=== PATIENT | male | born 1960 | race African-American/Black ===

== ENCOUNTER 2022-01-01 14:27 | Outpatient (REF) | payer OTHER, SELFPAY ==
[2022-01-01 14:54] LABS: MANUAL DIFF FLAG NO
[2022-01-01 15:04] LABS: Basophils Percent Auto 1.3 % (0-2); Eosinophils Absolute Auto 0.1 X10*3/uL (0.0-0.4); Hematocrit 42.2 % (42.0-52.0); Hemoglobin 14.1 g/dl (14.0-18.0); Imm Gran Abs Auto 0.01 X10*3/uL (0.00-0.03); Imm Gran Pct Auto 0.3 % (0.0-0.4); Lymphocytes Absolute Auto 1.2 X10*3/uL (1.2-4.9); Lymphocytes Percent Auto 40.3 % (20-40); Mean Corpuscular HGB Conc 33.4 g/dl (31.0-36.0); Mean Corpuscular Hemoglobin 27.6 pg (27.0-33.0); Mean Corpuscular Volume 82.7 fL (80.0-98.0); Mean Platelet Volume 10.5 fL (9.4-12.4); Monocytes Absolute Auto 0.4 X10*3/uL (0.1-1.2); Monocytes Percent Auto 13.4 % (2-11); Neutrophils Absolute Auto 1.2 x10*3/uL (2.0-8.3); Neutrophils Percent Auto 41.7 % (45-73); Platelet Count 267 X10*3/uL (160-400); Red Cell Distribution Width 14.1 % (11.0-16.0)
[2022-01-01 15:44] LABS: Erythrocyte Sedimentation Rate 11 MM/HR (0-15)
[2022-01-03 14:47] LABS: IgA 198 mg/dL (70-320); IgG 1310 mg/dL (600-1540); IgM 25 mg/dL (50-300)
[2022-01-06 12:35] LABS: Rast Allergen SEE COMMENTS
== END 2022-01-01 14:28 | disposition home or self-care (01) ==
LOC: HO.LAB 14:27
PROVIDERS: PCP Internal Medicine; Visit Provider Hospitalist
DX: J45.909 Unspecified asthma, uncomplicated (principal); Z91.09 Other allergy status, other than to drugs and biological substances
CPT/HCPCS: 36415; 82784; 82785; 85025; 85652; 86003

== ENCOUNTER 2022-01-23 10:05 | Outpatient (REF) | payer OTHER, SELFPAY ==
--- NOTE | 2022-01-23 11:15 | PFT_ITS ---
INDICATION: Dyspnea. SPIROMETRY: FEV1 to FVC of 90% with an FEV1 of 3.13 L, which is 115% predicted and an FVC of 3.49 L, which is 99% predicted. No significant response to bronchodilators noted. Maximum voluntary ventilation 88% predicted. LUNG VOLUMES: Total lung capacity 82% predicted with a residual volume 81% predicted. The expiratory reserve volume 47% predicted. DIFFUSION CAPACITY: DLCO 97% predicted. The flow volume loop appears to be completely normal consistent with normal lung mechanics. COMPARISONS: None. INTERPRETATION: No obstructive or restrictive ventilatory defects identified. No significant response to bronchodilators noted. Normal maximum voluntary ventilation. Lung volumes are low normal and a decrease in the expiratory reserve volume secondary to an elevated BMI. Diffusion capacity is within normal limits. If asthma is in the differential, methacholine challenge may be helpful in assessing for hyper-reactive airways. Otherwise clinical correlation warranted. Eleazar Real MD MR/MODL / [id number]
== END 2022-01-23 10:06 | disposition home or self-care (01) ==
LOC: HO.RESP 10:05
PROVIDERS: PCP Internal Medicine; Visit Provider Hospitalist
DX: J45.909 Unspecified asthma, uncomplicated (principal); G47.33 Obstructive sleep apnea (adult) (pediatric)
CPT/HCPCS: 94060; 94727; 94729

== ENCOUNTER → 2022-03-13 09:57 | Outpatient (BNVA) | payer OTHER, SELFPAY | PROVIDERS: PCP Internal Medicine; Visit Provider Hospitalist | DX: J45.909 Unspecified asthma, uncomplicated (principal); R60.0 Localized edema ==

== ENCOUNTER → 2022-07-04 10:33 | Outpatient (BNVA) | payer OTHER, SELFPAY | PROVIDERS: PCP Internal Medicine; Visit Provider Hospitalist ==

== ENCOUNTER 2022-10-24 13:24 | Outpatient (AMB) | payer OTHER, SELFPAY ==
--- NOTE | 2022-10-24 13:46 | AM.OFFWIN_ITS ---
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 Patient Tobacco Use Status: Never used Tobacco Allergies Penicillins Adverse Reaction (Severe, Verified 10/24/22 14:08) Anxiety pineapple Adverse Reaction (Severe, Verified 10/24/22 14:08) swellling Medication List - Last Reconciled 10/24/22 by Jose Almaraz MD albuterol sulfate 90 mcg/actuation (ProAir HFA) 2 puffs inhalation Q4-6H PRN alprazolam (Xanax) 0.5 mg PO DAILY amlodipine 10 mg PO DAILY budesonide-formoterol 80-4.5 mcg/actuation (Symbicort) 2 puffs inhalation BID PRN mohamud.stocking,knee,reg,xlrg 15-20 cm meloxicam 15 mg PO DAILY omeprazole 20 mg PO DAILY sildenafil 50 mg PO DAILY PRN Do you need a note to return to daycare/school/sports/work: No 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 Patient is reporting headaches on the right side of the face. He had symptoms for the past week. Went into the emergency room at [facility] and had a CT scan in blood work done. All tests were unremarkable. Blood pressure medications he takes and his blood pressure has been fluctuating. No blurred vision, nausea or vomiting. [facility] Medical History (Updated 10/24/22 @ 14:09 by Jose Almaraz MD) Atelectasis GERD (gastroesophageal reflux disease) ZOE (obstructive sleep apnea) Extremity edema Asthma Social History (Updated 01/01/22 @ 13:46 by OLIVER Barrett) Patient Tobacco Use Status: Never used Tobacco Physical Exam Vital Signs: Last Vital Signs Pulse 71 10/24/22 13:49 BP 140/90 H 10/24/22 13:49 Pulse Ox 98 10/24/22 13:49 Oxygen Delivery Method Room Air 10/24/22 13:49 Const General: cooperative and healthy appearing Nutritional Appearance: well nourished Orientation/consciousness: patient oriented x3 Limitations: no limitations HEENT Head: Yes normal to inspection Eyes General: appearance normal, both eyes and all related structures Neck Neck: Yes normal visual inspection Chest Chest palpation & inspection: normal palpation of entire chest wall Resp Effort & Inspection: normal respiratory effort Neuro General: patient oriented x3 Assessment & Plan Assessment & Plan (1) Headache: Code(s): R51.9 - Headache, unspecified Qualifiers: Headache type: tension-type Headache chronicity pattern: episodic headache Intractability: not intractable Qualified Code(s): G44.219 - Episodic tension-type headache, not intractable Plan: Meloxicam added to the regimen. Continue blood pressure medications at the same dosage. Medications: New meloxicam 15 mg PO DAILY 14 tabs 0RF Coding Level of Care Code New Pt Level 3 (11638) Diagnoses Episodic tension-type headache, not intractable G44.219 Headache type: tension-type Headache chronicity pattern: episodic headache Intractability: not intractable
[2022-10-24 13:49] VITALS: BP 140/90; PULSE 71; O2SAT 98
== END 2022-10-24 14:43 | disposition home or self-care (01) ==
PROVIDERS: PCP Internal Medicine; Visit Provider Internal Medicine
DX: G44.219 Episodic tension-type headache, not intractable (principal)
CPT/HCPCS: 99203

== ENCOUNTER 2023-02-27 09:19 | Outpatient (AMB) | payer OTHER, SELFPAY ==
[2023-02-27 09:30] VITALS: BP 142/70; PULSE 71; O2SAT 99; BMI 34.7
--- NOTE | 2023-02-27 09:30 | A.OFFVIS_ITS ---
Intake Vital Signs 02/27/23 09:30 Height 5 ft 11 in Weight 249 lb BMI 34.7 BP 142/70 H Blood Pressure Location Rt brachial Position Sitting Pulse 71 Pulse Source Pulse Oximeter Pulse Oximetry (%) 99 Oxygen Delivery Method Room Air Intake Visit Reasons: Obstructive sleep apnea Allergies Penicillins Adverse Reaction (Severe, Verified 02/27/23 09:33) Anxiety pineapple Adverse Reaction (Severe, Verified 02/27/23 09:33) swellling HPI HPI Comments History of Present Illness Details The patient is a 62-year-old gentleman who was in his usual state health until back early 2019 when he developed severe COVID. He was hospit alized and nearly intubated for his respiratory failure. The patient subsequently discharged. He did not require oxygen. Although he started noticing some increasing shortness of breath and chest tightness. He continues to have an ongoing intermittent cough and usually congestion at nighttime. He does have rhonchi at nighttime. He has undergone imaging studies including a chest x-ray in June 2021 at [facility] [place] demonstrating bibasilar atelectasis. The patient was given inhaler, Symbicort. He does not use it regularly. He has not seen any significant improvement either. He is also being evaluated for his underlying cardiovascular risk factors. He was found to have elevated cholesterols and also found to be pre diabetic. He is currently working on his diet and also on his exercise to improve his health. In the meantime the patient does have underlying daytime drowsiness. He has an elevated [place] score of 10/24. The patient does have episodes of apnea that have been documented in waking up short of breath. The patient also has significant snoring. In addition to that he does have underlying reflux disease. She does take a PPI and he has been educated today about the reflux diet. Otherwise the patient is doing well he is trying to improve his overall health status. 03/13/2022 the patient is here for a pulm onary follow-up visit. The patient overall is doing well. He is trying to exercise more any healthy. He is very motivated at this time. He has already lost a good amount of weight. The patient did undergo the blood work again demonstrating some degree of leukopenia. Mainly neutropenia. Apparently he has had blood work in the past demonstrating the similar findings. He is scheduled to see a irrigation equipment mechanic on her in addition to that the blood work demonstrated low IgM level. Explained to him that this can result in further immunodeficiencies went finding off a new infection. However, this is only a mild decrease. The patient also underwent pulmonary function studies which were reassuring although a low normal total lung capacity. The patient continues to have daytime drowsiness [place] score still elevated 11/04. He did undergo home sleep study which I personally reviewed with him. He has an AHI of 10. He also has significant tachycardia and significant hypoxia demonstrating some cardiovascular stress during his sleep. Patient needs to start CPAP therapy. He already has cardiovascular risk factors. Once he situated on CPAP will consider doing an overnight oximetry to make sure that he is doing better. 07/04/2022 the patient is here for a pulm onary follow-up visit. The patient overall is doing a lot better. He continues to exercise regularly and he has lost about 40 lb. He is very motivated. There was a little scared about tuberculosis with a positive PPD but then his QuantiFERON test came back negative for tuberculosis. He also had a chest x-ray which I personally reviewe d with him demonstrating no acute disease. The patient is doing well with CPAP. The CPAP therapy continues to be affecting beneficial. He does have a nasal mask that sometimes leaks around the mask difficult to get a good seal. I did have a P 10 large mask that he did put on and he liked. Therefore he took at home. I will request that mask from his [employer] company at this time. Overall the patient is doing well from a respiratory status. He knows to uses singular seasonally. The Symbicort he has not been using regularly but he can use it as needed. The patient will follow-up in a year's time. 02/27/2023 the patient is here for a pulm onary follow-up visit. The patient is doing very well. He has been using the CPAP every night CPAP therapy continues to be affecting beneficial. His AHI is down to 0.3 as we download the data. He does use it for more than 4 hours a night. Still is is hard for him to tolerate the therapy every night. Sometimes is wondering if he is going to need to uses therapy for ever. We did talk about alternative therapies. We also looked at his sleep study and he does well with positional therapy. If he is also decide to do positional therapy will do an overnight oximetry to make sure that his oxygen and heart rate continued to be stable. He is also lost 40 lb in +and therefore this also help him decrease his degree of apneic episodes. Still th ough he understands that the CPAP therapy is the goal standard he does very well with the therapy. Therefore, continue the CPAP therapy will be the best option. As far as dyspnea he is exercising regularly. We did do a brief walking oximetry up the stairs in his heart rate became elevated up to 130. Once the heart rate increased to about 125 he did became dyspneic. Therefore, when he exercises will try to continue the heart rate in the exercise to maintain a pulse ox just below the threshold. [facility] Medical History (Updated 02/27/23 @ 22:28 by Eleazar Real MD) Atelectasis GERD (gastroesophageal reflux disease) ZOE (obstructive sleep apnea) Extremity edema Asthma Social History (Updated 01/01/22 @ 13:46 by Hannah Garcia [facility]) Patient Tobacco Use Status: Never used Tobacco Review of Systems Const Denies daytime sleepiness, Denies difficulty sleeping and Reports weight loss Eyes Denies change in vision ENT Denies change in voice, Reports nasal congestion and Reports nasal discharge Card Denies chest pain and Denies dyspnea on exertion Resp Denies chest congestion, Reports cough, Denies dyspnea on exertion and Denies wheezing GI Denies abdominal pain Musc Reports no additional complaints Skin/Breast Denies rash Neuro Reports no additional complaints Rivera/Lymph Denies easy bleeding and Denies easy bruising Aller/Immun Denies wheezing Physical Exam Vital Signs: Last Vital Signs Pulse 71 02/27/23 09:30 BP 142/70 H 02/27/23 09:30 Pulse Ox 99 02/27/23 09:30 Oxygen Delivery Method Room Air 02/27/23 09:30 BMI result Body Mass Index 34.7 Const General: comfortable HEENT Head: Yes atraumatic Eyes General: appearance normal, both eyes and all related structures Neck Neck: Yes trachea midline and Yes supple Chest Chest palpation & inspection: normal inspection of the chest Resp Effort & Inspection: normal respiratory effort Auscultation: clear to auscultation bilaterally Cardio Rate: regular rate Rhythm: regular rhythm Heart sounds: S1 normal heart sound present and S2 normal heart sound present GI Auscultation: normal bowel sounds Skin Rashes: no rashes Extrem General: No clubbing, No cyanosis and Yes edema Assessment & Plan Assessment & Plan (1) ZOE (obstructive sleep apnea): Code(s): G47.33 - Obstructive sleep apnea (adult) (pediatric) (2) Asthma: Code(s): J45.909 - Unspecified asthma, uncomplicated Qualifiers: Asthma severity: mild Asthma persistence: intermittent Asthma complication type: uncomplicated Qualified Code(s): J45.20 - Mild intermittent asthma, uncomplicated (3) GERD (gastroesophageal reflux disease): Code(s): K21.9 - Gastro-esophageal reflux disease without esophagitis Qualifiers: Esophagitis presence: without esophagitis Qualified Code(s): K21.9 - Gastro-esophageal reflux disease without esophagitis (4) Atelectasis: Code(s): J98.11 - Atelectasis Plan continue symbicort as needed continue Singulair reflux diet continue APAP, will request p10 large nasal pillows. AHI is 0.3. Should continue to use the CPAP. otherwise he can consider positional therapy consider overnight oximetry if decides to do positional therapy F/U 12 months Coding Level of Care Code Est Pt Level 4 (44964) Diagnoses ZOE (obstructive sleep apnea) G47.33 Mild intermittent asthma without complication J45.20 Asthma severity: mild Asthma persistence: intermittent Asthma complication type: uncomplicated Gastroesophageal reflux disease without esophagitis K21.9 Esophagitis presence: without esophagitis Atelectasis J98.11 Time Spent (min) 17
== END 2023-02-27 09:55 | disposition home or self-care (01) ==
PROVIDERS: PCP Internal Medicine; Visit Provider Hospitalist
DX: G47.33 Obstructive sleep apnea (adult) (pediatric) (principal); J45.20 Mild intermittent asthma, uncomplicated; K21.9 Gastro-esophageal reflux disease without esophagitis; J98.11 Atelectasis
CPT/HCPCS: 99214

== ENCOUNTER → 2023-02-27 09:19 | Outpatient (BNVA) | payer OTHER, SELFPAY | PROVIDERS: PCP Internal Medicine; Visit Provider Hospitalist ==

== ENCOUNTER 2023-05-13 13:36 | Outpatient (AMB) | payer OTHER, SELFPAY ==
[2023-05-13 14:07] VITALS: BP 132/78; PULSE 72; O2SAT 98; BMI 33.8
--- NOTE | 2023-05-13 14:07 | A.OFFPC_ITS ---
Vital Signs 05/13/23 14:07 Height 5 ft 11 in Weight 242 lb 0.4 oz BMI 33.8 BP 132/78 Blood Pressure Location Rt brachial Position Sitting Pulse 72 Pulse Source Pulse Oximeter Pulse Oximetry (%) 98 Oxygen Delivery Method Room Air Intake Visit Reasons: New patient-High BP, Asthma Optometry Doctor Required: No Allergies Penicillins Adverse Reaction (Severe, Verified 05/13/23 14:08) Anxiety pineapple Adverse Reaction (Severe, Verified 05/13/23 14:08) swellling Medication List - Last Reconciled 05/13/23 by José Miguel Espinoza MD albuterol sulfate 90 mcg/actuation (ProAir HFA) 2 puffs inhalation Q4-6H PRN alprazolam (Xanax) 0.5 mg PO DAILY amlodipine 10 mg PO DAILY budesonide-formoterol 80-4.5 mcg/actuation (Symbicort) 2 puffs inhalation BID PRN mohamud.stocking,knee,reg,xlrg 15-20 cm olmesartan 20 mg PO DAILY omeprazole 20 mg PO DAILY sildenafil 50 mg PO DAILY PRN Tobacco use date assessed: 05/13/23 Dental Screening Dental Screen Date: 05/13/23 Did you have a dental visit in the last 12 months?: Yes Did you have a dental problem in the last 6 months where you did not have access to dental care?: No Was dental information given to patient?: Patient has dentist HPI New patient-High BP, Asthma HPI Details 62-year-old obese male with a history of asthma sleep apnea GERD 1st time being seen. Review of the notes follows up with Pulmonary had an overnight oximetry has hypoxemic events and needs further sleep testing. From pulmonary notes 2020 had severe COVID. Patient was placed on Symbicort but has not used it found to be hypercholesterolemia and prediabetic. Has sleep apnea and on CPAP [facility] Medical History (Updated 05/13/23 @ 14:57 by José Miguel Espinoza MD) Atelectasis GERD (gastroesophageal reflux disease) ZOE (obstructive sleep apnea) Extremity edema Asthma Surgical History (Updated 05/13/23 @ 14:43 by José Miguel Espinoza MD) History of knee replacement procedure of left knee Social History (Updated 05/13/23 @ 14:45 by José Miguel Espinoza MD) Alcohol intake: never Patient Tobacco Use Status: Former Tobacco user Years Smoked: 12 year old not a year service: Yes ([employer] [id number] ) Current occupational status: retired Cognitive needs: No Hearing needs: No Vision needs: No Questionnaire PHQ-9 Over the last 2 weeks, how often have you been bothered by any of the following problems? 1. Little interest or pleasure in doing things: not at all 2. Feeling down, depressed, or hopeless: not at all 3. Trouble falling or staying asleep, or sleeping too much: not at all 4. Feeling tired or having little energy: not at all 5. Poor appetite or overeating: not at all 6. Feeling bad about yourself - or that you are a failure or have let yourself or your family down: not at all 7. Trouble concentrating on things, such as reading the newspaper or watching television: not at all 8. Moving or speaking so slowly that other people could have noticed. Or the opposite - being so fidgety or restless that you have been moving around a lot more than usual: not at all 9. Thoughts that you would be better off or of hurting yourself in some way: not at all Total score: 0 Depression Screening Interpretation: Negative Depression Screening Done: Yes 34651 - PHQ-9 Billing: Yes Source: Developed by Drs. David Jeong, Jo Whitney, Cristofer Meyer and colleagues, with an educational esther from [employer]. Thrive Questionnaire Date Thrive assessed: 05/13/23 I am a: Patient What is your living situation today?: I have a steady place to live Within the past 12 months, did the food you bought not last and you didn't have the money to get more?: Never true Within the past 12 months, did you worry whether your food would run out before you got money to buy more?: Never true Do you have trouble paying for medicines?: No Do you have trouble getting transportation to medical appointments?: No Do you have trouble paying your heating and electricity bill?: No Do you have trouble taking care of your child, family member or friend?: No Do you have trouble with day-to-day activities such as bathing, preparing meals, shopping, managing finances, etc.?: No Are you currently unemployed and looking for a job?: No Are you interested in more education?: No Please select the resources that you would like help with: None Currently or been in a relationship where the following occur: no concerns reported THRIVE Score: 0 AUDIT C Alcohol Use Questionnaire (AUDIT-C) 1. How often do you have a drink containing alcohol?: Never 2. How many drinks containing alcohol do you have on a typical day when you are drinking?: 1 or 2 (0) 3. How often do you have six or more drinks on one occasion?: Never Total Score: 0 ALISON-7 AMB Questionnaire ALISON-7 Date ALISON - 7 assessed: 05/13/23 Feeling nervous, anxious, or on edge: 0 = Not at all Not being able to stop or control worryin = Not at all Worrying too much about different things: 0 = Not at all Trouble relaxin = Not at all Being so restless that it is hard to sit still: 0 = Not at all Becoming easily annoyed or irritable: 0 = Not at all Feeling afraid as if something awful might happen: 0 = Not at all Total ALISON-7 score (0-4 normal; 5-9 mild; 10-14 moderate; 15-21 severe): 0 Source: Developed by Drs. David Jeong, Jo Whitney, Cristofer Meyer and colleagues, with an educational esther from [employer]. ALISON-7 Assessment Billing ALISON-7 Assessment Tool: ALISON-7 Assessment 53596 Physical exam (Primary Care) Vital Signs: Last Vital Signs Pulse 72 05/13/23 14:07 BP 132/78 05/13/23 14:07 Pulse Ox 98 05/13/23 14:07 Oxygen Delivery Method Room Air 05/13/23 14:07 BMI result Body Mass Index 33.8 Tobacco/Smoking Status: Tobacco use Status Tobacco use date assessed 05/13/23 05/13/23 14:15 Patient Tobacco Use Status Former Tobacco user 05/13/23 14:45 PHQ-9: PHQ-9 Score PHQ-9: Total score 0 05/13/23 14:35 Depression Screening Interpretation: Negative Thrive Assessment: Date of Thrive Assessment Date Thrive assessed 05/13/23 05/13/23 14:15 Currently or been in a relationship where the following occur: no concerns reported Const General: alert; No acute distress Eyes Conjunctivae: conjunctivae normal Resp Auscultation: clear to auscultation bilaterally Cardio Rate: regular rate Rhythm: regular rhythm GI Inspection: Yes normal to inspection Extrem General: Yes normal to inspection and No edema Assessment and Plan Assessment & Plan (1) Asthma: Code(s): J45.909 - Unspecified asthma, uncomplicated Qualifiers: Asthma complication type: uncomplicated Asthma persistence: intermittent Asthma severity: mild Qualified Code(s): J45.20 - Mild intermittent asthma, uncomplicated Plan: Continue with Symbicort and ProAir and follows up with Pulmonary (2) ZOE (obstructive sleep apnea): Comment: CPAP Code(s): G47.33 - Obstructive sleep apnea (adult) (pediatric) Plan: Continue to use the CPAP more than 4 hours a night and benefits from this. Patient does follow-up with Pulmonary (3) GERD (gastroesophageal reflux disease): Code(s): K21.9 - Gastro-esophageal reflux disease without esophagitis Qualifiers: Esophagitis presence: without esophagitis Qualified Code(s): K21.9 - Gastro-esophageal reflux disease without esophagitis Plan: Avoid the foods that causes that usually spicy foods, tomato products, juices, coffee, soda and foods that your sensitive to. After eating do not lie down, allow 3-4 hours before in lie down. And keep the head of bed above 30 degrees to avoid the acid from going up. (4) Impaired glucose tolerance: Code(s): R73.02 - Impaired glucose tolerance (oral) Plan: Decrease the amount of carbohydrate intake, pasta, bread, rice and potatoes are all sugar and that is aside from all the sweet stuff, remember that fruits are good but they are Sweet also. (5) Hypercholesterolemia: Code(s): E78.00 - Pure hypercholesterolemia, unspecified Plan: Avoid fried foods, chicken skin, eggs, butter margarine, pastries and meat. Be it pork or beef they have a lot of cholesterol LDL goal of less than 130 triglyceride of less than 150 (6) Obesity (BMI 30-39.9): Code(s): E66.9 - Obesity, unspecified Plan: Diet and exercise (7) Hypertension: Code(s): I10 - Essential (primary) hypertension Plan: Continue with blood pressure medication. Decrease salt intake and exercise presently on amlodipine 10 mg once a day olmesartan 20 mg once a day (8) Generalized anxiety disorder: Code(s): F41.1 - Generalized anxiety disorder (9) Frequency of micturition: Code(s): R35.0 - Frequency of micturition (10) Erectile dysfunction: Code(s): N52.9 - Male erectile dysfunction, unspecified Orders: Orders Hemoglobin A1c Today R73.02 - Impaired glucose tolerance (oral) Comprehensive Met. Panel Today R73.02 - Impaired glucose tolerance (oral) Free T4 (Free Thyroxine) Today R73.02 - Impaired glucose tolerance (oral) Complete Blood Count Auto Diff Today R73.02 - Impaired glucose tolerance (oral) Lipid Panel Today E78.00 - Pure hypercholesterolemia, unspecified, R73.02 - Impaired glucose tolerance (oral) Thyroid Stimulating Hormone Today R73.02 - Impaired glucose tolerance (oral) Vitamin B12 and Folate Today R73.02 - Impaired glucose tolerance (oral) Prostate Specific Antigen Scr Today R73.02 - Impaired glucose tolerance (oral) US bladder Today R35.0 - Frequency of micturition Medications: New psyllium husk mix into at least 8 oz of water or juice before administering 1 tbsp PO BID 480 grams 0RF R35.0 - Frequency of micturition Coding Level of Care Code New Pt Level 4 (74363) Diagnoses Mild intermittent asthma without complication J45.20 Asthma complication type: uncomplicated Asthma persistence: intermittent Asthma severity: mild ZOE (obstructive sleep apnea) G47.33 Gastroesophageal reflux disease without esophagitis K21.9 Esophagitis presence: without esophagitis Impaired glucose tolerance R73.02 Hypercholesterolemia E78.00 Obesity (BMI 30-39.9) E66.9 Hypertension I10 Generalized anxiety disorder F41.1 Frequency of micturition R35.0 Erectile dysfunction N52.9 Additional Codes ALISON-7 Assessment Billing - ALISON-7 Assessment Tool: ALISON-7 Assessment [id number] ([id number])
== END 2023-05-13 15:33 | disposition home or self-care (01) ==
PROVIDERS: PCP Internal Medicine; Visit Provider Internal Medicine
DX: I10 Essential (primary) hypertension (principal); J45.20 Mild intermittent asthma, uncomplicated; G47.33 Obstructive sleep apnea (adult) (pediatric); K21.9 Gastro-esophageal reflux disease without esophagitis; R73.02 Impaired glucose tolerance (oral); E78.00 Pure hypercholesterolemia, unspecified; F41.1 Generalized anxiety disorder; R35.0 Frequency of micturition; N52.9 Male erectile dysfunction, unspecified
CPT/HCPCS: 99204

== ENCOUNTER 2023-05-22 09:32 | Outpatient (REF) | payer OTHER, SELFPAY ==
--- NOTE | ~2023-05-22 | US_ITS ---
EXAMINATION: US PELVIS LIMITED (BLADDER) CLINICAL INFORMATION: Frequency of micturition. COMPARISON: None available. TECHNIQUE: Real-time imaging of the bladder. FINDINGS: BLADDER: Distended urinary bladder with prevoid volume 411 mL and postvoid volume 112 mL. ADDITIONAL FINDINGS: Enlarged prostate measuring 280 mL. US/US bladder IMPRESSION: Enlarged prostate. Distended urinary bladder with post void residual of 112 mL.
[2023-05-22 10:37] LABS: MANUAL DIFF FLAG NO
[2023-05-22 10:46] LABS: Basophils Absolute Auto 0.1 X10*3/uL (0.0-0.2); Basophils Percent Auto 1.8 % (0-2); Eosinophils Absolute Auto 0.2 X10*3/uL (0.0-0.4); Eosinophils Percent Auto 5.4 % (0-4); Hematocrit 41.8 % (42.0-52.0); Hemoglobin 13.8 g/dl (14.0-18.0); Imm Gran Abs Auto 0.01 X10*3/uL (0.00-0.03); Imm Gran Pct Auto 0.4 % (0.0-0.4); Lymphocytes Absolute Auto 1.1 X10*3/uL (1.2-4.9); Lymphocytes Percent Auto 40.6 % (20-40); Mean Corpuscular Hemoglobin 28.3 pg (27.0-33.0); Mean Corpuscular Volume 85.7 fL (80.0-98.0); Mean Platelet Volume 10.7 fL (9.4-12.4); Monocytes Absolute Auto 0.4 X10*3/uL (0.1-1.2); Monocytes Percent Auto 15.6 % (2-11); Neutrophils Percent Auto 36.2 % (45-73); Platelet Count 232 X10*3/uL (160-400); Red Blood Count 4.88 X10*6/uL (4.60-5.80); Red Cell Distribution Width 13.3 % (11.0-16.0); White Blood Count 2.8 X10*3/uL (4.8-10.8)
[2023-05-22 11:38] LABS: Estimated Average Glucose 100 mg/dL; Hemoglobin A1c % 5.1 % (<6.0)
[2023-05-22 11:51] LABS: Alanine Aminotransferase 22 U/L (0-40); Alkaline Phosphatase 95 U/L (39-117); Anion Gap 12 (12-20); Aspartate Amino Transferase 34 U/L (5-37); Bilirubin Total 0.5 mg/dL (0.0-1.0); Blood Urea Nitrogen 13 mg/dL (9-16); Calcium 8.6 mg/dL (8.4-10.2); Carbon Dioxide 28 mmol/L (22-29); Chloride 103 mmol/L (96-108); Cholesterol 188 mg/dL (<200); Estimated Glomerular Filt Rate > 60; Glucose Random 87 mg/dL (60-115); HDL Cholesterol 47 mg/dL (>40); LDL Cholesterol Calculated 128 mg/dL (<100); Potassium 3.9 mmol/L (3.3-5.1); Sodium 139 mmol/L (135-145); Triglycerides 68 mg/dL (<150)
[2023-05-22 13:56] LABS: Folate 6.8 ng/mL (> or = 4.0); Prostate Specific Antigen Scr 0.81 ng/mL (<0.05-4.0)
[2023-05-22 19:54] LABS: Vitamin B12 270 pg/mL (200-900)
== END 2023-05-22 09:33 | disposition home or self-care (01) ==
LOC: HO.HMGCX 09:32
PROVIDERS: PCP Internal Medicine; Visit Provider Internal Medicine
DX: Z12.5 Encounter for screening for malignant neoplasm of prostate (principal); R35.0 Frequency of micturition; R73.02 Impaired glucose tolerance (oral); E78.00 Pure hypercholesterolemia, unspecified
CPT/HCPCS: 36415; 76857; 80053; 80061; 82607; 82746; 83036; 84153; 84439; 84443; 85025

== ENCOUNTER 2023-06-10 15:24 | Outpatient (AMB) | payer OTHER, SELFPAY ==
[2023-06-10 16:12] VITALS: BP 140/84; PULSE 74; TEMP 36.6; O2SAT 98; BMI 34.0
--- NOTE | 2023-06-10 16:12 | AM.OFFWIN_ITS ---
Intake Vital Signs 06/10/23 16:12 Height 5 ft 11 in Weight 244 lb BMI 34.0 BP 140/84 H Blood Pressure Location Lt brachial Position Sitting Pulse 74 Pulse Source Pulse Oximeter Temp 97.9 F Temp Source Temporal Artery Scan Pulse Oximetry (%) 98 Oxygen Delivery Method Room Air Intake Visit Reasons: EP Runny nose, itchy skin, Sore throat Intake Note: Pt presents to the office today for c/o runny nose,itchy skin, and a sore throat that has been going on for about a week. Patient Tobacco Use Status: Former Tobacco user Allergies Penicillins Adverse Reaction (Severe, Verified 06/10/23 16:41) Anxiety pineapple Adverse Reaction (Severe, Verified 06/10/23 16:41) swellling Medication List - Last Reconciled 06/10/23 by Jose Almaraz MD albuterol sulfate 90 mcg/actuation (Proventil HFA) 2 puffs inhalation Q4-6H PRN alprazolam (Xanax) 0.5 mg PO DAILY amlodipine 10 mg PO DAILY budesonide-formoterol 80-4.5 mcg/actuation (Symbicort) 2 puffs inhalation BID PRN mohamud.stocking,knee,reg,xlrg 15-20 cm olmesartan 20 mg PO DAILY omeprazole 20 mg PO DAILY psyllium husk 1 tbsp PO BID sildenafil 50 mg PO DAILY PRN tamsulosin 0.4 mg PO BEDTIME HPI EP Runny nose, itchy skin, Sore throat HPI Details 62 yr old male presents to the office fo r a sick visit. Itchy skin and scratching all over the body. Running nose and burning sensation in the eyes and throat. No shortness of breath. No fevers or chills. [facility] Medical History Atelectasis GERD (gastroesophageal reflux disease) ZOE (obstructive sleep apnea) Extremity edema Asthma Surgical History History of knee replacement procedure of left knee Social History Alcohol intake: never Patient Tobacco Use Status: Former Tobacco user Years Smoked: 12 year old not a year service: Yes ([employer] [id number] ) Current occupational status: retired Cognitive needs: No Hearing needs: No Vision needs: No Physical Exam Vital Signs: Last Vital Signs Temp 97.9 F 06/10/23 16:12 Pulse 74 06/10/23 16:12 BP 140/84 H 06/10/23 16:12 Pulse Ox 98 06/10/23 16:12 Oxygen Delivery Method Room Air 06/10/23 16:12 BMI result Body Mass Index 34.0 Const General: cooperative and healthy appearing Nutritional Appearance: well nourished Orientation/consciousness: patient oriented x3 Limitations: no limitations HEENT Head: Yes normal to inspection Eyes General: appearance normal, both eyes and all related structures Neck Neck: Yes normal visual inspection Chest Chest palpation & inspection: normal palpation of entire chest wall Resp Effort & Inspection: normal respiratory effort Skin Other: Faint scratch garcia on the skin. Neuro General: patient oriented x3 Assessment & Plan Assessment & Plan (1) Allergies: Code(s): T78.40XA - Allergy, unspecified, initial encounter Plan: Benadryl and claritin suggested. If sx do not improve to follow up here Coding Level of Care Code Est Pt Level 3 (76989) Diagnoses Allergies T78.40XA
== END 2023-06-10 16:45 | disposition home or self-care (01) ==
PROVIDERS: PCP Internal Medicine; Visit Provider Internal Medicine
DX: T78.40XA Allergy, unspecified, initial encounter (principal)
CPT/HCPCS: 99213

== ENCOUNTER 2023-06-17 10:44 | Outpatient (AMB) | payer OTHER, SELFPAY ==
[2023-06-17 10:52] VITALS: PULSE 82; O2SAT 97; BMI 34.3
--- NOTE | 2023-06-17 10:52 | MHC.OFFVIS ---
Vital Signs 06/17/23 10:52 Height 5 ft 11 in Weight 245 lb 13.047 oz BMI 34.3 Pulse 82 Pulse Source Pulse Oximeter Pulse Oximetry (%) 97 Oxygen Delivery Method Room Air Intake Visit Reasons: ZOE Benefits Consulting Analyst Required: No Allergies Penicillins Adverse Reaction (Severe, Verified 06/17/23 10:53) Anxiety pineapple Adverse Reaction (Severe, Verified 06/17/23 10:53) swellling HPI Comments Details: The patient is a 62-year-old gentleman who was in his usual state health until back early 2019 when he developed severe COVID. He was hospitalized and nearly intubated for his respiratory failure. The patient subsequently discharged. He did not require oxygen. Although he started noticing some increasing shortness of breath and chest tightness. He continues to have an ongoing intermittent cough and usually congestion at nighttime. He does have rhonchi at nighttime. He has undergone imaging studies including a chest x-ray in June 2021 at [facility] demonstrating bibasilar atelectasis. The patient was given inhaler, Symbicort. He does not use it regularly. He has not seen any significant improvement either. He is also being evaluated for his underlying cardiovascular risk factors. He was found to have elevated cholesterols and also found to be pre diabetic. He is currently working on his diet and also on his exercise to improve his health. In the meantime the patient does have underlying daytime drowsiness. He has an elevated Bear score of 10/24. The patient does have episodes of apnea that have been documented in waking up short of breath. The patient also has significant snoring. In addition to that he does have underlying reflux disease. She does take a PPI and he has been educated today about the reflux diet. Otherwise the patient is doing well he is trying to improve his overall health status. 03/13/2022 the patient is here for a pulmonary follow-up visit. The patient overall is doing well. He is trying to exercise more any healthy. He is very motivated at this time. He has already lost a good amount of weight. The patient did undergo the blood work again demonstrating some degree of leukopenia. Mainly neutropenia. Apparently he has had blood work in the past demonstrating the similar findings. He is scheduled to see a exhaust emissions automotive technician on her in addition to that the blood work demonstrated low IgM level. Explained to him that this can result in further immunodeficiencies went finding off a new infection. However, this is only a mild decrease. The patient also underwent pulmonary function studies which were reassuring although a low normal total lung capacity. The patient continues to have daytime drowsiness Bear score still elevated 11/04. He did undergo home sleep study which I personally reviewed with him. He has an AHI of 10. He also has significant tachycardia and significant hypoxia demonstrating some cardiovascular stress during his sleep. Patient needs to start CPAP therapy. He already has cardiovascular risk factors. Once he situated on CPAP will consider doing an overnight oximetry to make sure that he is doing better. 07/04/2022 the patient is here for a pulmonary follow-up visit. The patient overall is doing a lot better. He continues to exercise regularly and he has lost about 40 lb. He is very motivated. There was a little scared about tuberculosis with a positive PPD but then his QuantiFERON test came back negative for tuberculosis. He also had a chest x-ray which I personally reviewed with him demonstrating no acute disease. The patient is doing well with CPAP. The CPAP therapy continues to be affecting beneficial. He does have a nasal mask that sometimes leaks around the mask difficult to get a good seal. I did have a P 10 large mask that he did put on and he liked. Therefore he took at home. I will request that mask from his [employer] company at this time. Overall the patient is doing well from a respiratory status. He knows to uses singular seasonally. The Symbicort he has not been using regularly but he can use it as needed. The patient will follow-up in a year's time. 02/27/2023 the patient is here for a pulmonary follow-up visit. The patient is doing very well. He has been using the CPAP every night CPAP therapy continues to be affecting beneficial. His AHI is down to 0.3 as we download the data. He does use it for more than 4 hours a night. Still is is hard for him to tolerate the therapy every night. Sometimes is wondering if he is going to need to uses therapy for ever. We did talk about alternative therapies. We also looked at his sleep study and he does well with positional therapy. If he is also decide to do positional therapy will do an overnight oximetry to make sure that his oxygen and heart rate continued to be stable. He is also lost 40 lb in +and therefore this also help him decrease his degree of apneic episodes. Still though he understands that the CPAP therapy is the goal standard he does very well with the therapy. Therefore, continue the CPAP therapy will be the best option. As far as dyspnea he is exercising regularly. We did do a brief walking oximetry up the stairs in his heart rate became elevated up to 130. Once the heart rate increased to about 125 he did became dyspneic. Therefore, when he exercises will try to continue the heart rate in the exercise to maintain a pulse ox just below the threshold. 06/17/2023 the patient is here for a pulmonary follow-up visit. The patient has been doing very well. His breathing is a lot better he continues exercise regularly. He does have a Symbicort inhaler that he uses as needed. The patient has been also using the CPAP for about 70 time. The therapy has been affecting beneficial. His AHI is well below 1 with does uses CPAP. The patient is without any complaints he is continued to do well continues to stay active exercising regularly. If the patient has any difficulties would call for an earlier assessment otherwise will follow-up in a year's time. [facility] Medical History Atelectasis GERD (gastroesophageal reflux disease) ZOE (obstructive sleep apnea) Extremity edema Asthma Surgical History History of knee replacement procedure of left knee Social History (Updated 06/17/23 @ 10:57 by Eleazar Real MD) Alcohol intake: never Patient Tobacco Use Status: Never used Tobacco e-Cigarette/Vaping Use: Never Used service: Yes ([employer] [id number] ) Current occupational status: retired Cognitive needs: No Hearing needs: No Vision needs: No Review of Systems Const Denies daytime sleepiness, Denies difficulty sleeping and Reports weight loss Eyes Denies change in vision ENT Denies change in voice, Reports nasal congestion and Reports nasal discharge Card Denies chest pain and Denies dyspnea on exertion Resp Denies chest congestion, Reports cough, Denies dyspnea on exertion and Denies wheezing GI Denies abdominal pain Musc Reports no additional complaints Skin/Breast Denies rash Neuro Reports no additional complaints Rivera/Lymph Denies easy bleeding and Denies easy bruising Aller/Immun Denies wheezing Physical Exam Vital Signs: Last Vital Signs Pulse 82 06/17/23 10:52 Pulse Ox 97 06/17/23 10:52 Oxygen Delivery Method Room Air 06/17/23 10:52 BMI result Body Mass Index 34.3 Const General: comfortable HEENT Head: Yes atraumatic Eyes General: appearance normal, both eyes and all related structures Neck Neck: Yes trachea midline and Yes supple Chest Chest palpation & inspection: normal inspection of the chest Resp Effort & Inspection: normal respiratory effort Auscultation: clear to auscultation bilaterally Cardio Rate: regular rate Rhythm: regular rhythm Heart sounds: S1 normal heart sound present and S2 normal heart sound present GI Auscultation: normal bowel sounds Skin Rashes: no rashes Extrem General: No clubbing, No cyanosis and Yes edema Assessment & Plan Assessment & Plan (1) ZOE (obstructive sleep apnea): Comment: CPAP Code(s): G47.33 - Obstructive sleep apnea (adult) (pediatric) Category: Medical (2) Asthma: Code(s): J45.909 - Unspecified asthma, uncomplicated Category: Medical Qualifiers: Asthma complication type: uncomplicated Asthma persistence: intermittent Asthma severity: mild Qualified Code(s): J45.20 - Mild intermittent asthma, uncomplicated (3) GERD (gastroesophageal reflux disease): Code(s): K21.9 - Gastro-esophageal reflux disease without esophagitis Category: Medical Qualifiers: Esophagitis presence: without esophagitis Qualified Code(s): K21.9 - Gastro-esophageal reflux disease without esophagitis (4) Atelectasis: Code(s): J98.11 - Atelectasis Category: Medical Plan continue symbicort as needed continue Singulair reflux diet continue APAP, will request p10 large nasal pillows. AHI is 0.3. Should continue to use the CPAP. F/U 12 months Coding Level of Care Code Est Pt Level 4 (87952) Diagnoses ZOE (obstructive sleep apnea) G47.33 Mild intermittent asthma without complication J45.20 Asthma complication type: uncomplicated Asthma persistence: intermittent Asthma severity: mild Gastroesophageal reflux disease without esophagitis K21.9 Esophagitis presence: without esophagitis Atelectasis J98.11 Time Spent (min) 16
== END 2023-06-17 11:12 | disposition home or self-care (01) ==
PROVIDERS: PCP Internal Medicine; Visit Provider Hospitalist
DX: G47.33 Obstructive sleep apnea (adult) (pediatric) (principal); J45.20 Mild intermittent asthma, uncomplicated; K21.9 Gastro-esophageal reflux disease without esophagitis; J98.11 Atelectasis
CPT/HCPCS: 99214

== ENCOUNTER → 2023-06-17 10:44 | Outpatient (BNVA) | payer OTHER, SELFPAY | PROVIDERS: PCP Internal Medicine; Visit Provider Hospitalist ==

== ENCOUNTER 2023-07-23 10:59 | Outpatient (AMB) | payer OTHER, SELFPAY ==
--- NOTE | 2023-07-23 11:03 | A.OFFVIS_ITS ---
Intake Visit Reasons: BPH Intake Note: New Patient presents today for initial visit to establish treatment for : BPH Urology Medications: Tamsulosin, Sildenafil Allergies to Antibiotic: PCN Blood Thinner: none PVR: 55ml's Metals Sales Representative Required: No Accompanied by: Self / Same As Patient Allergies Penicillins Adverse Reaction (Severe, Verified 07/23/23 21:54) Anxiety pineapple Adverse Reaction (Severe, Verified 07/23/23 21:54) swellling Medication List - Last Reconciled 07/23/23 by LUIS Gaffney-GONZALEZ albuterol sulfate 90 mcg/actuation (Proventil HFA) 2 puffs inhalation Q4-6H PRN alprazolam (Xanax) 0.5 mg PO DAILY amlodipine 10 mg PO DAILY budesonide-formoterol 80-4.5 mcg/actuation (Symbicort) 2 puffs inhalation BID PRN mohamud.stocking,knee,reg,xlrg 15-20 cm olmesartan 20 mg PO DAILY omeprazole 20 mg PO DAILY psyllium husk 1 tbsp PO BID sildenafil 100 mg PO DIRECTED tamsulosin 0.4 mg PO BEDTIME HPI Comments Details: Norbert is a very pleasant 62-year-old male patient of Dr. Espinoza. He has a past medical history of GERD, obstructive sleep apnea compliant with CPAP, and asthma. He presents to the office today as a new patient for enlarged prostate. In discussion with the patient today he reports previously following up with [facility] at which time recommendations were made for tamsulosin given patient's lower urinary tract symptoms. However, patient discusses having followed up with PCP at which time a bladder ultrasound was ordered and performed. These results were reviewed with the patient today. Distended urinary bladder with pre void volume of a proximally 410 mL. Postvoid bladder volume is approximately 115 mL. Enlarged prostate measuring 280 mL. In review of patient's chart it appears PSA 06/04 0.8. He reports feeling Flomax has been helpful in his lower urinary tract symptoms he had been experiencing however had stopped taking the medication as he typically does not like taking medications unless necessary. He currently denies any bothersome urinary issues or concerns. He discusses at length losing over 45 lb over the last few months to a year intentionally. He discusses going to the gym daily. In office urinalysis results reviewed with the patient today. PVR 55 mL. He discusses taking p.r.n. Viagra 50 mg and feels this is helpful with maintaining his erections. Discussed at length enlarged prostate as well as incomplete bladder emptying. Discussed potential causes and affects of these urological issues. All questions were answered. He otherwise offers no other issues or concerns at this time. [facility] Medical History Atelectasis GERD (gastroesophageal reflux disease) ZOE (obstructive sleep apnea) Extremity edema Asthma Surgical History History of knee replacement procedure of left knee Social History Alcohol intake: never Patient Tobacco Use Status: Never used Tobacco e-Cigarette/Vaping Use: Never Used service: Yes ([employer] [id number] ) Current occupational status: retired Cognitive needs: No Hearing needs: No Vision needs: No Review of Systems Const All systems reviewed & are unremarkable except as noted in HPI and below Physical Exam Const General: cooperative, healthy appearing, comfortable, no acute distress, well developed, alert and awake Nutritional Appearance: overweight Orientation/consciousness: patient oriented x3 Limitations: no limitations HEENT Head: Yes normal to inspection, Yes normocephalic and Yes atraumatic Ears: hearing grossly normal bilaterally Eyes General: appearance normal, both eyes and all related structures Neck Neck: Yes normal visual inspection and Yes trachea midline Chest Chest palpation & inspection: normal inspection of the chest Resp Effort & Inspection: normal respiratory effort and able to speak in complete sentences Cardio Rate: regular rate GI Inspection: Yes normal to inspection General: Yes no CVA tenderness Back/Spine/Pelvis Back: no CVA tenderness Skin General skin exam: no rashes or lesions noted Neuro General: patient oriented x3 Extrem General: Yes normal to inspection Psych Appearance: grossly normal and well kempt Mental Status: mental status grossly normal Speech and movement: Normal speech and movement present and Clear speech present Affect: normal affect Attitude: cooperative Thought process: Normal thought process present Thought content: Normal thought content present Insight: Fair insight present (Psych) Judgement: Fair judgement present (Psych) Office Procedures Post Void Residual Post Residual Void Post Void Residual (PVR): 55 16184-[id number] Void Residual by ultrasound Results AMB Urinalysis, Automated UA Leukoctes 0 Lela/uL Last Edit by Mauricio Bishop on 07/23/23 11:30 UA Nitrite Negative Last Edit by Mauricio Bishop on 07/23/23 11:30 UA Urobilinogen 0.2 mg/dL Last Edit by Mauricio Bishop on 07/23/23 11:30 UA Protein 15 mg/dL Last Edit by Mauricio Bishop on 07/23/23 11:30 UA pH 6.5 Last Edit by Mauricio Bishop on 07/23/23 11:30 UA Blood 0 Edwin/uL Last Edit by Mauricio Bishop on 07/23/23 11:30 UA Specific Valier 1.010 Last Edit by Mauricio Bishop on 07/23/23 11:30 UA Ketone Negative Last Edit by Mauricio Bishop on 07/23/23 11:30 UA Bilirubin 0 mg/dL Last Edit by Mauricio Bishop on 07/23/23 11:30 UA Glucose 0 mg/dL Last Edit by Mauricio Bishop on 07/23/23 11:30 Results Reviewed Results Reviewed: Laboratory Last Values Urine pH (Auto) 6.5 07/23/23 11:10 Specific Valier (Auto) 1.010 07/23/23 11:10 Urine Protein (Auto) 15 mg/dL 07/23/23 11:10 Glucose (UA)(Auto) 0 mg/dL 07/23/23 11:10 Urine Ketones (Auto) Negative 07/23/23 11:10 Urine Blood (Auto) 0 Edwin/uL 07/23/23 11:10 Urine Nitrite (Auto) Negative 07/23/23 11:10 Urine Bilirubin (Auto) 0 mg/dL 07/23/23 11:10 Urine Urobilinogen (Auto) 0.2 mg/dL 07/23/23 11:10 Leukocyte Esterase (Auto) 0 Lela/uL 07/23/23 11:10 Date of Service: 05/22/23 EXAMINATION: US PELVIS LIMITED (BLADDER) FINDINGS: BLADDER: Distended urinary bladder with prevoid volume 411 mL and postvoid volume 112 mL. ADDITIONAL FINDINGS: Enlarged prostate measuring 280 mL. IMPRESSION: Enlarged prostate. Distended urinary bladder with post void residual of 112 mL. Assessment & Plan Assessment & Plan (1) BPH (benign prostatic hyperplasia): Code(s): N40.0 - Benign prostatic hyperplasia without lower urinary tract symptoms Category: Medical (2) Erectile dysfunction: Code(s): N52.9 - Male erectile dysfunction, unspecified Category: Medical (3) Enlarged prostate: Code(s): N40.0 - Benign prostatic hyperplasia without lower urinary tract symptoms Category: Medical Plan In office urinalysis results reviewed with the patient today; as noted above. PVR 55 mL. Recent bladder ultrasound results reviewed with the patient today; as noted above. Discussed further treatment options for enlarged prostate; this was discussed at length Continue as needed Viagra for sexual activity Start Flomax as discussed and prescribed. Discussed at length potential causes and affects of incomplete bladder emptying. Discussed in office cystoscopy for further assessment evaluation given enlarged prostate verses trial of finasteride; risks and benefits of these interventions were discussed. Discussed importance of continuing to be compliant with CPAP machine for improve ment in lower urinary tract symptoms as well as overall health and well-being. Patient currently denies any bothersome urinary issues or concerns He reports be happy with current voiding parameters. Patient would like time to think about information provided at today's office visit therefore will follow-up in 3 months Will follow-up in 3 months with PVR; or sooner with any issues, concerns, and or questions. Orders: Orders AMB Post Void Residual by ultrasound Today N40.0 - Benign prostatic hyperplasia without lower urinary tract symptoms AMB Urinalysis Automated Today Z13.9 - Encounter for screening, unspecified Patient Instructions: The patient had an opportunity to ask questions regarding the treatment plan. All questions were answered. Physical exam, labs, and imaging were discussed and reviewed in detail. As well as risks, benefits, and discussion of treatment choices. No major barriers to understanding were identified. The patient expressed understanding and agreement with the above treatment plan. The patient was made aware they should contact our office by phone for worsening of their current condition, the appearance of new symptoms, or with any questions or concerns. Compliance is encouraged with any medications and follow up testing that is ordered. It is a privilege to be allowed the opportunity to participate in? your urological care.? Again, if you have any questions or concerns If you have any questions or concerns please do not hesitate to contact me. The office is [phone]. This note is constructed using voice recognition software. While every effort has been made to ensure accuracy superintendent communications errors may have been included. Yours sincerely, LUIS Gaffney-BC Coding Level of Care Code New Pt Level 4 (86245) Diagnoses BPH (benign prostatic hyperplasia) N40.0 Erectile dysfunction N52.9 Enlarged prostate N40.0 CPT Codes Post Residual Void - PVR CPT Code: 55268-Qtll Void Residual by ultrasound ([id number]) Time Spent (min) 35
== END 2023-07-23 12:51 | disposition home or self-care (01) ==
PROVIDERS: PCP Internal Medicine; Visit Provider Nurse Practitioner Family
DX: N40.0 Benign prostatic hyperplasia without lower urinary tract symptoms (principal); N52.9 Male erectile dysfunction, unspecified; Z13.9 Encounter for screening, unspecified
CPT/HCPCS: 99204

== ENCOUNTER → 2023-07-23 10:59 | Outpatient (BNVA) | payer OTHER, SELFPAY | PROVIDERS: PCP Internal Medicine; Visit Provider Nurse Practitioner Family | DX: N40.0 Benign prostatic hyperplasia without lower urinary tract symptoms (principal); N52.9 Male erectile dysfunction, unspecified; Z79.899 Other long term (current) drug therapy | CPT/HCPCS: 51798; 81003 ==

== ENCOUNTER 2023-09-04 10:00 | Outpatient (REF) | payer OTHER, SELFPAY ==
--- NOTE | ~2023-09-04 | FL_ITS ---
EXAMINATION: XR FLUOROSCOPY UPPER GI WITH AIR CLINICAL INFORMATION: Reflux, epigastric discomfort. COMPARISON: None TECHNIQUE: Fluoroscopic air contrast upper GI examination was performed utilizing standard techniques with thin and thick barium and effervescent granules. Numerous spot images were obtained. FINDINGS: Dual and single contrast images of the esophagus demonstrate normal caliber, contour, and mucosal pattern. No evidence of stricture, mass, or ulcerations identified. Esophageal peristalsis is mildly disorganized A very small type I hiatal hernia is present. No significant gastroesophageal reflux was seen during the course of the examination and on reflux views. Dual contrast and single contrast images of the stomach demonstrated a normal contour. The gastric rugal folds have a mildly thickened appearance. No mass, ulceration, or other abnormality is seen. Contrast freely passed into the gastric antrum and duodenal bulb without delay. Single and air-contrast images of the duodenal bulb demonstrate no abnormality. The duodenal sweep has a normal appearance, course, and mucosal fold appearance. The imaged proximal jejunum has a normal fold pattern and caliber. FLUOROSCOPY TIME: 4 minutes 9 seconds Number of Spot Images: 8 Number of Cine: 14 DOSE AREA PRODUCT: 3550 uGy-m2 (microgray-meter squared) FL/FL upper GI w air IMPRESSION: 1. Mildly disorganized esophageal peristalsis. 2. Very small type I hiatal hernia. 3. Mildly thickened appearance of the gastric rugal folds which suggests gastritis. This procedure was performed by Humphrey Clayton PA-C, and supervised by Dr. Wilson
== END 2023-09-04 10:01 | disposition home or self-care (01) ==
LOC: HO.XRAY 10:00
PROVIDERS: PCP Internal Medicine; Visit Provider Internal Medicine
DX: R13.10 Dysphagia, unspecified (principal); K21.9 Gastro-esophageal reflux disease without esophagitis
CPT/HCPCS: 74246

== ENCOUNTER → 2023-09-04 10:01 | Outpatient (BNV) | payer OTHER, SELFPAY | PROVIDERS: PCP Internal Medicine; Visit Provider Physician Assistant Surgical | DX: R13.10 Dysphagia, unspecified (principal) | CPT/HCPCS: 74246 ==

== ENCOUNTER 2023-10-24 08:24 | Outpatient (AMB) | payer OTHER, SELFPAY ==
--- NOTE | 2023-10-24 08:28 | A.OFFPC_ITS ---
Vital Signs 10/24/23 08:29 Height 5 ft 11 in Weight 241 lb BMI 33.6 BP 128/76 Blood Pressure Location Lt brachial Position Sitting Pulse 74 Pulse Source Pulse Oximeter Pulse Oximetry (%) 98 Oxygen Delivery Method Room Air Intake Visit Reasons: patient follow up Allergies Penicillins Adverse Reaction (Severe, Verified 10/24/23 08:29) Anxiety pineapple Adverse Reaction (Severe, Verified 10/24/23 08:29) swellling Tobacco use date assessed: 05/13/23 Fall risk assessment: No Falls in past year Last assessed Fall Risk: 10/24/23 Dental Screening Dental Screen Date: 05/13/23 HPI HPI Comments History of Present Illness Details 63-year-old obese male with asthma, obst ructive sleep apnea GERD impaired glucose tolerance hypercholesterolemia hypertension generalized anxiety disorder last seen in May 2023. Patient had colonoscopy in 01/30/2021. Patient had dysphagia and reflux and had the upper GI series done results showi ng disorganized esophageal peristalsis, very small hiatal hernia thickened gastric folds suggesting gastritis. Patient has also followed up with Dermatology guttate hypomelanosis and dermatosis papulosis so. Patient has also seen urology for BPH patient had some urinary retention due to enlarged prostate on Flomax and Viagra patient also follows up with Pulmonary june 2023 for the asthma and sleep apnea. Singulair, reflux diet and continuing with CPAP. Patient was also in the Urgent Center in May 2023 for allergy symptoms. 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 singulair is discontinued. not helping. has been taking xanax and wants to decrease PFSH Medical History (Updated 10/24/23 @ 19:07 by José Miguel Espinoza MD) Enlarged prostate Atelectasis GERD (gastroesophageal reflux disease) ZOE (obstructive sleep apnea) Extremity edema Asthma Surgical History History of knee replacement procedure of left knee Social History Alcohol intake: never Patient Tobacco Use Status: Never used Tobacco Tobacco use type: Cigarette e-Cigarette/Vaping Use: Never Used Second Hand Smoke Exposure: No service: Yes ([employer] [id number] ) Current occupational status: retired Cognitive needs: No Hearing needs: No Vision needs: Yes Questionnaire PHQ-9 Over the last 2 weeks, how often have you been bothered by any of the following problems? 1. Little interest or pleasure in doing things: not at all 2. Feeling down, depressed, or hopeless: not at all 3. Trouble falling or staying asleep, or sleeping too much: not at all 4. Feeling tired or having little energy: not at all 5. Poor appetite or overeating: not at all 6. Feeling bad about yourself - or that you are a failure or have let yourself or your family down: not at all 7. Trouble concentrating on things, such as reading the newspaper or watching television: not at all 8. Moving or speaking so slowly that other people could have noticed. Or the opposite - being so fidgety or restless that you have been moving around a lot more than usual: not at all 9. Thoughts that you would be better off or of hurting yourself in some way: not at all Total score: 0 Depression Screening Interpretation: Negative Depression Screening Done: Yes 70765 - PHQ-9 Billing: Yes Source: Developed by Drs. David Jeong, Cristofer Azevedo and colleagues, with an educational esther from [employer]. Thrive Questionnaire Date Thrive assessed: 05/13/23 AUDIT C Alcohol Use Questionnaire (AUDIT-C) 1. How often do you have a drink containing alcohol?: Never 2. How many drinks containing alcohol do you have on a typical day when you are drinking?: 1 or 2 (0) 3. How often do you have six or more drinks on one occasion?: Never Total Score: 0 ALISON-7 AMB Questionnaire ALISON-7 Date ALISON - 7 assessed: 05/13/23 Source: Developed by Drs. David Jeong, Cristofer Azevedo and colleagues, with an educational esther from [employer]. Physical exam (Primary Care) Vital Signs: Last Vital Signs Pulse 74 10/24/23 08:29 BP 128/76 10/24/23 08:29 Pulse Ox 98 10/24/23 08:29 Oxygen Delivery Method Room Air 10/24/23 08:29 BMI result Body Mass Index 33.6 Tobacco/Smoking Status: Tobacco use Status Tobacco use date assessed 05/13/23 10/24/23 08:32 Patient Tobacco Use Status Never used Tobacco 10/24/23 08:32 Tobacco use type Cigarette 10/24/23 08:32 e-Cigarette/Vaping Use Never Used 10/24/23 08:32 PHQ-9: PHQ-9 Score PHQ-9: Total score 0 10/24/23 19:07 Depression Screening Interpretation: Negative Thrive Assessment: Date of Thrive Assessment Date Thrive assessed 05/13/23 10/24/23 08:32 Const General: alert; No acute distress Eyes Conjunctivae: conjunctivae normal Resp Auscultation: clear to auscultation bilaterally Cardio Rate: regular rate Rhythm: regular rhythm GI Inspection: Yes normal to inspection Extrem General: Yes normal to inspection and No edema Immunizations tetanus-diphtheria toxoids-Td 2 Lf unit-2 Lf unit/0.5 mL IM suspension Performing Provider: José Miguel Espinoza MD [facility] Administered by: Usha Loza CMA on 10/24/23 09:07 Dose Route Admin Location Dispensed Lot Number Expiration Date NDC Asphalt Tamper 0.5 mL IM Left Deltoid 0.5 mL [id number] 03/23/24 [address]-7 [employer] VIS Given Date VIS Provided VIS Publication Date 10/24/23 Single Vaccine 20 Eligibility Eligibility Date Funding Source Not [facility] Eligible 10/24/23 State funds Assessment and Plan Assessment & Plan (1) Asthma: Code(s): J45.909 - Unspecified asthma, uncomplicated Qualifiers: Asthma complication type: uncomplicated Asthma persistence: intermittent Asthma severity: mild Qualified Code(s): J45.20 - Mild intermittent asthma, uncomplicated Plan: Patient is presently on albuterol and Symbicort and Pulmonary has ask for Singulair. (2) ZOE (obstructive sleep apnea): Comment: CPAP Code(s): G47.33 - Obstructive sleep apnea (adult) (pediatric) Plan: Continue to use the CPAP more than 4 hours a night and benefits from this. (3) GERD (gastroesophageal reflux disease): Code(s): K21.9 - Gastro-esophageal reflux disease without esophagitis Qualifiers: Esophagitis presence: without esophagitis Qualified Code(s): K21.9 - Gastro-esophageal reflux disease without esophagitis Plan: Avoid the foods that causes that usually spicy foods, tomato products, juices, coffee, soda and foods that your sensitive to. After eating do not lie down, allow 3-4 hours before in lie down. And keep the head of bed above 30 degrees to avoid the acid from going up. On omeprazole (4) Obesity (BMI 30-39.9): Code(s): E66.9 - Obesity, unspecified Plan: Diet and exercise (5) Hypertension: Code(s): I10 - Essential (primary) hypertension Qualifiers: Hypertension type: primary hypertension Qualified Code(s): I10 - Essential (primary) hypertension Plan: Continue with blood pressure medication. Decrease salt intake and exercise on olmesartan 20 mg once a day amlodipine 10 mg once a day (6) BPH (benign prostatic hyperplasia): Code(s): N40.0 - Benign prostatic hyperplasia without lower urinary tract symptoms Qualifiers: Lower urinary tract symptom detail: urinary frequency Lower urinary tract symptom presence: symptoms present Qualified Code(s): N40.1 - Benign prostatic hyperplasia with lower urinary tract symptoms; R35.0 - Frequency of micturition Plan: Patient has seen Urology and has placed on tamsulosin. (7) Erectile dysfunction: Code(s): N52.9 - Male erectile dysfunction, unspecified Qualifiers: Erectile dysfunction type: unspecified Qualified Code(s): N52.9 - Male erectile dysfunction, unspecified Plan: Continue with as needed sildenafil. Orders: Orders Comprehensive Met. Panel Today E78.00 - Pure hypercholesterolemia, unspecified Thyroid Stimulating Hormone Today E78.00 - Pure hypercholesterolemia, unspecified Lipid Panel Today E78.00 - Pure hypercholesterolemia, unspecified Ferritin Today E78.00 - Pure hypercholesterolemia, unspecified Reticulocyte Count Today E78.00 - Pure hypercholesterolemia, unspecified Complete Blood Count Auto Diff Today E78.00 - Pure hypercholesterolemia, unspecified Free T4 (Free Thyroxine) Today E78.00 - Pure hypercholesterolemia, unspecified Vitamin B12 and Folate Today E78.00 - Pure hypercholesterolemia, unspecified Prostate Specific Antigen Scr Today E78.00 - Pure hypercholesterolemia, unspecified Hemoglobin A1c Today E78.00 - Pure hypercholesterolemia, unspecified IRON PROFILE Today E78.00 - Pure hypercholesterolemia, unspecified UA w Microscopic Today E78.00 - Pure hypercholesterolemia, unspecified Td State Immunization Today Z23 - Encounter for immunization Coding Level of Care Code Est Pt Level 4 (42801) Complex EM visit Add On G2211 Diagnoses Mild intermittent asthma without complication J45.20 Asthma complication type: uncomplicated Asthma persistence: intermittent Asthma severity: mild ZOE (obstructive sleep apnea) G47.33 Gastroesophageal reflux disease without esophagitis K21.9 Esophagitis presence: without esophagitis Obesity (BMI 30-39.9) E66.9 Primary hypertension I10 Hypertension type: primary hypertension Benign prostatic hyperplasia with urinary frequency N40.1; R35.0 Lower urinary tract symptom detail: urinary frequency Lower urinary tract symptom presence: symptoms present Erectile dysfunction, unspecified erectile dysfunction type N52.9 Erectile dysfunction type: unspecified
[2023-10-24 08:29] VITALS: BP 128/76; PULSE 74; O2SAT 98; BMI 33.6
== END 2023-10-24 12:43 | disposition home or self-care (01) ==
PROVIDERS: PCP Internal Medicine; Visit Provider Internal Medicine
DX: Z23 Encounter for immunization (principal); J45.20 Mild intermittent asthma, uncomplicated; G47.33 Obstructive sleep apnea (adult) (pediatric); K21.9 Gastro-esophageal reflux disease without esophagitis; I10 Essential (primary) hypertension; N40.1 Benign prostatic hyperplasia with lower urinary tract symptoms; R35.0 Frequency of micturition; N52.9 Male erectile dysfunction, unspecified
CPT/HCPCS: 90471; 90714; 99214

== ENCOUNTER 2023-10-24 09:21 | Outpatient (REF) | payer OTHER, SELFPAY ==
[2023-10-24 09:54] LABS: MANUAL DIFF FLAG NO
[2023-10-24 11:02] LABS: Basophils Percent Auto 1.2 % (0-2); Eosinophils Absolute Auto 0.2 X10*3/uL (0.0-0.4); Eosinophils Percent Auto 5.9 % (0-4); Hematocrit 41.8 % (42.0-52.0); Hemoglobin 13.6 g/dl (14.0-18.0); Imm Gran Abs Auto 0.02 X10*3/uL (0.00-0.03); Imm Gran Pct Auto 0.6 % (0.0-0.4); Immature Retic Fraction 17.3 % (2.3-13.4); Lymphocytes Percent Auto 31.5 % (20-40); Mean Corpuscular HGB Conc 32.5 g/dl (31.0-36.0); Mean Corpuscular Hemoglobin 28.5 pg (27.0-33.0); Mean Corpuscular Volume 87.6 fL (80.0-98.0); Mean Platelet Volume 11.1 fL (9.4-12.4); Monocytes Absolute Auto 0.5 X10*3/uL (0.1-1.2); Neutrophils Absolute Auto 1.5 x10*3/uL (2.0-8.3); Neutrophils Percent Auto 46.8 % (45-73); Platelet Count 224 X10*3/uL (160-400); Red Blood Count 4.77 X10*6/uL (4.60-5.80); Red Cell Distribution Width 13.4 % (11.0-16.0); Retic HGB Equivalent 31.5 pg (30.0-35.0); Reticulocyte Percent 1.6 % (0.5-1.8); Reticulocytes Absolute 0.078 X10*6/uL (0.026-0.095); White Blood Count 3.2 X10*3/uL (4.8-10.8)
[2023-10-24 11:05] LABS: Appearance Urine Clear; Color Urine Yellow; Glucose Urine UA Negative (Negative); Leukocyte Esterase Urine Negative (Negative); Nitrite Urine Negative (Negative); PH 6.5 (5.0-9.0); Specific Gravity - Urine 1.025 (1.005-1.025); Urine Blood Negative (Negative); Urine Ketones Trace mg/dL (Negative); Urine Protein Trace mg/dL (Neg-Trace)
[2023-10-24 11:07] LABS: Estimated Average Glucose 103 mg/dL; Hemoglobin A1c % 5.2 % (<6.0)
[2023-10-24 11:11] LABS: Bacteria Urine None Seen (None Seen); Hyaline Casts Urine 0-2 /LPF (0-2); RBC Urine 0-2 /HPF (0-2); Squamous Epithelial Cell Urine 0-2 /HPF (0-2); WBC Urine 0-5 /HPF (0-5)
[2023-10-24 11:41] LABS: Alanine Aminotransferase 20 U/L (0-40); Albumin Level 4.1 g/dL (3.5-5.0); Alkaline Phosphatase 81 U/L (39-117); Anion Gap 12 (12-20); Aspartate Amino Transferase 31 U/L (5-37); Bilirubin Total 0.4 mg/dL (0.0-1.0); Blood Urea Nitrogen 14 mg/dL (9-16); Calcium 8.9 mg/dL (8.4-10.2); Carbon Dioxide 27 mmol/L (22-29); Chloride 106 mmol/L (96-108); Cholesterol 182 mg/dL (<200); Estimated Glomerular Filt Rate > 60; Ferritin 182 ng/mL (20-250); Free T4 (Free Thyroxine) 0.79 ng/dL (0.71-1.85); Glucose Random 92 mg/dL (60-115); HDL Cholesterol 50 mg/dL (>40); Iron 55 mcg/dL (45-160); LDL Cholesterol Calculated 120 mg/dL (<100); Percent Iron Saturation 27 % (15-50); Potassium 4.2 mmol/L (3.3-5.1); Sodium 141 mmol/L (135-145); Thyroid Stimulating Hormone 2.51 uIU/mL (0.32-4.0); Total Iron Binding Capacity 205 mcg/dL (228-428); Total Protein 7.4 g/dL (6.5-8.0); Triglycerides 61 mg/dL (<150); Unsaturated Iron Binding 150 ug/dL
[2023-10-24 11:50] LABS: Folate 5.3 ng/mL (> or = 4.0); Prostate Specific Antigen Scr 0.72 ng/mL (<0.05-4.0); Vitamin B12 519 pg/mL (200-900)
== END 2023-10-24 09:22 | disposition home or self-care (01) ==
LOC: HO.LAB 09:21
PROVIDERS: PCP Internal Medicine; Visit Provider Internal Medicine
DX: E78.00 Pure hypercholesterolemia, unspecified (principal); Z12.5 Encounter for screening for malignant neoplasm of prostate; Z13.1 Encounter for screening for diabetes mellitus
CPT/HCPCS: 36415; 80053; 80061; 81001; 82607; 82728; 82746; 83036; 83540; 84153; 84439; 84443; 85025; 85045

== ENCOUNTER 2023-10-25 15:08 | Outpatient (AMB) | payer OTHER, SELFPAY ==
--- NOTE | 2023-10-25 15:09 | AM.OFFWIN_ITS ---
Intake Vital Signs 10/25/23 15:12 Height 5 ft 11 in Weight 242 lb BMI 33.7 BP 122/78 Blood Pressure Location Rt brachial Position Sitting Pulse 87 Pulse Source Pulse Oximeter Temp 98.4 F Temp Source Oral Pulse Oximetry (%) 98 Oxygen Delivery Method Room Air Intake Visit Reasons: EP congestion Intake Note: Patient here for chest congestion that has been present for about 1 week Patient Tobacco Use Status: Never used Tobacco Allergies Penicillins Adverse Reaction (Severe, Verified 10/25/23 15:14) Anxiety pineapple Adverse Reaction (Severe, Verified 10/25/23 15:14) swellling Do you need a note to return to daycare/school/sports/work: No HPI HPI Comments History of Present Illness Details Patient is a 63-year-old male complaining of nasal dripping, headaches and a productive cough with light yellow mucus. He states that 6 days ago one of his friends who he had been around tested positive for COVID. So he was asymptomatic but has tested himself multiple times including today for COVID and has been negative on each test. He has had on and off symptoms of his nose running, headaches, feeling tired and congested and a cough with with yellow mucus. He also has reflux and has been taking his reflux medication in case his cough was due to that. He denies any fevers, shortness of breath, sinus pain, ear pain. 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 Real, so he does have an inhaler which she has not needed to use more than his baseline usage. He has been eating and drinking his normal amount. 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 occupational status: retired Cognitive needs: No Hearing needs: No Vision needs: Yes Review of Systems Const All systems reviewed & are unremarkable except as noted in HPI and below Physical Exam Vital Signs: Last Vital Signs Temp 98.4 F 10/25/23 15:12 Pulse 87 10/25/23 15:12 BP 122/78 10/25/23 15:12 Pulse Ox 98 10/25/23 15:12 Oxygen Delivery Method Room Air 10/25/23 15:12 BMI result Body Mass Index 33.7 Const General: cooperative, healthy appearing, comfortable and no acute distress Orientation/consciousness: patient oriented x3 Limitations: no limitations HEENT Head: Yes normal to inspection Ears: hearing grossly normal bilaterally, external ears normal and TM's normal bilaterally General nose exam: Normal external nose present, Normal nares present and No nasal discharge present Face and sinus: Yes normal facial exam and Yes sinuses nontender Mouth: Normal oral and palatal mucosa present and moist mucous membranes Throat: Yes tonsils normal, Yes uvula midline and Yes posterior oropharynx abnormal (Erythema) Eyes General: appearance normal, both eyes and all related structures Neck Neck: Yes normal visual inspection Resp Effort & Inspection: normal respiratory effort, able to speak in complete sentences, Actively coughing, no respiratory distress, not tachypneic, no tripod positioning and no use of accessory muscles Auscultation: clear to auscultation bilaterally Cardio Rate: regular rate Rhythm: regular rhythm Heart sounds: normal S1 and S2 Skin General skin exam: no rashes or lesions noted Neuro General: patient oriented x3 Extrem General: Yes normal to inspection and Yes no clubbing, cyanosis or edema Assessment & Plan Assessment & Plan (1) URI (upper respiratory infection): Code(s): J06.9 - Acute upper respiratory infection, unspecified Qualifiers: URI type: unspecified URI Qualified Code(s): J06.9 - Acute upper respiratory infection, unspecified Plan: Likely a viral upper respiratory infection, probably not COVID because he is tested so many times and it has been negative but we did test him again today. Recommended he treat himself with over the counter medications for his symptoms. Plan see above Orders: Orders SARS-CoV2/FLU/RSV Today J06.9 - Acute upper respiratory infection, unspecified Coding Level of Care Code Est Pt Level 3 (66369) Diagnoses Upper respiratory tract infection, unspecified type J06.9 URI type: unspecified URI
[2023-10-25 15:12] VITALS: BP 122/78; PULSE 87; TEMP 36.9; O2SAT 98; BMI 33.7
== END 2023-10-25 15:48 | disposition home or self-care (01) ==
PROVIDERS: PCP Internal Medicine; Visit Provider Physician Assistant
DX: J06.9 Acute upper respiratory infection, unspecified (principal)
CPT/HCPCS: 99213

== ENCOUNTER 2023-10-25 15:20 | Outpatient (REF) | payer OTHER, SELFPAY ==
[2023-10-25 16:46] LABS: Influenza A PCR NEGATIVE (Negative); Influenza B PCR NEGATIVE (Negative); Resp Syncy Virus RNA Qual PCR NEGATIVE (Negative); SARS COV2 PCR INHOUSE NEGATIVE (Negative)
== END 2023-10-25 15:21 | disposition home or self-care (01) ==
LOC: HO.LAB 15:20
PROVIDERS: Visit Provider Physician Assistant
DX: J06.9 Acute upper respiratory infection, unspecified (principal)
CPT/HCPCS: 0241U

== ENCOUNTER 2023-10-31 08:44 | Outpatient (AMB) | payer OTHER, SELFPAY ==
--- NOTE | 2023-10-31 08:49 | A.OFFVIS_ITS ---
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 Accompanied by: Self / Same As Patient Allergies Penicillins Adverse Reaction (Severe, Verified 10/31/23 10:48) Anxiety pineapple Adverse Reaction (Severe, Verified 10/31/23 10:48) swellling Medication List - Last Reconciled 10/31/23 by LUIS Gaffney-GONZALEZ albuterol sulfate 90 mcg/actuation (Proventil HFA) 2 puffs inhalation Q4-6H PRN alprazolam (Xanax) 0.5 mg PO DAILY amlodipine 10 mg PO DAILY budesonide-formoterol 80-4.5 mcg/actuation (Symbicort) 2 puffs inhalation BID PRN mohamud.stocking,knee,reg,xlrg 15-20 cm olmesartan 20 mg PO DAILY omeprazole 20 mg PO DAILY psyllium husk 1 tbsp PO BID sildenafil 100 mg PO DIRECTED tamsulosin 0.4 mg PO BEDTIME HPI Comments Details: Norbert is a very pleasant 63-year-old male patient of Dr. Espinoza. He has a past medical history of GERD, obstructive sleep apnea compliant with CPAP, and asthma. He presents to the office today for follow-up. Of note, patient was seen approximately 3 months ago as a new patient for enlarged prostate at which time he was started on Flomax due to lower urinary tract symptoms he had been experiencing. In discussion with the patient today he reports feeling feeling significant improvement in nocturia he had been exp eriencing. He also reports noting his blood pressure has been doing much better as well. Previous workup has included a bladder ultrasound that noted 4/24 distended urinary bladder with pre void volume of a proximally 410 mL. Postvoid bladder volume is approximately 115 mL. Enlarged prostate measuring 280 mL. PSAs are as follows: 06/04 0.8, 11/04 0.7 He currently denies any bothersome urinary issues or concerns. He discusses at length his intentional weight loss journey over the last year. He reports going to the gym a proximally 5 times per week. In office urinalysis results reviewed with the patient today. PVR 51 mL. He discusses taking p.r.n. Viagra 50 mg and feels this is helpful with maintaining his erections. Discussed at length enlarged prostate as well as incomplete bladder emptying. Discussed potential causes and affects of these urological issues. All questions were answered. He otherwise offers no other issues or concerns at this time. [facility] Medical History Enlarged prostate Atelectasis GERD (gastroesophageal reflux disease) ZOE (obstructive sleep apnea) Extremity edema Asthma Surgical History History of knee replacement procedure of left knee Social History Alcohol intake: never Patient Tobacco Use Status: Never used Tobacco Tobacco use type: Cigarette e-Cigarette/Vaping Use: Never Used Second Hand Smoke Exposure: No service: Yes ([employer] [id number] ) Current occupational status: retired Cognitive needs: No Hearing needs: No Vision needs: Yes Review of Systems Const All systems reviewed & are unremarkable except as noted in HPI and below Physical Exam Const General: cooperative, healthy appearing, comfortable, no acute distress, well developed, alert and awake Nutritional Appearance: overweight Orientation/consciousness: patient oriented x3 Limitations: no limitations HEENT Head: Yes normal to inspection, Yes normocephalic and Yes atraumatic Ears: hearing grossly normal bilaterally Eyes General: appearance normal, both eyes and all related structures Neck Neck: Yes normal visual inspection and Yes trachea midline Chest Chest palpation & inspection: normal inspection of the chest Resp Effort & Inspection: normal respiratory effort and able to speak in complete sentences Cardio Rate: regular rate GI Inspection: Yes normal to inspection General: Yes no CVA tenderness Back/Spine/Pelvis Back: no CVA tenderness Skin General skin exam: no rashes or lesions noted Neuro General: patient oriented x3 Extrem General: Yes normal to inspection Psych Appearance: grossly normal and well kempt Mental Status: mental status grossly normal Speech and movement: Normal speech and movement present and Clear speech present Affect: normal affect Attitude: cooperative Thought process: Normal thought process present Thought content: Normal thought content present Insight: Fair insight present (Psych) Judgement: Fair judgement present (Psych) Office Procedures Post Void Residual Post Residual Void Post Void Residual (PVR): 51 [id number] Void Residual by ultrasound Results AMB Urinalysis, Automated UA Leukoctes 0 Lela/uL Last Edit by Mauricio Bishop on 10/31/23 09:08 UA Nitrite Last Edit by Mauricio Bishop on 10/31/23 09:08 UA Urobilinogen 0.2 mg/dL Last Edit by Hullabaluazar on 10/31/23 09:08 UA Protein 15 mg/dL Last Edit by Trade[employer] Bishop on 10/31/23 09:08 UA pH 7.0 Last Edit by Mauricio Bishop on 10/31/23 09:08 UA Blood 0 Edwin/uL Last Edit by [employer]izette CPM Braxisazar on 10/31/23 09:08 UA Specific [place] 1.015 Last Edit by Hullabaluazar on 10/31/23 09:08 UA Ketone Last Edit by Hullabaluazar on 10/31/23 09:08 UA Bilirubin 0 mg/dL Last Edit by TradeHeromi CPM Braxisazar on 10/31/23 09:08 UA Glucose 0 mg/dL Last Edit by TradeHeromi CPM Braxisazar on 10/31/23 09:08 Results Reviewed Results Reviewed: Laboratory Last Values Urine pH (Auto) 7.0 10/31/23 09:02 Specific [place] (Auto) 1.015 10/31/23 09:02 Urine Protein (Auto) 15 mg/dL 10/31/23 09:02 Glucose (UA)(Auto) 0 mg/dL 10/31/23 09:02 Urine Blood (Auto) 0 Edwin/uL 10/31/23 09:02 Urine Bilirubin (Auto) 0 mg/dL 10/31/23 09:02 Urine Urobilinogen (Auto) 0.2 mg/dL 10/31/23 09:02 Leukocyte Esterase (Auto) 0 Lela/uL 10/31/23 09:02 Assessment & Plan Assessment & Plan (1) BPH (benign prostatic hyperplasia): Code(s): N40.0 - Benign prostatic hyperplasia without lower urinary tract symptoms Category: Medical Qualifiers: Lower urinary tract symptom detail: urinary frequency Lower urinary tract symptom presence: symptoms present Qualified Code(s): N40.1 - Benign prostatic hyperplasia with lower urinary tract symptoms; R35.0 - Frequency of micturition (2) Erectile dysfunction: Code(s): N52.9 - Male erectile dysfunction, unspecified Category: Medical Qualifiers: Erectile dysfunction type: unspecified Qualified Code(s): N52.9 - Male erectile dysfunction, unspecified (3) Enlarged prostate: Code(s): N40.0 - Benign prostatic hyperplasia without lower urinary tract symptoms Category: Medical Plan In office urinalysis results reviewed with the patient today; as noted above. PVR 51 mL. Continue Flomax as discussed and prescribed. Recent PSA results reviewed with the patient today; as noted above. Patient currently denies any bothersome urinary issues or concerns. Discussed at length potential causes and affects of incomplete bladder emptying. Discussed importance of continuing to be compliant with CPAP machine for improvement in lower urinary tract symptoms as well as overall health and well- being. Patient currently denies any bothersome urinary issues or concerns He reports be happy with current voiding parameters. Follow-up in 6 months with PVR and PSA; or sooner with any issues, concerns, and or questions. Orders: Orders AMB Urinalysis Automated Today Z13.9 - Encounter for screening, unspecified AMB Post Void Residual by ultrasound Today R35.0 - Frequency of micturition Prostate Specific Antigen 6 Months N40.1 - Benign prostatic hyperplasia with lower urinary tract symptoms, R35.0 - Frequency of micturition Patient Instructions: The patient had an opportunity to ask questions regarding the treatment plan. All questions were answered. Physical exam, labs, and imaging were discussed and reviewed in detail. As well as risks, benefits, and discussion of treatment choices. No major barriers to understanding were identified. The patient expressed understanding and agreement with the above treatment plan. The patient was made aware they should contact our office by phone for worsening of their current condition, the appearance of new symptoms, or with any questions or concerns. Compliance is encouraged with any medications and follow up testing that is ordered. It is a privilege to be allowed the opportunity to participate in? your urological care.? Again, if you have any questions or concerns If you have any questions or concerns please do not hesitate to contact me. The office is [phone]. This note is constructed using voice recognition software. While every effort has been made to ensure accuracy manager search engine errors may have been included. Yours sincerely, ALEJANDRA Gaffney Coding Level of Care Code Est Pt Level 3 (24921) Complex EM visit Add On G2211 Diagnoses Benign prostatic hyperplasia with urinary frequency N40.1; R35.0 Lower urinary tract symptom detail: urinary frequency Lower urinary tract symptom presence: symptoms present Erectile dysfunction, unspecified erectile dysfunction type N52.9 Erectile dysfunction type: unspecified Enlarged prostate N40.0 CPT Codes Post Residual Void - PVR CPT Code: 27795-Sueq Void Residual by ultrasound ([id number])
== END 2023-10-31 09:30 | disposition home or self-care (01) ==
PROVIDERS: PCP Internal Medicine; Visit Provider Nurse Practitioner Family
DX: N40.1 Benign prostatic hyperplasia with lower urinary tract symptoms (principal); R35.0 Frequency of micturition; N52.9 Male erectile dysfunction, unspecified; N40.0 Benign prostatic hyperplasia without lower urinary tract symptoms; Z13.9 Encounter for screening, unspecified
CPT/HCPCS: 99213

== ENCOUNTER → 2023-10-31 08:44 | Outpatient (BNVA) | payer OTHER, SELFPAY | PROVIDERS: PCP Internal Medicine; Visit Provider Nurse Practitioner Family | DX: N40.1 Benign prostatic hyperplasia with lower urinary tract symptoms (principal); R35.0 Frequency of micturition; N52.9 Male erectile dysfunction, unspecified; Z79.899 Other long term (current) drug therapy | CPT/HCPCS: 51798; 81003 ==

== ENCOUNTER 2024-02-08 13:08 | Outpatient (AMB) | payer OTHER, SELFPAY ==
--- NOTE | 2024-02-08 13:55 | MHC.OFFWIV ---
Intake Vital Signs 02/08/24 14:11 Height 5 ft 11 in Weight 240 lb BMI 33.5 BP 124/86 Blood Pressure Location Rt brachial Position Sitting Pulse 74 Pulse Source Pulse Oximeter Pulse Oximetry (%) 99 Oxygen Delivery Method Room Air Intake Visit Reasons: EP trouble with urination? Intake Note: Patient here for burning when urinating that has been present for a few days. Patient Tobacco Use Status: Never used Tobacco Allergies Penicillins Adverse Reaction (Severe, Verified 02/08/24 14:11) Anxiety pineapple Adverse Reaction (Severe, Verified 02/08/24 14:11) swellling Do you need a note to return to daycare/school/sports/work: No PFSH Medical History Enlarged prostate Atelectasis GERD (gastroesophageal reflux disease) ZOE (obstructive sleep apnea) Extremity edema Asthma Surgical History History of knee replacement procedure of left knee Social History Alcohol intake: never Patient Tobacco Use Status: Never used Tobacco Tobacco use type: Cigarette e-Cigarette/Vaping Use: Never Used Second Hand Smoke Exposure: No service: Yes ([employer] [id number] ) Current occupational status: retired Cognitive needs: No Hearing needs: No Vision needs: Yes Review of Systems Const All systems reviewed & are unremarkable except as noted in HPI and below Physical Exam Vital Signs: Last Vital Signs Pulse 74 02/08/24 14:11 BP 124/86 02/08/24 14:11 Pulse Ox 99 02/08/24 14:11 Oxygen Delivery Method Room Air 02/08/24 14:11 BMI result Body Mass Index 33.5 Results AMB Urinalysis, Automated UA Leukoctes 0 Lela/uL Last Edit by NATALIE Flowers on 02/08/24 14:19 UA Nitrite Negative Last Edit by NATALIE Flowers on 02/08/24 14:19 UA Urobilinogen 0.2 mg/dL Last Edit by NATALIE Flowers on 02/08/24 14:19 UA Protein 15 mg/dL Last Edit by NATALIE Flowers on 02/08/24 14:19 UA pH 6.0 Last Edit by Aura Gonsales CCM on 02/08/24 14:19 UA Blood 0 Edwin/uL Last Edit by Aura Gonsales CCM on 02/08/24 14:19 UA Specific Norton 1.020 Last Edit by Aura Gonsales CCM on 02/08/24 14:19 UA Ketone Negative Last Edit by Aura Gonsales [facility] on 02/08/24 14:19 UA Bilirubin 0 mg/dL Last Edit by Aura Gonsales [facility] on 02/08/24 14:19 UA Glucose 0 mg/dL Last Edit by Aura Gonsales [facility] on 02/08/24 14:19 Results Reviewed Results Reviewed: Laboratory Last Values Urine pH (Auto) 6.0 02/08/24 14:18 Specific Norton (Auto) 1.020 02/08/24 14:18 Urine Protein (Auto) 15 mg/dL 02/08/24 14:18 Glucose (UA)(Auto) 0 mg/dL 02/08/24 14:18 Urine Ketones (Auto) Negative 02/08/24 14:18 Urine Blood (Auto) 0 Edwin/uL 02/08/24 14:18 Urine Nitrite (Auto) Negative 02/08/24 14:18 Urine Bilirubin (Auto) 0 mg/dL 02/08/24 14:18 Urine Urobilinogen (Auto) 0.2 mg/dL 02/08/24 14:18 Leukocyte Esterase (Auto) 0 Lela/uL 02/08/24 14:18 Assessment & Plan Assessment & Plan Plan Patient is a 63-year-old male who comes to the walk-in clinic complaining of intermittent perineal discomfort and dysuria for the last few weeks. He does have a history of BPH, and takes tamsulosin. He reports no high-risk sexual activity and is monogamous with his spouse of many years. I think symptoms are due to his enlarged prostate, and he might be developing a prostatitis. His urine dip was unremarkable, so we sent it out for culture and susceptibility testing, with results pending. In the meantime, we discussed starting a course of ibuprofen, which he states he can see safely take as he does not have peptic ulcer disease history. He also will continue the tamsulosin. I advised that he call his urologist on Saturday to let them know that he is having these symptoms, and they should be able to follow up with him. If he develops any severe or worrisome symptoms he knows to go to the emergency department. Orders: Orders AMB Urinalysis Automated Today Z13.9 - Encounter for screening, unspecified UA CC w/rflx Micro + Cult Today R30.0 - Dysuria Coding Level of Care Code Est Pt Level 4 (73506)
[2024-02-08 14:11] VITALS: BP 124/86; PULSE 74; O2SAT 99; BMI 33.5
== END 2024-02-08 15:01 | disposition home or self-care (01) ==
PROVIDERS: PCP Internal Medicine; Visit Provider Physician Assistant Medical
DX: Z13.9 Encounter for screening, unspecified (principal)

== ENCOUNTER 2024-02-08 13:08 | Outpatient (REF) | payer OTHER, SELFPAY ==
[2024-02-08 15:18] LABS: Appearance Urine Turbid; Color Urine Yellow; Glucose Urine UA Negative (Negative); Leukocyte Esterase Urine Negative (Negative); Nitrite Urine Negative (Negative); Specific Gravity - Urine 1.025 (1.005-1.025); Urine Blood Negative (Negative); Urine Ketones Negative (Negative); Urine Protein Negative (Neg-Trace)
== END 2024-02-08 13:09 | disposition home or self-care (01) ==
LOC: HO.LNP 13:08
PROVIDERS: PCP Internal Medicine; Visit Provider Physician Assistant Medical
DX: R30.0 Dysuria (principal)
CPT/HCPCS: 81003

== ENCOUNTER 2024-03-12 09:24 | Outpatient (AMB) | payer OTHER, SELFPAY ==
[2024-03-12 09:25] VITALS: BP 130/78; PULSE 77; O2SAT 99; BMI 34.0
--- NOTE | 2024-03-12 09:25 | MHC.OFFVIS ---
Vital Signs 03/12/24 09:25 Height 5 ft 11 in Weight 243 lb 9.773 oz BMI 34.0 BP 130/78 Blood Pressure Location Rt brachial Position Sitting Pulse 77 Pulse Source Pulse Oximeter Pulse Oximetry (%) 99 Oxygen Delivery Method Room Air Intake Visit Reasons: obstructive sleep apnea Allergies Penicillins Adverse Reaction (Severe, Verified 03/12/24 09:30) Anxiety pineapple Adverse Reaction (Severe, Verified 03/12/24 09:30) swellling HPI Comments Details: The patient is a 63-year-old gentleman who was in his usual state health until back early 2019 when he developed severe COVID. He was hospitalized and nearly intubated for his respiratory failure. The patient subsequently discharged. He did not require oxygen. Although he started noticing some increasing shortness of breath and chest tightness. He continues to have an ongoing intermittent cough and usually congestion at nighttime. He does have rhonchi at nighttime. He has undergone imaging studies including a chest x-ray in June 2021 at [facility] demonstrating bibasilar atelectasis. The patient was given inhaler, Symbicort. He does not use it regularly. He has not seen any significant improvement either. He is also being evaluated for his underlying cardiovascular risk factors. He was found to have elevated cholesterols and also found to be pre diabetic. He is currently working on his diet and also on his exercise to improve his health. In the meantime the patient does have underlying daytime drowsiness. He has an elevated Chesterfield score of 10/24. The patient does have episodes of apnea that have been documented in waking up short of breath. The patient also has significant snoring. In addition to that he does have underlying reflux disease. She does take a PPI and he has been educated today about the reflux diet. Otherwise the patient is doing well he is trying to improve his overall health status. 03/13/2022 the patient is here for a pulmonary follow-up visit. The patient overall is doing well. He is trying to exercise more any healthy. He is very motivated at this time. He has already lost a good amount of weight. The patient did undergo the blood work again demonstrating some degree of leukopenia. Mainly neutropenia. Apparently he has had blood work in the past demonstrating the similar findings. He is scheduled to see a community relations advisor on her in addition to that the blood work demonstrated low IgM level. Explained to him that this can result in further immunodeficiencies went finding off a new infection. However, this is only a mild decrease. The patient also underwent pulmonary function studies which were reassuring although a low normal total lung capacity. The patient continues to have daytime drowsiness Chesterfield score still elevated 11/04. He did undergo home sleep study which I personally reviewed with him. He has an AHI of 10. He also has significant tachycardia and significant hypoxia demonstrating some cardiovascular stress during his sleep. Patient needs to start CPAP therapy. He already has cardiovascular risk factors. Once he situated on CPAP will consider doing an overnight oximetry to make sure that he is doing better. 07/04/2022 the patient is here for a pulmonary follow-up visit. The patient overall is doing a lot better. He continues to exercise regularly and he has lost about 40 lb. He is very motivated. There was a little scared about tuberculosis with a positive PPD but then his QuantiFERON test came back negative for tuberculosis. He also had a chest x-ray which I personally reviewed with him demonstrating no acute disease. The patient is doing well with CPAP. The CPAP therapy continues to be affecting beneficial. He does have a nasal mask that sometimes leaks around the mask difficult to get a good seal. I did have a P 10 large mask that he did put on and he liked. Therefore he took at home. I will request that mask from his [employer] company at this time. Overall the patient is doing well from a respiratory status. He knows to uses singular seasonally. The Symbicort he has not been using regularly but he can use it as needed. The patient will follow-up in a year's time. 02/27/2023 the patient is here for a pulmonary follow-up visit. The patient is doing very well. He has been using the CPAP every night CPAP therapy continues to be affecting beneficial. His AHI is down to 0.3 as we download the data. He does use it for more than 4 hours a night. Still is is hard for him to tolerate the therapy every night. Sometimes is wondering if he is going to need to uses therapy for ever. We did talk about alternative therapies. We also looked at his sleep study and he does well with positional therapy. If he is also decide to do positional therapy will do an overnight oximetry to make sure that his oxygen and heart rate continued to be stable. He is also lost 40 lb in +and therefore this also help him decrease his degree of apneic episodes. Still though he understands that the CPAP therapy is the goal standard he does very well with the therapy. Therefore, continue the CPAP therapy will be the best option. As far as dyspnea he is exercising regularly. We did do a brief walking oximetry up the stairs in his heart rate became elevated up to 130. Once the heart rate increased to about 125 he did became dyspneic. Therefore, when he exercises will try to continue the heart rate in the exercise to maintain a pulse ox just below the threshold. 06/17/2023 the patient is here for a pulmonary follow-up visit. The patient has been doing very well. His breathing is a lot better he continues exercise regularly. He does have a Symbicort inhaler that he uses as needed. The patient has been also using the CPAP for about 70 time. The therapy has been affecting beneficial. His AHI is well below 1 with does uses CPAP. The patient is without any complaints he is continued to do well continues to stay active exercising regularly. If the patient has any difficulties would call for an earlier assessment otherwise will follow-up in a year's time. 03/12/2024 the patient is here for a pulmonary follow-up visit. Overall he continues to do well. He is very active and exercising regularly. He has had significant amount of weight loss. Overall he is in right it shape. He has been on the treadmill and also on the [employer]Master about an hour every day. In the meantime he continues uses CPAP at nighttime. The CPAP therapy has been affecting beneficial. His AHI is down to 0.2. He is using more than 70% of the time. At some point it with the weight loss the patient can consider positional therapy. Although he feels comfortable were using the PAP therapy and is definitely more effective specially with cardiovascular risk. On exam he does have a murmur systolic in nature. Will go ahead and request an echo and chest x-ray. But overall he will continue with CPAP therapy. He also has a rescue inhaler as needed but he has not required it. [facility] Medical History (Updated 03/12/24 @ 09:51 by Eleazar Real MD) Murmur Enlarged prostate Atelectasis GERD (gastroesophageal reflux disease) ZOE (obstructive sleep apnea) Extremity edema Asthma Surgical History History of knee replacement procedure of left knee Social History Alcohol intake: never Patient Tobacco Use Status: Never used Tobacco Tobacco use type: Cigarette e-Cigarette/Vaping Use: Never Used Second Hand Smoke Exposure: No service: Yes ([employer] [id number] ) Current occupational status: retired Cognitive needs: No Hearing needs: No Vision needs: Yes Review of Systems Const Denies daytime sleepiness, Denies difficulty sleeping and Reports weight loss Eyes Denies change in vision ENT Denies change in voice, Reports nasal congestion and Reports nasal discharge Card Denies chest pain and Denies dyspnea on exertion Resp Denies chest congestion, Reports cough, Denies dyspnea on exertion and Denies wheezing GI Denies abdominal pain Musc Reports no additional complaints Skin/Breast Denies rash Neuro Reports no additional complaints Rivera/Lymph Denies easy bleeding and Denies easy bruising Aller/Immun Denies wheezing Physical Exam Vital Signs: Last Vital Signs Pulse 77 03/12/24 09:25 BP 130/78 03/12/24 09:25 Pulse Ox 99 03/12/24 09:25 Oxygen Delivery Method Room Air 03/12/24 09:25 BMI result Body Mass Index 34.0 Const General: comfortable HEENT Head: Yes atraumatic Eyes General: appearance normal, both eyes and all related structures Neck Neck: Yes trachea midline and Yes supple Chest Chest palpation & inspection: normal inspection of the chest Resp Effort & Inspection: normal respiratory effort Auscultation: clear to auscultation bilaterally Cardio Rate: regular rate Rhythm: regular rhythm Heart sounds: S1 normal heart sound present, S2 normal heart sound present and Murmur heart sound present systolic GI Auscultation: normal bowel sounds Skin Rashes: no rashes Extrem General: No clubbing, No cyanosis and Yes edema Assessment & Plan Assessment & Plan (1) Murmur: Code(s): R01.1 - Cardiac murmur, unspecified Category: Medical (2) ZOE (obstructive sleep apnea): Comment: CPAP Code(s): G47.33 - Obstructive sleep apnea (adult) (pediatric) Category: Medical (3) Asthma: Code(s): J45.909 - Unspecified asthma, uncomplicated Category: Medical Qualifiers: Asthma severity: mild Asthma persistence: intermittent Asthma complication type: uncomplicated Qualified Code(s): J45.20 - Mild intermittent asthma, uncomplicated (4) GERD (gastroesophageal reflux disease): Code(s): K21.9 - Gastro-esophageal reflux disease without esophagitis Category: Medical Qualifiers: Esophagitis presence: without esophagitis Qualified Code(s): K21.9 - Gastro-esophageal reflux disease without esophagitis (5) Atelectasis: Code(s): J98.11 - Atelectasis Category: Medical Plan continue symbicort as needed continue Singulair reflux diet continue APAP, will request p10 large nasal pillows. AHI is 0.2. Should continue to use the CPAP. CXR ECHO F/U 12 months Orders: Orders XR chest 2V Today R01.1 - Cardiac murmur, unspecified CA echo transthoracic complete Today I27.20 - Pulmonary hypertension, unspecified, R01.1 - Cardiac murmur, unspecified Coding Level of Care Code Est Pt Level 4 (02018) Diagnoses Murmur R01.1 ZOE (obstructive sleep apnea) G47.33 Mild intermittent asthma without complication J45.20 Asthma severity: mild Asthma persistence: intermittent Asthma complication type: uncomplicated Gastroesophageal reflux disease without esophagitis K21.9 Esophagitis presence: without esophagitis Atelectasis J98.11 Time Spent (min) 16
--- OUTSIDE RECORDS SUMMARY | 2024-03-12 12:32 | XMS_ITS | Data Portability ---
Author Organization [facility], [address] Address [address] [place] [address] Care Team Providers Care Manager Combination Name Role Phone SLADE EM Primary Care Provider Assessment No assessment recorded. Plan of Treatment Reminders Order Date Submit Date Provider Last Modified By Organization Details Last Modified Time Details Appointments None recorded. Lab urinalysis, dipstick 2022 023 [email or web address] _[facility], [address] [place] [address], [place], [address], 3 16:34:09 culture, urine 2022 023 [place] [facility], [address] [place] [address], [place], [address], 3 08:07:29 Referral urologist referral 2022 023 [email or web address] 26 Not available 3 09:08:28 Procedures None recorded. Surgeries None recorded. Imaging None recorded. Medication Orders Macrobid 100 mg capsule 2022 023 [email or web address] [id number], [address] [place], [address], 3 16:10:01 Anusol-HC 25 mg rectal suppository 2022 023 [email or web address] [id number], [address] [place], [address], 08:13:41 Patient TargetsNo targets recorded. Patient Instructions Encounter Date Encounter Id Patient Instructions Last Modified By Organization Details Last Modified Time 09/02/2022 [id number] hemorrhoids: car e instructions [email or web address] Not available 09/02/2022 16:47:47 Reason for Referral Urologist Referral for Incre ased frequency of urination Referring Physician: Chad Forman, Urgent Care, Encounter Date: 04/27/2022 Results Created Date Observation Date Name Description Value Unit Range Abnormal Flag Note LastModifiedBy Organization Detail LastModifiedTime 04/28/1904/29/2022 URINE CULTU RE, ROUTI NE urine culture, routine FINAL REPORT Not Available [facility] ([facility]) [address] [facility], [place], [address], 04/29/2022 08:07:29 04/28/19 23 04/29/2022 URINE CULTU RE, ROUTI NE result 1 NO GROWTH Not Available [facility] ([facility]) [address] [facility], [place], [address], 04/29/2022 08:07:29 04/28/19 23 04/27/2022 urina lysis , dipst ick Unknown Analyte Yellow Not Available _ [facility] [address], [address], 04/27/2022 15:44:07 04/28/19 23 04/27/2022 urina lysis , dipst ick Unknown Analyte Clear Not Available _ [facility] [address], [address], 04/27/2022 15:44:07 04/28/19 23 04/27/2022 urina lysis , dipst ick Unknown Analyte Negati ve Not Available tania jay [address], [address], 04/27/2022 15:44:07 04/28/19 23 04/27/2022 urina lysis , dipst ick Unknown Analyte Negati ve Not Available [facility] [address] [place] [address], [place], [address], 04/27/2022 15:44:07 04/28/19 23 04/27/2022 urina lysis , dipst ick Unknown Analyte Negati ve Not Available [facility] [address], [place], [address], 04/27/2022 15:44:07 04/28/19 23 04/27/2022 urina lysis , dipst ick Unknown Analyte 1.025 Not Available [facility] [address], [place], [address], 04/27/2022 15:44:07 04/28/19 23 04/27/2022 urina lysis , dipst ick Unknown Analyte Small Not Available [facility] [address], [place], [address], 04/27/2022 15:44:07 04/28/19 23 04/27/2022 urina lysis , dipst ick Unknown Analyte 6.5 Not Available [facility] [address], [place], [address], 04/27/2022 15:44:07 04/28/19 23 04/27/2022 urina lysis , dipst ick Unknown Analyte 30 mg/dL Not Available [facility] [address], [place], [address], 04/27/2022 15:44:07 04/28/19 23 04/27/2022 urina lysis , dipst ick Unknown Analyte 0.2 E.U./d L Not Available [facility], [place], [address], 04/27/2022 15:44:07 04/28/19 23 04/27/2022 urina lysis , dipst ick Unknown Analyte Negati ve Not Available [address] [address] [place] [address], [address], 04/27/2022 15:44:07 04/28/19 23 04/27/2022 urina lysis , dipst ick Unknown Analyte Negati ve Not Available [address] [address] [facility] [address] [place] [address], [address], 04/27/2022 15:44:07 Result Notes None recorded. Problems Name Problem SNOMED Code Status Onset Date Resolution Date Notes Provider Name and Address Organization Details Recorded Time Hypertensive disorder 29561931 Active 2022 WILLIAM palomino, PA - [facility] 3 15:50:11 Hypercholester olemia 45676820 Active 2022 WILLIAM CARRILLO null, PA - [facility] 3 15:50:18 Gastroesophage al reflux disease 899301701 Active 2022 WILLIAM CARRILLO null, PA - [facility] 3 15:50:32 Anxiety 00837678 Active 2022 WILLIAM NOBLEICA null, PA - [facility] 3 15:50:43 Asthma 707531887 Active 2022 WILLIAM CARRILLO null, PA - [facility] 3 15:51:05 Sleep apnea 74635431 Active 2022 WILLIAM NOBLEICA null, PA - [facility] 3 15:54:21 Problem Notes None recorded. Procedures Surgical History Date Name Laterality Status Provider Name and Address Organization Details Recorded Time total knee replacement completed WILLIAM CARRILLO PA - [facility] 04/27/2022 15:52:59 Imaging Results None recorded. Procedure Notes None recorded. Medical Equipment None Reported. Allergies Allergen ID Allergen Name Allergen Category Reaction Reaction Severity Criticality Documentation Date Start Date Code Code System Note Provider Name and Address Organization Details Recorded Time 266328 amoxicill in medicatio n itching Not available Not available 04/27/2022 723 RxNorm JACLYN Soni - [facility] 3 15:46:06 Medications Name Sig Start Date Stop Date Status Note LastModified by Organization Details LastModified Time atorvastati n 20 mg tablet TAKE 1 TABLET BY MOUTH EVERYDAY AT BEDTIME 04/27 completed Not Available Not Available Not Available clindamycin HCl 300 mg capsule TAKE 1 CAPSULE BY MOUTH 3 TIMES A DAY 09/02 completed Not Available Not Available Not Available sildenafil 50 mg tablet TAKE 1 TABLET BY MOUTH ONCE DAILY NEEDED APPROXIMA TELY 1 HOUR BEFORE SEXUAL ACTIVITY active Not Available Not Available No t Available azithromyci n 250 mg tablet TAKE 2 TABLETS BY MOUTH TODAY, THEN TAKE 1 TABLET DAILY FOR 4 DAYS 04/27 completed Not Available Not Available Not Available prednisone 20 mg tablet TAKE 2 TABLETS BY MOUTH DAILY 04/27 completed Not Available Not Available Not Available chlorthalid one 25 mg tablet TAKE 1 TABLET BY MOUTH EVERY DAY 04/27 completed Not Available Not Available Not Available sildenafil 100 mg tablet TAKE 1 TABLET BY MOUTH EVERY DAY NEEDED APPROXIMA TELY 1 HOUR BEFORE SEXUAL ACTIVITY FOR 30 DAYS active Not Available Not Available No t Available hydrocortis one acetate 25 mg rectal suppository INSERT 1 SUPPOSITO RY EVERY DAY BY RECTAL ROUTE AT BEDTIME FOR 7 DAYS. 2022 active Not Available Not Available Not Avai lable hydrocortis one 2.5 % topical cream with perineal applicator APPLY 1 APPLICATI ON NEEDED TWICE DAILY RECTALLY active Not Available Not Available No t Available alprazolam 0.5 mg tablet TAKE 1 TABLET BY MOUTH EVERY DAY NEEDED active Not Available Not Available No t Available amlodipine 10 mg tablet TAKE 1 TABLET BY MOUTH EVERY DAY FOR 90 DAYS active Not Available Not Available No t Available docusate sodium 100 mg capsule 09/02 completed Not Available Not Available Not Available omeprazole 20 mg capsule,del ayed release TAKE 1 CAPSULE BY MOUTH EVERY DAY BEFORE A MEAL active Not Available Not Available No t Available montelukast 10 mg tablet TAKE 1 TABLET BY MOUTH AT BEDTIME FOR 30 DAYS 04/27 completed Not Available Not Available Not Available codeine 10 mg-guaifene sin 100 mg/5 mL oral liquid TAKE 10 MILLILITE RS BY MOUTH EVERY 4 HOURS NEEDED 09/02 completed Not Available Not Available Not Available epinephrine 0.3 mg/0.3 mL injection, auto-inject or INJECT 1 PEN INTRAMUSC ULARLY DIRECTED NEEDED FOR ANAPHYLAX IS 09/02 completed Not Available Not Available Not Available ibuprofen 600 mg tablet 1 TABLET EVERY 4 TO 6 HOURS NEEDED active Not Available Not Available No t Available albuterol sulfate HFA 90 mcg/actuati on aerosol inhaler INHALE 1 - 2 PUFFS BY MOUTH EVERY 4-6 HOURS NEEDED FOR 30 DAYS active Not Available Not Available No t Available olmesartan 20 mg tablet TAKE 1 TABLET BY MOUTH EVERY DAY active Not Available Not Available No t Available tadalafil 20 mg tablet TAKE 1 TABLET (20 MG) BY ORAL ROUTE NEEDED APPROXIMA TELY 1 HOUR BEFORE SEXUAL ACTIVITY active Not Available Not Available No t Available escitalopra m 5 mg tablet TAKE 1 TABLET BY MOUTH EVERY DAY 04/27 completed Not Available Not Available Not Available nitrofurant oin monohydrate /macrocryst als 100 mg capsule TAKE 1 CAPSULE BY MOUTH EVERY 12 HOURS FOR 7 DAYS 09/02 completed Not Available Not Available Not Available chlorhexidi ne gluconate 0.12 % mouthwash SWISH AND SPIT 15 ML IN THE MORNING AND IN THE EVENING FOR 2 WEEKS 09/02 completed Not Available Not Available Not Available Symbicort 80 mcg-4.5 mcg/actuati on HFA aerosol inhaler TAKE 2 PUFFS BY MOUTH TWICE A DAY IN THE MORNING AND IN THE EVENING active Not Available Not Available No t Available GaviLyte-G 236 gram-22.74 gram-6.74 gram-5.86 gram oral solution TAKE DIRECTED TAKE DIRECTED BY DR. FRENCH 04/27 completed Not Available Not Available Not Available Flowflex COVID-19 Antigen Home Test kit REFERE TO MANUFACTU RER'S INSTRUCTI ONS INCLUDED IN PACKAGING 04/27 completed Not Available Not Available Not Available Vitals Date Recorded Body height Provider Name an d Address Organization Details Last Updated DateTime 04/27/2022 180.34 cm WILLIAM CARRILLO M/A-COM - [facility] 04/27/2022 15:45:18 Date Recorded Body mass index (BMI) Body weight Provider Name and Address Organization Details Last Updated DateTime 04/27/2022 34.7 kg/m2 104412.5 g WILLIAM CARRILLO PA - [facility] 04/27/2022 15:45:23 Date Recorded Body temperature Provider Name a nd Address Organization Details Last Updated DateTime 04/27/2022 97.1 [degF] WILLIAM CARRILLO PA - [facility] 04/27/2022 15:53:58 Date Recorded Oxygen saturation Oxygen saturation in Arterial blood by Pulse oximetry Provider Name and Address Organization Details Last Updated DateTime 04/27/2022 95 % 95 % WILLIAM CARRILLO PA - [facility] 04/27/2022 15:54:07 Date Recorded Heart rate Provider Name an d Address Organization Details Last Updated DateTime 04/27/2022 99 /min WILLIAM CARRILLO PA - [facility] 04/27/2022 15:54:09 Date Recorded Respiratory rate Provider Name a nd Address Organization Details Last Updated DateTime 04/27/2022 16 /min WILLIAM CARRILLO PA - [facility] 04/27/2022 15:54:11 Date Recorded Body height Provider Name an d Address Organization Details Last Updated DateTime 09/02/2022 180.34 cm GURU CUMMINGS PA - [facility] 09/02/2022 16:09:00 Date Recorded Body mass index (BMI) Body weight Provider Name and Address Organization Details Last Updated DateTime 09/02/2022 34.7 kg/m2 905669.5 g GURU CUMMINGS PA - [facility] 09/02/2022 16:09:06 Date Recorded Oxygen saturation Oxygen saturation in Arterial blood by Pulse oximetry Provider Name and Address Organization Details Last Updated DateTime 09/02/2022 97 % 97 % GURU CUMMINGS PA - [facility] 09/02/2022 16:12:22 Date Recorded Heart rate Provider Name an d Address Organization Details Last Updated DateTime 09/02/2022 71 /min GURU CUMMINGS PA - [facility] 09/02/2022 16:12:30 Date Recorded Respiratory rate Provider Name a nd Address Organization Details Last Updated DateTime 09/02/2022 18 /min GURU CUMMINGS PA - [facility] 09/02/2022 16:12:31 Date Recorded Body temperature Provider Name a nd Address Organization Details Last Updated DateTime 09/02/2022 98.5 [degF] GURU KERRROBSON PA - [facility] 09/02/2022 16:12:35 Date Recorded Systolic blood pressure Diastolic blood pressure Provider Name and Address Organization Details Last Updated DateTime 04/27/2022 129 mm[Hg] 82 mm[Hg] WILLIAM CARRILLO PA - [facility] 04/27/2022 15:55:20 Date Recorded Systolic blood pressure Diastolic blood pressure Provider Name and Address Organization Details Last Updated DateTime 09/02/2022 128 mm[Hg] 78 mm[Hg] GURU KERRRONELAISHWARYA PA - [facility] 09/02/2022 16:12:20 Social History Question Answer Notes LastModified by Organizat ion Details LastModified Time Tobacco Smoking Status Never Smoker WILLIAM CARRILLO candelario PA - [facility] 04/27/2022 15:52:41 What Is Your Level Of Alcohol Consumption? None [email or web address] Information not available 04/27/2022 Do You Use Any Illicit Or Recreational Drugs? No Information not available 04/27/2022 Have You Recently Traveled Abroad? No [email or web address] Information not available 04/27/2022 Do You Or Have You Ever Used Any Other Forms Of Tobacco Or Nicotine? No [email or web address] Information not available 04/27/2022 Sex: Unknown Functional Status None recorded. Mental Status None recorded. Family History Relationship Description Onset Age of this Age Resolved Age Notes LastModified by Organization Details LastModified Time Mother Heart disease [email or web address] Not available 2022 15:52:02 Mother Diabetes mellitus [email or web address] Not available 2022 15:52:09 Mother Myocardial infarction [email or web address] Not available 04/27 15:52:23 Father Myocardial infarction [email or web address] Not available 04/27 15:52:22 Medical History No medical history recorded. Past Encounters Encounter ID Performer Location Encounter Start Date Encounter Closed Date Diagnosis/Indication Diagnosis SNOMED-CT Code Diagnosis ICD10 Code Diagnosis Note [id number] [address] [address] 11/15/2018 19:08:29 11/15/2018 19:20:19 [id number] [address] [place] [address] 01/12/2017 19:30:06 01/12/2017 19:59:01 [id number] [address] [facility] [address] [facility] [place] [address] 06/13/2019 14:32:24 06/13/2019 15:40:34 [id number] [address] [facility] [place] [address] 04/27/2017 18:40:25 04/27/2017 19:31:53 [id number] [address] [facility] [place] [address] 08/05/2021 08:35:18 08/05/2021 10:27:26 [id number] [address] [place] [address] [place] [address] 06/04/2016 19:47:53 06/04/2016 20:19:56 [id number] [address] [facility] [place] [address] 05/13/2020 17:53:47 05/13/2020 18:56:52 [id number] [address] [facility] [place] [address] 03/07/2018 19:42:56 03/07/2018 20:23:16 [id number] [address] [facility] [place] [address] 03/13/2015 15:25:32 03/13/2015 16:30:45 [id number] [address] [place] [address] 07/29/2021 15:41:12 07/29/2021 18:16:19 [id number] [address] [facility] [place] [address] 08/20/2017 18:49:49 08/20/2017 19:53:37 [id number] [address] [facility] [place] [address] 06/18/2020 19:37:45 06/18/2020 20:14:38 [id number] Chad Forman DO [address] [address] 04/27/2022 12:51:09 04/27/2022 16:36:40 Increased frequency of urination 731858304 R35.0 suspect UTISigns and Symptoms c/w UTIUA suggestive of UTIRx Antibiotic Take your antibiotic with food. Eat a yogurt daily or take a probiotic while you are taking the antibiotic . recommend push fluids, water, cranberry juiceavoid holding urinepract ice postcoital urination UCx pending - reviewed pt phone # and will call prn need to change ABx depending on UCX result Patient advised to follow up as needed for worsening symptoms or no improvemen t. Discussed concerning red flags with patient and reasons to follow up in the Emergency Department urgently. ADDITIONAL LY I d/w him the need to check a PSA. We are unable to do that today because no phlebotomi st.I will refer to Urology for an evalPatien t expressed understand ing of and agreement with the plan as outlined above. [id number] Marcelino Lea [facility] [place] [address] 09/02/2022 15:20:17 09/02/2022 16:50:35 Hemorrhoids 23735389 K64.9 likely internal hemorrhoid s as per history from PCP exam 2 days ago.TRial of suppositor y and follow up GI or PCP if continues Health Concerns Section Related Observation LastModified by Organization Detai ls LastModified Time None Recorded Concern Status LastModified by Organization Details LastModified Time None Recorded Advance Directives Directive None Recorded Payers Encounter Date Sequence Insurance Name Policy Number Policy Amaya Covered Member ID Amaya Member ID Guarantor Name 06/18/2020 1 [facility] [id number] 1 Norbert Cabrales [id number] Norbert Keron 07/29/2021 1 [facility] [id number] 1 Norbert Cabrales [id number] Norbert Keron 08/05/2021 1 [facility] [id number] 1 Norbert Cabrales [id number] Norbert Cabrales 04/27/2022 1 [facility] [id number] 1 Norbert Cabrales [id number] Norbert Cabrales 09/02/2022 1 [facility] [id number] 1 Norbert Cabrales [id number] Norbert Cabrales Notes Date Note Type Note Provider Name and Address Organization Details Recorded Time 04/27/2022 text/html Urinary Problems-MaleReporte d bypatient.Notes:61 yo male c/o frequency in urination x couple days--no burning, no pain. + decreased stream no increased urgencyno incontinenceno pressureno malodorno blood in urineno back painno rashno feverno nausea or vomitingno MS change Chad Forman, [address] [place], [address], [employer] 04/27/2022 16:35:50 09/02/2022 text/html Went to his PCP 2 days ago and told he had internal hemorrhoids. Told to take fiber drink only. Patient concerned and wants to be checked again. Feels anal discomfort. NO blood in stool or when wipes. no pain with defecation. Had colonoscopy 02/01. Marcelino Lea MD [address] [place], [address], [employer] 09/02/2022 18:39:03
--- OUTSIDE RECORDS SUMMARY | 2024-03-12 12:32 | XMS_ITS | Clinical Summary ---
Author Organization [facility] ity Address [address] [place] [address] Care Team Providers Care [employer] Converter Name Role Phone Unavailable Primary Care Provider Unavailabl e Social History Tobacco Use Types Packs/Day Years Used Date Smoking Tobacco: Never Assessed Sex and Gender Information Value Date Recorded Sex Assigned at Not on file Gender Identity Not on file Sexual Orientation Not on file Plan of Treatment Health Maintenance Due Date Last Done Comments DTaP,Tdap,and Td Vaccines (1 - Tdap) 09/09/1978 Zoster Vaccines (1 of 2) 09/09/2009 Cholesterol Screening (Lipid Panel) 01/13/2022 Colorectal Cancer Screening: Colonoscopy 01/13/2022 Depression Screening 01/13/2022 HIV Screening 01/13/2022 Hepatitis C Screening 01/13/2022 Social Influencers of Health Screening 01/13/2022 COVID-19 Vaccine ( - 2023-2 5 season) 2023 Influenza Vaccine (#1) 2023 RSV Immunization Patients 60 + Years Old (1 - 1-dose 75+ series) 09/09/2034 HIB Vaccines Aged Out No longer eligi ble based on patient's age to complete this topic HPV Vaccines Aged Out No longer eligi ble based on patient's age to complete this topic Hepatitis A Vaccines Aged Out No long er eligible based on patient's age to complete this topic Hepatitis B Vaccines Aged Out No long er eligible based on patient's age to complete this topic IPV Vaccines Aged Out No longer eligi ble based on patient's age to complete this topic MMR Vaccines Aged Out No longer eligi ble based on patient's age to complete this topic Meningococcal ACWY Vaccine Aged Out N o longer eligible based on patient's age to complete this topic Pneumococcal Vaccine: Pediat rics (0 to 5 Years) and At-Risk Patients (6 to 64 Years) Aged Out No longer eligible b ased on patient's age to complete this topic RSV Immunization Patients Un ivan 20 months Aged Out No longer eligible b ased on patient's age to complete this topic Varicella Vaccines Aged Out No longer eligible based on patient's age to complete this topic
== END 2024-03-12 12:55 | disposition home or self-care (01) ==
PROVIDERS: PCP Internal Medicine; Visit Provider Hospitalist
DX: R01.1 Cardiac murmur, unspecified (principal); G47.33 Obstructive sleep apnea (adult) (pediatric); J45.20 Mild intermittent asthma, uncomplicated; K21.9 Gastro-esophageal reflux disease without esophagitis; J98.11 Atelectasis
CPT/HCPCS: 99214

== ENCOUNTER → 2024-03-12 09:24 | Outpatient (BNVA) | payer OTHER, SELFPAY | PROVIDERS: PCP Internal Medicine; Visit Provider Hospitalist ==

== ENCOUNTER 2024-03-18 10:19 | Outpatient (REF) | payer OTHER, SELFPAY ==
[2024-03-18 11:43] LABS: MANUAL DIFF FLAG NO
[2024-03-18 11:53] LABS: Basophils Percent Auto 1.3 % (0-2); Eosinophils Absolute Auto 0.1 X10*3/uL (0.0-0.4); Eosinophils Percent Auto 3.6 % (0-4); Hemoglobin 14.4 g/dl (14.0-18.0); Imm Gran Abs Auto 0.01 X10*3/uL (0.00-0.03); Imm Gran Pct Auto 0.3 % (0.0-0.4); Lymphocytes Absolute Auto 1.2 X10*3/uL (1.2-4.9); Lymphocytes Percent Auto 39.4 % (20-40); Mean Corpuscular HGB Conc 32.7 g/dl (31.0-36.0); Mean Corpuscular Hemoglobin 28.1 pg (27.0-33.0); Mean Corpuscular Volume 85.9 fL (80.0-98.0); Mean Platelet Volume 10.5 fL (9.4-12.4); Monocytes Absolute Auto 0.5 X10*3/uL (0.1-1.2); Monocytes Percent Auto 15.9 % (2-11); Neutrophils Absolute Auto 1.2 x10*3/uL (2.0-8.3); Neutrophils Percent Auto 39.5 % (45-73); Platelet Count 227 X10*3/uL (160-400); Red Blood Count 5.12 X10*6/uL (4.60-5.80); Red Cell Distribution Width 13.2 % (11.0-16.0)
[2024-03-18 12:00] LABS: Estimated Average Glucose 103 mg/dL; Hemoglobin A1C 127.2188 umol/L; Hemoglobin A1c % 5.2 % (<6.0); Total Hemoglobin (HGBA1C) 3770.3919 umol/L
[2024-03-18 12:28] LABS: Alanine Aminotransferase 26 U/L (0-40); Albumin Level 4.2 g/dL (3.5-5.0); Alkaline Phosphatase 72 U/L (39-117); Anion Gap 12 (12-20); Aspartate Amino Transferase 43 U/L (5-37); Bilirubin Total 0.7 mg/dL (0.0-1.0); Blood Urea Nitrogen 10 mg/dL (9-16); Calcium 8.7 mg/dL (8.4-10.2); Carbon Dioxide 27 mmol/L (22-29); Chloride 105 mmol/L (96-108); Cholesterol 194 mg/dL (<200); Estimated Glomerular Filt Rate > 60; Glucose Random 93 mg/dL (60-115); HDL Cholesterol 51 mg/dL (>40); LDL Cholesterol Calculated 131 mg/dL (<100); Potassium 4.3 mmol/L (3.3-5.1); Sodium 140 mmol/L (135-145); Total Protein 7.9 g/dL (6.5-8.0); Triglycerides 64 mg/dL (<150)
[2024-03-18 12:38] LABS: TSH reflex Free T4 2.95 uIU/mL (0.32-4.0); Vitamin D 25-OH Total 8.9 ng/mL (>30)
[2024-03-18 12:54] LABS: Folate 8.7 ng/mL (> or = 4.0); Vitamin B12 836 pg/mL (200-900)
--- OUTSIDE RECORDS SUMMARY | 2024-03-18 13:16 | XMS_ITS | Clinical Summary ---
Author Organization [facility] ity Address [address] [place] [address] Care Team Providers Care Ip Architect Name Role Phone Unavailable Primary Care Provider [...]
== END 2024-03-18 10:20 | disposition home or self-care (01) ==
LOC: HO.LAB 10:19
PROVIDERS: PCP Internal Medicine
DX: Z00.00 Encounter for general adult medical examination without abnormal findings (principal); N40.1 Benign prostatic hyperplasia with lower urinary tract symptoms; R35.0 Frequency of micturition; N52.9 Male erectile dysfunction, unspecified; F41.1 Generalized anxiety disorder; I10 Essential (primary) hypertension; E66.9 Obesity, unspecified; Z68.33 Body mass index [BMI] 33.0-33.9, adult; E78.00 Pure hypercholesterolemia, unspecified; R73.02 Impaired glucose tolerance (oral); K21.9 Gastro-esophageal reflux disease without esophagitis; J45.20 Mild intermittent asthma, uncomplicated; R01.1 Cardiac murmur, unspecified; G47.33 Obstructive sleep apnea (adult) (pediatric); Z99.89 Dependence on other enabling machines and devices
CPT/HCPCS: 36415; 80053; 80061; 82306; 82607; 82746; 83036; 84443; 85025; 96127

== ENCOUNTER 2024-03-18 10:19 | Outpatient (AMB) | payer OTHER, SELFPAY ==
--- NOTE | 2024-03-18 10:24 | A.OFFPC_ITS ---
Vital Signs 03/18/24 10:25 Height 5 ft 11 in Weight 239 lb 2 oz BMI 33.3 BP 110/72 Blood Pressure Location Lt brachial Position Sitting Pulse 65 Pulse Source Pulse Oximeter Temp 97.5 F Temp Source Skin Pulse Oximetry (%) 98 Oxygen Delivery Method Room Air Intake Visit Reasons: Annual Exam Intake Note: Patient is here today for a physical. Medical Cost Consultant Required: No Ends Breakage Clerk: Not Required per policy Accompanied by: Self / Same As Patient Allergies Penicillins Adverse Reaction (Severe, Verified 03/18/24 10:56) Anxiety pineapple Adverse Reaction (Severe, Verified 03/18/24 10:56) swellling Medication List - Last Reconciled 03/18/24 by Caren Otoole PA-C albuterol sulfate 90 mcg/actuation (Proventil HFA) 2 puffs inhalation Q4-6H PRN alprazolam (Xanax) 0.5 mg PO DAILY amlodipine 10 mg PO DAILY budesonide-formoterol 80-4.5 mcg/actuation (Symbicort) 2 puffs inhalation BID PRN mohamud.stocking,knee,reg,xlrg 15-20 cm olmesartan 20 mg PO DAILY omeprazole 20 mg PO DAILY psyllium husk 1 tbsp PO BID sildenafil 100 mg PO DIRECTED tamsulosin 0.4 mg PO BEDTIME Tobacco use date assessed: 03/18/24 Fall risk assessment: No Falls in past year Last assessed Fall Risk: 03/18/24 Dental Screening Dental Screen Date: 03/18/24 Did you have a dental visit in the last 12 months?: Yes Did you have a dental problem in the last 6 months where you did not have access to dental care?: No Was dental information given to patient?: Patient has dentist HPI Annual Exam HPI Details 63-year-old male with past medical histo ry of asthma, obstructive sleep apnea, GERD, impaired glucose tolerance, hypercholesterolemia, hypertension, generalized anxiety disorder last seen 10/2023 coming in for annual exam. In review of the notes, patient was seen med pulmonology 03/12/2024 continue on Symbicort and Singulair as well as a Pap and follow up in 1 year.? Patient was seen by Urology 10/2023 for BPH advised to follow up in 6 months with repeat PSA and PVR. colo: 3 years ago advised 5 year follow up for polyp. PSA: UTD following with urology. Patient would like to taper off his Alprazolam. He has been on the medication for 11 years and would like to come off of this medication. He has no acute concerns today. [facility] Medical History Murmur Enlarged prostate Atelectasis GERD (gastroesophageal reflux disease) ZOE (obstructive sleep apnea) Extremity edema Asthma Surgical History History of knee replacement procedure of left knee Social History Housing: House Alcohol intake: never Patient Tobacco Use Status: Never used Tobacco Tobacco use type: Cigarette e-Cigarette/Vaping Use: Never Used Second Hand Smoke Exposure: No service: Yes ([employer] [id number] ) Current occupational status: retired Cognitive needs: No Hearing needs: No Vision needs: Yes Questionnaire PHQ-9 Over the last 2 weeks, how often have you been bothered by any of the following problems? 1. Little interest or pleasure in doing things: not at all 2. Feeling down, depressed, or hopeless: not at all 3. Trouble falling or staying asleep, or sleeping too much: not at all 4. Feeling tired or having little energy: not at all 5. Poor appetite or overeating: not at all 6. Feeling bad about yourself - or that you are a failure or have let yourself or your family down: not at all 7. Trouble concentrating on things, such as reading the newspaper or watching television: not at all 8. Moving or speaking so slowly that other people could have noticed. Or the opposite - being so fidgety or restless that you have been moving around a lot more than usual: not at all 9. Thoughts that you would be better off or of hurting yourself in some way: not at all Total score: 0 Depression Screening Interpretation: Negative Depression Screening Done: Yes Source: Developed by Drs. David Jeong, Jo Whitney, Cristofer Meyer and colleagues, with an educational esther from [employer]. Thrive Questionnaire Date Thrive assessed: 03/18/24 I am a: Patient What is your living situation today?: I have a steady place to live Within the past 12 months, did the food you bought not last and you didn't have the money to get more?: I choose not to answer this question Within the past 12 months, did you worry whether your food would run out before you got money to buy more?: I choose not to answer this question Do you have trouble paying for medicines?: No Do you have trouble getting transportation to medical appointments?: No Do you have trouble paying your heating and electricity bill?: No Do you have trouble taking care of your child, family member or friend?: No Do you have trouble with day-to-day activities such as bathing, preparing meals, shopping, managing finances, etc.?: No Are you currently unemployed and looking for a job?: No Are you interested in more education?: Yes Please select the resources that you would like help with: None Currently or been in a relationship where the following occur: I choose not to answer THRIVE Score: 0 AUDIT C Alcohol Use Questionnaire (AUDIT-C) 1. How often do you have a drink containing alcohol?: Never Total Score: 0 ALISON-7 AMB Questionnaire ALISON-7 Date ALISON - 7 assessed: 03/18/24 Feeling nervous, anxious, or on edge: 0 = Not at all Not being able to stop or control worryin = Not at all Worrying too much about different things: 0 = Not at all Trouble relaxin = Not at all Being so restless that it is hard to sit still: 0 = Not at all Becoming easily annoyed or irritable: 0 = Not at all Feeling afraid as if something awful might happen: 0 = Not at all Total ALISON-7 score (0-4 normal; 5-9 mild; 10-14 moderate; 15-21 severe): 0 Source: Developed by Drs. David Jeong, Jo Whitney, Cristofer Meyer and colleagues, with an educational esther from [employer]. Review of Systems Const Denies body aches, Denies fatigue, Denies fever(s), Denies frequent falls, Denies headache(s) and Denies weakness Eyes Reports no additional complaints and Denies change in vision ENT Denies dysphagia, Denies dizziness, Denies facial pain, Denies headache(s) and Denies odynophagia Card Denies chest pain, Denies syncope, Denies irregular heart rhythm, Denies leg edema, Denies lightheadedness and Denies dyspnea Resp Denies cough and Denies dyspnea GI Denies abdominal pain, Denies constipation, Denies dysphagia, Denies dyspepsia, Denies diarrhea, Denies nausea, Denies odynophagia and Denies vomiting Denies dysuria, Denies urinary frequency, Denies urinary hesitancy and Denies urinary urgency Musc Denies back pain and Denies myalgias Skin/Breast Reports system reviewed and no additional complaints, except as documented Neuro Denies dizziness, Denies syncope, Denies frequent falls, Denies headache(s) and Denies weakness Psych Reports no additional complaints Endo Denies fatigue Physical exam (Primary Care) Vital Signs: Last Vital Signs Temp 97.5 F 03/18/24 10:25 Pulse 65 03/18/24 10:25 BP 110/72 03/18/24 10:25 Pulse Ox 98 03/18/24 10:25 Oxygen Delivery Method Room Air 03/18/24 10:25 BMI result Body Mass Index 33.3 BMI Assessment/Plan discussion: High BMI High, discussed plan: lifestyle, dietary and physical activity Tobacco/Smoking Status: Tobacco use Status Tobacco use date assessed 03/18/24 03/18/24 10:30 Patient Tobacco Use Status Never used Tobacco 03/18/24 10:30 Tobacco use type Cigarette 03/18/24 10:30 e-Cigarette/Vaping Use Never Used 03/18/24 10:30 PHQ-9: PHQ-9 Score PHQ-9: Total score 0 03/18/24 10:30 Depression Screening Interpretation: Negative Thrive Assessment: Date of Thrive Assessment Date Thrive assessed 03/18/24 03/18/24 10:30 Currently or been in a relationship where the following occur: I choose not to answer Const General: cooperative, healthy appearing, comfortable and no acute distress Orientation/consciousness: patient oriented x3 HENMT Head: Yes normocephalic Ears: hearing grossly normal bilaterally, external ears normal, TM's normal bilaterally and EAC's normal General nose exam: Normal external nose present Face and sinus: Yes normal facial exam and Yes sinuses nontender Mouth: Normal oral and palatal mucosa present and tongue normal Throat: Yes posterior oropharynx normal Eyes General: appearance normal, both eyes and all related structures Conjunctivae: conjunctivae normal Pupils: Equal, round and reactive pupils present EOM: EOMs intact bilaterally and No Nystagmus present Neck Neck: Yes normal visual inspection, Yes full ROM and Yes no lymphadenopathy Chest Chest palpation & inspection: normal inspection of the chest Resp Effort & Inspection: normal respiratory effort Auscultation: clear to auscultation bilaterally, no crackles, no rales, no rhonchi, no wheezes and breath sounds present Cardio Rate: regular rate Rhythm: regular rhythm Peripheral pulses: radial pulses present and dorsalis pedis present GI Inspection: Yes normal to inspection and No Abdominal wall edema Palpation (GI): Soft to palpation, not firm and nontender Auscultation: normal bowel sounds Rectal Exam - Male: Yes deferred General: Yes no CVA tenderness Back/Spine/Pelvis Back: no CVA tenderness Skin General skin exam: no rashes or lesions noted Neuro General: patient oriented x3 Cranial nerves: Yes Equal, round and reactive pupils present, Yes Midline tongue present, Yes Ability to bilaterally elevate shoulders present and No Nystagmus present Gait exam (Neuro): Normal gait present Extrem General: Yes normal to inspection, Yes full ROM, No no pedal edema and No edema Psych Speech and movement: Normal speech and movement present Affect: normal affect Insight: Good insight present (Psych) Judgement: Good judgement present (Psych) Coding Level of Care Code Est Pt Prev Care 40-64y(74871) Diagnoses Benign prostatic hyperplasia with urinary frequency N40.1; R35.0 Lower urinary tract symptom detail: urinary frequency Lower urinary tract symptom presence: symptoms present Erectile dysfunction, unspecified erectile dysfunction type N52.9 Erectile dysfunction type: unspecified Generalized anxiety disorder F41.1 Primary hypertension I10 Hypertension type: primary hypertension Obesity (BMI 30-39.9) E66.9 Hypercholesterolemia E78.00 Impaired glucose tolerance R73.02 Gastroesophageal reflux disease without esophagitis K21.9 Esophagitis presence: without esophagitis Mild intermittent asthma without complication J45.20 Asthma complication type: uncomplicated Asthma persistence: intermittent Asthma severity: mild Murmur R01.1 Annual physical exam Z00.00 ZOE (obstructive sleep apnea) G47.33 Assessment & Plan Assessment & Plan (1) BPH (benign prostatic hyperplasia): Code(s): N40.0 - Benign prostatic hyperplasia without lower urinary tract symptoms Category: Medical Qualifiers: Lower urinary tract symptom detail: urinary frequency Lower urinary tract symptom presence: symptoms present Qualified Code(s): N40.1 - Benign prostatic hyperplasia with lower urinary tract symptoms; R35.0 - Frequency of micturition Plan: Continue to follow with Urology and continue on current medication regimen. (2) Erectile dysfunction: Code(s): N52.9 - Male erectile dysfunction, unspecified Category: Medical Qualifiers: Erectile dysfunction type: unspecified Qualified Code(s): N52.9 - Male erectile dysfunction, unspecified Plan: Continue with Sildenafil as needed. (3) Generalized anxiety disorder: Code(s): F41.1 - Generalized anxiety disorder Category: Medical Plan: Feels anxiety is well managed at this time. Declines counseling and treatment. (4) Hypertension: Code(s): I10 - Essential (primary) hypertension Category: Medical Qualifiers: Hypertension type: primary hypertension Qualified Code(s): I10 - Essential (primary) hypertension Plan: Continue on current blood pressure medication. Avoid salt intake and encourage healthy diet and regular exercise. (5) Obesity (BMI 30-39.9): Code(s): E66.9 - Obesity, unspecified Category: Medical Plan: Healthy diet and regular exercise is encouraged. (6) Hypercholesterolemia: Code(s): E78.00 - Pure hypercholesterolemia, unspecified Category: Medical Plan: Avoid foods that are high in cholesterol such as red meat, fried foods, eggs and baked goods. Triglyceride goal of less than 150 and LDL goal of less than 130. Not currently on medical management (7) Impaired glucose tolerance: Code(s): R73.02 - Impaired glucose tolerance (oral) Category: Medical Plan: Decrease the amount of carbohydrates such as pasta, bread, rice, and potatoes and limit the amount of sweets. Although fruits are generally healthy they should be eaten in moderation as they are still high in sugar. (8) GERD (gastroesophageal reflux disease): Code(s): K21.9 - Gastro-esophageal reflux disease without esophagitis Category: Medical Qualifiers: Esophagitis presence: without esophagitis Qualified Code(s): K21.9 - Gastro-esophageal reflux disease without esophagitis Plan: Avoid trigger foods such as citrus, tomato products, soda, caffeine, spicy foods and other foods that may be irritating to your stomach. Avoid laying flat 3-4 hours after eating and elevate the head of the bed 30 degrees to prevent acid from moving into the esophagus. (9) Asthma: Code(s): J45.909 - Unspecified asthma, uncomplicated Category: Medical Qualifiers: Asthma complication type: uncomplicated Asthma persistence: interm ittent Asthma severity: mild Qualified Code(s): J45.20 - Mild intermittent asthma, uncomplicated Plan: Asthma currently controlled on present medications. Continue on albuterol as needed and Spiriva.? Avoid triggers such as allergies. (10) Murmur: Code(s): R01.1 - Cardiac murmur, unspecified Category: Medical Plan: ECHO and CXr ordered by Pulmonology for further evaluation (11) Annual physical exam: Code(s): Z00.00 - Encounter for general adult medical examination without abnormal findings Category: Medical Plan: Patient is up to date on all recommended screenings and vaccinations for his age. Reminded patient about blood work. Healthy diet and regular exercise is encouraged. (12) ZOE (obstructive sleep apnea): Comment: CPAP Code(s): G47.33 - Obstructive sleep apnea (adult) (pediatric) Category: Medical Plan: Uses CPAP faithfully at least 4 hours a night and benefits from this therapy. Plan Thank you for allowing me to participate in the care of this patient. I personally spent 30 minutes reviewing, examining and charting on this patient. Orders: Orders Complete Blood Count Auto Diff Today Z00.00 - Encounter for general adult medical examination without abnormal findings Comprehensive Met. Panel Today Z00.00 - Encounter for general adult medical examination without abnormal findings Lipid Panel Today E78.00 - Pure hypercholesterolemia, unspecified Vitamin B12 and Folate Today Z00.00 - Encounter for general adult medical examination without abnormal findings Vitamin D 25-OH Total Today Z00.00 - Encounter for general adult medical examination without abnormal findings TSH reflex Free T4 Today Z00.00 - Encounter for general adult medical examination without abnormal findings Hemoglobin A1c Today R73.02 - Impaired glucose tolerance (oral) Medications: Refilled 2 sildenafil 100 mg PO DIRECTED 90 tabs 1RF N40.0 - Benign prostatic hyperplasia without lower urinary tract symptoms alprazolam (Xanax) 0.5 mg PO DAILY 30 tabs 0RF
[2024-03-18 10:25] VITALS: BP 110/72; PULSE 65; TEMP 36.4; O2SAT 98; BMI 33.3
--- OUTSIDE RECORDS SUMMARY | 2024-03-18 11:15 | XMS_ITS | Data Portability ---
Author Organization [facility], [address] Address [address] [place] [address] Care Team Providers Care Club Former Name Role Phone SLADE EM Primary Care Provider Assessment No assessment recorded. Plan of Treatment Reminders Order Date Submit Date Provider Last Modified By Organization Details Last Modified Time Details Appointments None recorded. Lab urinalysis, dipstick 2022 023 [email or web address] [facility], [address] [place] [address], [place], [address], 3 16:34:09 culture, urine 2022 023 [facility], [address] [place] [address], [place], [address], 3 08:07:29 Referral urologist referral 2022 023 [email or web address] 26 Not available 3 09:08:28 Procedures None recorded. Surgeries None recorded. Imaging None recorded. Medication Orders Macrobid 100 mg capsule 2022 023 [email or web address] [id number], [address] [place], [address], 3 16:10:01 Anusol-HC 25 mg rectal suppository 2022 023 [email or web address] [id number], [address] [place], [address], 08:13:41 Patient TargetsNo targets recorded. Patient Instructions Encounter Date Encounter Id Patient Instructions Last Modified By Organization Details Last Modified Time 09/02/2022 [id number] hemorrhoids: car e instructions [email or web address] Not available 09/02/2022 16:47:47 Reason for Referral Urologist Referral for Incre ased frequency of urination Referring Physician: Chad Forman, Urgent Care, Encounter Date: 04/27/2022 Results Created Date Observation Date Name Description Value Unit Range Abnormal Flag Note LastModifiedBy Organization Detail LastModifiedTime 04/28/1904/29/2022 URINE CULTU RE, ROUTI NE urine culture, routine FINAL REPORT Not Available [facility] ([facility]) [address] [facility], [place], [address], 04/29/2022 08:07:29 04/28/19 23 04/29/2022 URINE CULTU RE, ROUTI NE result 1 NO GROWTH Not Available [facility] ([facility]) [address] [facility], [place], [address], 04/29/2022 08:07:29 04/28/19 23 04/27/2022 urina lysis , dipst ick Unknown Analyte Yellow Not Available _ [facility] [address], [address], 04/27/2022 15:44:07 04/28/19 23 04/27/2022 urina lysis , dipst ick Unknown Analyte Clear Not Available _ [facility] [address], [address], 04/27/2022 15:44:07 04/28/19 23 04/27/2022 urina lysis , dipst ick Unknown Analyte Negati ve Not Available tania jay [address], [address], 04/27/2022 15:44:07 04/28/19 23 04/27/2022 urina lysis , dipst ick Unknown Analyte Negati ve Not Available [facility] [address] [place] [address], [place], [address], 04/27/2022 15:44:07 04/28/19 23 04/27/2022 urina lysis , dipst ick Unknown Analyte Negati ve Not Available [facility]na[facility] [address], [place], [address], 04/27/2022 15:44:07 04/28/19 23 04/27/2022 urina lysis , dipst ick Unknown Analyte 1.025 Not Available donnaope [address], [place], [address], 04/27/2022 15:44:07 04/28/19 23 04/27/2022 urina lysis , dipst ick Unknown Analyte Small Not Available [facility] [address], [place], [address], 04/27/2022 15:44:07 04/28/19 23 04/27/2022 urina lysis , dipst ick Unknown Analyte 6.5 Not Available [facility] [address], [place], [address], 04/27/2022 15:44:07 04/28/19 23 04/27/2022 urina lysis , dipst ick Unknown Analyte 30 mg/dL Not Available donna[facility] [address], [place], [address], 04/27/2022 15:44:07 04/28/19 23 04/27/2022 urina lysis , dipst ick Unknown Analyte 0.2 E.U./d L Not Available [facility], [place], [address], 04/27/2022 15:44:07 04/28/19 23 04/27/2022 urina lysis , dipst ick Unknown Analyte Negati ve Not Available [address] [address] [place] [address], [address], 04/27/2022 15:44:07 04/28/19 23 04/27/2022 urina lysis , dipst ick Unknown Analyte Negati ve Not Available [address] [address] [place] [address], [address], 04/27/2022 15:44:07 Result Notes None recorded. Problems Name Problem SNOMED Code Status Onset Date Resolution Date Notes Provider Name and Address Organization Details Recorded Time Hypertensive disorder 81086888 Active 2022 WILLIAM palomino, [place] - [facility] 3 15:50:11 Hypercholester olemia 55072368 Active 2022 WILLIAM CARRILLO null, PA - [facility] 3 15:50:18 Gastroesophage al reflux disease 813289420 Active 2022 WILLIAM CARRILLO null, PA - [facility] 3 15:50:32 Anxiety 50135304 Active 2022 WILLIAM NOBLEICA null, PA - [facility] 3 15:50:43 Asthma 541426668 Active 2022 WILLIAM CARRILLO null, PA - [facility] 3 15:51:05 Sleep apnea 98047131 Active 2022 WILLIAM NOBLEICA null, PA - [...] Name and Address Organization Details Recorded Time 616238 amoxicill in medicatio n itching Not available [...] Not Available Vitals Date Recorded Body height Body mass index (BMI) Body weight Body temperature Oxygen saturation Oxygen saturation in Arterial blood by Pulse oximetry Heart rate Respiratory rate Systolic blood pressure Diastolic blood pressure Provider Name and Address Organization Details Last Updated DateTime 3 180.34 cm 34.7 kg/m2 830094. 5 g 97.1 [degF] 95 % 95 % 99 /min 16 /min 129 mm[Hg] 82 mm[Hg] WILLIAM CARRILLO PA - [facility] 3 15:55:20 Date Recorded Body height Body mass index (BMI) Body weight Oxygen saturation Oxygen saturation in Arterial blood by Pulse oximetry Heart rate Respiratory rate Body temperature Systolic blood pressure Diastolic blood pressure Provider Name and Address Organization Details Last Updated DateTime 3 180.34 cm 34.7 kg/m2 501356. 5 g 97 % 97 % 71 /min 18 /min 98.5 [degF] 128 mm[Hg] 78 mm[Hg] GURU EMILIANO PA - [facility] 3 16:12:20 Social History Question Answer Notes LastModified by Organizat ion Details LastModified Time Tobacco Smoking Status Never Smoker WILLIAM CARRILLO candelario PA - [facility] 04/27/2022 15:52:41 What Is Your Level Of Alcohol Consumption? None [email or web address] Information not available 04/27/2022 Do You Use Any Illicit Or Recreational Drugs? No [email or web address] Information not available 04/27/2022 Have You Recently Traveled Abroad? No [email or web address] Information not available 04/27/2022 Do You Or Have You Ever Used Any Other Forms Of Tobacco Or Nicotine? No Information not available 04/27/2022 Sex: Unknown Functional Status None recorded. Mental Status None recorded. Family History Relationship Description Onset Age of this Age Resolved Age Notes LastModified by Organization Details LastModified Time Mother Heart disease [email or web address] Not available 2022 15:52:02 Mother Diabetes mellitus Not available 2022 15:52:09 Mother Myocardial infarction [email or web address] Not available 04/27 15:52:23 Father Myocardial infarction [email or web address] Not available 04/27 15:52:22 Medical History No medical history recorded. Past Encounters Encounter ID Performer Location Encounter Start Date Encounter Closed Date Diagnosis/Indication Diagnosis SNOMED-CT Code Diagnosis ICD10 Code Diagnosis Note [id number] [facility] [address] [address] 11/15/2018 19:08:29 11/15/2018 19:20:19 [id number] 21005_[facility] [address] [place] [address] 01/12/2017 19:30:06 01/12/2017 19:59:01 [id number] [address] [facility] [place] [address] 06/13/2019 14:32:24 06/13/2019 15:40:34 [id number] [address] [address] [facility] [place] [address] 04/27/2017 18:40:25 04/27/2017 19:31:53 [id number] [address] [address] [facility] [place] [address] 08/05/2021 08:35:18 08/05/2021 10:27:26 [id number] [address] [facility] [place] [address] 06/04/2016 19:47:53 06/04/2016 20:19:56 [id number] [address] [address] [facility] [place] [address] 05/13/2020 17:53:47 05/13/2020 18:56:52 [id number] [address] [address] [facility] [place] [address] 03/07/2018 19:42:56 03/07/2018 20:23:16 [id number] [address] [facility] [place] [address] 03/13/2015 15:25:32 03/13/2015 16:30:45 [id number] [address] [facility] [place] [address] 07/29/2021 15:41:12 07/29/2021 18:16:19 [id number] [address] [facility] [place] [address] 08/20/2017 18:49:49 08/20/2017 19:53:37 [id number] [address] [facility] [place] [address] 06/18/2020 19:37:45 06/18/2020 20:14:38 [id number] Chad Forman DO [address] [address] 04/27/2022 12:51:09 04/27/2022 16:36:40 Increased frequency of urination 539151622 R35.0 suspect UTISigns and Symptoms c/w UTIUA [...] agreement with the plan as outlined above. [id number] Marcelino Lea MD [facility] [address] [place] [address] 09/02/2022 15:20:17 09/02/2022 16:50:35 Hemorrhoids 75115062 K64.9 likely internal hemorrhoid s as per [...] Amaya Member ID Guarantor Name 06/18/2020 1 [facility] [id number] 1 Norbert Cabrales [id number] Norbert Cabrales 07/29/2021 1 [facility] [id number] 1 Norbert Cabrales [id number] Norbert Cabrales 08/05/2021 1 [facility] [id number] 1 Norbret Cabrales [id number] Norbert Cabrales 04/27/2022 1 [facility] [id number] 1 Norbert Cabrales [id number] Norbert Cabrales 09/02/2022 1 [facility] [id number] 1 Norbert Cabrales [id number] Norbert Cabrales Notes Date Note Type Note Provider Name and Address Organization Details Recorded Time 04/27/2022 text/html Urinary Problems-MaleReporte d bypatient.Notes:61 yo male c/o frequency in urination x couple days--no burning, no pain. + decreased stream no increased urgencyno incontinenceno pressureno malodorno blood in urineno back painno rashno feverno nausea or vomitingno MS change Chad Forman, [address] [place], [address], [employer] 04/27/2022 16:35:50 09/02/2022 text/html Went to his PCP 2 days ago and told he had internal hemorrhoids. Told to take fiber drink only. Patient concerned and wants to be checked again. Feels anal discomfort. NO blood in stool or when wipes. no pain with defecation. Had colonoscopy 02/01. Marcelino Lea MD [address] [place], [address], [employer] 09/02/2022 18:39:03
--- OUTSIDE RECORDS SUMMARY | 2024-03-18 11:15 | XMS_ITS | Clinical Summary ---
Author Organization [facility] ity Address [address] [place] [address] Care Team Providers Care Ship Scaler Name Role Phone Unavailable Primary Care Provider [...]
== END 2024-03-18 11:16 | disposition home or self-care (01) ==
PROVIDERS: PCP Internal Medicine
DX: Z00.00 Encounter for general adult medical examination without abnormal findings (principal); N40.1 Benign prostatic hyperplasia with lower urinary tract symptoms; R35.0 Frequency of micturition; N52.9 Male erectile dysfunction, unspecified; F41.1 Generalized anxiety disorder; I10 Essential (primary) hypertension; E66.9 Obesity, unspecified; E78.00 Pure hypercholesterolemia, unspecified; R73.02 Impaired glucose tolerance (oral); K21.9 Gastro-esophageal reflux disease without esophagitis; J45.20 Mild intermittent asthma, uncomplicated; R01.1 Cardiac murmur, unspecified

== ENCOUNTER → 2024-03-23 07:58 | Outpatient (REF) | payer OTHER, SELFPAY | LOC: HO.CARD 07:58 | PROVIDERS: PCP Internal Medicine; Visit Provider Hospitalist | DX: R01.1 Cardiac murmur, unspecified (principal); I27.20 Pulmonary hypertension, unspecified | CPT/HCPCS: 93306 ==

== ENCOUNTER → 2024-03-23 08:01 | Outpatient (BNV) | payer OTHER, SELFPAY | PROVIDERS: PCP Internal Medicine; Visit Provider Internal Medicine Cardiovascular Disease | DX: I51.7 Cardiomegaly (principal) | CPT/HCPCS: 93306 ==

== ENCOUNTER 2024-03-25 10:04 | Outpatient (AMB) | payer OTHER, SELFPAY ==
[2024-03-25 10:40] VITALS: BP 120/86; PULSE 65; O2SAT 98; BMI 34.2
--- NOTE | 2024-03-25 10:40 | AM.OFFWIN_ITS ---
Intake Vital Signs 03/25/24 10:40 Height 5 ft 11 in Weight 245 lb BMI 34.2 BP 120/86 Blood Pressure Location Rt brachial Position Sitting Pulse 65 Pulse Source Pulse Oximeter Pulse Oximetry (%) 98 Oxygen Delivery Method Room Air Intake Visit Reasons: EP light headed, off balance Intake Note: Patient here for feeling off balance, light headed that has been present for a couple of days. Patient Tobacco Use Status: Never used Tobacco Allergies Penicillins Adverse Reaction (Severe, Verified 03/25/24 10:48) Anxiety pineapple Adverse Reaction (Severe, Verified 03/25/24 10:48) swellling HPI HPI Comments History of Present Illness Details History of Present Illness - The patient is a 63-year-old male pres enting with lightheadedness and imbalanc e potentially related to benzodiazepine tapering. - For over a decade, the patient regular ly consumed alprazolam 0.5mg to manage depression-related symptoms. - Current withdrawal symptoms, specifica lly lightheadedness, began following a further reduction in dosage implemented in recent days, alternating 0.5mg with a 0.25mg dose. He took the 0.5 dose without resolution in symptoms. - 3 days ago, BP at home was 220/90 epis ode was stabilized post-medication adjustment, with current blood pressures within normal range. - Patient reports homogenous active life style with significant weight loss achieved through consistent gym routines. - Denies upper respiratory symptoms or c ongestion Physical Exam General: Cooperative, healthy appearing, comfortable, no acute distress and well developed Orientation: Patient oriented x3 Limitations: No limitations Head: Normal to inspection Ears: external ears normal, TM left with effusion, no infection, no erythema; right TM normal Nose: Normal external nose present Face and sinus: Normal facial exam Eyes: Appearance normal, both eyes and all related structures Neck: Normal visual inspection and Yes full ROM Respiratory: Normal respiratory effort and able to speak in complete sentences. Clear to auscultation bilaterally Cardiovascular: Regular rate and rhythm, systolic murmur Skin: No rashes or lesions noted Neuro: Patient oriented x3 Extremities: Normal to inspection [facility] Medical History Murmur Enlarged prostate Atelectasis GERD (gastroesophageal reflux disease) ZOE (obstructive sleep apnea) Extremity edema Asthma Surgical History History of knee replacement procedure of left knee Social History Housing: House Alcohol intake: never Patient Tobacco Use Status: Never used Tobacco Tobacco use type: Cigarette e-Cigarette/Vaping Use: Never Used Second Hand Smoke Exposure: No service: Yes ([employer] [id number] ) Current occupational status: retired Cognitive needs: No Hearing needs: No Vision needs: Yes Review of Systems Const All systems reviewed & are unremarkable except as noted in HPI and below Physical Exam Vital Signs: Last Vital Signs Pulse 65 03/25/24 10:40 BP 120/86 03/25/24 10:40 Pulse Ox 98 03/25/24 10:40 Oxygen Delivery Method Room Air 03/25/24 10:40 BMI result Body Mass Index 34.2 Office Procedures EKG 31514-Bbknzlsbipfgnlffs, Complete Results Reviewed Results Reviewed: ED visit to [facility] for dizziness, was found to have low calcium and potassium, were repleted and sent home. Recent labs on 03/18, electrolytes were all WNL. Assessment & Plan Assessment & Plan (1) Acute effusion of left ear: Code(s): H65.192 - Other acute nonsuppurative otitis media, left ear Plan: VSS (HR 65BPM upon arrival), pt well appearing. The ongoing lightheadedness is less likley attributed to benzodiazepine withdrawal syndrome, as pt took his normal 0.5mg dose and his symptoms did not resolve. The ENT findings of fluid in the left ear suggest a possible vestibular origin to the balance issues, to be managed with nasal Flonase for symptomatic relief. To further ensure comprehensive cardiac evaluation, an EKG is ordered to assess any underlying electrophysiological issues. EKG sinus king @55BPM with 1st degree block but no acute changes, no Qt prolongation, last EKG 11/2021 was NSR with no acute changes, he did have QT prolongation at that time. Patient is advised to maintain current hypertensive management and continue physical fitness routine safely. I will send the EKG results to his primary care doctor, I do not think this is the cause of his dizziness, however I will let Dr. Espinoza decide if he wants him to follow up with a sharepoint solutions architect, he did have a echocardiogram 2 days ago which showed enlarged right ventricle, normal EF. Today, BP and other vitals are all WNL. Advised patient that if he had any worsening of his dizziness, felt like he was going to pass out, that he should go to the emergency room or call 911. Explained sinus king with 1st degree block. Patient was informed and verbally consented to the use of an ambient scribe for clinic note documentation during this visit. (2) Dizziness: Code(s): R42 - Dizziness and giddiness Plan: as above Coding Level of Care Code Est Pt Level 4 (27790) Diagnoses Acute effusion of left ear H65.192 Dizziness R42 CPT Codes EKG - CPT: 19598-Zmlvfrswtophkhjfe, Complete ([id number])
--- OUTSIDE RECORDS SUMMARY | 2024-03-25 11:52 | XMS_ITS | Data Portability ---
Author Organization [facility], [address] Address [address] [place] [address] Care Team Providers Care Hospital Monitor Name Role Phone SLADE EM Primary Care Provider Assessment No assessment recorded. Plan of Treatment Reminders Order Date Submit Date Provider Last Modified By Organization Details Last Modified Time Details Appointments None recorded. Lab urinalysis, dipstick 2022 023 [email or web address] [facility], [address] [place] [address], [place], [address], 3 16:34:09 culture, urine 2022 023 [place] [facility], [address] [place] [address], [place], [address], 3 08:07:29 Referral urologist referral 2022 023 [email or web address] 26 Not available 3 09:08:28 Procedures None recorded. Surgeries None recorded. Imaging None recorded. Medication Orders Macrobid 100 mg capsule 2022 023 [email or web address] [id number], [address] [place], [address], 3 16:10:01 Anusol-HC 25 mg rectal suppository 2022 023 [email or web address] [id number], [address] [place], [address], 08:13:41 Patient TargetsNo targets recorded. Patient Instructions Encounter Date Encounter Id Patient Instructions Last Modified By Organization Details Last Modified Time 09/02/2022 [id number] hemorrhoids: car e instructions [email or web address] Not available 09/02/2022 16:47:47 Reason for Referral Urologist Referral for Incre ased frequency of urination Referring Physician: Chad Forman, Urgent Care, Encounter Date: 04/27/2022 Results Created Date Observation Date Name Description Value Unit Range Abnormal Flag Note LastModifiedBy Organization Detail LastModifiedTime 04/28/1904/29/2022 URINE CULTU RE, ROUTI NE urine culture, routine FINAL REPORT Not Available [facility] ([facility]) [address] [facility], [place], [address], 04/29/2022 08:07:29 04/28/19 23 04/29/2022 URINE CULTU RE, ROUTI NE result 1 NO GROWTH Not Available [facility] ([facility]) [address] [facility], [place], [address], 04/29/2022 08:07:29 04/28/19 23 04/27/2022 urina lysis , dipst ick Unknown Analyte Yellow Not Available _ [facility] [address], [address], 04/27/2022 15:44:07 04/28/19 23 04/27/2022 urina lysis , dipst ick Unknown Analyte Clear Not Available _ [facility] [address], [address], 04/27/2022 15:44:07 04/28/19 23 04/27/2022 urina lysis , dipst ick Unknown Analyte Negati ve Not Available tania jay [address], [address], 04/27/2022 15:44:07 04/28/19 23 04/27/2022 urina lysis , dipst ick Unknown Analyte Negati ve Not Available [facility] [address] [place] [address], [place], [address], 04/27/2022 15:44:07 04/28/19 23 04/27/2022 urina lysis , dipst ick Unknown Analyte Negati ve Not Available donnao pe [address], [place], [address], 04/27/2022 15:44:07 04/28/19 23 04/27/2022 urina lysis , dipst ick Unknown Analyte 1.025 Not Available donnaope em[address], [place], [address], 04/27/2022 15:44:07 04/28/19 23 04/27/2022 urina lysis , dipst ick Unknown Analyte Small Not Available [facility] [address], [place], [address], 04/27/2022 15:44:07 04/28/19 23 04/27/2022 urina lysis , dipst ick Unknown Analyte 6.5 Not Available [facility] [address], [place], [address], 04/27/2022 15:44:07 04/28/19 23 04/27/2022 urina lysis , dipst ick Unknown Analyte 30 mg/dL Not Available donnao pe em[address], [place], [address], 04/27/2022 15:44:07 04/28/19 23 04/27/2022 urina lysis , dipst ick Unknown Analyte 0.2 E.U./d L Not Available [facility], [place], [address], 04/27/2022 15:44:07 04/28/19 23 04/27/2022 urina lysis , dipst ick Unknown Analyte Negati ve Not Available [address] [facility] [address] [place] [address], [address], 04/27/2022 15:44:07 04/28/19 23 04/27/2022 urina lysis , dipst ick Unknown Analyte Negati ve Not Available [address] [facility] [address] [place] [address], [address], 04/27/2022 15:44:07 Result Notes None recorded. Problems Name Problem SNOMED Code Status Onset Date Resolution Date Notes Provider Name and Address Organization Details Recorded Time Hypertensive disorder 77282994 Active 2022 WILLIAM palomino, [place] - [facility] 3 15:50:11 Hypercholester olemia 31732725 Active 2022 WILLIAM CARRILLO null, PA - [facility] 3 15:50:18 Gastroesophage al reflux disease 764909283 Active 2022 WILLIAM CARRILLO null, PA - [facility] 3 15:50:32 Anxiety 17502532 Active 2022 WILLIAM NOBLEICA null, PA - [facility] 3 15:50:43 Asthma 366262189 Active 2022 WILLIAM CARRILLO null, PA - [facility] 3 15:51:05 Sleep apnea 17256865 Active 2022 WILLIAM NOBLEICA null, PA - [...] Name and Address Organization Details Recorded Time [id number] amoxicill in medicatio n itching Not available [...] Updated DateTime 3 180.34 cm 34.7 kg/m2 765958. 5 g 97.1 [degF] 95 % 95 [...] Updated DateTime 3 180.34 cm 34.7 kg/m2 114651. 5 g 97 % 97 % 71 /min 18 /min 98.5 [degF] 128 mm[Hg] 78 mm[Hg] GURU EMILIANO PA - [facility] 3 16:12:20 Social History Question Answer Notes LastModified by Organizat ion Details LastModified Time Tobacco Smoking Status Never Smoker WILLIAM CARRILLO candelario PA - [facility] 04/27/2022 15:52:41 What Is Your Level Of Alcohol Consumption? None [email or web address] Information not available 04/27/2022 Do You Use Any Illicit Or Recreational Drugs? No [email or web address] Information not available 04/27/2022 Have You Recently Traveled Abroad? No [email or web address] Information not available 04/27/2022 Do You Or Have You Ever Used Any Other Forms Of Tobacco Or Nicotine? No [email or web address] Information not available 04/27/2022 Sex: Unknown Functional Status None recorded. Mental Status None recorded. Family History Relationship Description Onset Age of this Age Resolved Age Notes LastModified by Organization Details LastModified Time Mother Heart disease [email or web address] Not available 2022 15:52:02 Mother Diabetes mellitus [email or web address] Not available 2022 15:52:09 Mother Myocardial infarction [email or web address] Not available 04/27 15:52:23 Father Myocardial infarction [email or web address] Not available 04/27 15:52:22 Medical History No medical history recorded. Past Encounters Encounter ID Performer Location Encounter Start Date Encounter Closed Date Diagnosis/Indication Diagnosis SNOMED-CT Code Diagnosis ICD10 Code Diagnosis Note [id number] [facility] [address] [address] 11/15/2018 19:08:29 11/15/2018 19:20:19 [id number] 21005_[facility] [address] [place] [address] 01/12/2017 19:30:06 01/12/2017 19:59:01 [id number] [address] [facility] [place] [address] 06/13/2019 14:32:24 06/13/2019 15:40:34 [id number] [address] [facility] [address] 04/27/2017 18:40:25 04/27/2017 19:31:53 [id number] [address] [facility] [address] 08/05/2021 08:35:18 08/05/2021 10:27:26 [id number] [address] [facility] [place] [address] 06/04/2016 19:47:53 06/04/2016 20:19:56 [id number] [address] [facility] [address] 05/13/2020 17:53:47 05/13/2020 18:56:52 [id number] [address] [facility] [address] 03/07/2018 19:42:56 03/07/2018 20:23:16 [id number] [address] [facility] [place] [address] 03/13/2015 15:25:32 03/13/2015 16:30:45 [id number] [address] [place] [address] 07/29/2021 15:41:12 07/29/2021 18:16:19 [id number] [address] [facility] [address] 08/20/2017 18:49:49 08/20/2017 19:53:37 [id number] [address] [facility] [address] 06/18/2020 19:37:45 06/18/2020 20:14:38 [id number] [place] Form[place] [address] [address] 04/27/2022 12:51:09 04/27/2022 16:36:40 Increased frequency of urination 398092583 R35.0 suspect UTISigns and Symptoms c/w UTIUA [...] agreement with the plan as outlined above. [id number] Marcelino Lea MD [address] [address] [place] [address] 09/02/2022 15:20:17 09/02/2022 16:50:35 Hemorrhoids 02790710 K64.9 likely internal hemorrhoid s as per [...] Amaya Member ID Guarantor Name 06/18/2020 1 [facility] [id number] 1 Norbert Cabrales [id number] Norbert Cabrales 07/29/2021 1 [facility] [id number] 1 Norbert Cabrales [id number] Norbert Cabrales 08/05/2021 1 [facility] [id number] 1 Norbert Cabrales [id number] Norbert Cabrales 04/27/2022 1 [facility] [id number] 1 Norbert Cabrales [id number] Norbert Cabrales 09/02/2022 1 [facility] [id number] 1 Norbert Cabrales [id number] Norbert Cabrales Notes Date Note Type Note Provider Name and Address Organization Details Recorded Time 04/27/2022 text/html Urinary Problems-MaleReporte d bypatient.Notes:61 yo male c/o frequency in urination x couple days--no burning, no pain. + decreased stream no increased urgencyno incontinenceno pressureno malodorno blood in urineno back painno rashno feverno nausea or vomitingno MS change Chad Forman, [address] [place], [address], [place] 04/27/2022 16:35:50 09/02/2022 text/html Went to his PCP 2 days ago and told he had internal hemorrhoids. Told to take fiber drink only. Patient concerned and wants to be checked again. Feels anal discomfort. NO blood in stool or when wipes. no pain with defecation. Had colonoscopy 02/01. Marcelino Lea MD [address] [place], [address], [place] 09/02/2022 18:39:03
== END 2024-03-25 11:39 | disposition home or self-care (01) ==
PROVIDERS: PCP Internal Medicine; Visit Provider Physician Assistant
DX: H65.192 Other acute nonsuppurative otitis media, left ear (principal); R42 Dizziness and giddiness

== ENCOUNTER → 2024-03-25 10:04 | Outpatient (BNVA) | payer OTHER, SELFPAY | PROVIDERS: PCP Internal Medicine | DX: R42 Dizziness and giddiness (principal); H65.192 Other acute nonsuppurative otitis media, left ear | CPT/HCPCS: 93005 ==

== ENCOUNTER 2024-04-14 08:52 | Outpatient (AMB) | payer OTHER, SELFPAY ==
[2024-04-14 09:07] VITALS: BP 110/72; PULSE 65; O2SAT 97; BMI 34.6
--- NOTE | 2024-04-14 09:07 | A.OFFPC_ITS ---
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: No Accompanied by: Spouse Allergies Penicillins Adverse Reaction (Severe, Verified 04/14/24 09:16) Anxiety pineapple Adverse Reaction (Severe, Verified 04/14/24 09:16) swellling Medication List - Last Reconciled 04/14/24 by Caren Otoole PA-C albuterol sulfate 90 mcg/actuation (Proventil HFA) 2 puffs inhalation Q4-6H PRN alprazolam 0.5 mg PO DAILY amlodipine 10 mg PO DAILY budesonide-formoterol 80-4.5 mcg/actuation (Symbicort) 2 puffs inhalation BID PRN cholecalciferol (vitamin D3) 25 mcg PO DAILY mohamud.stocking,knee,reg,xlrg 15-20 cm hydroxyzine HCl 50 mg PO TID olmesartan 20 mg PO DAILY omeprazole 20 mg PO DAILY psyllium husk 1 tbsp PO BID sildenafil 100 mg PO DIRECTED tamsulosin 0.4 mg PO BEDTIME Tobacco use date assessed: 03/18/24 Fall risk assessment: No Falls in past year Last assessed Fall Risk: 04/14/24 Dental Screening Dental Screen Date: 03/18/24 HPI 1 month f/u HPI Details 63-year-old male with past medical histo ry of asthma, obstructive sleep apnea, GERD, impaired glucose tolerance, hypercholesterolemia, hypertension, generalized anxiety disorder last seen 10/2023 coming in for follow up. In review of the notes, patient was seen in [facility] ED 03/30/2024 for chest pain workup was negative recommending follow up with PCP for benzodiazepine withdrawal and discharged home. Patient also had brain MRI 04/04/2024 at [facility] which was normal. Presenting with concerns about medication tapering and associated withdrawal symptoms. Attempts to reduce medication dosage to 0.25 mg resulted in significant withdrawal symptoms, prompting a return to 0.50 mg dosing for stabilization. The patient was administered hydroxyzine with reported improvement but wishes to eventually eliminate its use. Diagnostic imaging including MRI and chest CT returned normal results accessed through the healthcare portal by the patient. An existing first-degree AV block is noted without present symptoms. An unidentified heart murmur has been previously noted; referral for cardiology consultation remains outstanding. 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 Cognitive needs: No Hearing needs: No Vision needs: Yes Questionnaire Thrive Questionnaire Date Thrive assessed: 03/18/24 I am a: Patient What is your living situation today?: I have a steady place to live Within the past 12 months, did the food you bought not last and you didn't have the money to get more?: I choose not to answer this question Within the past 12 months, did you worry whether your food would run out before you got money to buy more?: I choose not to answer this question Do you have trouble paying for medicines?: No Do you have trouble getting transportation to medical appointments?: No Do you have trouble paying your heating and electricity bill?: No Do you have trouble taking care of your child, family member or friend?: No Do you have trouble with day-to-day activities such as bathing, preparing meals, shopping, managing finances, etc.?: No Are you currently unemployed and looking for a job?: No Are you interested in more education?: Yes Please select the resources that you would like help with: None Currently or been in a relationship where the following occur: I choose not to answer THRIVE Score: 0 ALISON-7 AMB Questionnaire ALISON-7 Date ALISON - 7 assessed: 03/18/24 Source: Developed by Drs. David Jeong, Jo Whitney, Cristofer Meyer and colleagues, with an educational esther from [employer] Review of Systems Const Denies body aches, Denies chills, Denies fever(s), Denies headache(s) and Denies poor appetite Eyes Reports no additional complaints ENT Denies dysphagia, Denies dizziness, Denies headache(s) and Denies odynophagia Card Denies chest pain, Denies syncope, Denies edema, Denies irregular heart rhythm, Denies lightheadedness and Denies dyspnea Resp Denies cough and Denies dyspnea GI Denies abdominal pain, Denies constipation, Denies dysphagia, Denies diarrhea, Denies nausea, Denies odynophagia and Denies vomiting Reports no additional complaints Musc Reports no additional complaints and Denies abnormal gait Skin/Breast Reports system reviewed and no additional complaints, except as documented Neuro Denies abnormal gait, Denies dizziness, Denies syncope and Denies headache(s) Psych Reports no additional complaints Physical exam (Primary Care) Vital Signs: Last Vital Signs Pulse 65 04/14/24 09:07 BP 110/72 04/14/24 09:07 Pulse Ox 97 04/14/24 09:07 Oxygen Delivery Method Room Air 04/14/24 09:07 BMI result Body Mass Index 34.6 Tobacco/Smoking Status: Tobacco use Status Tobacco use date assessed 03/18/24 04/14/24 09:14 Patient Tobacco Use Status Never used Tobacco 04/14/24 09:14 Tobacco use type Cigarette 04/14/24 09:14 e-Cigarette/Vaping Use Never Used 04/14/24 09:14 Thrive Assessment: Date of Thrive Assessment Date Thrive assessed 03/18/24 04/14/24 09:14 Currently or been in a relationship where the following occur: I choose not to answer Const General: cooperative, healthy appearing, comfortable and no acute distress Orientation/consciousness: patient oriented x3 HENMT Head: Yes normocephalic Ears: hearing grossly normal bilaterally General nose exam: Normal external nose present Eyes General: appearance normal, both eyes and all related structures Conjunctivae: conjunctivae normal Neck Neck: Yes full ROM and Yes no lymphadenopathy Resp Effort & Inspection: normal respiratory effort Auscultation: clear to auscultation bilaterally, no crackles, no rales, no rhonchi and no wheezes Cardio Rate: regular rate Rhythm: regular rhythm Skin General skin exam: no rashes or lesions noted Neuro General: patient oriented x3 Gait exam (Neuro): Normal gait present Extrem General: Yes normal to inspection, Yes full ROM and No edema Psych Affect: normal affect Attitude: cooperative Insight: Good insight present (Psych) Judgement: Good judgement present (Psych) Coding Level of Care Code Est Pt Level 3 (19773) Diagnoses Dizziness R42 Generalized anxiety disorder F41.1 Primary hypertension I10 Hypertension type: primary hypertension Obesity (BMI 30-39.9) E66.9 Assessment & Plan Assessment & Plan (1) Dizziness: Code(s): R42 - Dizziness and giddiness Category: Medical Plan: Patient having dizziness with withdrawal symptoms and did not have these symptoms prior to tapering. Continue to monitor at this time. (2) Generalized anxiety disorder: Code(s): F41.1 - Generalized anxiety disorder Category: Medical Plan: Advised patient to continue on 0.5 mg to stabilize him, with plans to introduce Clonidine nightly to assist in future tapering. Use of hydroxyzine will be limited to instances when needed. Plan to follow up in one month with Dr. Espinoza to continue with further monitoring. (3) Hypertension: Code(s): I10 - Essential (primary) hypertension Category: Medical Qualifiers: Hypertension type: primary hypertension Qualified Code(s): I10 - Essential (primary) hypertension Plan: Continue on current blood pressure medication. Avoid salt intake and encourage healthy diet and regular exercise. (4) Obesity (BMI 30-39.9): Code(s): E66.9 - Obesity, unspecified Category: Medical Plan: Healthy diet and regular exercise is encouraged. Plan Patient was informed and verbally consented to the use of an ambient scribe for clinic note documentation during this visit. Voice recognition software was used to produce this note. While all efforts to reduce errors have been taken there may be errors present with the documentation. Thank you for allowing me to participate in the care of this patient. I personally spent 20 minutes reviewing, examining and charting on this patient. Medications: New clonidine HCl 0.1 mg PO BEDTIME 30 tabs 0RF
--- OUTSIDE RECORDS SUMMARY | 2024-04-14 09:33 | XMS_ITS | Clinical Summary ---
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 Role Phone José Miguel Espinoza MD Primary Care Provider [phone] Allergies Active Allergy Reactions Criticality Noted Date Comments Penicillins 03/30/2024 Pineapple 03/30/2024 Encounters Date Type Department Care Team Description 04/03/2024 5:38 PM EST - 04/03/2024 11:59 PM [facility] Hospital Encounter [facility] MRI [address] [place] [id number] Headache, unspecified Discharge Disposition: Home or Self Care 03/31/2024 7:16 AM EST - 03/31/2024 11:06 AM EST Emergency [facility] Emergency [address] [place] [phone] Pipo Haynes MD Vatrenko, Konstantin, MD Recurrent headache (Primary Dx); Benzodiazepine withdrawal with complication (CMS/HCC) Discharge Disposition: Home or Self Care from Last 3 Months Medical History Medical History Date Comments Hypertension Asthma GERD (gastroesophageal reflux disease) Neutropenia (CMS/HCC) Hiatal hernia Social History Tobacco Use Types Packs/Day Years Used Date Smoking Tobacco: Never Smokeless Tobacco: Never Tobacco Cessation:Counseling Given: Not Answered Alcohol Use Standard Drinks/Week Comments Not Currently 0 (1 standard drink = 0.6 oz pur e alcohol) Sex and Gender Information Value Date Recorded Sex Assigned at Not on file Legal Sex Male 8:22 PM EST Gender Identity Not on file Sexual Orientation Not on file Obstetrics History Last Filed Vital Signs Vital Sign Reading Time Taken Comments Blood Pressure 130/86 03/31/2024 7:25 AM EST Pulse 67 03/31/2024 7:25 AM EST Temperature 36.8 ??C (98.3 ??F) 03/31/2024 7:25 AM ES T Respiratory Rate 18 03/31/2024 7:25 AM EST Oxygen Saturation 98% 03/31/2024 7:25 AM EST Inhaled Oxygen Concentration - - Weight 108 kg (237 lb) 03/30/2024 8:31 PM EST Height 180.3 cm (5' 11 ) 03/30/2024 8:31 PM EST Body Mass Index 33.05 03/30/2024 8:31 PM EST Plan of Treatment Health Maintenance Due Date Last Done Comments DTaP,Tdap,and Td Vaccines (1 - Tdap) 09/09/1978 Pneumococcal Vaccine: 50+ Ye ars (1 of 2 - PCV) 09/09/1978 Pneumococcal Vaccine: Pediat rics (0 to 5 Years) and At-Risk Patients (6 to 64 Years) (1 of 2 - PCV) 09/09/1978 Zoster Vaccines (1 of 2) 09/09/2009 RSV Immunization Patients 60 + Years Old (1 - Risk 60-74 years 1-dose series) 2019 Cholesterol Screening (Lipid Panel) 01/13/2022 Colorectal Cancer Screening: Colonoscopy 01/13/2022 Depression Screening 01/13/2022 HIV Screening 01/13/2022 Hepatitis C Screening 01/13/2022 Social Influencers of Health Screening 01/13/2022 COVID-19 Vaccine ( - 2023-2 5 season) 2023 Influenza Vaccine (#1) 2023 Hypertension/CHF/CAD Annual BMP Blood Test 03/30/2025 03/30/2024 HIB Vaccines Aged Out No longer eligi [...] patient's age to complete this topic Meningococcal B Vacine Aged Out No lo nger eligible based on patient's age to complete this topic RSV Immunization Patients Un ivan 20 months Aged Out No longer eligible b ased on patient's age to complete this topic Varicella Vaccines Aged Out No longer eligible based on patient's age to complete this topic Procedures Procedure Name Priority Date/Time Associated Diagnosis Comments MR BRAIN WO CONTRAST Routine 04/03/2024 6:57 PM EST Headache, unspecified ECG ANNOTATED 04/01/2024 ECG ANNOTATED 04/01/2024 ECG 12-LEAD STAT 03/30/2024 10:06 PM EST TROPONIN I HIGH SENSITIVITY STAT 03/30/2024 10:04 PM EST XR CHEST 2 VIEWS STAT 03/30/2024 9:14 PM EST CBC WITH AUTO DIFFERENTIAL STAT 03/30/2024 8:36 PM EST MAGNESIUM STAT 03/30/2024 8:36 PM EST LIPASE STAT 03/30/2024 8:36 PM EST COMPREHENSIVE METABOLIC PANEL STAT 03/30/2024 8:36 PM EST CBC AND DIFFERENTIAL STAT 03/30/2024 8:36 PM EST TROPONIN I HIGH SENSITIVITY STAT 03/30/2024 8:36 PM EST ECG 12-LEAD STAT 03/30/2024 8:30 PM EST from Last 3 Months Results * MR Brain wo Contrast (04/03/2024 6:57 PM EST) Anatomical Region Laterality Modality Head and Neck Magnetic Resonan ce 04/04/2024 10:1 3 AM EST Impressions 04/04/2024 10:25 AM EST Normal MRI appearance of the brain for patient age. -------- FINAL REPORT -------- Dictated By: Edmond Vazquez Dictated Date: 04/04/2024 10:13 ET Assigned Physician: Edmond Vazquez Reviewed and Electronically Signed By: Edmond Vazquez Signed Date: 04/04/2024 10:25 ET Workstation ID: [id number] Transcribed By: Self Edit Transcribed Date: 04/04/2024 10:14 ET Narrative 04/04/2024 10:25 AM EST PROCEDURE: Noncontrast MRI of the brain. HISTORY: DIZZINESS, HEADACHES ???STROKE. COMPARISON: Head CT 03/25/2022. TECHNIQUE: Multiplanar multisequence MRI of the brain without intravenous contrast administration. FINDINGS: BRAIN: No diffusion abnormality. ??No mass or extra-axial fluid collection. ??No hydrocephalus. ??The major intracranial flow voids are preserved. Age commensurate ventricles and sulci. ??Incidental cavum septa pellucida and vergae. ??There are a few scattered nonspecific T2 hyperintensities in the supratentorial white matter, likely sequela of minimal chronic microvascular ischemic disease in a patient of this age. ORBITS: Normal. SINUSES/MASTOIDS: Minimal mucosal thickening in the ethmoid air cells and maxillary antra. ??Small amount of fluid in the left mastoid air cells. CALVARIUM: Normal. OTHER: The visualized skull base soft tissues are normal. ??Partially visible mild degenerative changes of the cervical spine. Procedure Note Edmond Vazquez MD - 04/04/2024 PROCEDURE: Noncontrast MRI of the brain. HISTORY: DIZZINESS, HEADACHES ?STROKE. COMPARISON: Head CT 03/25/2022. TECHNIQUE: Multiplanar multisequence MRI of the brain without intravenouscontrast administration. FINDINGS: BRAIN: No diffusion abnormality. No mass or extra-axial fluid collection.No hydrocephalus. The major intracranial flow voids are preserved. Agecommensurate ventricles and sulci. Incidental cavum septa pellucida andvergae. There are a few scattered nonspecific T2 hyperintensities in thesupratentorial white matter, likely sequela of minimal chronicmicrovascular ischemic disease in a patient of this age. ORBITS: Normal. SINUSES/MASTOIDS: Minimal mucosal thickening in the ethmoid air cells andmaxillary antra. Small amount of fluid in the left mastoid air cells. CALVARIUM: Normal. OTHER: The visualized skull base soft tissues are normal. Partiallyvisible mild degenerative changes of the cervical spine. IMPRESSION: Normal MRI appearance of the brain for patient age. -------- FINAL REPORT -------- Dictated By: Edmond Vazquez Dictated Date: 04/04/2024 10:13 ET Assigned Physician: Edmond Vazquez Reviewed and Electronically Signed By: Edmond Vazquez Signed Date: 04/04/2024 10:25 ET Workstation ID: [id number] Transcribed By: Self Edit Transcribed Date: 04/04/2024 10:14 ET Clyde Bobo MD IMG MRI PROCEDURES Final Result * ECG-Annotated (04/01/2024) Only the most recent of2 resultswithin the time period is included. Provider Onbase ECG ORDERABLES Final Result * ECG 12 lead (03/30/2024 10:06 PM EST) Only the most recent of2 resultswithin the time period is included. Ventricular Rate ECG 58 BPM GEMUSE Atrial Rate 58 BPM GEMUSE P-R Interval 246 ms GEMUSE QRS Duration 94 ms GEMUSE Q-T Interval 426 ms GEMUSE QTc 418 ms GEMUSE P Wave [place] 22 degrees GEMUSE R [place] 66 degrees GEMUSE T [place] 22 degrees GEMUSE ECG Interpretation Sinus bradycardia with 1st degree A-V block Otherwise normal ECG When compared with ECG of 30-MAR-2024 20:30, (unconfirmed) No significant change was found Confirmed by Tacos GUTIERREZ JOHN ([id number]) on 03/31/2024 7:55:08 AM GEMUSE 03/30/2024 10:0 6 PM EST 03/31/2024 7:55 AM EST Pipo Haynes MD ECG ORDERABLES Final Result Performing Organization Address [facility]/ZIP Co de Phone Number GEMUSE * Troponin I high sensitivity (03/30/2024 10:04 PM EST) Only the most recent of2 resultswithin the time period is included. High Sensitivity Troponin I 43 <=79 ng/L LAB CHEMISTRY METHOD 03/30/2024 10:59 PM EST [facility] Blood Venous blood specimen / Unknown Venipuncture / Unknown 03/30/2024 10:04 PM EST 03/30/2024 10:34 PM EST Narrative [facility] - 03/30/2024 10:59 PM EST High levels of biotin in samples may falsely decrease hsTroponin values. ??Use caution when interpreting hsTroponin results in patients taking biotin who exhibit renal impairment (eGFR <60) or in patients taking more than 20 mg/day of biotin. Pipo Haynes MD LAB BLOOD ORDERABLES Final Res ult Performing Organization Address [facility] Co de Phone Number [facility] [address] [place] [address], [place] [phone] * XR Chest 2 Views (03/30/2024 9:14 PM EST) Anatomical Region Laterality Modality Body Radiographic Rosemary ging 03/31/2024 8:08 AM EST Impressions 03/31/2024 8:09 AM EST No acute findings. -------- FINAL REPORT -------- Dictated By: Edmond Vazquez Dictated Date: 03/31/2024 08:08 ET Assigned Physician: Edmond Vazquez Reviewed and Electronically Signed By: Edmond Vazquez Signed Date: 03/31/2024 08:09 ET Workstation ID: [id number] Transcribed By: Self Edit Transcribed Date: 03/31/2024 08:08 ET Narrative 03/31/2024 8:09 AM EST PROCEDURE: PA and lateral radiographs of the chest. HISTORY: chest pain. COMPARISON: 10/19/2022. FINDINGS: The heart, mediastinum, lungs, and pleural spaces are normal. ??Mild degenerative changes of the spine. Procedure Note Edmond Vazquez MD - 03/31/2024 PROCEDURE: PA and lateral radiographs of the chest. HISTORY: chest pain. COMPARISON: 10/19/2022. FINDINGS: The heart, mediastinum, lungs, and pleural spaces are normal. Milddegenerative changes of the spine. IMPRESSION: No acute findings. -------- FINAL REPORT -------- Dictated By: Edmond Vazquez Dictated Date: 03/31/2024 08:08 ET Assigned Physician: Edmond Vazquez Reviewed and Electronically Signed By: Edmond Vazquez Signed Date: 03/31/2024 08:09 ET Workstation ID: [id number] Transcribed By: Self Edit Transcribed Date: 03/31/2024 08:08 ET Pipo Haynes MD IMG XR PROCEDURES Final Result * (ABNORMAL) CBC auto differential (03/30/2024 8:36 PM EST) WBC 3.4(L) 4.8 - 10.8 K/mcL LAB HEMETOLOGY METHOD 03/30/2024 9:07 PM [facility] RBC 4.60 4.50 - 5.50 M/mcL LAB HEMETOLOGY METHOD 03/30/2024 9:07 PM [facility] Hemoglobin 13.1(L) 13.5 - 17.5 g/dL LAB HEMETOLOGY METHOD 03/30/2024 9:07 PM [facility] Hematocrit 40.4(L) 42.0 - 54.0 % LAB HEMETOLOGY METHOD 03/30/2024 9:07 PM [facility] MCV 87.6 79.0 - 98.0 FL LAB HEMETOLOGY METHOD 03/30/2024 9:07 PM [facility] MCH 28.4 27.0 - 32.0 pcg LAB HEMETOLOGY METHOD 03/30/2024 9:07 PM [facility] MCHC 32.4 32.0 - 37.0 g/dL LAB HEMETOLOGY METHOD 03/30/2024 9:07 PM [facility] RDW 13.5 11.0 - 15.0 % LAB HEMETOLOGY METHOD 03/30/2024 9:07 PM [facility] Platelets 230 130 - 400 K/mcL LAB HEMETOLOGY METHOD 03/30/2024 9:07 PM [facility] MPV 10.3 7.0 - 11.0 FL LAB HEMETOLOGY METHOD 03/30/2024 9:07 PM [facility] NRBC 0.0 <1.0 % LAB HEMETOLOGY METHOD 03/30/2024 9:07 PM [facility] NRBC Absolute 0.00 <0.10 K/mcL LAB HEMETOLOGY METHOD 03/30/2024 9:07 PM [facility] Neutrophils Relative 46.9 % LAB HEMETOLOGY METHOD 03/30/2024 9:07 PM [facility] Lymphocytes Relative 34.9 % LAB HEMETOLOGY METHOD 03/30/2024 9:07 PM [facility] Monocytes Relative 13.1 % LAB HEMETOLOGY METHOD 03/30/2024 9:07 PM [facility] Eosinophils Relative 3.6 % LAB HEMETOLOGY METHOD 03/30/2024 9:07 PM [facility] Basophils Relative 1.2 % LAB HEMETOLOGY METHOD 03/30/2024 9:07 PM [facility] Immature Granulocytes Relative 0.3 % LAB HEMETOLOGY METHOD 03/30/2024 9:07 PM EST [facility] Neutrophils Absolute 1.57 1.50 - 7.00 K/mcL LAB HEMETOLOGY METHOD 03/30/2024 9:07 PM [facility] Lymphocytes Absolute 1.17 1.00 - 5.00 K/mcL LAB HEMETOLOGY METHOD 03/30/2024 9:07 PM EST [facility] Monocytes Absolute 0.44 0.20 - 1.00 K/mcL LAB HEMETOLOGY METHOD 03/30/2024 9:07 PM EST [facility] Eosinophils Absolute 0.12 0.00 - 0.50 K/mcL LAB HEMETOLOGY METHOD 03/30/2024 9:07 PM [facility] Basophils Absolute 0.04 0.00 - 0.20 K/mcL LAB HEMETOLOGY METHOD 03/30/2024 9:07 PM [facility] Immature Granulocytes Absolute 0.01 0.00 - 0.03 K/[facility] LAB HEMETOLOGY METHOD 03/30/2024 9:07 PM [facility] Blood Venous blood specimen / Unknown Venipuncture / Unknown 03/30/2024 8:36 PM EST 03/30/2024 9:00 PM EST Pipo Haynes MD LAB BLOOD ORDERABLES Final Res ult [facility] [address] [place] [address], * Magnesium (03/30/2024 8:36 PM EST) Magnesium 2.2 1.9 - 2.6 mg/dL LAB CHEMISTRY METHOD 03/30/2024 9:49 PM EST [facility] Blood Venous blood specimen / Unknown Venipuncture / Unknown 03/30/2024 8:36 PM EST 03/30/2024 9:00 PM EST us Pipo Haynes MD LAB BLOOD ORDERABLES Final Res ult Performing Organization Address City/[facility]/ZIP Co de Phone Number [facility] [address] [place] [address], [place] [phone] * Lipase (03/30/2024 8:36 PM EST) Pathologist [facility] [place] Lipase 14 13 - 75 unit/L LAB CHEMISTRY METHOD 03/30/2024 9:49 PM [facility] Blood Venous blood specimen / Unknown Venipuncture / Unknown 03/30/2024 8:36 PM EST 03/30/2024 9:00 PM EST us Pipo Haynes MD LAB BLOOD ORDERABLES Final Res ult Performing Organization Address [facility]/ZIP Co de Phone Number [facility] [address] [place] [address], [place] [phone] * (ABNORMAL) Comprehensive metabolic panel (03/30/2024 8:36 PM EST) [facility] Sodium 140 133 - 145 mmol/L LAB CHEMISTRY METHOD 03/30/2024 9:49 PM [facility] Potassium 4.0 3.5 - 5.5 mmol/L LAB CHEMISTRY METHOD 03/30/2024 9:49 PM [facility] Chloride 106 96 - 110 mmol/L LAB CHEMISTRY METHOD 03/30/2024 9:49 PM [facility] CO2 26 21 - 32 mmol/L LAB CHEMISTRY METHOD 03/30/2024 9:49 PM [facility] Anion Gap 8 3 - 11 LAB CHEMISTRY METHOD 03/30/2024 9:49 PM [facility] Glucose 112(H) 70 - 100 mg/dL LAB CHEMISTRY METHOD 03/30/2024 9:49 PM [facility] BUN 12 5 - 25 mg/dL LAB CHEMISTRY METHOD 03/30/2024 9:49 PM [facility] Creatinine 1.15 0.70 - 1.30 mg/dL LAB CHEMISTRY METHOD 03/30/2024 9:49 PM [facility] eGFR 71 >=60 mL/min/1. 73m2 LAB CHEMISTRY METHOD 03/30/2024 9:49 PM [facility] Comment:Calculation based on the??Chronic Kidney Disease Epidemiology Collaboration (CKD-EPI) equation refit??without adjustment for race. BUN/Creatinine Ratio 10.4 LAB CHEMISTRY METHOD 03/30/2024 9:49 PM [facility] Calcium 9.0 8.5 - 10.5 mg/dL LAB CHEMISTRY METHOD 03/30/2024 9:49 PM [facility] AST (SGOT) 44(H) 10 - 42 unit/L LAB CHEMISTRY METHOD 03/30/2024 9:49 PM [facility] ALT (SGPT) 28 10 - 60 unit/L LAB CHEMISTRY METHOD 03/30/2024 9:49 PM [facility] Alkaline Phosphatase 78 42 - 121 unit/L LAB CHEMISTRY METHOD 03/30/2024 9:49 PM [facility] Total Protein 7.1 6.0 - 8.0 g/dL LAB CHEMISTRY METHOD 03/30/2024 9:49 PM [facility] Albumin 3.8 3.2 - 5.0 g/dL LAB CHEMISTRY METHOD 03/30/2024 9:49 PM [facility] Total Bilirubin 0.6 0.0 - 1.4 mg/dL LAB CHEMISTRY METHOD 03/30/2024 9:49 PM [facility] Blood Venous blood specimen / Unknown Venipuncture / Unknown 03/30/2024 8:36 PM EST 03/30/2024 9:00 PM EST us Pipo Haynes MD LAB BLOOD ORDERABLES Final Res ult [facility] [place] [facility] [address] [place] [address], from Last 3 Months Insurance [facility] Care Teams 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
--- OUTSIDE RECORDS SUMMARY | 2024-04-14 09:33 | XMS_ITS | Data Portability ---
Author Organization [facility], [address] Address [address] [place] [address] Care Team Providers Care Oak Tanner Name Role Phone SLADE EM Primary Care Provider Assessment No assessment recorded. Plan of Treatment Reminders Order Date Submit Date Provider Last Modified By Organization Details Last Modified Time Details Appointments None recorded. Lab urinalysis, dipstick 2022 023 [email or web address] _[facility], [address] [place] [address], [place], [address], 3 16:34:09 culture, urine 2022 023 [facility], [address] [place] [address], [place], [address], 3 08:07:29 Referral urologist referral 2022 023 [email or web address] 26 Not available 3 09:08:28 Procedures None recorded. Surgeries None recorded. Imaging None recorded. Medication Orders Anusol-HC 25 mg rectal suppository 2022 023 [email or web address] [id number], [address] [place], [address], 3 08:13:41 Macrobid 100 mg capsule 2022 023 [email or web address] [id number], [address] [place], [address], 16:10:01 Patient TargetsNo targets recorded. Patient Instructions Encounter Date Encounter Id Patient Instructions Last Modified By Organization Details Last Modified Time 09/02/2022 [id number] hemorrhoids: car e instructions [email or web address] Not available 09/02/2022 16:47:47 Reason for Referral Urologist Referral for Incre ased frequency of urination Referring Physician: Chad Forman, Urgent Care, Encounter Date: 04/27/2022 Results Created Date Observation Date Name Description Value Unit Range Abnormal Flag Note LastModifiedBy Organization Detail LastModifiedTime 04/28/1904/29/2022 URINE CULTU RE, ROUTI NE urine culture, routine FINAL REPORT Not Available [facility] ([facility]) [address] [facility], [place], [address], 04/29/2022 08:07:29 04/28/19 23 04/29/2022 URINE CULTU RE, ROUTI NE result 1 NO GROWTH Not Available [facility] ([facility]) [address] [facility], [place], [address], 04/29/2022 08:07:29 04/28/19 23 04/27/2022 urina lysis , dipst ick Unknown Analyte Yellow Not Available _ [facility] [address], [address], 04/27/2022 15:44:07 04/28/19 23 04/27/2022 urina lysis , dipst ick Unknown Analyte Clear Not Available _ [facility] [address], [address], 04/27/2022 15:44:07 04/28/19 23 04/27/2022 urina lysis , dipst ick Unknown Analyte Negati ve Not Available tania ajy [address], [address], 04/27/2022 15:44:07 04/28/19 23 04/27/2022 urina lysis , dipst ick Unknown Analyte Negati ve Not Available [facility] [address] [place] [address], [place], [address], 04/27/2022 15:44:07 04/28/19 23 04/27/2022 urina lysis , dipst ick Unknown Analyte Negati ve Not Available donnao pe em[address], [place], [address], 04/27/2022 15:44:07 04/28/19 23 04/27/2022 urina lysis , dipst ick Unknown Analyte 1.025 Not Available donnaope em[address], [place], [address], 04/27/2022 15:44:07 04/28/19 23 04/27/2022 urina lysis , dipst ick Unknown Analyte Small Not Available [facility] [address], [place], [address], 04/27/2022 15:44:07 04/28/19 23 04/27/2022 urina lysis , dipst ick Unknown Analyte 6.5 Not Available [facility] [address], [place], [address], 04/27/2022 15:44:07 04/28/19 23 04/27/2022 urina lysis , dipst ick Unknown Analyte 30 mg/dL Not Available donnao pe em[address], [place], [address], 04/27/2022 15:44:07 04/28/19 23 04/27/2022 urina lysis , dipst ick Unknown Analyte 0.2 E.U./d L Not Available [facility], [place], [address], 04/27/2022 15:44:07 04/28/19 23 04/27/2022 urina lysis , dipst ick Unknown Analyte Negati ve Not Available [facility] [address] [place] [address], [address], 04/27/2022 15:44:07 04/28/19 23 04/27/2022 urina lysis , dipst ick Unknown Analyte Negati ve Not Available [facility] [address] [place] [address], [address], 04/27/2022 15:44:07 Result Notes None recorded. Problems Name Problem SNOMED Code Status Onset Date Resolution Date Notes Provider Name and Address Organization Details Recorded Time Hypertensive disorder 82234837 Active 2022 WILLIAM palomino, [place] - [facility] 3 15:50:11 Hypercholester olemia 23838364 Active 2022 WILLIAM CARRILLO null, PA - [facility] 3 15:50:18 Gastroesophage al reflux disease 870135732 Active 2022 WILLIAM CARRILLO null, PA - [facility] 3 15:50:32 Anxiety 49092213 Active 2022 WILLIAM NOBLEICA null, PA - [facility] 3 15:50:43 Asthma 948690958 Active 2022 WILLIAM CARRILLO null, PA - [facility] 3 15:51:05 Sleep apnea 13071845 Active 2022 WILLIAM NOBLEICA null, PA - [...] Name and Address Organization Details Recorded Time 837953 amoxicill in medicatio n itching Not available [...] Updated DateTime 3 180.34 cm 34.7 kg/m2 194662. 5 g 97.1 [degF] 95 % 95 [...] Updated DateTime 3 180.34 cm 34.7 kg/m2 723197. 5 g 97 % 97 % 71 /min 18 /min 98.5 [degF] 128 mm[Hg] 78 mm[Hg] GURU EMILIANO PA - [facility] 3 16:12:20 Social History Question Answer Notes LastModified by Organizat ion Details LastModified Time Tobacco Smoking Status Never Smoker WILLIAM CARRILLO candelario PA - [facility] 04/27/2022 15:52:41 What Is Your Level Of Alcohol Consumption? None [email or web address] Information not available 04/27/2022 Do You Use Any Illicit Or Recreational Drugs? No [email or web address] Information not available 04/27/2022 Have You Recently Traveled Abroad? No Information not available 04/27/2022 Do You Or Have You Ever Used Any Other Forms Of Tobacco Or Nicotine? No [email or web address] Information not available 04/27/2022 Sex: Unknown Functional Status None recorded. Mental Status None recorded. Family History Relationship Description Onset Age of this Age Resolved Age Notes LastModified by Organization Details LastModified Time Mother Heart disease [email or web address] Not available 2022 15:52:02 Mother Diabetes mellitus Not available 2022 15:52:09 Mother Myocardial infarction [email or web address] Not available 04/27 15:52:23 Father Myocardial infarction [email or web address] Not available 04/27 15:52:22 Medical History No medical history recorded. Past Encounters Encounter ID Performer Location Encounter Start Date Encounter Closed Date Diagnosis/Indication Diagnosis SNOMED-CT Code Diagnosis ICD10 Code Diagnosis Note [id number] [facility] [address] [address] 11/15/2018 19:08:29 11/15/2018 19:20:19 [id number] 21005_[facility] [address] [place] [address] 01/12/2017 19:30:06 01/12/2017 19:59:01 [id number] [address] [facility] [place] [address] 06/13/2019 14:32:24 06/13/2019 15:40:34 [id number] [facility] [address] [place] [address] 04/27/2017 18:40:25 04/27/2017 19:31:53 [id number] [facility] [place] [address] 08/05/2021 08:35:18 08/05/2021 10:27:26 [id number] [address] [address] [place] [address] 06/04/2016 19:47:53 06/04/2016 20:19:56 [id number] [address] [address] [place] [address] 05/13/2020 17:53:47 05/13/2020 18:56:52 [id number] [facility] [address] [place] [address] 03/07/2018 19:42:56 03/07/2018 20:23:16 [id number] [facility] [address] [place] [address] 03/13/2015 15:25:32 03/13/2015 16:30:45 [id number] [address] [place] [address] 07/29/2021 15:41:12 07/29/2021 18:16:19 [id number] [address] [address] [place] [address] 08/20/2017 18:49:49 08/20/2017 19:53:37 [id number] [address] [address] [place] [address] 06/18/2020 19:37:45 06/18/2020 20:14:38 [id number] Chad Forman DO [address] [address] [address] 04/27/2022 12:51:09 04/27/2022 16:36:40 Increased frequency of urination 314044087 R35.0 suspect UTISigns and Symptoms c/w UTIUA [...] agreement with the plan as outlined above. [id number] Marcelino Lea MD [facility] [address] [place] [address] 09/02/2022 15:20:17 09/02/2022 16:50:35 Hemorrhoids 75231490 K64.9 likely internal hemorrhoid s as per [...] Member ID Guarantor Name 06/18/2020 1 [facility] [id number] 1 Norbert Cabrales [id number] Norbert Cabrales 07/29/2021 1 [facility] [id number] 1 Norbert Cabrales [id number] Norbert Cabrales 08/05/2021 1 [facility] [id number] 1 Norbert Cabrales [id number] Norbert Cabrales 04/27/2022 1 [facility] [id number] 1 Norbert Cabrales [id number] Norbert Cabrales 09/02/2022 1 [facility] [id number] 1 Norbert Cabrales [id number] Norbert Cabrales Notes Date Note Type Note Provider Name and Address Organization Details Recorded Time 04/27/2022 text/html Urinary Problems-MaleReporte d bypatient.Notes:61 yo male c/o frequency in urination x couple days--no burning, no pain. + decreased stream no increased urgencyno incontinenceno pressureno malodorno blood in urineno back painno rashno feverno nausea or vomitingno MS change Chad Forman, [address] [place], [address], [place] 04/27/2022 16:35:50 09/02/2022 text/html Went to his PCP 2 days ago and told he had internal hemorrhoids. Told to take fiber drink only. Patient concerned and wants to be checked again. Feels anal discomfort. NO blood in stool or when wipes. no pain with defecation. Had colonoscopy 02/01. Marcelino Lea MD [address] [place], [address], [place] 09/02/2022 18:39:03
--- OUTSIDE RECORDS SUMMARY | 2024-04-14 09:34 | XMS_ITS | Encounter Summary ---
Author Organization [facility] Address [address] [place] [address] Care Team Providers Care Program Eligibility Specialist Name Role Phone José Miguel Espinoza MD Primary Care Provider [phone] Reason for Referral * Imaging (Routine) - Pending Review Specialty Diagnoses / Procedures Referred By Contac t Referred To Contact Radiology Diagnoses Headache, unspecified Procedures MR Brain wo Contrast Clyde Bobo MD [address] [place] [address] Phone: tel: fax: [facility] Referral ID Status Reason Start Date Expiration Date V isits Requested Visits Authorized [id number] Pending Review 04/01/2024 04/01/2025 1 1 Reason for Visit * Imaging (Routine) - Pending Review Specialty Diagnoses / Procedures Referred By Contac t Referred To Contact Radiology Diagnoses Headache, unspecified Procedures MR Brain wo Contrast Clyde Bobo MD [address] [place] [address] Phone: tel: fax: [facility] Referral ID Status Reason Start Date Expiration Date V isits Requested Visits Authorized [id number] Pending Review 04/01/2024 04/01/2025 1 1 Encounter Details Date Type Department Care Team (Latest Contact Info) Description 04/03/2024 5:38 PM EST - 04/03/2024 11:59 PM EST Hospital Encounter [facility] MRI [address] [place] [address] Headache, unspecified Discharge Disposition: Home or Self Care Social History Tobacco Use Types Packs/Day Years Used Date Smoking Tobacco: Never Smokeless Tobacco: Never Alcohol Use Standard Drinks/Week Comments Not Currently 0 (1 standard drink = 0.6 oz pur e alcohol) Sex and Gender Information Value Date Recorded Sex Assigned at Not on file Legal Sex Male 8:22 PM EST Gender Identity Not on file Sexual Orientation Not on file documented as of this encounter Discharge Disposition Disposition Code Departure Means Destination Home or Self Care documented in this encounter Plan of Treatment Not on file documented as of this encounter Procedures Procedure Name Priority Date/Time Associated Diagnosis Comments MR BRAIN WO CONTRAST Routine 04/03/2024 6:57 PM EST Headache, unspecified documented in this encounter Results * MR Brain wo Contrast (04/03/2024 [...] Signed Date: 04/04/2024 10:25 ET Workstation ID: [id number] Transcribed By: Self Edit Transcribed Date: 04/04/2024 [...] Signed Date: 04/04/2024 10:25 ET Workstation ID: [id number] Transcribed By: Self Edit Transcribed Date: 04/04/2024 10:14 ET us Clyde Bobo MD IMG MRI PROCEDURES Final Result documented in this encounter Visit Diagnoses Diagnosis Headache, unspecified documented in this encounter Care Teams Program Eligibility Specialist Relationship Specialty Start Date End Date José Miguel Espinoza MD [address] [place] [address] PCP - General Internal Medicine 03/31/24 documented as of this encounter
--- OUTSIDE RECORDS SUMMARY | 2024-04-14 09:34 | XMS_ITS | Encounter Summary ---
Author Organization [facility] Address [address] [place] [address] Care Team Providers Care Mortgage Loan Originator Name Role Phone José Miguel Espinoza MD Primary Care Provider [phone] Reason for Visit * Reason Comments Chest Pain Multiple complaints Encounter Details Date Type Department Care Team (Late st Contact Info) Description 03/31/2024 7:16 AM EST - 03/31/2024 11:06 AM EST Emergency [facility] Emergency [address] [place] [id number] Pipo Haynes MD [address] [place] [address] Clyde Bobo MD [address] [place] [address] Recurrent headache (Primary Dx); Benzodiazepine withdrawal with complication (CMS/HCC) Discharge Disposition: Home or Self Care Social [...] on file documented as of this encounter Last Filed Vital Signs Vital Sign Reading [...] Mass Index 33.05 03/30/2024 8:31 PM EST documented in this encounter Discharge Instructions * Discharge Instructions* Clyde Bobo MD - 03/31/2024 10:24 AM EST [facility] : Contact Ilia Cordero [facility]: Contact Isabella Colon [facility] : Contact Sean These are the numbers are received from our addiction wrestling coach, my recommendation to your primary carephysician will be to use either Librium or Valium for tapering you down, in my opinion alprazolam is a short acting benzo and is not a great medication for tapering. Your blood work, EKG chest x-ray has been reassuring, and outpatient brain MRI on outpatient basis.Please follow-up with your PCP after this visit. documented in this encounter Discharge Disposition Disposition Code Departure Means Destination Comment s Home or Self Care documented in this encounter Progress Notes * Angelica Campos RN - 03/31/2024 8:16 AM EST Pt reports headache for the past few weeks after change in medication. * Ruth Jones RN - 03/30/2024 8:33 PM EST Pt states left sided chest wall pain on and off today since 11 am. Pt states he was lifting weightsat the gym today and is not sure if the pain is his heart or if he pulled a muscle lifting weights.Pain is worse with stretching. * Clyde Bobo MD - 03/30/2024 8:23 PM EST Emergency Medicine Note Patient Name: Norbert Cabrales Initial Evaluation: 03/30/2024 : 1960 Patient's PCP: José Miguel Espinoaz MD Emergency Physician: Clyde Bobo MD History of Present Illness Chief Complaint: Chief Complaint Patient presents with Chest Pain Multiple complaints HPI: See MDM ROS: I have performed a ROS with the pertinent positives and negatives documented in the history ofpresent illness. Previous History Past Medical History: Diagnosis Date Asthma GERD (gastroesophageal reflux disease) Hiatal hernia Hypertension Neutropenia (CMS/HCC) History reviewed. No pertinent surgical history. Social History Tobacco Use Smoking status: Never Smokeless tobacco: Never Substance Use Topics Alcohol use: Not Currently Drug use: Never No family history on file. is allergic to penicillins and pineapple. No current facility-administered medications on file prior to encounter. No current outpatient medications on file prior to encounter. Physical Exam ED Triage Vitals Temp Heart Rate Resp BP 03/30/24203003/30/24203003/30/24203003/30/242030 36.4 ??C (97.5 ??F) 68 18 (!) 147/82 SpO2 Temp Source Heart Rate Source Patient Position 03/30/24203003/30/24203003/31/24 0451 03/30/242030 97 % Oral Radial Sitting BP Location FiO2 (%) 03/30/242030 -- Right arm See MDM Results Labs Reviewed COMPREHENSIVE METABOLIC PANEL - Abnormal Result Value Sodium 140 Potassium 4.0 Chloride 106 CO2 26 Anion Gap 8 Glucose 112 (*) BUN 12 Creatinine 1.15 eGFR 71 BUN/Creatinine Ratio 10.4 Calcium 9.0 AST (SGOT) 44 (*) ALT (SGPT) 28 Alkaline Phosphatase 78 Total Protein 7.1 Albumin 3.8 Total Bilirubin 0.6 CBC WITH AUTO DIFFERENTIAL - Abnormal WBC 3.4 (*) RBC 4.60 Hemoglobin 13.1 (*) Hematocrit 40.4 (*) MCV 87.6 MCH 28.4 MCHC 32.4 RDW 13.5 Platelets 230 MPV 10.3 NRBC 0.0 NRBC Absolute 0.00 Neutrophils Relative 46.9 Lymphocytes Relative 34.9 Monocytes Relative 13.1 Eosinophils Relative 3.6 Basophils Relative 1.2 Immature Granulocytes Relative 0.3 Neutrophils Absolute 1.57 Lymphocytes Absolute 1.17 Monocytes Absolute 0.44 Eosinophils Absolute 0.12 Basophils Absolute 0.04 Immature Granulocytes Absolute 0.01 TROPONIN I HIGH SENSITIVITY - Normal High Sensitivity Troponin I 44 Narrative: High levels of biotin in samples may falsely decrease hsTroponin values. Use caution when interpreting hsTroponin results in patients taking biotin who exhibit renal impairment (eGFR <60) or in patients taking more than 20 mg/day of biotin. TROPONIN I HIGH SENSITIVITY - Normal High Sensitivity Troponin I 43 Narrative: High levels of biotin in samples may falsely decrease hsTroponin values. Use caution when interpreting hsTroponin results in patients taking biotin who exhibit renal impairment (eGFR <60) or in patients taking more than 20 mg/day of biotin. LIPASE - Normal Lipase 14 MAGNESIUM - Normal Magnesium 2.2 CBC AND DIFFERENTIAL Narrative: The following orders were created for panel order CBC and differential. Procedure Abnormality Status --------- ------ CBC auto differential[[id number]] Abnormal Final result Please view results for these tests on the individual orders. Abnormal Labs Reviewed COMPREHENSIVE METABOLIC PANEL - Abnormal; Notable for the following components: Result Value Glucose 112 (*) AST (SGOT) 44 (*) All other components within normal limits CBC WITH AUTO DIFFERENTIAL - Abnormal; Notable for the following components: WBC 3.4 (*) Hemoglobin 13.1 (*) Hematocrit 40.4 (*) All other components within normal limits XR Chest 2 Views Final Result No acute findings. -------- FINAL REPORT -------- Dictated By: Edmond Vazquez Dictated Date: 03/31/2024 08:08 ET Assigned Physician: Edmond Vazquez Reviewed and Electronically Signed By: Edmond Vazquez Signed Date: 03/31/2024 08:09 ET Workstation ID: [id number] Transcribed By: Self Edit Transcribed Date: 03/31/2024 08:08 ET I have discussed the incidental/abnormal imaging and/or lab abnormalities with the patient and haveinstructed them the need for further evaluation and workup with their primary care doctor. I have provided the patient with a paper copy of the abnormality. The laboratory results, imaging results and other diagnostic exam results were reviewed in the EMR. EKG Interpretation Critical Care Time None ? Medical Decision Making Medications - No data to display ED Course as of 03/31/241949Mar 31, 2024 0850 63-year-old male presenting with multiple symptoms including headache, jitteriness, dizziness,chest pain, this is an ongoing issue and really started as he has been tapering down from his benzodiazepines, he has been seen in the ER for much the same in the past, he switched to a new provider at [facility] and currently taking 0.25 all alprazolam prior to that he was on 0.5 and he has not really tolerating the taper so much, he has not had any withdrawal seizures, denies any other substance use issues, 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 Last week his PCP told him if he is having all the symptoms to consider going to the ER for possibly further workup such as CT of the brain. [KV] 0851 GENERAL: Well-Appearing patient appears of stated age, slightly tremulous ENT exam with unremarkable tympanic membranes, moist oral mucosa SKIN: Appropriate for patient, no rashes, lesions noted HEENT: No stridor, no obvious lymphadenopathy. NECK: Soft, supple, full ROM, Midline structures, nontender, no step-off, no deformity. CHEST: Heart regular rate and rhythm, no appreciative rubs ,gallops or murmurs PULMONARY: Clear to auscultation bilaterally without any adventitious lung sounds. ABDOMINAL: Soft, nondistended nontender with positive bowel sounds. : Deferred. MUSCULOSKELETAL: Normal tone full range of motion, 5 x 5 motor. NEURO: Alert and oriented x3, Cranial nerves II through XII are intact, moving upper and lower extremities no loss of power noted PSYCHIATRIC: Normal affect, fluid speech, good eye contact and appropriate demeanor. [KV] 0851 , No nystagmus, no dysmetria upper lower extremities [KV] 0851 I am going to consult addiction team if they are available to help with this as patient is notreally tolerating his taper so much and wondering whether adding additional medication such as clonidine and otherwise symptomatic control be helpful for him, he has been seen in the ER in the past in the summer of last year and was discharged on additional dose of alprazolam at prefer not to increase his benzo burden as he is being tapered down, as far as medical issues his cardiac workup has been reassuring, specifically ECG and cardiac enzymes, [KV] 0852 chest x-ray without pneumonia, pneumothorax, mediastinal widening And he has no evidence for cerebellar stroke but I did fax outpatient brain MRI which is a better study as he is having chronic issues possibly he had a small thalamic or cerebellar stroke weeks ago CT would not be a good study for this. [KV] 1016 [facility] : Contact Ilia Cordero [facility]: Contact Isabella Colon [facility] : Contact Sean [KV] ED Course User Index [KV] Clyde Bobo MD Clinical Impressions as of 03/31/241949 Recurrent headache Benzodiazepine withdrawal with complication (CMS/HCC) Procedures @[email or web address]@ Diagnosis 1. Recurrent headache 2. Benzodiazepine withdrawal with complication (CMS/HCC) Disposition Discharge ED Prescriptions None Physician Attestation Clyde Bobo MD 03/31/24 0853 Clyde Bobo MD 03/31/24 1024 Clyde Bobo MD 03/31/24 1950 Clyde Bobo MD 03/31/24 1950 documented in this encounter Plan of Treatment Not on file documented as of this encounter Procedures Procedure Name Priority Date/Time Associated Diagnosis Comments ECG ANNOTATED 04/01/2024 ECG ANNOTATED 04/01/2024 ECG 12-LEAD STAT 03/30/2024 10:06 PM EST TROPONIN I HIGH SENSITIVITY STAT 03/30/2024 10:04 PM EST XR CHEST 2 VIEWS STAT 03/30/2024 9:14 PM EST TROPONIN I HIGH SENSITIVITY STAT 03/30/2024 8:36 PM EST CBC WITH AUTO DIFFERENTIAL STAT 03/30/2024 8:36 PM EST CBC AND DIFFERENTIAL STAT 03/30/2024 8:36 PM EST MAGNESIUM STAT 03/30/2024 8:36 PM EST LIPASE STAT 03/30/2024 8:36 PM EST COMPREHENSIVE METABOLIC PANEL STAT 03/30/2024 8:36 PM EST ECG 12-LEAD STAT 03/30/2024 8:30 PM EST documented in this encounter Results * ECG-Annotated (04/01/2024) Provider Onbase OK ECG ORDERABLES Final Result * ECG-Annotated (04/01/2024) Provider Onbase OK ECG ORDERABLES Final Result * ECG 12 lead (03/30/2024 10:06 PM EST) Ventricular Rate ECG 58 BPM GEMUSE Atrial Rate 58 BPM GEMUSE P-R Interval 246 ms GEMUSE QRS Duration 94 ms GEMUSE Q-T Interval 426 ms GEMUSE QTc 418 ms GEMUSE P Wave Steuben 22 degrees GEMUSE R Steuben 66 degrees GEMUSE T Steuben 22 degrees GEMUSE ECG Interpretation Sinus bradycardia with 1st degree A-V block Otherwise normal ECG When compared with ECG of 30-MAR-2024 20:30, (unconfirmed) No significant change was found Confirmed by Tacos GUTIERREZ JOHN ([id number]) on 03/31/2024 7:55:08 AM GEMUSE 03/30/2024 10:0 6 PM EST 03/31/2024 7:55 AM EST Pipo Haynes MD ECG ORDERABLES Final Result Performing Organization Address [facility] Co de Phone Number YOANNA * Troponin I high sensitivity (03/30/2024 10:04 PM EST) High Sensitivity Troponin I 43 <=79 ng/L LAB CHEMISTRY METHOD 03/30/2024 10:59 PM EST [facility] Blood Venous blood specimen / Unknown Venipuncture / Unknown 03/30/2024 10:04 PM EST 03/30/2024 10:34 PM EST Narrative [facility] - 03/30/2024 10:59 PM EST High levels of biotin in samples may falsely decrease hsTroponin values. ??Use caution when interpreting hsTroponin results in patients taking biotin who exhibit renal impairment (eGFR <60) or in patients taking more than 20 mg/day of biotin. Pipo Haynes MD LAB BLOOD ORDERABLES Final Res ult Performing Organization Address [facility] Co de Phone Number [facility] [address] [place] [address], * XR Chest 2 Views (03/30/2024 9:14 PM EST) Anatomical Region Laterality Modality Body Radiographic Rosemary ging 03/31/2024 8:08 AM EST Impressions 03/31/2024 8:09 AM EST No acute findings. -------- FINAL REPORT -------- Dictated By: Edmond Vazquez Dictated Date: 03/31/2024 08:08 ET Assigned Physician: Edmond Vazquez Reviewed and Electronically Signed By: Edmond Vazquez Signed Date: 03/31/2024 08:09 ET Workstation ID: [id number] Transcribed By: Self Edit Transcribed Date: 03/31/2024 [...] Signed Date: 03/31/2024 08:09 ET Workstation ID: [id number] Transcribed By: Self Edit Transcribed Date: 03/31/2024 08:08 ET Pipo Haynes MD IMG XR PROCEDURES Final Result * (ABNORMAL) CBC auto differential (03/30/2024 8:36 PM EST) WBC 3.4(L) 4.8 - 10.8 K/mcL LAB HEMETOLOGY METHOD 03/30/2024 9:07 PM [facility] RBC 4.60 4.50 - 5.50 M/mcL LAB HEMETOLOGY METHOD 03/30/2024 9:07 PM [facility] Hemoglobin 13.1(L) 13.5 - 17.5 g/dL LAB HEMETOLOGY METHOD 03/30/2024 9:07 PM [facility] Hematocrit 40.4(L) 42.0 - 54.0 % LAB HEMETOLOGY METHOD 03/30/2024 9:07 PM [facility] MCV 87.6 79.0 - 98.0 FL LAB HEMETOLOGY METHOD 03/30/2024 9:07 PM [facility] MCH 28.4 27.0 - 32.0 pcg LAB HEMETOLOGY METHOD 03/30/2024 9:07 PM [facility] MCHC 32.4 32.0 - 37.0 g/dL LAB HEMETOLOGY METHOD 03/30/2024 9:07 PM [facility] RDW 13.5 11.0 - 15.0 % LAB HEMETOLOGY METHOD 03/30/2024 9:07 PM [facility] Platelets 230 130 - 400 K/mcL LAB HEMETOLOGY METHOD 03/30/2024 9:07 PM [facility] MPV 10.3 7.0 - 11.0 FL LAB HEMETOLOGY METHOD 03/30/2024 9:07 PM [facility] NRBC 0.0 <1.0 % LAB HEMETOLOGY METHOD 03/30/2024 9:07 PM [facility] NRBC Absolute 0.00 <0.10 K/mcL LAB HEMETOLOGY METHOD 03/30/2024 9:07 PM [facility] Neutrophils Relative 46.9 % LAB HEMETOLOGY METHOD 03/30/2024 9:07 PM [facility] Lymphocytes Relative 34.9 % LAB HEMETOLOGY METHOD 03/30/2024 9:07 PM [facility] Monocytes Relative 13.1 % LAB HEMETOLOGY METHOD 03/30/2024 9:07 PM [facility] Eosinophils Relative 3.6 % LAB HEMETOLOGY METHOD 03/30/2024 9:07 PM [facility] Basophils Relative 1.2 % LAB HEMETOLOGY METHOD 03/30/2024 9:07 PM [facility] Immature Granulocytes Relative 0.3 % LAB HEMETOLOGY METHOD 03/30/2024 9:07 PM [facility] Neutrophils Absolute 1.57 1.50 - 7.00 K/[facility] LAB HEMETOLOGY METHOD 03/30/2024 9:07 PM EST [facility] Lymphocytes Absolute 1.17 1.00 - 5.00 K/[facility] LAB HEMETOLOGY METHOD 03/30/2024 9:07 PM EST [facility] Monocytes Absolute 0.44 0.20 - 1.00 K/[facility] LAB HEMETOLOGY METHOD 03/30/2024 9:07 PM EST [facility] Eosinophils Absolute 0.12 0.00 - 0.50 K/[facility] LAB HEMETOLOGY METHOD 03/30/2024 9:07 PM EST [facility] Basophils Absolute 0.04 0.00 - 0.20 K/[facility] LAB HEMETOLOGY METHOD 03/30/2024 9:07 PM EST [facility] Immature Granulocytes Absolute 0.01 0.00 - 0.03 K/[facility] LAB HEMETOLOGY METHOD 03/30/2024 9:07 PM EST [facility] Blood Venous blood specimen / Unknown Venipuncture / Unknown 03/30/2024 8:36 PM EST 03/30/2024 9:00 PM EST us Pipo Haynes MD LAB BLOOD ORDERABLES Final Res ult [facility] [address] [place] [address], * Magnesium (03/30/2024 8:36 PM EST) Magnesium 2.2 1.9 - 2.6 mg/dL LAB CHEMISTRY METHOD 03/30/2024 9:49 PM EST [facility] Blood Venous blood specimen / Unknown Venipuncture / Unknown 03/30/2024 8:36 PM EST 03/30/2024 9:00 PM EST us Pipo Haynes MD LAB BLOOD ORDERABLES Final Res ult Performing Organization Address [facility]/ZIP Co de Phone Number [facility] [address] [place] [address], [place] [phone] * Lipase (03/30/2024 8:36 PM EST) [facility] Lipase 14 13 - 75 unit/L LAB CHEMISTRY METHOD 03/30/2024 9:49 PM EST [facility] Blood Venous blood specimen / Unknown Venipuncture / Unknown 03/30/2024 8:36 PM EST 03/30/2024 9:00 PM EST Pipo Haynes MD LAB BLOOD ORDERABLES Final Res ult Performing Organization Address [facility]/ZIP Co de Phone Number [facility] [address] [place] [address], [place] [phone] * (ABNORMAL) Comprehensive metabolic panel (03/30/2024 8:36 PM EST) [facility] Sodium 140 133 - 145 mmol/L LAB CHEMISTRY METHOD 03/30/2024 9:49 PM [facility] Potassium 4.0 3.5 - 5.5 mmol/L LAB CHEMISTRY METHOD 03/30/2024 9:49 PM [facility] Chloride 106 96 - 110 mmol/L LAB CHEMISTRY METHOD 03/30/2024 9:49 PM [facility] CO2 26 21 - 32 mmol/L LAB CHEMISTRY METHOD 03/30/2024 9:49 PM [facility] Anion Gap 8 3 - 11 LAB CHEMISTRY METHOD 03/30/2024 9:49 PM [facility] Glucose 112(H) 70 - 100 mg/dL LAB CHEMISTRY METHOD 03/30/2024 9:49 PM [facility] BUN 12 5 - 25 mg/dL LAB CHEMISTRY METHOD 03/30/2024 9:49 PM [facility] Creatinine 1.15 0.70 - 1.30 mg/dL LAB CHEMISTRY METHOD 03/30/2024 9:49 PM [facility] eGFR 71 >=60 mL/min/1. 73m2 LAB CHEMISTRY METHOD 03/30/2024 9:49 PM [facility] Comment:Calculation based on the??Chronic Kidney Disease Epidemiology Collaboration (CKD-EPI) equation refit??without adjustment for race. BUN/Creatinine Ratio 10.4 LAB CHEMISTRY METHOD 03/30/2024 9:49 PM [facility] Calcium 9.0 8.5 - 10.5 mg/dL LAB CHEMISTRY METHOD 03/30/2024 9:49 PM [facility] AST (SGOT) 44(H) 10 - 42 unit/L LAB CHEMISTRY METHOD 03/30/2024 9:49 PM [facility] ALT (SGPT) 28 10 - 60 unit/L LAB CHEMISTRY METHOD 03/30/2024 9:49 PM [facility] Alkaline Phosphatase 78 42 - 121 unit/L LAB CHEMISTRY METHOD 03/30/2024 9:49 PM [facility] Total Protein 7.1 6.0 - 8.0 g/dL LAB CHEMISTRY METHOD 03/30/2024 9:49 PM [facility] Albumin 3.8 3.2 - 5.0 g/dL LAB CHEMISTRY METHOD 03/30/2024 9:49 PM [facility] Total Bilirubin 0.6 0.0 - 1.4 mg/dL LAB CHEMISTRY METHOD 03/30/2024 9:49 PM [facility] Blood Venous blood specimen / Unknown Venipuncture / Unknown 03/30/2024 8:36 PM EST 03/30/2024 9:00 PM EST us Pipo Haynes MD LAB BLOOD ORDERABLES Final Res ult [facility] [address] [place] [address], * Troponin I high sensitivity (03/30/2024 8:36 PM EST) [facility] High Sensitivity Troponin I 44 <=79 ng/L LAB CHEMISTRY METHOD 03/30/2024 9:32 PM EST [facility] Blood Venous blood specimen / Unknown Venipuncture / Unknown 03/30/2024 8:36 PM EST 03/30/2024 9:00 PM EST Narrative [facility] - 03/30/2024 9:32 PM EST High levels of biotin in samples may falsely decrease hsTroponin values. ??Use caution when interpreting hsTroponin results in patients taking biotin who exhibit renal impairment (eGFR <60) or in patients taking more than 20 mg/day of biotin. Pipo Haynes MD LAB BLOOD ORDERABLES Final Res ult [facility] [address] [place] [address], * ECG 12 lead (03/30/2024 8:30 PM EST) [facility] Ventricular Rate ECG 65 BPM GEMUSE Atrial Rate 65 BPM GEMUSE P-R Interval 218 ms GEMUSE QRS Duration 94 ms GEMUSE Q-T Interval 410 ms GEMUSE QTc 426 ms GEMUSE P Wave Steuben 21 degrees GEMUSE R Steuben 74 degrees GEMUSE T Steuben 12 degrees GEMUSE ECG Interpretation Sinus rhythm with 1st degree A-V block Otherwise normal ECG When compared with ECG of 19-OCT-2022 19:17, No significant change was found Confirmed by Tacos GUTIERREZ JOHN ([id number]) on 03/31/2024 7:50:32 AM GEMUSE 03/30/2024 8:30 PM EST 03/31/2024 7:50 AM EST us Pipo Haynes MD ECG ORDERABLES Final Result GEMUSE documented in this encounter Visit Diagnoses Diagnosis Recurrent headache- Primary Benzodiazepine withdrawal with complication (CMS/HCC) documented in this encounter Care Teams Mortgage Loan Originator Relationship Specialty Start Date End Date José Miguel Espinoza MD [address] [place] [address] PCP - General Internal Medicine 03/31/24 documented as of this encounter
== END 2024-04-14 09:42 | disposition home or self-care (01) ==
PROVIDERS: PCP Internal Medicine
DX: R42 Dizziness and giddiness (principal); F41.1 Generalized anxiety disorder; Z68.34 Body mass index [BMI] 34.0-34.9, adult; E66.9 Obesity, unspecified; I10 Essential (primary) hypertension

== ENCOUNTER 2024-04-15 14:58 | Outpatient (AMB) | payer OTHER, SELFPAY ==
[2024-04-15 15:04] VITALS: BP 120/70; PULSE 66; TEMP 36.6; O2SAT 97; BMI 34.6
--- NOTE | 2024-04-15 15:04 | MHC.OFFWIV ---
Intake Vital Signs 04/15/24 15:04 Height 5 ft 11 in Weight 248 lb BMI 34.6 BP 120/70 Blood Pressure Location Lt brachial Position Sitting Pulse 66 Pulse Source Pulse Oximeter Temp 97.9 F Temp Source Oral Pulse Oximetry (%) 97 Oxygen Delivery Method Room Air Intake Visit Reasons: EP Headache, off balance, dehydrated? Patient Tobacco Use Status: Never used Tobacco Allergies Penicillins Adverse Reaction (Severe, Verified 04/15/24 15:04) Anxiety pineapple Adverse Reaction (Severe, Verified 04/15/24 15:04) swellling Do you need a note to return to daycare/school/sports/work: Yes HPI HPI Comments History of Present Illness Details History of Present Illness - The patient is a 63-year-old male presenting with dehydration and dizziness - worsening over the last day or so - Recent medication changes included reduction and reintroduction of alprazolam due to increased anxiety and WD symptoms, and the addition of clonidine and hydroxyzine, causing dehydration and dizziness. - Patient went to an Urgent Care to try to find some medications for his breakthrough anxiety and they prescribed him 50 mg of hydroxyzine every 8 hours which he has been taking every day, he has also been taking Benadryl along with this. - Pt c/o episodes of balance disturbance, slight confusion, dehydration and dizziness. Physical Exam General: Cooperative, healthy appearing, comfortable, no acute distress and well developed Orientation: Patient oriented x3 Limitations: No limitations Head: Normal to inspection Ears: Hearing grossly normal bilaterally Nose: Normal external nose present Face and sinus: Normal facial exam Eyes: Appearance normal, both eyes and all related structures Neck: Normal visual inspection and Yes full ROM Respiratory: Normal respiratory effort and able to speak in complete sentences. Skin: No rashes or lesions noted Neuro: Patient oriented x3 Extremities: Normal to inspection [facility] Medical History Murmur Enlarged prostate Atelectasis GERD (gastroesophageal reflux disease) ZOE (obstructive sleep apnea) Extremity edema Asthma Surgical History History of knee replacement procedure of left knee Social History Housing: House Alcohol intake: never Patient Tobacco Use Status: Never used Tobacco Tobacco use type: Cigarette e-Cigarette/Vaping Use: Never Used Second Hand Smoke Exposure: No service: Yes ([employer] [id number] ) Current occupational status: retired Cognitive needs: No Hearing needs: No Vision needs: Yes Review of Systems Const All systems reviewed & are unremarkable except as noted in HPI and below Physical Exam Vital Signs: Last Vital Signs Temp 97.9 F 04/15/24 15:04 Pulse 66 04/15/24 15:04 BP 120/70 04/15/24 15:04 Pulse Ox 97 04/15/24 15:04 Oxygen Delivery Method Room Air 04/15/24 15:04 BMI result Body Mass Index 34.6 Assessment & Plan Assessment & Plan (1) Adverse effect of anticholinergic: Code(s): T44.3X5A - Adverse effect of other parasympatholytics [anticholinergics and antimuscarinics] and spasmolytics, initial encounter Plan: VSS, pt well appearing, PE unremarkable. The patient was counselled the possibility of the combo of the hydroxyzene and benadryl causing anticholinergic effects, causing his symptoms. I recommended stopping the 50mg hydroxyzine, a lower dose of 10 mg was represcribed to manage symptoms as necessary, avoiding concurrent use of other antihistamines and anticholinergics such as Benadryl. Patient requested than a message his PCP to let him know. Also, I did stress that if his symptoms do not resolve in the next couple of days with the medication change that he should follow up with his PCP. Patient understands and agrees with plan. Blood pressure management is satisfying today with clonidine, but ongoing evaluation of anxiety and benzodiazepine dependence strategies was emphasized. Patient was informed and verbally consented to the use of an ambient scribe for clinic note documentation during this visit. Medications: New hydroxyzine HCl 10 mg PO Q8H 20 tabs 0RF Coding Level of Care Code Est Pt Level 3 (92026) Diagnoses Adverse effect of anticholinergic T44.3X5A
--- OUTSIDE RECORDS SUMMARY | 2024-04-15 18:06 | XMS_ITS | Data Portability ---
Author Organization [facility], [address] Address [address] [place] [address] Care Team Providers Care Food Vendor Name Role Phone SLADE EM Primary Care Provider Assessment No assessment recorded. Plan of Treatment Reminders Order Date Submit Date Provider Last Modified By Organization Details Last Modified Time Details Appointments None recorded. Lab urinalysis, dipstick 2022 023 [email or web address] [facility], [address] [place] [address], [place], [address], 3 16:34:09 culture, urine 2022 023 [email or web address], [address] [place] [address], [place], [address], 3 08:07:29 Referral urologist referral 2022 023 [email or web address] 26 Not available 3 09:08:28 Procedures None recorded. Surgeries None recorded. Imaging None recorded. Medication Orders Anusol-HC 25 mg rectal suppository 2022 023 [email or web address] [id number], [address] [place], [address], 3 08:13:41 Macrobid 100 mg capsule 2022 023 [email or web address] [id number], [address] [place], [address], 16:10:01 Patient TargetsNo targets recorded. Patient Instructions Encounter Date Encounter Id Patient Instructions Last Modified By Organization Details Last Modified Time 09/02/2022 [id number] hemorrhoids: car e instructions [email or web address] Not available 09/02/2022 16:47:47 Reason for Referral Urologist Referral for Incre ased frequency of urination Referring Physician: Chad Forman, Urgent Care, Encounter Date: 04/27/2022 Results Created Date Observation Date Name Description Value Unit Range Abnormal Flag Note LastModifiedBy Organization Detail LastModifiedTime 04/28/1904/29/2022 URINE CULTU RE, ROUTI NE urine culture, routine FINAL REPORT Not Available [facility] ([facility]) [address] [facility], [place], [address], 04/29/2022 08:07:29 04/28/19 23 04/29/2022 URINE CULTU RE, ROUTI NE result 1 NO GROWTH Not Available [facility] ([facility]) [address] [facility], [place], [address], 04/29/2022 08:07:29 04/28/19 23 04/27/2022 urina lysis , dipst ick Unknown Analyte Yellow Not Available _ [facility] [address], [address], 04/27/2022 15:44:07 04/28/19 23 04/27/2022 urina lysis , dipst ick Unknown Analyte Clear Not Available _ [facility] [address], [address], 04/27/2022 15:44:07 04/28/19 23 04/27/2022 urina lysis , dipst ick Unknown Analyte Negati ve Not Available tania jay [address], [address], 04/27/2022 15:44:07 04/28/19 23 04/27/2022 urina lysis , dipst ick Unknown Analyte Negati ve Not Available [facility] [address] [place] [address], [place], [address], 04/27/2022 15:44:07 04/28/19 23 04/27/2022 urina lysis , dipst ick Unknown Analyte Negati ve Not Available donna[facility] pe [address], [place], [address], 04/27/2022 15:44:07 04/28/19 23 04/27/2022 urina lysis , dipst ick Unknown Analyte 1.025 Not Available donnaope [address], [place], [address], 04/27/2022 15:44:07 04/28/19 23 04/27/2022 urina lysis , dipst ick Unknown Analyte Small Not Available [facility] [address], [place], [address], 04/27/2022 15:44:07 04/28/19 23 04/27/2022 urina lysis , dipst ick Unknown Analyte 6.5 Not Available [facility] [address], [place], [address], 04/27/2022 15:44:07 04/28/19 23 04/27/2022 urina lysis , dipst ick Unknown Analyte 30 mg/dL Not Available donnao pe [address], [place], [address], 04/27/2022 15:44:07 04/28/19 23 04/27/2022 urina lysis , dipst ick Unknown Analyte 0.2 E.U./d L Not Available [facility], [place], [address], 04/27/2022 15:44:07 04/28/19 23 04/27/2022 urina lysis , dipst ick Unknown Analyte Negati ve Not Available [address] [address] [facility] [address] [place] [address], [address], 04/27/2022 15:44:07 04/28/19 23 04/27/2022 urina lysis , dipst ick Unknown Analyte Negati ve Not Available [address] [place] [address], [address], 04/27/2022 15:44:07 Result Notes None recorded. Problems Name Problem SNOMED Code Status Onset Date Resolution Date Notes Provider Name and Address Organization Details Recorded Time Hypertensive disorder 99830349 Active 2022 WILLIAM palomino, [place] - [facility] 3 15:50:11 Hypercholester olemia 89777207 Active 2022 WILLIAM CARRILLO null, PA - [facility] 3 15:50:18 Gastroesophage al reflux disease 260310133 Active 2022 WILLIAM CARRILLO null, PA - [facility] 3 15:50:32 Anxiety 11312026 Active 2022 WILLIAM NOBLEICA null, PA - [facility] 3 15:50:43 Asthma 540708074 Active 2022 WILLIAM CARRILLO null, PA - [facility] 3 15:51:05 Sleep apnea 94847633 Active 2022 WILLIAM NOBLEICA null, PA - [...] Name and Address Organization Details Recorded Time 774121 amoxicill in medicatio n itching Not available [...] Updated DateTime 3 180.34 cm 34.7 kg/m2 038712. 5 g 97.1 [degF] 95 % 95 [...] Updated DateTime 3 180.34 cm 34.7 kg/m2 828942. 5 g 97 % 97 % 71 /min 18 /min 98.5 [degF] 128 mm[Hg] 78 mm[Hg] GURU EMILIANO PA - [facility] 3 16:12:20 Social History Question Answer Notes LastModified by Organizat ion Details LastModified Time Tobacco Smoking Status Never Smoker WILLIAM CARRILLO candelario PA - [facility] 04/27/2022 15:52:41 What Is Your Level Of Alcohol Consumption? None [email or web address] Information not available 04/27/2022 Do You Use Any Illicit Or Recreational Drugs? No [email or web address] Information not available 04/27/2022 Have You Recently Traveled Abroad? No [email or web address] Information not available 04/27/2022 Do You Or Have You Ever Used Any Other Forms Of Tobacco Or Nicotine? No [email or web address] Information not available 04/27/2022 Sex: Unknown Functional Status None recorded. Mental Status None recorded. Family History Relationship Description Onset Age of this Age Resolved Age Notes LastModified by Organization Details LastModified Time Mother Heart disease [email or web address] Not available 2022 15:52:02 Mother Diabetes mellitus [email or web address] Not available 2022 15:52:09 Mother Myocardial infarction [email or web address] Not available 04/27 15:52:23 Father Myocardial infarction [email or web address] Not available 04/27 15:52:22 Medical History No medical history recorded. Past Encounters Encounter ID Performer Location Encounter Start Date Encounter Closed Date Diagnosis/Indication Diagnosis SNOMED-CT Code Diagnosis ICD10 Code Diagnosis Note [id number] [facility] [address] 11/15/2018 19:08:29 11/15/2018 19:20:19 [id number] 21005_[facility] [address] [place] [address] 01/12/2017 19:30:06 01/12/2017 19:59:01 [id number] [address] [facility] [place] [address] 06/13/2019 14:32:24 06/13/2019 15:40:34 [id number] [facility] [facility] [place] [address] 04/27/2017 18:40:25 04/27/2017 19:31:53 [id number] [address] [address] [facility] [place] [address] 08/05/2021 08:35:18 08/05/2021 10:27:26 [id number] [address] [facility] [place] [address] 06/04/2016 19:47:53 06/04/2016 20:19:56 [id number] [address] [address] [facility] [place] [address] 05/13/2020 17:53:47 05/13/2020 18:56:52 [id number] [address] [address] [facility] [place] [address] 03/07/2018 19:42:56 03/07/2018 20:23:16 [id number] [address] [address] [facility] [place] [address] 03/13/2015 15:25:32 03/13/2015 16:30:45 [id number] [address] [facility] [place] [address] 07/29/2021 15:41:12 07/29/2021 18:16:19 [id number] [address] [address] [facility] [place] [address] 08/20/2017 18:49:49 08/20/2017 19:53:37 [id number] [address] [facility] [place] [address] 06/18/2020 19:37:45 06/18/2020 20:14:38 [id number] [place] [address] [address] 04/27/2022 12:51:09 04/27/2022 16:36:40 Increased frequency of urination 942188290 R35.0 suspect UTISigns and Symptoms c/w UTIUA [...] agreement with the plan as outlined above. [id number] Marcelino Lea MD [facility] [address] [place] [address] 09/02/2022 15:20:17 09/02/2022 16:50:35 Hemorrhoids [id number] K64.9 likely internal hemorrhoid s as per [...] Amaya Member ID Guarantor Name 06/18/2020 1 [facility] [id number] 1 Norbert Cabrales [id number] Norbert Cabrales 07/29/2021 1 [facility] [id number] 1 Norbert Cabrales [id number] Norbert Cabrales 08/05/2021 1 [facility] [id number] 1 Norbert Cabrales [id number] Norbert Cabrales 04/27/2022 1 [facility] [id number] 1 Norbert Cabrales [id number] Norbert Cabrales 09/02/2022 1 [facility] [id number] 1 Norbert Cabrales [id number] Norbert Cabrales Notes Date Note Type Note Provider Name and Address Organization Details Recorded Time 04/27/2022 text/html Urinary Problems-MaleReporte d bypatient.Notes:61 yo male c/o frequency in urination x couple days--no burning, no pain. + decreased stream no increased urgencyno incontinenceno pressureno malodorno blood in urineno back painno rashno feverno nausea or vomitingno MS change Chad Forman, [address] [place], [address], Posterous 04/27/2022 16:35:50 09/02/2022 text/html Went to his PCP 2 days ago and told he had internal hemorrhoids. Told to take fiber drink only. Patient concerned and wants to be checked again. Feels anal discomfort. NO blood in stool or when wipes. no pain with defecation. Had colonoscopy 02/01. Marcelino Lea MD [address] [place], [address], Posterous 09/02/2022 18:39:03
--- OUTSIDE RECORDS SUMMARY | 2024-04-15 18:06 | XMS_ITS | Clinical Summary ---
Author Organization [facility] Address [address] [place] [address] Phone Care Team Providers Care Grain Miller Helper Name Role Phone José Miguel Espinoza MD Primary Care Provider [phone] Allergies Active Allergy Reactions Criticality Noted Date Comments Penicillins 03/30/2024 Pineapple 03/30/2024 Encounters Date Type Department Care Team Description 04/03/2024 5:38 PM EST - 04/03/2024 11:59 PM [facility] Hospital Encounter [facility] MRI [address] [place] [phone] Headache, unspecified Discharge Disposition: Home or Self Care 03/31/2024 7:16 AM EST - 03/31/2024 11:06 AM EST Emergency [facility] Emergency [address] [place] [address] Pipo Haynes MD Vatrenko, Konstantin, MD Recurrent [...] Signed Date: 04/04/2024 10:25 ET Workstation ID: [id number] Transcribed By: Self Edit Transcribed Date: 04/04/2024 [...] Signed Date: 04/04/2024 10:25 ET Workstation ID: [id number] Transcribed By: Self Edit Transcribed Date: 04/04/2024 [...] GEMUSE QTc 418 ms GEMUSE P Wave Fischer 22 degrees GEMUSE R Fischer 66 degrees GEMUSE T Fischer 22 degrees GEMUSE ECG Interpretation Sinus bradycardia with 1st degree A-V block Otherwise normal ECG When compared with ECG of 30-MAR-2024 20:30, (unconfirmed) No significant change was found Confirmed by Tacos GUTIERREZ JOHN ([id number]) on 03/31/2024 7:55:08 AM GEMUSE 03/30/2024 10:0 6 PM EST 03/31/2024 7:55 AM EST Pipo Haynes MD ECG ORDERABLES Final Result Performing Organization Address [facility]/ZIP Co de Phone Number GEMUSE * Troponin I high sensitivity (03/30/2024 10:04 PM EST) Only the most recent of2 resultswithin the time period is included. High Sensitivity Troponin I 43 <=79 ng/L LAB CHEMISTRY METHOD 03/30/2024 10:59 PM EST [facility] Blood Venous blood specimen / Unknown Venipuncture / Unknown 03/30/2024 10:04 PM EST 03/30/2024 10:34 PM EST Narrative [facility] - 03/30/2024 10:59 PM EST High levels of biotin in samples may falsely decrease hsTroponin values. ??Use caution when interpreting hsTroponin results in patients taking biotin who exhibit renal impairment (eGFR <60) or in patients taking more than 20 mg/day of biotin. Pipo Haynes MD LAB BLOOD ORDERABLES Final Res ult Performing Organization Address [facility] Co de Phone Number [facility] [address] [place] [address], [place] [phone] * XR Chest 2 Views (03/30/2024 9:14 PM EST) Anatomical Region Laterality Modality Body Radiographic Rosemary ging 03/31/2024 8:08 AM EST Impressions 03/31/2024 8:09 AM EST No acute findings. -------- FINAL REPORT -------- Dictated By: Edmond Vazquez Dictated Date: 03/31/2024 08:08 ET Assigned Physician: Edmond Vazquez Reviewed and Electronically Signed By: Edmond Vazquez Signed Date: 03/31/2024 08:09 ET Workstation ID: [id number] Transcribed By: Self Edit Transcribed Date: 03/31/2024 [...] Signed Date: 03/31/2024 08:09 ET Workstation ID: [id number] Transcribed By: Self Edit Transcribed Date: 03/31/2024 08:08 ET Pipo Haynes MD IMG XR PROCEDURES Final Result * (ABNORMAL) CBC auto differential (03/30/2024 8:36 PM EST) WBC 3.4(L) 4.8 - 10.8 K/mcL LAB HEMETOLOGY METHOD 03/30/2024 9:07 PM [facility] RBC 4.60 4.50 - 5.50 M/mcL LAB HEMETOLOGY METHOD 03/30/2024 9:07 PM [facility] Hemoglobin 13.1(L) 13.5 - 17.5 g/dL LAB HEMETOLOGY METHOD 03/30/2024 9:07 PM [facility] Hematocrit 40.4(L) 42.0 - 54.0 % LAB HEMETOLOGY METHOD 03/30/2024 9:07 PM [facility] MCV 87.6 79.0 - 98.0 FL LAB HEMETOLOGY METHOD 03/30/2024 9:07 PM [facility] MCH 28.4 27.0 - 32.0 pcg LAB HEMETOLOGY METHOD 03/30/2024 9:07 PM [facility] MCHC 32.4 32.0 - 37.0 g/dL LAB HEMETOLOGY METHOD 03/30/2024 9:07 PM [facility] RDW 13.5 11.0 - 15.0 % LAB HEMETOLOGY METHOD 03/30/2024 9:07 PM [facility] Platelets 230 130 - 400 K/mcL LAB HEMETOLOGY METHOD 03/30/2024 9:07 PM [facility] MPV 10.3 7.0 - 11.0 FL LAB HEMETOLOGY METHOD 03/30/2024 9:07 PM [facility] NRBC 0.0 <1.0 % LAB HEMETOLOGY METHOD 03/30/2024 9:07 PM [facility] NRBC Absolute 0.00 <0.10 K/mcL LAB HEMETOLOGY METHOD 03/30/2024 9:07 PM [facility] Neutrophils Relative 46.9 % LAB HEMETOLOGY METHOD 03/30/2024 9:07 PM [facility] Lymphocytes Relative 34.9 % LAB HEMETOLOGY METHOD 03/30/2024 9:07 PM [facility] Monocytes Relative 13.1 % LAB HEMETOLOGY METHOD 03/30/2024 9:07 PM [facility] Eosinophils Relative 3.6 % LAB HEMETOLOGY METHOD 03/30/2024 9:07 PM [facility] Basophils Relative 1.2 % LAB HEMETOLOGY METHOD 03/30/2024 9:07 PM [facility] Immature Granulocytes Relative 0.3 % LAB HEMETOLOGY METHOD 03/30/2024 9:07 PM EST [facility] Neutrophils Absolute 1.57 1.50 - 7.00 K/mcL LAB HEMETOLOGY METHOD 03/30/2024 9:07 PM [facility] Lymphocytes Absolute 1.17 1.00 - 5.00 K/mcL LAB HEMETOLOGY METHOD 03/30/2024 9:07 PM EST [facility] Monocytes Absolute 0.44 0.20 - 1.00 K/mcL LAB HEMETOLOGY METHOD 03/30/2024 9:07 PM EST [facility] Eosinophils Absolute 0.12 0.00 - 0.50 K/mcL LAB HEMETOLOGY METHOD 03/30/2024 9:07 PM [facility] Basophils Absolute 0.04 0.00 - 0.20 K/mcL LAB HEMETOLOGY METHOD 03/30/2024 9:07 PM [facility] Immature Granulocytes Absolute 0.01 0.00 - 0.03 K/[facility] LAB HEMETOLOGY METHOD 03/30/2024 9:07 PM [facility] Blood Venous blood specimen / Unknown Venipuncture / Unknown 03/30/2024 8:36 PM EST 03/30/2024 9:00 PM EST Pipo Haynes MD LAB BLOOD ORDERABLES Final Res ult [facility] [address] [place] [address], * Magnesium (03/30/2024 8:36 PM EST) Magnesium 2.2 1.9 - 2.6 mg/dL LAB CHEMISTRY METHOD 03/30/2024 9:49 PM EST [facility] Blood Venous blood specimen / Unknown Venipuncture / Unknown 03/30/2024 8:36 PM EST 03/30/2024 9:00 PM EST us Pipo Haynes MD LAB BLOOD ORDERABLES Final Res ult Performing Organization Address City/[facility]/ZIP Co de Phone Number [facility] [address] [place] [address], [place] [phone] * Lipase (03/30/2024 8:36 PM EST) Pathologist [facility] Lipase 14 13 - 75 unit/L LAB CHEMISTRY METHOD 03/30/2024 9:49 PM [facility] Blood Venous blood specimen / Unknown Venipuncture / Unknown 03/30/2024 8:36 PM EST 03/30/2024 9:00 PM EST us Pipo Haynes MD LAB BLOOD ORDERABLES Final Res ult Performing Organization Address [facility]/ZIP Co de Phone Number [facility] [address] [place] [address], [place] [phone] * (ABNORMAL) Comprehensive metabolic panel (03/30/2024 8:36 PM EST) [facility] Sodium 140 133 - 145 mmol/L LAB CHEMISTRY METHOD 03/30/2024 9:49 PM [facility] Potassium 4.0 3.5 - 5.5 mmol/L LAB CHEMISTRY METHOD 03/30/2024 9:49 PM [facility] Chloride 106 96 - 110 mmol/L LAB CHEMISTRY METHOD 03/30/2024 9:49 PM [facility] CO2 26 21 - 32 mmol/L LAB CHEMISTRY METHOD 03/30/2024 9:49 PM [facility] Anion Gap 8 3 - 11 LAB CHEMISTRY METHOD 03/30/2024 9:49 PM [facility] Glucose 112(H) 70 - 100 mg/dL LAB CHEMISTRY METHOD 03/30/2024 9:49 PM [facility] BUN 12 5 - 25 mg/dL LAB CHEMISTRY METHOD 03/30/2024 9:49 PM [facility] Creatinine 1.15 0.70 - 1.30 mg/dL LAB CHEMISTRY METHOD 03/30/2024 9:49 PM [facility] eGFR 71 >=60 mL/min/1. 73m2 LAB CHEMISTRY METHOD 03/30/2024 9:49 PM [facility] Comment:Calculation based on the??Chronic Kidney Disease Epidemiology Collaboration (CKD-EPI) equation refit??without adjustment for race. BUN/Creatinine Ratio 10.4 LAB CHEMISTRY METHOD 03/30/2024 9:49 PM [facility] Calcium 9.0 8.5 - 10.5 mg/dL LAB CHEMISTRY METHOD 03/30/2024 9:49 PM [facility] AST (SGOT) 44(H) 10 - 42 unit/L LAB CHEMISTRY METHOD 03/30/2024 9:49 PM [facility] ALT (SGPT) 28 10 - 60 unit/L LAB CHEMISTRY METHOD 03/30/2024 9:49 PM [facility] Alkaline Phosphatase 78 42 - 121 unit/L LAB CHEMISTRY METHOD 03/30/2024 9:49 PM [facility] Total Protein 7.1 6.0 - 8.0 g/dL LAB CHEMISTRY METHOD 03/30/2024 9:49 PM [facility] Albumin 3.8 3.2 - 5.0 g/dL LAB CHEMISTRY METHOD 03/30/2024 9:49 PM [facility] Total Bilirubin 0.6 0.0 - 1.4 mg/dL LAB CHEMISTRY METHOD 03/30/2024 9:49 PM [facility] Blood Venous blood specimen / Unknown Venipuncture / Unknown 03/30/2024 8:36 PM EST 03/30/2024 9:00 PM EST us Pipo Haynes MD LAB BLOOD ORDERABLES Final Res ult [facility] [place] [facility] [address] [place] [address], from Last 3 Months Insurance [facility] Care Teams Grain Miller Helper Relationship Specialty Start Date End Date José Miguel Espinoza MD [address] [place] [address] PCP - General Internal Medicine 03/31/24
--- OUTSIDE RECORDS SUMMARY | 2024-04-15 18:06 | XMS_ITS | Encounter Summary ---
Author Organization [facility] Address [address] [place] [address] Care Team Providers Care Theology Professor Name Role Phone José Miguel Espinoza MD Primary Care Provider [phone] Reason for Referral * Imaging (Routine) - Pending Review Specialty Diagnoses / Procedures Referred By Contac t Referred To Contact Radiology Diagnoses Headache, unspecified Procedures MR Brain wo Contrast Clyde Bobo MD [address] [place] [address] Phone: tel: fax: [facility] Referral ID Status Reason Start Date Expiration Date V isits Requested Visits Authorized [id number] Pending Review 04/01/2024 04/01/2025 1 1 Reason for Visit * Imaging (Routine) - Pending Review Specialty Diagnoses / Procedures Referred By Contac t Referred To Contact Radiology Diagnoses Headache, unspecified Procedures MR Brain wo Contrast Clyde Bobo MD [address] [place] [address] Phone: tel: fax: [facility] Referral ID Status Reason Start Date Expiration Date V isits Requested Visits Authorized [id number] Pending Review 04/01/2024 04/01/2025 1 1 Encounter Details Date Type Department Care Team (Latest Contact Info) Description 04/03/2024 5:38 PM EST - 04/03/2024 11:59 PM EST Hospital Encounter [facility] MRI [address] [place] [id number] Headache, unspecified Discharge Disposition: Home or Self [...] Signed Date: 04/04/2024 10:25 ET Workstation ID: [id number] Transcribed By: Self Edit Transcribed Date: 04/04/2024 [...] Signed Date: 04/04/2024 10:25 ET Workstation ID: [id number] Transcribed By: Self Edit Transcribed Date: 04/04/2024 10:14 ET us Clyde Bobo MD IMG MRI PROCEDURES Final Result documented in this encounter Visit Diagnoses Diagnosis Headache, unspecified documented in this encounter Care Teams Theology Professor Relationship Specialty Start Date End Date José Miguel Espinoza MD [address] [place] [address] PCP - General Internal Medicine 03/31/24 documented as of this encounter
--- OUTSIDE RECORDS SUMMARY | 2024-04-15 18:06 | XMS_ITS | Encounter Summary ---
Author Organization [facility] Address [address] [place] [address] Care Team Providers Care [place]inoor Operator Name Role Phone José Miguel Espinoza MD Primary Care Provider [phone] Reason for Visit * Reason Comments Chest Pain Multiple complaints Encounter Details Date Type Department Care Team (Late st Contact Info) Description 03/31/2024 7:16 AM EST - 03/31/2024 11:06 AM EST Emergency [facility] Emergency [address] [place] [phone] Pipo Haynes MD [address] [place] [address] Clyde Bobo MD [address] [place] [address] Recurrent headache (Primary Dx); Benzodiazepine withdrawal with [...] Bobo MD - 03/31/2024 10:24 AM EST [facility] : Contact Ilia Cordero [facility] Recovery: Contact Isabella Colon [facility] : Contact Sean These are the numbers are received from our addiction physical therapy technician, my recommendation to your primary carephysician will [...] 03/30/2024 : 1960 Patient's PCP: José Miguel Espinoza MD Emergency Physician: Clyde Bobo MD History [...] Procedure Abnormality Status --------- ------ CBC auto differential[[id number]] Abnormal Final result Please view results for [...] Signed Date: 03/31/2024 08:09 ET Workstation ID: [id number] Transcribed By: Self Edit Transcribed Date: 03/31/2024 [...] he switched to a new provider at [facility] and currently taking 0.25 all alprazolam prior to that he was on 0.5 and he has not really tolerating the taper so much, he has not had any withdrawal seizures, denies any other substance use issues, 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 Last week his PCP told him if [...] a good study for this. [KV] 1016 [facility] : Contact Ilia Cordero [facility]: Contact Isabella Colon [facility] : Contact Sean [KV] ED Course [...] encounter Results * ECG-Annotated (04/01/2024) Provider Onbase ME ECG ORDERABLES Final Result * ECG-Annotated (04/01/2024) Provider Onbase ME ECG ORDERABLES Final Result * ECG 12 lead (03/30/2024 10:06 PM EST) Ventricular Rate ECG 58 BPM GEMUSE Atrial Rate 58 BPM GEMUSE P-R Interval 246 ms GEMUSE QRS Duration 94 ms GEMUSE Q-T Interval 426 ms GEMUSE QTc 418 ms GEMUSE P Wave [place] 22 degrees GEMUSE R [place] 66 degrees GEMUSE T [place] 22 degrees GEMUSE ECG Interpretation Sinus bradycardia with 1st degree A-V block Otherwise normal ECG When compared with ECG of 30-MAR-2024 20:30, (unconfirmed) No significant change was found Confirmed by Tacos GUTIERREZ JOHN ([id number]) on 03/31/2024 7:55:08 AM GEMUSE 03/30/2024 10:0 6 PM EST 03/31/2024 7:55 AM EST Pipo Haynes MD ECG ORDERABLES Final Result Performing Organization Address [facility] Co de Phone Number YOANNA * Troponin I high sensitivity (03/30/2024 10:04 PM EST) High Sensitivity Troponin I 43 <=79 ng/L LAB CHEMISTRY METHOD 03/30/2024 10:59 PM EST [facility] Blood Venous blood specimen / Unknown Venipuncture / Unknown 03/30/2024 10:04 PM EST 03/30/2024 10:34 PM EST Narrative [facility] - 03/30/2024 10:59 PM EST High levels of biotin in samples may falsely decrease hsTroponin values. ??Use caution when interpreting hsTroponin results in patients taking biotin who exhibit renal impairment (eGFR <60) or in patients taking more than 20 mg/day of biotin. Pipo Haynes MD LAB BLOOD ORDERABLES Final Res ult Performing Organization Address [facility] Co de Phone Number [facility] [address] [place] [address], * XR Chest 2 Views (03/30/2024 9:14 PM EST) Anatomical Region Laterality Modality Body Radiographic Rosemary ging 03/31/2024 8:08 AM EST Impressions 03/31/2024 8:09 AM EST No acute findings. -------- FINAL REPORT -------- Dictated By: Edmond Vazquez Dictated Date: 03/31/2024 08:08 ET Assigned Physician: Edmond Vazquez Reviewed and Electronically Signed By: Edmond Vazquez Signed Date: 03/31/2024 08:09 ET Workstation ID: [id number] Transcribed By: Self Edit Transcribed Date: 03/31/2024 [...] Signed Date: 03/31/2024 08:09 ET Workstation ID: [id number] Transcribed By: Self Edit Transcribed Date: 03/31/2024 08:08 ET Pipo Haynes MD IMG XR PROCEDURES Final Result * (ABNORMAL) CBC auto differential (03/30/2024 8:36 PM EST) WBC 3.4(L) 4.8 - 10.8 K/mcL LAB HEMETOLOGY METHOD 03/30/2024 9:07 PM [facility] RBC 4.60 4.50 - 5.50 M/mcL LAB HEMETOLOGY METHOD 03/30/2024 9:07 PM [facility] Hemoglobin 13.1(L) 13.5 - 17.5 g/dL LAB HEMETOLOGY METHOD 03/30/2024 9:07 PM [facility] Hematocrit 40.4(L) 42.0 - 54.0 % LAB HEMETOLOGY METHOD 03/30/2024 9:07 PM [facility] MCV 87.6 79.0 - 98.0 FL LAB HEMETOLOGY METHOD 03/30/2024 9:07 PM [facility] MCH 28.4 27.0 - 32.0 pcg LAB HEMETOLOGY METHOD 03/30/2024 9:07 PM [facility] MCHC 32.4 32.0 - 37.0 g/dL LAB HEMETOLOGY METHOD 03/30/2024 9:07 PM [facility] RDW 13.5 11.0 - 15.0 % LAB HEMETOLOGY METHOD 03/30/2024 9:07 PM [facility] Platelets 230 130 - 400 K/mcL LAB HEMETOLOGY METHOD 03/30/2024 9:07 PM [facility] MPV 10.3 7.0 - 11.0 FL LAB HEMETOLOGY METHOD 03/30/2024 9:07 PM [facility] NRBC 0.0 <1.0 % LAB HEMETOLOGY METHOD 03/30/2024 9:07 PM [facility] NRBC Absolute 0.00 <0.10 K/mcL LAB HEMETOLOGY METHOD 03/30/2024 9:07 PM [facility] Neutrophils Relative 46.9 % LAB HEMETOLOGY METHOD 03/30/2024 9:07 PM [facility] Lymphocytes Relative 34.9 % LAB HEMETOLOGY METHOD 03/30/2024 9:07 PM [facility] Monocytes Relative 13.1 % LAB HEMETOLOGY METHOD 03/30/2024 9:07 PM [facility] Eosinophils Relative 3.6 % LAB HEMETOLOGY METHOD 03/30/2024 9:07 PM [facility] Basophils Relative 1.2 % LAB HEMETOLOGY METHOD 03/30/2024 9:07 PM [facility] Immature Granulocytes Relative 0.3 % LAB HEMETOLOGY METHOD 03/30/2024 9:07 PM [facility] Neutrophils Absolute 1.57 1.50 - 7.00 K/[facility] LAB HEMETOLOGY METHOD 03/30/2024 9:07 PM EST [facility] Lymphocytes Absolute 1.17 1.00 - 5.00 K/[facility] LAB HEMETOLOGY METHOD 03/30/2024 9:07 PM EST [facility] Monocytes Absolute 0.44 0.20 - 1.00 K/[facility] LAB HEMETOLOGY METHOD 03/30/2024 9:07 PM EST [facility] Eosinophils Absolute 0.12 0.00 - 0.50 K/[facility] LAB HEMETOLOGY METHOD 03/30/2024 9:07 PM EST [facility] Basophils Absolute 0.04 0.00 - 0.20 K/[facility] LAB HEMETOLOGY METHOD 03/30/2024 9:07 PM EST [facility] Immature Granulocytes Absolute 0.01 0.00 - 0.03 K/[facility] LAB HEMETOLOGY METHOD 03/30/2024 9:07 PM EST [facility] Blood Venous blood specimen / Unknown Venipuncture / Unknown 03/30/2024 8:36 PM EST 03/30/2024 9:00 PM EST us Pipo Haynes MD LAB BLOOD ORDERABLES Final Res ult [facility] [address] [place] [address], * Magnesium (03/30/2024 8:36 PM EST) Magnesium 2.2 1.9 - 2.6 mg/dL LAB CHEMISTRY METHOD 03/30/2024 9:49 PM EST [facility] Blood Venous blood specimen / Unknown Venipuncture / Unknown 03/30/2024 8:36 PM EST 03/30/2024 9:00 PM EST us Pipo Haynes MD LAB BLOOD ORDERABLES Final Res ult Performing Organization Address [facility]/ZIP Co de Phone Number [facility] [address] [place] [address], [place] [phone] * Lipase (03/30/2024 8:36 PM EST) [facility] Lipase 14 13 - 75 unit/L LAB CHEMISTRY METHOD 03/30/2024 9:49 PM EST [facility] Blood Venous blood specimen / Unknown Venipuncture / Unknown 03/30/2024 8:36 PM EST 03/30/2024 9:00 PM EST Pipo Haynes MD LAB BLOOD ORDERABLES Final Res ult Performing Organization Address [facility]/ZIP Co de Phone Number [facility] [address] [place] [address], [place] [phone] * (ABNORMAL) Comprehensive metabolic panel (03/30/2024 8:36 PM EST) [facility] Sodium 140 133 - 145 mmol/L LAB CHEMISTRY METHOD 03/30/2024 9:49 PM [facility] Potassium 4.0 3.5 - 5.5 mmol/L LAB CHEMISTRY METHOD 03/30/2024 9:49 PM [facility] Chloride 106 96 - 110 mmol/L LAB CHEMISTRY METHOD 03/30/2024 9:49 PM [facility] CO2 26 21 - 32 mmol/L LAB CHEMISTRY METHOD 03/30/2024 9:49 PM [facility] Anion Gap 8 3 - 11 LAB CHEMISTRY METHOD 03/30/2024 9:49 PM [facility] Glucose 112(H) 70 - 100 mg/dL LAB CHEMISTRY METHOD 03/30/2024 9:49 PM [facility] BUN 12 5 - 25 mg/dL LAB CHEMISTRY METHOD 03/30/2024 9:49 PM [facility] Creatinine 1.15 0.70 - 1.30 mg/dL LAB CHEMISTRY METHOD 03/30/2024 9:49 PM [facility] eGFR 71 >=60 mL/min/1. 73m2 LAB CHEMISTRY METHOD 03/30/2024 9:49 PM [facility] Comment:Calculation based on the??Chronic Kidney Disease Epidemiology Collaboration (CKD-EPI) equation refit??without adjustment for race. BUN/Creatinine Ratio 10.4 LAB CHEMISTRY METHOD 03/30/2024 9:49 PM [facility] Calcium 9.0 8.5 - 10.5 mg/dL LAB CHEMISTRY METHOD 03/30/2024 9:49 PM [facility] AST (SGOT) 44(H) 10 - 42 unit/L LAB CHEMISTRY METHOD 03/30/2024 9:49 PM [facility] ALT (SGPT) 28 10 - 60 unit/L LAB CHEMISTRY METHOD 03/30/2024 9:49 PM [facility] Alkaline Phosphatase 78 42 - 121 unit/L LAB CHEMISTRY METHOD 03/30/2024 9:49 PM [facility] Total Protein 7.1 6.0 - 8.0 g/dL LAB CHEMISTRY METHOD 03/30/2024 9:49 PM [facility] Albumin 3.8 3.2 - 5.0 g/dL LAB CHEMISTRY METHOD 03/30/2024 9:49 PM [facility] Total Bilirubin 0.6 0.0 - 1.4 mg/dL LAB CHEMISTRY METHOD 03/30/2024 9:49 PM [facility] Blood Venous blood specimen / Unknown Venipuncture / Unknown 03/30/2024 8:36 PM EST 03/30/2024 9:00 PM EST us Pipo Haynes MD LAB BLOOD ORDERABLES Final Res ult [facility] [address] [place] [address], * Troponin I high sensitivity (03/30/2024 8:36 PM EST) [facility] High Sensitivity Troponin I 44 <=79 ng/L LAB CHEMISTRY METHOD 03/30/2024 9:32 PM EST [facility] Blood Venous blood specimen / Unknown Venipuncture / Unknown 03/30/2024 8:36 PM EST 03/30/2024 9:00 PM EST Narrative [facility] - 03/30/2024 9:32 PM EST High levels of biotin in samples may falsely decrease hsTroponin values. ??Use caution when interpreting hsTroponin results in patients taking biotin who exhibit renal impairment (eGFR <60) or in patients taking more than 20 mg/day of biotin. Pipo Haynes MD LAB BLOOD ORDERABLES Final Res ult [facility] [address] [place] [address], * ECG 12 lead (03/30/2024 8:30 PM EST) [facility] Ventricular Rate ECG 65 BPM GEMUSE Atrial Rate 65 BPM GEMUSE P-R Interval 218 ms GEMUSE QRS Duration 94 ms GEMUSE Q-T Interval 410 ms GEMUSE QTc 426 ms GEMUSE P Wave [place] 21 degrees GEMUSE R [place] 74 degrees GEMUSE T [place] 12 degrees GEMUSE ECG Interpretation Sinus rhythm with 1st degree A-V block Otherwise normal ECG When compared with ECG of 19-OCT-2022 19:17, No significant change was found Confirmed by Tacos GUTIERREZ JOHN ([id number]) on 03/31/2024 7:50:32 AM GEMUSE 03/30/2024 8:30 PM EST 03/31/2024 7:50 AM EST us Pipo Haynes MD ECG ORDERABLES Final Result GEMUSE documented in this encounter Visit Diagnoses Diagnosis Recurrent headache- Primary Benzodiazepine withdrawal with complication (CMS/HCC) documented in this encounter Care Teams [place]oor Operator Relationship Specialty Start Date End Date José Miguel Espinoza MD [address] [place] [address] PCP - General Internal Medicine 03/31/24 documented as of this encounter
== END 2024-04-15 15:32 | disposition home or self-care (01) ==
PROVIDERS: PCP Internal Medicine; Visit Provider Physician Assistant
DX: T44.3X5A Adverse effect of other parasympatholytics [anticholinergics and antimuscarinics] and spasmolytics, initial encounter (principal)

== ENCOUNTER → 2024-04-15 14:58 | Outpatient (BNVA) | payer OTHER, SELFPAY | PROVIDERS: PCP Internal Medicine; Visit Provider Physician Assistant ==

== ENCOUNTER 2024-04-21 10:02 | Outpatient (AMB) | payer OTHER, SELFPAY ==
--- NOTE | 2024-04-21 10:42 | AM.OFFWIN_ITS ---
Intake Vital Signs 04/21/24 10:45 Height 5 ft 11 in Weight 248 lb BMI 34.6 BP 120/76 Blood Pressure Location Rt brachial Position Sitting Pulse 58 Pulse Source Pulse Oximeter Pulse Oximetry (%) 98 Oxygen Delivery Method Room Air Intake Visit Reasons: EP-chest pain from a workout Intake Note: Patient here for chest pain from working out and is still feeling shaky after decreasing alprazolam dose. Patient Tobacco Use Status: Never used Tobacco Allergies Penicillins Adverse Reaction (Severe, Verified 04/21/24 10:46) Anxiety pineapple Adverse Reaction (Severe, Verified 04/21/24 10:46) swellling Do you need a note to return to daycare/school/sports/work: No HPI HPI Comments History of Present Illness Details History of Present Illness - The patient is a 63-year-old male pres enting with complaints of chest pain and periodic shakiness. - Chest pain is suspected to be musculos keletal, with tenderness upon palpation and a possible link to recent physical exercise. No radiating pain or significant aggravation with physical activity. - Shakiness occurs irregularly for 15min s-30mins, not alleviated by current dose of alprazolam, with no established pattern or triggers. - He manages anxiety with alprazolam daly ly, reports continued symptoms despite medication adherence. - Cardiovascular evaluation, including i maging and recent MRI, indicates no significant abnormalities. - Continues treatment for hypertension, noting stable readings. - Physical activity has been reduced due to symptoms, exacerbating anxiety. Physical Exam General: Cooperative, healthy appearing, comfortable, no acute distress and well developed Orientation: Patient oriented x3 Limitations: No limitations Head: Normal to inspection Ears: Hearing grossly normal bilaterally, ear canal and inner ear appear normal Nose: Normal external nose present Face and sinus: Normal facial exam, no ttp sinuses Eyes: Appearance normal, both eyes and all related structures Neck: Normal visual inspection and Yes full ROM Respiratory: Normal respiratory effort and able to speak in complete sentences. Clear to auscultation bilaterally Cardiovascular: Regular rate and rhythm. 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 Cognitive needs: No Hearing needs: No Vision needs: Yes Review of Systems Const All systems reviewed & are unremarkable except as noted in HPI and below Physical Exam Vital Signs: Last Vital Signs Pulse 58 04/21/24 10:45 BP 120/76 04/21/24 10:45 Pulse Ox 98 04/21/24 10:45 Oxygen Delivery Method Room Air 04/21/24 10:45 BMI result Body Mass Index 34.6 Office Procedures EKG [id number]-[id number], Complete Assessment & Plan Assessment & Plan (1) Chest pain: Code(s): R07.9 - Chest pain, unspecified Qualifiers: Chest pain type: intercostal pain Qualified Code(s): R07.82 - Intercostal pain Plan: VSS, pt well appearing, he is back on his original dose of alprazolam but is still occasionally shaky , with no triggers, resolves spontaneously. The clinical assessment suggests the chest pain may be musculoskeletal as the pain is reproducible with palpation, likely due to recent physical activity. Cessation of physical activities like sit-ups and push-ups is recommended to prevent further exacerbation of musculoskeletal pain. Management with ibuprofen should help, and pt should current anxiolytic regimen is recommended due to continuing shakiness. Patient was educated on increasing hydroxyzene to 20mg PRN Q8H for anxiety. EKG was done in office as HR was 58BPM, to ensure no blockage or prolongation with his recent benadryl/hydroxyzene use (see prior visit note). EKG done in office was 55 beats per minute, sinus bradycardia with a first- degree AV block. No acute ST or T-wave changes. Exact same as previous EKG. Recommended if his shakiness continues, he should follow up with his PCP. Otherwise recommended he take some ibuprofen or naproxen for the musculoskeletal chest pain, or just give it a few more days and it should resolve on its own. If not, he should also follow up with his PCP. However his EKGs completely normal and his echocardiogram he had last month looked very good as well. Patient was informed and verbally consented to the use of an ambient scribe for clinic note documentation during this visit. Orders: Orders AMB EKG-In Office Today R00.1 - Bradycardia, unspecified Coding Level of Care Code Est Pt Level 4 (81228) Diagnoses Intercostal pain R07.82 Chest pain type: intercostal pain CPT Codes EKG - CPT: 42426-[id number], Complete ([id number])
[2024-04-21 10:45] VITALS: BP 120/76; PULSE 58; O2SAT 98; BMI 34.6
--- OUTSIDE RECORDS SUMMARY | 2024-04-21 11:44 | XMS_ITS | Clinical Summary ---
Author Organization [facility] Address [address] [place] [address] Phone Care Team Providers Care Fire Engine Pump Operator Name Role Phone José Miguel Espinoza MD Primary Care Provider [phone] Allergies Active Allergy Reactions Criticality Noted Date Comments Penicillins 03/30/2024 Pineapple 03/30/2024 Encounters Date Type Department Care Team Description 04/03/2024 5:38 PM EST - 04/03/2024 11:59 PM [facility] Hospital Encounter [facility] MRI [address] [place] [phone] Headache, unspecified Discharge Disposition: Home or Self Care 03/31/2024 7:16 AM EST - 03/31/2024 11:06 AM EST Emergency [facility] Emergency [address] [place] [phone] Pipo Haynes MD Vatrenko, Konstantin, MD Recurrent [...] complete this topic RSV Immunization Patients Un ivna 20 months Aged Out No longer eligible [...] Signed Date: 04/04/2024 10:25 ET Workstation ID: [id number] Transcribed By: Self Edit Transcribed Date: 04/04/2024 [...] Signed Date: 04/04/2024 10:25 ET Workstation ID: [id number] Transcribed By: Self Edit Transcribed Date: 04/04/2024 [...] GEMUSE QTc 418 ms GEMUSE P Wave [place] 22 degrees GEMUSE R [place] 66 degrees GEMUSE T [place] 22 degrees GEMUSE ECG Interpretation Sinus bradycardia with 1st degree A-V block Otherwise normal ECG When compared with ECG of 30-MAR-2024 20:30, (unconfirmed) No significant change was found Confirmed by Tacos GUTIERREZ JOHN ([id number]) on 03/31/2024 7:55:08 AM GEMUSE 03/30/2024 10:0 6 PM EST 03/31/2024 7:55 AM EST Pipo Haynes MD ECG ORDERABLES Final Result Performing Organization Address [facility]/ZIP Co de Phone Number GEMUSE * Troponin [...] ORDERABLES Final Res ult Performing Organization Address [facility] Co de Phone Number [facility] [address] [place] [address], [place] [phone] * XR Chest 2 Views (03/30/2024 9:14 PM EST) Anatomical Region Laterality Modality Body Radiographic Rsoemary ging 03/31/2024 8:08 AM EST Impressions 03/31/2024 8:09 AM EST No acute findings. -------- FINAL REPORT -------- Dictated By: Edmond Vazquez Dictated Date: 03/31/2024 08:08 ET Assigned Physician: Edmond Vazquez Reviewed and Electronically Signed By: Edmond Vazquez Signed Date: 03/31/2024 08:09 ET Workstation ID: [id number] Transcribed By: Self Edit Transcribed Date: 03/31/2024 [...] Signed Date: 03/31/2024 08:09 ET Workstation ID: [id number] Transcribed By: Self Edit Transcribed Date: 03/31/2024 08:08 ET Pipo Haynes MD IMG XR PROCEDURES Final Result * (ABNORMAL) CBC auto differential (03/30/2024 8:36 PM EST) WBC 3.4(L) 4.8 - 10.8 K/mcL LAB HEMETOLOGY METHOD 03/30/2024 9:[address] [facility] RBC 4.60 4.50 - 5.50 M/mcL LAB HEMETOLOGY METHOD 03/30/2024 9:[address] [facility] Hemoglobin 13.1(L) 13.5 - 17.5 g/dL LAB HEMETOLOGY METHOD 03/30/2024 9:[address] [facility] Hematocrit 40.4(L) 42.0 - 54.0 % LAB HEMETOLOGY METHOD 03/30/2024 9:[address] [facility] MCV 87.6 79.0 - 98.0 FL LAB HEMETOLOGY METHOD 03/30/2024 9:[address] [facility] MCH 28.4 27.0 - 32.0 pcg LAB HEMETOLOGY METHOD 03/30/2024 9:[address] [facility] MCHC 32.4 32.0 - 37.0 g/dL LAB HEMETOLOGY METHOD 03/30/2024 9:[address] [facility] RDW 13.5 11.0 - 15.0 % LAB HEMETOLOGY METHOD 03/30/2024 9:[address] [facility] Platelets 230 130 - 400 K/mcL LAB HEMETOLOGY METHOD 03/30/2024 9:[address] [facility] MPV 10.3 7.0 - 11.0 FL LAB HEMETOLOGY METHOD 03/30/2024 9:[address] [facility] NRBC 0.0 <1.0 % LAB HEMETOLOGY METHOD 03/30/2024 9:[address] [facility] NRBC Absolute 0.00 <0.10 K/mcL LAB HEMETOLOGY METHOD 03/30/2024 9:[address] [facility] Neutrophils Relative 46.9 % LAB HEMETOLOGY METHOD 03/30/2024 9:[address] [facility] Lymphocytes Relative 34.9 % LAB HEMETOLOGY METHOD 03/30/2024 9:[address] [facility] Monocytes Relative 13.1 % LAB HEMETOLOGY METHOD 03/30/2024 9:[address] [facility] Eosinophils Relative 3.6 % LAB HEMETOLOGY METHOD 03/30/2024 9:[address] [facility] Basophils Relative 1.2 % LAB HEMETOLOGY METHOD 03/30/2024 9:[address] [facility] Immature Granulocytes Relative 0.3 % LAB HEMETOLOGY METHOD 03/30/2024 9:07 PM EST [facility] Neutrophils Absolute 1.57 1.50 - 7.00 K/mcL LAB HEMETOLOGY METHOD 03/30/2024 9:[address] [facility] Lymphocytes Absolute 1.17 1.00 - 5.00 K/mcL LAB HEMETOLOGY METHOD 03/30/2024 9:07 PM EST [facility] Monocytes Absolute 0.44 0.20 - 1.00 K/mcL LAB HEMETOLOGY METHOD 03/30/2024 9:07 PM EST [facility] Eosinophils Absolute 0.12 0.00 - 0.50 K/mcL LAB HEMETOLOGY METHOD 03/30/2024 9:[address] [facility] Basophils Absolute 0.04 0.00 - 0.20 K/mcL LAB HEMETOLOGY METHOD 03/30/2024 9:[address] [facility] Immature Granulocytes Absolute 0.01 0.00 - 0.03 K/[facility] LAB HEMETOLOGY METHOD 03/30/2024 9:[address] [facility] Blood Venous blood specimen / Unknown Venipuncture / Unknown 03/30/2024 8:36 PM EST 03/30/2024 9:00 PM EST Pipo Haynes MD LAB BLOOD ORDERABLES Final Res ult [facility] [address] [place] [address], * Magnesium (03/30/2024 8:36 PM EST) Magnesium 2.2 1.9 - 2.6 mg/dL LAB CHEMISTRY METHOD 03/30/2024 9:49 PM EST [facility] Blood Venous blood specimen / Unknown Venipuncture / Unknown 03/30/2024 8:36 PM EST 03/30/2024 9:00 PM EST us Pipo Haynes MD LAB BLOOD ORDERABLES Final Res ult Performing Organization Address City/[facility]/ZIP Co de Phone Number [facility] [address] [place] [address], [place] [phone] * Lipase (03/30/2024 8:36 PM EST) Pathologist [facility] Lipase 14 13 - 75 unit/L LAB CHEMISTRY METHOD 03/30/2024 9:[address] [facility] Blood Venous blood specimen / Unknown Venipuncture / Unknown 03/30/2024 8:36 PM EST 03/30/2024 9:00 PM EST us Pipo Haynes MD LAB BLOOD ORDERABLES Final Res ult Performing Organization Address [facility]/ZIP Co de Phone Number [facility] [address] [place] [address], [place] [phone] * (ABNORMAL) Comprehensive metabolic panel (03/30/2024 8:36 PM EST) [facility] Sodium 140 133 - 145 mmol/L LAB CHEMISTRY METHOD 03/30/2024 9:[address] [facility] Potassium 4.0 3.5 - 5.5 mmol/L LAB CHEMISTRY METHOD 03/30/2024 9:[address] [facility] Chloride 106 96 - 110 mmol/L LAB CHEMISTRY METHOD 03/30/2024 9:[address] [facility] CO2 26 21 - 32 mmol/L LAB CHEMISTRY METHOD 03/30/2024 9:[address] [facility] Anion Gap 8 3 - 11 LAB CHEMISTRY METHOD 03/30/2024 9:[address] [facility] Glucose 112(H) 70 - 100 mg/dL LAB CHEMISTRY METHOD 03/30/2024 9:[address] [facility] BUN 12 5 - 25 mg/dL LAB CHEMISTRY METHOD 03/30/2024 9:[address] [facility] Creatinine 1.15 0.70 - 1.30 mg/dL LAB CHEMISTRY METHOD 03/30/2024 9:[address] [facility] eGFR 71 >=60 mL/min/1. 73m2 LAB CHEMISTRY METHOD 03/30/2024 9:[address] [facility] Comment:Calculation based on the??Chronic Kidney Disease Epidemiology Collaboration (CKD-EPI) equation refit??without adjustment for race. BUN/Creatinine Ratio 10.4 LAB CHEMISTRY METHOD 03/30/2024 9:[address] [facility] Calcium 9.0 8.5 - 10.5 mg/dL LAB CHEMISTRY METHOD 03/30/2024 9:[address] [facility] AST (SGOT) 44(H) 10 - 42 unit/L LAB CHEMISTRY METHOD 03/30/2024 9:[address] [facility] ALT (SGPT) 28 10 - 60 unit/L LAB CHEMISTRY METHOD 03/30/2024 9:[address] [facility] Alkaline Phosphatase 78 42 - 121 unit/L LAB CHEMISTRY METHOD 03/30/2024 9:[address] [facility] Total Protein 7.1 6.0 - 8.0 g/dL LAB CHEMISTRY METHOD 03/30/2024 9:[address] [facility] Albumin 3.8 3.2 - 5.0 g/dL LAB CHEMISTRY METHOD 03/30/2024 9:[address] [facility] Total Bilirubin 0.6 0.0 - 1.4 mg/dL LAB CHEMISTRY METHOD 03/30/2024 9:[address] [facility] Blood Venous blood specimen / Unknown Venipuncture / Unknown 03/30/2024 8:36 PM EST 03/30/2024 9:00 PM EST us Pipo Haynes MD LAB BLOOD ORDERABLES Final Res ult [facility] [place] [facility] [address] [place] [address], from Last 3 Months Insurance [facility] Care Teams Fire Engine Pump Operator Relationship Specialty Start Date End Date José Miguel Espinoza MD [address] [place] [address] PCP - General Internal Medicine 03/31/24
--- OUTSIDE RECORDS SUMMARY | 2024-04-21 11:44 | XMS_ITS | Data Portability ---
Author Organization [facility] [address] Address [address] [place] [address] Care Team Providers Care Manager Of Revenue Name Role Phone SLADE EM Primary Care Provider [phone] Assessment No assessment recorded. Plan of Treatment Reminders Order Date Submit Date Provider Last Modified By Organization Details Last Modified Time Details Appointments None recorded. Lab urinalysis, dipstick 2022 023 [email or web address] [facility], [address] [place] [address], [place], [address], 3 16:34:09 culture, urine 2022 023 [facility], [address] [place] [address], [place], [address], 3 08:07:29 Referral urologist referral 2022 023 [email or web address] 26 Not available 3 09:08:28 Procedures None recorded. Surgeries None recorded. Imaging None recorded. Medication Orders Anusol-HC 25 mg rectal suppository 2022 023 [email or web address] [id number], [address] [place], [address], 3 08:13:41 Macrobid 100 mg capsule 2022 023 [email or web address] [id number], [address] [place], [address], 16:10:01 Patient TargetsNo targets recorded. Patient Instructions Encounter Date Encounter Id Patient Instructions Last Modified By Organization Details Last Modified Time 09/02/2022 [id number] hemorrhoids: car e instructions [email or web address] Not available 09/02/2022 16:47:47 Reason for Referral Urologist Referral for Incre ased frequency of urination Referring Physician: Chad Forman, Urgent Care, Encounter Date: 04/27/2022 Results Created Date Observation Date Name Description Value Unit Range Abnormal Flag Note LastModifiedBy Organization Detail LastModifiedTime 04/28/1904/29/2022 URINE CULTU RE, ROUTI NE urine culture, routine FINAL REPORT Not Available [facility] ([facility]) [address] [facility], [place], [address], 04/29/2022 08:07:29 04/28/19 23 04/29/2022 URINE CULTU RE, ROUTI NE result 1 NO GROWTH Not Available [facility] ([facility]) [address] [facility], [place], [address], 04/29/2022 08:07:29 04/28/19 23 04/27/2022 urina lysis , dipst ick Unknown Analyte Yellow Not Available _ [facility] [address], [address], 04/27/2022 15:44:07 04/28/19 23 04/27/2022 urina lysis , dipst ick Unknown Analyte Clear Not Available _ [facility] [address], [address], 04/27/2022 15:44:07 04/28/19 23 04/27/2022 urina lysis , dipst ick Unknown Analyte Negati ve Not Available tania jay [address], [address], 04/27/2022 15:44:07 04/28/19 23 04/27/2022 urina lysis , dipst ick Unknown Analyte Negati ve Not Available [facility] [address] [place] [address], [place], [address], 04/27/2022 15:44:07 04/28/19 23 04/27/2022 urina lysis , dipst ick Unknown Analyte Negati ve Not Available donnao pe [address], [place], [address], 04/27/2022 15:44:07 04/28/19 23 04/27/2022 urina lysis , dipst ick Unknown Analyte 1.025 Not Available donnaope [address], [place], [address], 04/27/2022 15:44:07 04/28/19 23 04/27/2022 urina lysis , dipst ick Unknown Analyte Small Not Available [facility] [address], [place], [address], 04/27/2022 15:44:07 04/28/19 23 04/27/2022 urina lysis , dipst ick Unknown Analyte 6.5 Not Available [facility] [address], [place], [address], 04/27/2022 15:44:07 04/28/19 23 04/27/2022 urina lysis , dipst ick Unknown Analyte 30 mg/dL Not Available donnao pe [address], [place], [address], 04/27/2022 15:44:07 04/28/19 23 04/27/2022 urina lysis , dipst ick Unknown Analyte 0.2 E.U./d L Not Available [facility], [place], [address], 04/27/2022 15:44:07 04/28/19 23 04/27/2022 urina lysis , dipst ick Unknown Analyte Negati ve Not Available [address] [address] [address] [place] [address], [address], 04/27/2022 15:44:07 04/28/19 23 04/27/2022 urina lysis , dipst ick Unknown Analyte Negati ve Not Available [address] [address] [place] [address], [address], 04/27/2022 15:44:07 Result Notes None recorded. Problems Name Problem SNOMED Code Status Onset Date Resolution Date Notes Provider Name and Address Organization Details Recorded Time Hypertensive disorder 64372635 Active 2022 WILLIAM palomino, PA - [facility] 3 15:50:11 Hypercholester olemia 48929035 Active 2022 WILLIAM CARRILLO null, PA - [facility] 3 15:50:18 Gastroesophage al reflux disease 881454891 Active 2022 WILLIAM CARRILLO null, PA - [facility] 3 15:50:32 Anxiety 78081083 Active 2022 WILLIAM NOBLEICA null, PA - [facility] 3 15:50:43 Asthma 117417499 Active 2022 WILLIAM CARRILLO null, PA - [facility] 3 15:51:05 Sleep apnea 18282753 Active 2022 WILLIAM NOBLEICA null, PA - [...] Name and Address Organization Details Recorded Time 878050 amoxicill in medicatio n itching Not available [...] Updated DateTime 3 180.34 cm 34.7 kg/m2 979386. 5 g 97.1 [degF] 95 % 95 [...] Updated DateTime 3 180.34 cm 34.7 kg/m2 817937. 5 g 97 % 97 % 71 /min 18 /min 98.5 [degF] 128 mm[Hg] 78 mm[Hg] GURU EMILIANO PA - [facility] 3 16:12:20 Social History Question Answer Notes LastModified by Organizat ion Details LastModified Time Tobacco Smoking Status Never Smoker WILLIAM CARRILLO candelario PA - [facility] 04/27/2022 15:52:41 What Is Your Level Of Alcohol Consumption? None [email or web address] Information not available 04/27/2022 Do You Use Any Illicit Or Recreational Drugs? No [email or web address] Information not available 04/27/2022 Have You Recently Traveled Abroad? No [email or web address] Information not available 04/27/2022 Do You Or Have You Ever Used Any Other Forms Of Tobacco Or Nicotine? No [email or web address] Information not available 04/27/2022 Sex: Unknown Functional Status None recorded. Mental Status None recorded. Family History Relationship Description Onset Age of this Age Resolved Age Notes LastModified by Organization Details LastModified Time Mother Heart disease Not available 2022 15:52:02 Mother Diabetes mellitus [email or web address] Not available 2022 15:52:09 Mother Myocardial infarction Not available 04/27 15:52:23 Father Myocardial infarction [email or web address] Not available 04/27 15:52:22 Medical History No medical history recorded. Past Encounters Encounter ID Performer Location Encounter Start Date Encounter Closed Date Diagnosis/Indication Diagnosis SNOMED-CT Code Diagnosis ICD10 Code Diagnosis Note [id number] [facility] [address] 11/15/2018 19:08:29 11/15/2018 19:20:19 [id number] 21005_[facility] [place] [address] 01/12/2017 19:30:06 01/12/2017 19:59:01 [id number] [address] [facility] [place]RY[place]ar[place] [address] 06/13/2019 14:32:24 06/13/2019 15:40:34 [id number] [address] [facility] [place] [address] 04/27/2017 18:40:25 04/27/2017 19:31:53 [id number] [address] [facility] [place] [address] 08/05/2021 08:35:18 08/05/2021 10:27:26 [id number] [address] [facility] [place] [address] 06/04/2016 19:47:53 06/04/2016 20:19:56 [id number] [address] [facility] [place] [address] 05/13/2020 17:53:47 05/13/2020 18:56:52 [id number] [address] [facility] [place] [address] 03/07/2018 19:42:56 03/07/2018 20:23:16 [id number] [address] [facility] [place] [address] 03/13/2015 15:25:32 03/13/2015 16:30:45 [id number] [address] [facility] [place] [address] 07/29/2021 15:41:12 07/29/2021 18:16:19 [id number] [address] [facility] [place] [address] 08/20/2017 18:49:49 08/20/2017 19:53:37 [id number] [address] [address] [facility] [place] [address] 06/18/2020 19:37:45 06/18/2020 20:14:38 [id number] Chad Form[place] [address] [address] 04/27/2022 12:51:09 04/27/2022 16:36:40 Increased frequency of urination 722616171 R35.0 suspect UTISigns and Symptoms c/w UTIUA [...] agreement with the plan as outlined above. [id number] Marcelino Lea [place] [facility] [address] [place] [address] 09/02/2022 15:20:17 09/02/2022 16:50:35 Hemorrhoids 34049116 K64.9 likely internal hemorrhoid s as per [...] Amaya Member ID Guarantor Name 06/18/2020 1 [facility] [id number] Norbert Tolbert Keron [id number] Norbert Cabrales 07/29/2021 1 [facility] [id number] Norbert Tolbert Keron [id number] Norbert Cabrales 08/05/2021 1 [facility] [id number] Norbert Cabrales [id number] Norbert Cabrales 04/27/2022 1 [facility] [id number] Norbert Cabrlaes [id number] Norbert Cabrales 09/02/2022 1 [facility] [id number] Norbert Cabrales [id number] Norbert Cabrales Notes Date Note Type Note Provider Name and Address Organization Details Recorded Time 04/27/2022 text/html Urinary Problems-MaleReporte d bypatient.Notes:61 yo male c/o frequency in urination x couple days--no burning, no pain. + decreased stream no increased urgencyno incontinenceno pressureno malodorno blood in urineno back painno rashno feverno nausea or vomitingno MS change Chad Forman DO [address] [place], [address], [employer] 04/27/2022 16:35:50 09/02/2022 text/html Went to his PCP 2 days ago and told he had internal hemorrhoids. Told to take fiber drink only. Patient concerned and wants to be checked again. Feels anal discomfort. NO blood in stool or when wipes. no pain with defecation. Had colonoscopy 02/01. Marcelino Lea MD [address] [place], [address], [employer] 09/02/2022 18:39:03
--- OUTSIDE RECORDS SUMMARY | 2024-04-21 11:45 | XMS_ITS | Encounter Summary ---
Author Organization [facility] Address [address] [place] [address] Care Team Providers Care [employer] Assault Craft Crewman Name Role Phone José Miguel Espinoza MD Primary Care Provider [phone] Reason for Referral * Imaging (Routine) - Pending Review Specialty Diagnoses / Procedures Referred By Contac t Referred To Contact Radiology Diagnoses Headache, unspecified Procedures MR Brain wo Contrast Clyde Bobo MD [address] [place] [address] Phone: tel: fax: [facility] Referral ID Status Reason Start Date Expiration Date V isits Requested Visits Authorized [id number] Pending Review 04/01/2024 04/01/2025 1 1 Reason for Visit * Imaging (Routine) - Pending Review Specialty Diagnoses / Procedures Referred By Contac t Referred To Contact Radiology Diagnoses Headache, unspecified Procedures MR Brain wo Contrast Clyde Bobo MD [address] [place] [address] Phone: tel: fax: [facility] Referral ID Status Reason Start Date Expiration Date V isits Requested Visits Authorized [id number] Pending Review 04/01/2024 04/01/2025 1 1 Encounter Details Date Type Department Care Team (Latest Contact Info) Description 04/03/2024 5:38 PM EST - 04/03/2024 11:59 PM EST Hospital Encounter [facility] MRI [address] [place] [id number] Headache, unspecified Discharge Disposition: Home or Self [...] Signed Date: 04/04/2024 10:25 ET Workstation ID: [id number] Transcribed By: Self Edit Transcribed Date: 04/04/2024 [...] Signed Date: 04/04/2024 10:25 ET Workstation ID: [id number] Transcribed By: Self Edit Transcribed Date: 04/04/2024 10:14 ET us Clyde Bobo MD IMG MRI PROCEDURES Final Result documented in this encounter Visit Diagnoses Diagnosis Headache, unspecified documented in this encounter Care Teams [employer]man Relationship Specialty Start Date End Date José Miguel Espinoza MD [address] [place] [address] PCP - General Internal Medicine 03/31/24 documented as of this encounter
--- OUTSIDE RECORDS SUMMARY | 2024-04-21 11:45 | XMS_ITS | Encounter Summary ---
Author Organization [facility] Address [address] [place] [address] Care Team Providers Care Flask Carrier Name Role Phone José Miguel Espinoza MD Primary Care Provider [phone] Reason for Visit * Reason Comments Chest Pain Multiple complaints Encounter Details Date Type Department Care Team (Late st Contact Info) Description 03/31/2024 7:16 AM EST - 03/31/2024 11:06 AM EST Emergency [facility] Emergency [address] [place] [phone] Pipo Haynes MD [address] [place] [address] Clyde Bobo MD [address] [place] [address] Recurrent headache (Primary Dx); Benzodiazepine withdrawal with [...] Bobo MD - 03/31/2024 10:24 AM EST [facility] : Contact Ilia Cordero [facility]: Contact Isabella Colon [facility] : Contact Sean These are the numbers are received from our addiction sustainability coach, my recommendation to your primary carephysician [...] Procedure Abnormality Status --------- ------ CBC auto differential[[id number]] Abnormal Final result Please view results for [...] Signed Date: 03/31/2024 08:09 ET Workstation ID: [id number] Transcribed By: Self Edit Transcribed Date: 03/31/2024 [...] he switched to a new provider at 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 Last week his PCP told him if [...] a good study for this. [KV] 1016 [facility] : Contact Ilia Cordero [facility]: Contact Isabella Colon [facility] : Contact Sean [KV] ED Course User [...] encounter Results * ECG-Annotated (04/01/2024) Provider Onbase VT ECG ORDERABLES Final Result * ECG-Annotated (04/01/2024) Provider Onbase VT ECG ORDERABLES Final Result * ECG 12 lead (03/30/2024 10:06 PM EST) Ventricular Rate ECG 58 BPM GEMUSE Atrial Rate 58 BPM GEMUSE P-R Interval 246 ms GEMUSE QRS Duration 94 ms GEMUSE Q-T Interval 426 ms GEMUSE QTc 418 ms GEMUSE P Wave [place] 22 degrees GEMUSE R [place] 66 degrees GEMUSE T [place] 22 degrees GEMUSE ECG Interpretation Sinus bradycardia with 1st degree A-V block Otherwise normal ECG When compared with ECG of 30-MAR-2024 20:30, (unconfirmed) No significant change was found Confirmed by Tacos GUTIERREZ JOHN ([id number]) on 03/31/2024 7:55:08 AM GEMUSE 03/30/2024 10:0 6 PM EST 03/31/2024 7:55 AM EST Pipo Haynes MD ECG ORDERABLES Final Result Performing Organization Address [facility] Co de Phone Number YOANNA * Troponin I high sensitivity (03/30/2024 10:04 PM EST) High Sensitivity Troponin I 43 <=79 ng/L LAB CHEMISTRY METHOD 03/30/2024 10:59 PM EST [facility] Blood Venous blood specimen / Unknown Venipuncture / Unknown 03/30/2024 10:04 PM EST 03/30/2024 10:34 PM EST Narrative [facility] - 03/30/2024 10:59 PM EST High levels of biotin in samples may falsely decrease hsTroponin values. ??Use caution when interpreting hsTroponin results in patients taking biotin who exhibit renal impairment (eGFR <60) or in patients taking more than 20 mg/day of biotin. Pipo Haynes MD LAB BLOOD ORDERABLES Final Res ult Performing Organization Address [facility] Co de Phone Number [facility] [address] [place] [address], * XR Chest 2 Views (03/30/2024 9:14 PM EST) Anatomical Region Laterality Modality Body Radiographic Rosemary ging 03/31/2024 8:08 AM EST Impressions 03/31/2024 8:09 AM EST No acute findings. -------- FINAL REPORT -------- Dictated By: Edmond Vazquez Dictated Date: 03/31/2024 08:08 ET Assigned Physician: Edmond Vazquez Reviewed and Electronically Signed By: Edmond Vazquez Signed Date: 03/31/2024 08:09 ET Workstation ID: [id number] Transcribed By: Self Edit Transcribed Date: 03/31/2024 [...] Signed Date: 03/31/2024 08:09 ET Workstation ID: [id number] Transcribed By: Self Edit Transcribed Date: 03/31/2024 [...] LAB Neutrophils Absolute 1.57 1.50 - 7.00 K/[facility] LAB HEMETOLOGY METHOD 03/30/2024 9:07 PM EST [facility] Lymphocytes Absolute 1.17 1.00 - 5.00 K/[facility] LAB HEMETOLOGY METHOD 03/30/2024 9:07 PM EST [facility] Monocytes Absolute 0.44 0.20 - 1.00 [facility] LAB HEMETOLOGY METHOD 03/30/2024 9:07 PM EST [facility] Eosinophils Absolute 0.12 0.00 - 0.50 [facility] LAB HEMETOLOGY METHOD 03/30/2024 9:07 PM EST [facility] Basophils Absolute 0.04 0.00 - 0.20 [facility] LAB HEMETOLOGY METHOD 03/30/2024 9:07 PM EST [facility] Immature Granulocytes Absolute 0.01 0.00 - 0.03 [facility] LAB HEMETOLOGY METHOD 03/30/2024 9:07 PM EST [facility] Blood Venous blood specimen / Unknown Venipuncture / Unknown 03/30/2024 8:36 PM EST 03/30/2024 9:00 PM EST us Pipo Haynes MD LAB BLOOD ORDERABLES Final Res ult [facility] [address] [place] [address], * Magnesium (03/30/2024 8:36 PM EST) Magnesium 2.2 1.9 - 2.6 mg/dL LAB CHEMISTRY METHOD 03/30/2024 9:49 PM EST [facility] Blood Venous blood specimen / Unknown Venipuncture / Unknown 03/30/2024 8:36 PM EST 03/30/2024 9:00 PM EST us Pipo Haynes MD LAB BLOOD ORDERABLES Final Res ult Performing Organization Address [facility]/ZIP Co de Phone Number [facility] [address] [place] [address], [place] [phone] * Lipase (03/30/2024 8:36 PM EST) [facility] Lipase 14 13 - 75 unit/L LAB CHEMISTRY METHOD 03/30/2024 9:49 PM EST [facility] Blood Venous blood specimen / Unknown Venipuncture / Unknown 03/30/2024 8:36 PM EST 03/30/2024 9:00 PM EST Pipo Haynes MD LAB BLOOD ORDERABLES Final Res ult Performing Organization Address [facility]/ZIP Co de Phone Number [facility] [address] [place] [address], [place] [phone] * (ABNORMAL) Comprehensive metabolic panel (03/30/2024 8:36 PM EST) [facility] Sodium 140 133 - 145 mmol/L [...] MD LAB BLOOD ORDERABLES Final Res ult [facility] [address] [place] [address], * Troponin I high sensitivity (03/30/2024 8:36 PM EST) [facility] High Sensitivity Troponin I 44 <=79 ng/L LAB CHEMISTRY METHOD 03/30/2024 9:32 PM EST [facility] Blood Venous blood specimen / Unknown Venipuncture / Unknown 03/30/2024 8:36 PM EST 03/30/2024 9:00 PM EST Narrative [facility] - 03/30/2024 9:32 PM EST High levels of biotin in samples may falsely decrease hsTroponin values. ??Use caution when interpreting hsTroponin results in patients taking biotin who exhibit renal impairment (eGFR <60) or in patients taking more than 20 mg/day of biotin. Pipo Haynes MD LAB BLOOD ORDERABLES Final Res ult [facility] [address] [place] [address], * ECG 12 lead (03/30/2024 8:30 PM EST) [facility] Ventricular Rate ECG 65 BPM GEMUSE Atrial Rate 65 BPM GEMUSE P-R Interval 218 ms GEMUSE QRS Duration 94 ms GEMUSE Q-T Interval 410 ms GEMUSE QTc 426 ms GEMUSE P Wave [place] 21 degrees GEMUSE R [place] 74 degrees GEMUSE T [place] 12 degrees GEMUSE ECG Interpretation Sinus rhythm with 1st degree A-V block Otherwise normal ECG When compared with ECG of 19-OCT-2022 19:17, No significant change was found Confirmed by Tacos GUTIERREZ JOHN ([id number]) on 03/31/2024 7:50:32 AM GEMUSE 03/30/2024 8:30 PM EST 03/31/2024 7:50 AM EST us Pipo Haynes MD ECG ORDERABLES Final Result GEMUSE documented in this encounter Visit Diagnoses Diagnosis Recurrent headache- Primary Benzodiazepine withdrawal with complication (CMS/HCC) documented in this encounter Care Teams Flask Carrier Relationship Specialty Start Date End Date José Miguel Espinoza MD [address] [place] [address] PCP - General Internal Medicine 03/31/24 documented as of this encounter
== END 2024-04-21 12:01 | disposition home or self-care (01) ==
PROVIDERS: PCP Internal Medicine; Visit Provider Physician Assistant
DX: R07.82 Intercostal pain (principal)

== ENCOUNTER → 2024-04-21 10:02 | Outpatient (BNVA) | payer OTHER, SELFPAY | PROVIDERS: PCP Internal Medicine; Visit Provider Physician Assistant | DX: R07.82 Intercostal pain (principal); R00.1 Bradycardia, unspecified | CPT/HCPCS: 93005 ==

== ENCOUNTER 2024-04-28 14:35 | Outpatient (REF) | payer OTHER, SELFPAY ==
[2024-04-28 17:30] LABS: Prostate Specific Antigen 0.81 ng/mL (<0.05-4.0)
== END 2024-04-28 14:36 | disposition home or self-care (01) ==
LOC: HO.HMGCLDS 14:35
PROVIDERS: PCP Internal Medicine; Visit Provider Nurse Practitioner Family
DX: N40.1 Benign prostatic hyperplasia with lower urinary tract symptoms (principal); R35.0 Frequency of micturition; Z12.5 Encounter for screening for malignant neoplasm of prostate
CPT/HCPCS: 36415; 84153

== ENCOUNTER 2024-04-29 09:24 | Outpatient (AMB) | payer OTHER, SELFPAY ==
--- NOTE | 2024-04-29 09:27 | A.OFFVIS_ITS ---
Intake Visit Reasons: 6m/PSA Intake Note: Patient presents to ooffice today for 6 month/PSA Urology Medications: Tamsulosin, Sildenafil Allergies to Antibiotic: Penicillins Blood Thinner: none PVR: 24ml Precision Instrument And Tool Maker Required: No Accompanied by: Self / Same As Patient Allergies Penicillins Adverse Reaction (Severe, Verified 04/29/24 09:32) Anxiety pineapple Adverse Reaction (Severe, Verified 04/29/24 09:32) joshua RENO Comments Details: Norbert is a very pleasant 63-year-old male patient of Dr. Espinoza. He has a past medical history of GERD, obstructive sleep apnea compliant with CPAP, and asthma. He presents to the office today for follow-up of his lower urinary tract symptoms as well as erectile dysfunction. In discussion with the patient today he reports to be doing and feeling well. He discusses his intentional weight loss of over 40 lb in the last 18 months. He discusses being active in the gym daily. He reports compliance with Flomax and p.r.n. Viagra as prescribed. He does report having had episodes of urinary urgency and frequency however describes these episodes as infrequent. He describes symptoms resolved spontaneously. Recent PSA results reviewed with the patient today. 06/04 0.8, 11/04 0.7, 05/05 0.8 Previous workup has included a bladder ultrasound 06/04 noting distended urinary bladder with pre void volume of approximately 410 mL. Postvoid bladder volume is approximately 115 mL. Enlarged prostate measuring 280 mL. In office urinalysis results reviewed with the patient today. PVR 24 mL. He discusses taking p.r.n. Viagra 50 mg and feels this is helpful with maintaining his erections. Discussed at length enlarged prostate as well as lower urinary tract symptoms. Discussed potential causes and affects of these urological issues. Factors such as diet, including caffeine and alcohol intake, have been noted as aggravating symptoms. All questions were answered. He otherwise offers no other issues or concerns at this time. Patient was informed and verbally consented to the use of an ambient scribe for clinic note documentation during this visit. [facility] Medical History Murmur Enlarged prostate Atelectasis GERD (gastroesophageal reflux disease) ZOE (obstructive sleep apnea) Extremity edema Asthma Surgical History History of knee replacement procedure of left knee Social History Housing: House Alcohol intake: never Patient Tobacco Use Status: Never used Tobacco Tobacco use type: Cigarette e-Cigarette/Vaping Use: Never Used Second Hand Smoke Exposure: No service: Yes ([employer] [id number] ) Current occupational status: retired Cognitive needs: No Hearing needs: No Vision needs: Yes Review of Systems Const All systems reviewed & are unremarkable except as noted in HPI and below Physical Exam Const General: cooperative, healthy appearing, comfortable, no acute distress, well developed, alert and awake Nutritional Appearance: overweight Orientation/consciousness: patient oriented x3 Limitations: no limitations HEENT Head: Yes normal to inspection, Yes normocephalic and Yes atraumatic Ears: hearing grossly normal bilaterally Eyes General: appearance normal, both eyes and all related structures Neck Neck: Yes normal visual inspection and Yes trachea midline Chest Chest palpation & inspection: normal inspection of the chest Resp Effort & Inspection: normal respiratory effort and able to speak in complete sentences Cardio Rate: regular rate GI Inspection: Yes normal to inspection General: Yes no CVA tenderness Back/Spine/Pelvis Back: no CVA tenderness Skin General skin exam: no rashes or lesions noted Neuro General: patient oriented x3 Extrem General: Yes normal to inspection Psych Appearance: grossly normal and well kempt Mental Status: mental status grossly normal Speech and movement: Normal speech and movement present and Clear speech present Affect: normal affect Attitude: cooperative Thought process: Normal thought process present Thought content: Normal thought content present Insight: Fair insight present (Psych) Judgement: Fair judgement present (Psych) Results AMB Urinalysis, Automated UA Leukoctes 0 Lela/uL Last Edit by Leesa Tiwari on 04/29/24 09:41 UA Nitrite Negative Last Edit by Leesa Tiwari on 04/29/24 09:41 UA Urobilinogen 17 mg/dL Last Edit by Leesa Tiwari on 04/29/24 09:41 UA Protein 0.3 mg/dL Last Edit by Leesa Yuantiz on 04/29/24 09:41 UA pH 6.0 Last Edit by Leesa Yuantiz on 04/29/24 09:41 UA Blood 0 Edwin/uL Last Edit by Leesa Yuantiz on 04/29/24 09:41 UA Specific [place] 1.015 Last Edit by Leesa Yuantiz on 04/29/24 09:41 UA Ketone Negative Last Edit by Leesa Yuantiz on 04/29/24 09:41 UA Bilirubin 0 mg/dL Last Edit by Leesa Yuantiz on 04/29/24 09:41 UA Glucose 0 mg/dL Last Edit by Leesa Yuantiz on 04/29/24 09:41 Assessment & Plan Assessment & Plan (1) BPH (benign prostatic hyperplasia): Code(s): N40.0 - Benign prostatic hyperplasia without lower urinary tract symptoms Category: Medical Qualifiers: Lower urinary tract symptom presence: symptoms present Lower urinary tract symptom detail: urinary frequency Qualified Code(s): N40.1 - Benign prostatic hyperplasia with lower urinary tract symptoms; R35.0 - Frequency of micturition (2) Erectile dysfunction: Code(s): N52.9 - Male erectile dysfunction, unspecified Category: Medical Qualifiers: Erectile dysfunction type: unspecified Qualified Code(s): N52.9 - Male erectile dysfunction, unspecified Plan In office urinalysis results reviewed with the patient today; as noted above. PVR 24 mL. Recent PSA results reviewed with the patient today; as noted above. Continue Flomax as discussed and prescribed We discussed bladder triggers/irritants. We discussed trial of finasteride given prostate volume on bladder ultrasound Continue with lifestyle modifications to assist with lower urinary tract symptoms as well as erectile dysfunction. Follow-up in 6 months with PVR; or sooner with any issues, concerns, and or questions. Orders: Orders AMB Post Void Residual by ultrasound Today N40.1 - Benign prostatic hyperplasia with lower urinary tract symptoms, R35.0 - Frequency of micturition AMB Urinalysis Automated Today Z13.9 - Encounter for screening, unspecified Patient Instructions: The patient had an opportunity to ask questions regarding the treatment plan. All questions were answered. Physical exam, labs, and imaging were discussed and reviewed in detail. As well as risks, benefits, and discussion of treatment choices. No major barriers to understanding were identified. The patient expressed understanding and agreement with the above treatment plan. The patient was made aware they should contact our office by phone for worsening of their current condition, the appearance of new symptoms, or with any questions or concerns. Compliance is encouraged with any medications and follow up testing that is ordered. It is a privilege to be allowed the opportunity to participate in? your urological care.? Again, if you have any questions or concerns If you have any questions or concerns please do not hesitate to contact me. The office is [phone]. This note is constructed using voice recognition software. While every effort has been made to ensure accuracy resident hall director errors may have been included. Yours sincerely, ALEJANDRA Gaffney Coding Level of Care Code Est Pt Level 3 (28118) Complex EM visit Add On G2211 Diagnoses Benign prostatic hyperplasia with urinary frequency N40.1; R35.0 Lower urinary tract symptom presence: symptoms present Lower urinary tract symptom detail: urinary frequency Erectile dysfunction, unspecified erectile dysfunction type N52.9 Erectile dysfunction type: unspecified
--- OUTSIDE RECORDS SUMMARY | 2024-04-29 10:23 | XMS_ITS | Encounter Summary ---
Author Organization [facility] Address [address] [place] [address] Care Team Providers Care Psychiatric Attendant Name Role Phone José Miguel Espinoza MD Primary Care Provider [phone] Reason for Referral * Imaging (Routine) - Pending Review Specialty Diagnoses / Procedures Referred By Contac t Referred To Contact Radiology Diagnoses Headache, unspecified Procedures MR Brain wo Contrast Clyde Bobo MD [address] [place] [address] Phone: tel: fax: [facility] Referral ID Status Reason Start Date Expiration Date V isits Requested Visits Authorized [id number] Pending Review 04/01/2024 04/01/2025 1 1 Reason for Visit * Imaging (Routine) - Pending Review Specialty Diagnoses / Procedures Referred By Contac t Referred To Contact Radiology Diagnoses Headache, unspecified Procedures MR Brain wo Contrast Clyde Bobo MD [address] [place] [address] Phone: tel: fax: [facility] Referral ID Status Reason Start Date Expiration Date V isits Requested Visits Authorized [id number] Pending Review 04/01/2024 04/01/2025 1 1 Encounter Details Date Type Department Care Team (Latest Contact Info) Description 04/03/2024 5:38 PM EST - 04/03/2024 11:59 PM EST Hospital Encounter [facility] MRI [address] [place] [phone] Headache, unspecified Discharge Disposition: Home or Self [...] Signed Date: 04/04/2024 10:25 ET Workstation ID: [id number] Transcribed By: Self Edit Transcribed Date: 04/04/2024 [...] Signed Date: 04/04/2024 10:25 ET Workstation ID: [id number] Transcribed By: Self Edit Transcribed Date: 04/04/2024 10:14 ET us Clyde Bobo MD IMG MRI PROCEDURES Final Result documented in this encounter Visit Diagnoses Diagnosis Headache, unspecified documented in this encounter Care Teams Psychiatric Attendant Relationship Specialty Start Date End Date José Miguel Espinoza MD [address] [place] [address] PCP - General Internal Medicine 03/31/24 documented as of this encounter
--- OUTSIDE RECORDS SUMMARY | 2024-04-29 10:23 | XMS_ITS | Clinical Summary ---
Author Organization [facility] Address [address] [place] [address] Phone Care Team Providers Care Toilet And Laundry Soap Supervisor Name Role Phone José Miguel Espinoza MD Primary Care Provider [phone] Allergies Active Allergy Reactions Criticality Noted Date Comments Penicillins 03/30/2024 Pineapple 03/30/2024 Encounters Date Type Department Care Team Description 04/03/2024 5:38 PM EST - 04/03/2024 11:59 PM [facility] Hospital Encounter [facility] MRI [address] [place] [phone] Headache, unspecified Discharge Disposition: Home or Self Care 03/31/2024 7:16 AM EST - 03/31/2024 11:06 AM EST Emergency [facility] Emergency [address] [place] [phone] Pipo Haynes MD Vatrenko, Konstantin, MD Recurrent headache (Primary Dx); Benzodiazepine withdrawal with complication (CMS/[facility], [facility]) Discharge Disposition: Home or Self Care from [...] DTaP,Tdap,and Td Vaccines (1 - Tdap) 09/09/1978 Hepatitis A Vaccines (1 of 2 - Risk 2-dose series) 09/09/1978 Pneumococcal Vaccine: 50+ Ye ars (1 [...] Signed Date: 04/04/2024 10:25 ET Workstation ID: [id number] Transcribed By: Self Edit Transcribed Date: 04/04/2024 [...] Signed Date: 04/04/2024 10:25 ET Workstation ID: [id number] Transcribed By: Self Edit Transcribed Date: 04/04/2024 [...] GEMUSE QTc 418 ms GEMUSE P Wave [place] 22 degrees GEMUSE R [place] 66 degrees GEMUSE T [place] 22 degrees GEMUSE ECG Interpretation Sinus bradycardia with 1st degree A-V block Otherwise normal ECG When compared with ECG of 30-MAR-2024 20:30, (unconfirmed) No significant change was found Confirmed by Tacos GUTIERREZ JOHN ([id number]) on 03/31/2024 7:55:08 AM GEMUSE 03/30/2024 10:0 6 PM EST 03/31/2024 7:55 AM EST Pipo Haynes MD ECG ORDERABLES Final Result Performing Organization Address [facility]/ZIP Co de Phone Number GEMUSE * [...] ORDERABLES Final Res ult Performing Organization Address [facility] Co de Phone Number [facility] [address] [place] [address], [place] [phone] * XR Chest 2 Views (03/30/2024 9:14 PM EST) Anatomical Region Laterality Modality Body Radiographic Rosemary ging 03/31/2024 8:08 AM EST Impressions 03/31/2024 8:09 AM EST No acute findings. -------- FINAL REPORT -------- Dictated By: Edmond Vazquez Dictated Date: 03/31/2024 08:08 ET Assigned Physician: Edmond Vazquez Reviewed and Electronically Signed By: Edmond Vazquez Signed Date: 03/31/2024 08:09 ET Workstation ID: [id number] Transcribed By: Self Edit Transcribed Date: 03/31/2024 [...] Signed Date: 03/31/2024 08:09 ET Workstation ID: [id number] Transcribed By: Self Edit Transcribed Date: 03/31/2024 [...] 9:07 PM EST [facility] Neutrophils Absolute 1.57 1.50 - [...] Immature Granulocytes Absolute 0.01 0.00 - 0.03 K/[facility] LAB HEMETOLOGY METHOD 03/30/2024 9:[address] [facility] Blood Venous blood specimen / Unknown Venipuncture / Unknown 03/30/2024 8:36 PM EST 03/30/2024 9:00 PM EST Pipo Haynes MD LAB BLOOD ORDERABLES Final Res ult [facility] [address] [place] [address], * Magnesium (03/30/2024 8:36 PM EST) Magnesium 2.2 1.9 - 2.6 mg/dL LAB CHEMISTRY METHOD 03/30/2024 9:49 PM EST [facility] Blood Venous blood specimen / Unknown Venipuncture / Unknown 03/30/2024 8:36 PM EST 03/30/2024 9:00 PM EST us Pipo Haynes MD LAB BLOOD ORDERABLES Final Res ult Performing Organization Address City/[facility]/ZIP Co de Phone Number [facility] [address] [place] [address], [place] [phone] * Lipase (03/30/2024 8:36 PM EST) Pathologist [facility] Lipase 14 13 - 75 unit/L LAB CHEMISTRY METHOD 03/30/2024 9:[address] [facility] Blood Venous blood specimen / Unknown Venipuncture / Unknown 03/30/2024 8:36 PM EST 03/30/2024 9:00 PM EST us Pipo Haynes MD LAB BLOOD ORDERABLES Final Res ult Performing Organization Address [facility]/ZIP Co de Phone Number [facility] [address] [place] [address], [place] [phone] * (ABNORMAL) Comprehensive metabolic panel (03/30/2024 8:36 PM EST) [facility] Sodium 140 133 - 145 mmol/L LAB [...] ORDERABLES Final Res ult [place] [facility] [address] [place] [address], from Last 3 Months Insurance [facility] Care Teams Toilet And Laundry Soap Supervisor Relationship Specialty Start Date End Date José Miguel Espinoza MD [address] [place] [address] PCP - General Internal Medicine 03/31/24
--- OUTSIDE RECORDS SUMMARY | 2024-04-29 10:23 | XMS_ITS | Encounter Summary ---
Author Organization [facility] Address [address] [place] [address] Care Team Providers Care Director Private Name Role Phone José Miguel Espinoza MD Primary Care Provider [phone] Reason for Visit * Reason Comments Chest Pain Multiple complaints Encounter Details Date Type Department Care Team (Late st Contact Info) Description 03/31/2024 7:16 AM EST - 03/31/2024 11:06 AM EST Emergency [facility] Emergency [address] [place] [id number] Pipo Haynes MD [address] [place] [address] Clyde Bobo MD [address] [place] [address] Recurrent headache (Primary Dx); Benzodiazepine withdrawal with [...] Bobo MD - 03/31/2024 10:24 AM EST [facility] : Contact Ilia Cordero [facility] Recovery: Contact Isabella Colon [facility] : Contact Sean These are the numbers are received from our addiction head wrestling coach, my recommendation to your primary [...] Procedure Abnormality Status --------- ------ CBC auto differential[[id number]] Abnormal Final result Please view results for [...] Signed Date: 03/31/2024 08:09 ET Workstation ID: [id number] Transcribed By: Self Edit Transcribed Date: 03/31/2024 [...] he switched to a new provider at [facility] and currently taking 0.25 all alprazolam prior to that he was on 0.5 and he has not really tolerating the taper so much, he has not had any withdrawal seizures, denies any other substance use issues, 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 Last week his PCP told him if [...] a good study for this. [KV] [address] [facility] : Contact Ilia Cordero [facility]: Contact Isabella Colon [facility] : Contact Sean [KV] ED Course [...] encounter Results * ECG-Annotated (04/01/2024) Provider Onbase CT ECG ORDERABLES Final Result * ECG-Annotated (04/01/2024) Provider Onbase CT ECG ORDERABLES Final Result * ECG 12 lead (03/30/2024 10:06 PM EST) Ventricular Rate ECG 58 BPM GEMUSE Atrial Rate 58 BPM GEMUSE P-R Interval 246 ms GEMUSE QRS Duration 94 ms GEMUSE Q-T Interval 426 ms GEMUSE QTc 418 ms GEMUSE P Wave [place] 22 degrees GEMUSE R [place] 66 degrees GEMUSE T [place] 22 degrees GEMUSE ECG Interpretation Sinus bradycardia with 1st degree A-V block Otherwise normal ECG When compared with ECG of 30-MAR-2024 20:30, (unconfirmed) No significant change was found Confirmed by Tacos GUTIERREZ JOHN ([id number]) on 03/31/2024 7:55:08 AM GEMUSE 03/30/2024 10:0 6 PM EST 03/31/2024 7:55 AM EST Pipo Haynes MD ECG ORDERABLES Final Result Performing Organization Address [facility] Co de Phone Number YOANNA * Troponin I high sensitivity (03/30/2024 10:04 PM EST) High Sensitivity Troponin I 43 <=79 ng/L LAB CHEMISTRY METHOD 03/30/2024 10:59 PM EST [facility] Blood Venous blood specimen / Unknown Venipuncture / Unknown 03/30/2024 10:04 PM EST 03/30/2024 10:34 PM EST Narrative [facility] - 03/30/2024 10:59 PM EST High levels of biotin in samples may falsely decrease hsTroponin values. ??Use caution when interpreting hsTroponin results in patients taking biotin who exhibit renal impairment (eGFR <60) or in patients taking more than 20 mg/day of biotin. Pipo Haynes MD LAB BLOOD ORDERABLES Final Res ult Performing Organization Address [facility] Co de Phone Number [facility] [address] [place] [address], * XR Chest 2 Views (03/30/2024 9:14 PM EST) Anatomical Region Laterality Modality Body Radiographic Rosemary ging 03/31/2024 8:08 AM EST Impressions 03/31/2024 8:09 AM EST No acute findings. -------- FINAL REPORT -------- Dictated By: Edmond Vazquez Dictated Date: 03/31/2024 08:08 ET Assigned Physician: Edmond Vazquez Reviewed and Electronically Signed By: Edmond Vazquez Signed Date: 03/31/2024 08:09 ET Workstation ID: [id number] Transcribed By: Self Edit Transcribed Date: 03/31/2024 [...] Signed Date: 03/31/2024 08:09 ET Workstation ID: [id number] Transcribed By: Self Edit Transcribed Date: 03/31/2024 08:08 ET Pipo Haynes MD IMG XR PROCEDURES Final Result * (ABNORMAL) CBC auto differential (03/30/2024 8:36 PM EST) WBC 3.4(L) 4.8 - 10.8 K/mcL LAB HEMETOLOGY METHOD 03/30/2024 9:07 PM [facility] RBC 4.60 4.50 - 5.50 M/mcL LAB HEMETOLOGY METHOD 03/30/2024 9:07 PM [facility] Hemoglobin 13.1(L) 13.5 - 17.5 g/dL LAB HEMETOLOGY METHOD 03/30/2024 9:07 PM [facility] Hematocrit 40.4(L) 42.0 - 54.0 % LAB HEMETOLOGY METHOD 03/30/2024 9:07 PM [facility] MCV 87.6 79.0 - 98.0 FL LAB HEMETOLOGY METHOD 03/30/2024 9:07 PM [facility] MCH 28.4 27.0 - 32.0 pcg LAB HEMETOLOGY METHOD 03/30/2024 9:07 PM [facility] MCHC 32.4 32.0 - 37.0 g/dL LAB HEMETOLOGY METHOD 03/30/2024 9:07 PM [facility] RDW 13.5 11.0 - 15.0 % LAB HEMETOLOGY METHOD 03/30/2024 9:07 PM [facility] Platelets 230 130 - 400 K/mcL LAB HEMETOLOGY METHOD 03/30/2024 9:07 PM [facility] MPV 10.3 7.0 - 11.0 FL LAB HEMETOLOGY METHOD 03/30/2024 9:07 PM [facility] NRBC 0.0 <1.0 % LAB HEMETOLOGY METHOD 03/30/2024 9:07 PM [facility] NRBC Absolute 0.00 <0.10 K/mcL LAB HEMETOLOGY METHOD 03/30/2024 9:07 PM [facility] Neutrophils Relative 46.9 % LAB HEMETOLOGY METHOD 03/30/2024 9:07 PM [facility] Lymphocytes Relative 34.9 % LAB HEMETOLOGY METHOD 03/30/2024 9:07 PM [facility] Monocytes Relative 13.1 % LAB HEMETOLOGY METHOD 03/30/2024 9:07 PM [facility] Eosinophils Relative 3.6 % LAB HEMETOLOGY METHOD 03/30/2024 9:07 PM [facility] Basophils Relative 1.2 % LAB HEMETOLOGY METHOD 03/30/2024 9:07 PM [facility] Immature Granulocytes Relative 0.3 % LAB HEMETOLOGY METHOD 03/30/2024 9:07 PM [facility] Neutrophils Absolute 1.57 1.50 - 7.00 K/[facility] LAB HEMETOLOGY METHOD 03/30/2024 9:07 PM EST [facility] Lymphocytes Absolute 1.17 1.00 - 5.00 K/[facility] LAB HEMETOLOGY METHOD 03/30/2024 9:07 PM EST [facility] Monocytes Absolute 0.44 0.20 - 1.00 K/[facility] LAB HEMETOLOGY METHOD 03/30/2024 9:07 PM EST [facility] Eosinophils Absolute 0.12 0.00 - 0.50 K/[facility] LAB HEMETOLOGY METHOD 03/30/2024 9:07 PM EST [facility] Basophils Absolute 0.04 0.00 - 0.20 K/[facility] LAB HEMETOLOGY METHOD 03/30/2024 9:07 PM EST [facility] Immature Granulocytes Absolute 0.01 0.00 - 0.03 K/[facility] LAB HEMETOLOGY METHOD 03/30/2024 9:07 PM EST [facility] Blood Venous blood specimen / Unknown Venipuncture / Unknown 03/30/2024 8:36 PM EST 03/30/2024 9:00 PM EST us Pipo Haynes MD LAB BLOOD ORDERABLES Final Res ult [facility] [address] [place] [address], * Magnesium (03/30/2024 8:36 PM EST) Magnesium 2.2 1.9 - 2.6 mg/dL LAB CHEMISTRY METHOD 03/30/2024 9:49 PM EST [facility] Blood Venous blood specimen / Unknown Venipuncture / Unknown 03/30/2024 8:36 PM EST 03/30/2024 9:00 PM EST us Pipo Haynes MD LAB BLOOD ORDERABLES Final Res ult Performing Organization Address [facility]/ZIP Co de Phone Number [facility] [address] [place] [address], [place] [phone] * Lipase (03/30/2024 8:36 PM EST) [facility] Lipase 14 13 - 75 unit/L LAB CHEMISTRY METHOD 03/30/2024 9:49 PM EST [facility] Blood Venous blood specimen / Unknown Venipuncture / Unknown 03/30/2024 8:36 PM EST 03/30/2024 9:00 PM EST Pipo Haynes MD LAB BLOOD ORDERABLES Final Res ult Performing Organization Address [facility]/ZIP Co de Phone Number [facility] [address] [place] [address], [place] [phone] * (ABNORMAL) Comprehensive metabolic panel (03/30/2024 8:36 PM EST) [facility] Sodium 140 133 - 145 mmol/L LAB CHEMISTRY METHOD 03/30/2024 9:49 PM [facility] Potassium 4.0 3.5 - 5.5 mmol/L LAB CHEMISTRY METHOD 03/30/2024 9:49 PM [facility] Chloride 106 96 - 110 mmol/L LAB CHEMISTRY METHOD 03/30/2024 9:49 PM [facility] CO2 26 21 - 32 mmol/L LAB CHEMISTRY METHOD 03/30/2024 9:49 PM [facility] Anion Gap 8 3 - 11 LAB CHEMISTRY METHOD 03/30/2024 9:49 PM [facility] Glucose 112(H) 70 - 100 mg/dL LAB CHEMISTRY METHOD 03/30/2024 9:49 PM [facility] BUN 12 5 - 25 mg/dL LAB CHEMISTRY METHOD 03/30/2024 9:49 PM [facility] Creatinine 1.15 0.70 - 1.30 mg/dL LAB CHEMISTRY METHOD 03/30/2024 9:49 PM [facility] eGFR 71 >=60 mL/min/1. 73m2 LAB CHEMISTRY METHOD 03/30/2024 9:49 PM [facility] Comment:Calculation based on the??Chronic Kidney Disease Epidemiology Collaboration (CKD-EPI) equation refit??without adjustment for race. BUN/Creatinine Ratio 10.4 LAB CHEMISTRY METHOD 03/30/2024 9:49 PM [facility] Calcium 9.0 8.5 - 10.5 mg/dL LAB CHEMISTRY METHOD 03/30/2024 9:49 PM [facility] AST (SGOT) 44(H) 10 - 42 unit/L LAB CHEMISTRY METHOD 03/30/2024 9:49 PM [facility] ALT (SGPT) 28 10 - 60 unit/L LAB CHEMISTRY METHOD 03/30/2024 9:49 PM [facility] Alkaline Phosphatase 78 42 - 121 unit/L LAB CHEMISTRY METHOD 03/30/2024 9:49 PM [facility] Total Protein 7.1 6.0 - 8.0 g/dL LAB CHEMISTRY METHOD 03/30/2024 9:49 PM [facility] Albumin 3.8 3.2 - 5.0 g/dL LAB CHEMISTRY METHOD 03/30/2024 9:49 PM [facility] Total Bilirubin 0.6 0.0 - 1.4 mg/dL LAB CHEMISTRY METHOD 03/30/2024 9:49 PM [facility] Blood Venous blood specimen / Unknown Venipuncture / Unknown 03/30/2024 8:36 PM EST 03/30/2024 9:00 PM EST us Pipo Haynes MD LAB BLOOD ORDERABLES Final Res ult [facility] [address] [place] [address], * Troponin I high sensitivity (03/30/2024 8:36 PM EST) [facility] High Sensitivity Troponin I 44 <=79 ng/L LAB CHEMISTRY METHOD 03/30/2024 9:32 PM EST [facility] Blood Venous blood specimen / Unknown Venipuncture / Unknown 03/30/2024 8:36 PM EST 03/30/2024 9:00 PM EST Narrative [facility] - 03/30/2024 9:32 PM EST High levels of biotin in samples may falsely decrease hsTroponin values. ??Use caution when interpreting hsTroponin results in patients taking biotin who exhibit renal impairment (eGFR <60) or in patients taking more than 20 mg/day of biotin. Pipo Haynes MD LAB BLOOD ORDERABLES Final Res ult [facility] [address] [place] [address], * ECG 12 lead (03/30/2024 8:30 PM EST) [facility] Ventricular Rate ECG 65 BPM GEMUSE Atrial Rate 65 BPM GEMUSE P-R Interval 218 ms GEMUSE QRS Duration 94 ms GEMUSE Q-T Interval 410 ms GEMUSE QTc 426 ms GEMUSE P Wave [place] 21 degrees GEMUSE R [place] 74 degrees GEMUSE T [place] 12 degrees GEMUSE ECG Interpretation Sinus rhythm with 1st degree A-V block Otherwise normal ECG When compared with ECG of 19-OCT-2022 19:17, No significant change was found Confirmed by Tacos GUTIERREZ JOHN ([id number]) on 03/31/2024 7:50:32 AM GEMUSE 03/30/2024 8:30 PM EST 03/31/2024 7:50 AM EST us Pipo Haynes MD ECG ORDERABLES Final Result GEMUSE documented in this encounter Visit Diagnoses Diagnosis Recurrent headache- Primary Benzodiazepine withdrawal with complication (CMS/HCC) documented in this encounter Care Teams Director Private Relationship Specialty Start Date End Date José Miguel Espinoza MD [address] [place] [address] PCP - General Internal Medicine 03/31/24 documented as of this encounter
== END 2024-04-29 10:01 | disposition home or self-care (01) ==
LOC: HO.HUSH 09:25
PROVIDERS: PCP Internal Medicine; Visit Provider Nurse Practitioner Family
DX: N40.1 Benign prostatic hyperplasia with lower urinary tract symptoms (principal); R35.0 Frequency of micturition; N52.9 Male erectile dysfunction, unspecified; Z13.9 Encounter for screening, unspecified
CPT/HCPCS: 99213

== ENCOUNTER → 2024-04-29 09:24 | Outpatient (BNVA) | payer OTHER, SELFPAY | PROVIDERS: PCP Internal Medicine; Visit Provider Nurse Practitioner Family | DX: N40.1 Benign prostatic hyperplasia with lower urinary tract symptoms (principal); K21.9 Gastro-esophageal reflux disease without esophagitis; R35.0 Frequency of micturition; G47.33 Obstructive sleep apnea (adult) (pediatric); N52.9 Male erectile dysfunction, unspecified; Z99.89 Dependence on other enabling machines and devices | CPT/HCPCS: 81003 ==

== ENCOUNTER 2024-05-06 14:54 | Outpatient (AMB) | payer OTHER, SELFPAY ==
--- NOTE | 2024-05-06 14:55 | AM.OFFWIN_ITS ---
Intake Vital Signs 05/06/24 14:58 Height 5 ft 11 in Weight 245 lb BMI 34.2 BP 136/80 Blood Pressure Location Lt brachial Position Sitting Pulse 76 Pulse Source Pulse Oximeter Pulse Oximetry (%) 99 Oxygen Delivery Method Room Air Intake Visit Reasons: EP-lt leg/calf pain Intake Note: Patient here for left left/calf pain that has been bothersome for a couple of days. Patient Tobacco Use Status: Never used Tobacco Allergies Penicillins Adverse Reaction (Severe, Verified 05/06/24 14:59) Anxiety pineapple Adverse Reaction (Severe, Verified 05/06/24 14:59) swellling Do you need a note to return to daycare/school/sports/work: No HPI HPI Comments History of Present Illness Details He presents to office with L calf pain Patient has hx of varicose veins which have been ongoing for a while Patient actively works out and has had tightness in L calf intermittently He wears supportive sleeve on LLE Used an OTC cream to help with the pain but no relief Pt presents to make sure he doesnt have a blood clot 0/10 now Some pain with palpation and feels ache while laying in bed R side wihout symptoms Denies CP or SOB Denies recent travel or hx of blood clots PFSH Medical History Murmur Enlarged prostate Atelectasis GERD (gastroesophageal reflux disease) ZOE (obstructive sleep apnea) Extremity edema Asthma Surgical History History of knee replacement procedure of left knee Social History Housing: House Alcohol intake: never Patient Tobacco Use Status: Never used Tobacco Tobacco use type: Cigarette e-Cigarette/Vaping Use: Never Used Second Hand Smoke Exposure: No service: Yes ([employer] [id number] ) Current occupational status: retired Cognitive needs: No Hearing needs: No Vision needs: Yes Review of Systems Const Denies chills and Denies fever(s) Card Denies chest pain, Reports leg edema (varicose veins LLE; baseline. No new edema) and Denies dyspnea Resp Denies cough and Denies dyspnea Skin/Breast Denies erythema, Denies rash and Reports skin pain Physical Exam Vital Signs: Last Vital Signs Pulse 76 05/06/24 14:58 BP 136/80 05/06/24 14:58 Pulse Ox 99 05/06/24 14:58 Oxygen Delivery Method Room Air 05/06/24 14:58 BMI result Body Mass Index 34.2 General: Non-toxic, NAD. Speaking full sentences. Skin: Warm dry throughout + varicose veins noted to LLE calf. No erythema, warmth or skin color changes noted to LLE Otherwise calves equal in size bilaterally. No pitting edema Respiratory: No respiratory distress Cardiac: LLE DP pulse intact Neurology: Alert. + sensation digits LLE. No aphasia or facial droop. Gait without abnormality Psych: Good mood and affect Assessment & Plan Assessment & Plan (1) Pain of left calf: Code(s): M79.662 - Pain in left lower leg Plan: Patient seen and evaluated. No sign of infection or thrombophlebitis noted Girls up front will help schedule a STAT LLE venous US Pt aware of plan Patient gave verbal understanding and had no additional questions or concerns at time of discharge All questions answered Orders: Orders US venous duplex LE LT Today M79.662 - Pain in left lower leg Coding Level of Care Code Est Pt Level 3 (33484) Diagnoses Pain of left calf M79.662
[2024-05-06 14:58] VITALS: BP 136/80; PULSE 76; O2SAT 99; BMI 34.2
--- OUTSIDE RECORDS SUMMARY | 2024-05-06 17:52 | XMS_ITS | Clinical Summary ---
Author Organization [facility] Address [address] [place] [address] Phone Care Team Providers Care Interventional Radiology Rn Name Role Phone José Miguel Espinoza MD Primary Care Provider [phone] Allergies Active Allergy Reactions Criticality Noted Date Comments Penicillins 03/30/2024 Pineapple 03/30/2024 Encounters Date Type Department Care Team Description 04/03/2024 5:38 PM EST - 04/03/2024 11:59 PM [facility] Hospital Encounter [facility] MRI [address] [place] [phone] Headache, unspecified Discharge Disposition: Home or Self Care 03/31/2024 7:16 AM EST - 03/31/2024 11:06 AM EST Emergency [facility] Emergency [address] [place] [phone] Pipo Haynes MD Vatrenko, Konstantin, MD Recurrent headache (Primary Dx); Benzodiazepine withdrawal with complication ([facility]) Discharge Disposition: Home or Self Care from Last 3 Months Medical History Medical History Date Comments Hypertension Asthma GERD (gastroesophageal reflux disease) Neutropenia Hiatal hernia Social History Tobacco Use Types [...] Signed Date: 04/04/2024 10:25 ET Workstation ID: [id number] Transcribed By: Self Edit Transcribed Date: 04/04/2024 [...] Signed Date: 04/04/2024 10:25 ET Workstation ID: [id number] Transcribed By: Self Edit Transcribed Date: 04/04/2024 [...] GEMUSE QTc 418 ms GEMUSE P Wave Redby 22 degrees GEMUSE R Redby 66 degrees GEMUSE T Redby 22 degrees GEMUSE ECG Interpretation Sinus bradycardia with 1st degree A-V block Otherwise normal ECG When compared with ECG of 30-MAR-2024 20:30, (unconfirmed) No significant change was found Confirmed by Tacos GUTIERREZ JOHN ([id number]) on 03/31/2024 7:55:08 AM GEMUSE 03/30/2024 10:0 6 PM EST 03/31/2024 7:55 AM EST Pipo Haynes MD ECG ORDERABLES Final Result Performing Organization Address [facility] de Phone Number GEMUSE * Troponin I high sensitivity (03/30/2024 10:04 PM EST) Only the most recent of2 resultswithin the time period is included. High Sensitivity Troponin I 43 <=79 ng/L LAB CHEMISTRY METHOD 03/30/2024 10:59 PM EST [facility] Blood Venous blood specimen / Unknown Venipuncture / Unknown 03/30/2024 10:04 PM EST 03/30/2024 10:34 PM EST Narrative [facility] - 03/30/2024 10:59 PM EST High levels of biotin in samples may falsely decrease hsTroponin values. ??Use caution when interpreting hsTroponin results in patients taking biotin who exhibit renal impairment (eGFR <60) or in patients taking more than 20 mg/day of biotin. Pipo Haynes MD LAB BLOOD ORDERABLES Final Res ult Performing Organization Address [facility] Co de Phone Number [facility] [address] [place] [address], [place] [phone] * XR Chest 2 Views (03/30/2024 9:14 PM EST) Anatomical Region Laterality Modality Body Radiographic Rosemary ging 03/31/2024 8:08 AM EST Impressions 03/31/2024 8:09 AM EST No acute findings. -------- FINAL REPORT -------- Dictated By: Edmond Vazquez Dictated Date: 03/31/2024 08:08 ET Assigned Physician: Edmond Vazquez Reviewed and Electronically Signed By: Edmond Vazquez Signed Date: 03/31/2024 08:09 ET Workstation ID: [id number] Transcribed By: Self Edit Transcribed Date: 03/31/2024 [...] Signed Date: 03/31/2024 08:09 ET Workstation ID: [id number] Transcribed By: Self Edit Transcribed Date: 03/31/2024 08:08 ET Pipo Haynes MD IMG XR PROCEDURES Final Result * (ABNORMAL) CBC auto differential (03/30/2024 8:36 PM EST) WBC 3.4(L) 4.8 - 10.8 K/mcL LAB HEMETOLOGY METHOD 03/30/2024 9:07 PM [facility] RBC 4.60 4.50 - 5.50 M/mcL LAB HEMETOLOGY METHOD 03/30/2024 9:07 PM [facility] Hemoglobin 13.1(L) 13.5 - 17.5 g/dL LAB HEMETOLOGY METHOD 03/30/2024 9:07 PM [facility] Hematocrit 40.4(L) 42.0 - 54.0 % LAB HEMETOLOGY METHOD 03/30/2024 9:07 PM [facility] MCV 87.6 79.0 - 98.0 FL LAB HEMETOLOGY METHOD 03/30/2024 9:07 PM [facility] MCH 28.4 27.0 - 32.0 pcg LAB HEMETOLOGY METHOD 03/30/2024 9:07 PM [facility] MCHC 32.4 32.0 - 37.0 g/dL LAB HEMETOLOGY METHOD 03/30/2024 9:07 PM [facility] RDW 13.5 11.0 - 15.0 % LAB HEMETOLOGY METHOD 03/30/2024 9:07 PM [facility] Platelets 230 130 - 400 K/mcL LAB HEMETOLOGY METHOD 03/30/2024 9:07 PM [facility] MPV 10.3 7.0 - 11.0 FL LAB HEMETOLOGY METHOD 03/30/2024 9:07 PM [facility] NRBC 0.0 <1.0 % LAB HEMETOLOGY METHOD 03/30/2024 9:07 PM [facility] NRBC Absolute 0.00 <0.10 K/mcL LAB HEMETOLOGY METHOD 03/30/2024 9:07 PM [facility] Neutrophils Relative 46.9 % LAB HEMETOLOGY METHOD 03/30/2024 9:07 PM [facility] Lymphocytes Relative 34.9 % LAB HEMETOLOGY METHOD 03/30/2024 9:07 PM [facility] Monocytes Relative 13.1 % LAB HEMETOLOGY METHOD 03/30/2024 9:07 PM [facility] Eosinophils Relative 3.6 % LAB HEMETOLOGY METHOD 03/30/2024 9:07 PM [facility] Basophils Relative 1.2 % LAB HEMETOLOGY METHOD 03/30/2024 9:07 PM [facility] Immature Granulocytes Relative 0.3 % LAB HEMETOLOGY METHOD 03/30/2024 9:07 PM EST [facility] Neutrophils Absolute 1.57 1.50 - 7.00 K/[facility] LAB HEMETOLOGY METHOD 03/30/2024 9:07 PM EST [facility] Lymphocytes Absolute 1.17 1.00 - 5.00 K/mcL LAB HEMETOLOGY METHOD 03/30/2024 9:07 PM EST [facility] Monocytes Absolute 0.44 0.20 - 1.00 K/[facility] LAB HEMETOLOGY METHOD 03/30/2024 9:07 PM EST [facility] Eosinophils Absolute 0.12 0.00 - 0.50 K/[facility] LAB HEMETOLOGY METHOD 03/30/2024 9:07 PM EST [facility] Basophils Absolute 0.04 0.00 - 0.20 K/mcL LAB HEMETOLOGY METHOD 03/30/2024 9:07 PM [facility] Immature Granulocytes Absolute 0.01 0.00 - 0.03 K/[facility] LAB HEMETOLOGY METHOD 03/30/2024 9:07 PM EST [facility] Blood Venous blood specimen / Unknown Venipuncture / Unknown 03/30/2024 8:36 PM EST 03/30/2024 9:00 PM EST us Pipo Haynes MD LAB BLOOD ORDERABLES Final Res ult [facility] [address] [place] [address], * Magnesium (03/30/2024 8:36 PM EST) Magnesium 2.2 1.9 - 2.6 mg/dL LAB CHEMISTRY METHOD 03/30/2024 9:49 PM EST [facility] Blood Venous blood specimen / Unknown Venipuncture / Unknown 03/30/2024 8:36 PM EST 03/30/2024 9:00 PM EST us Pipo Haynes MD LAB BLOOD ORDERABLES Final Res ult Performing Organization Address City/[facility]/ZIP Co de Phone Number [facility] [address] [place] [address], [place] [phone] * Lipase (03/30/2024 8:36 PM EST) Pathologist [facility] Lipase 14 13 - 75 unit/L LAB CHEMISTRY METHOD 03/30/2024 9:49 PM [facility] Blood Venous blood specimen / Unknown Venipuncture / Unknown 03/30/2024 8:36 PM EST 03/30/2024 9:00 PM EST us Pipo Haynes MD LAB BLOOD ORDERABLES Final Res ult Performing Organization Address [facility]/ZIP Co de Phone Number [facility] [address] [place] [address], [place] [phone] * (ABNORMAL) Comprehensive metabolic panel (03/30/2024 8:36 PM EST) Pathologist [facility] Sodium 140 133 - 145 mmol/L LAB CHEMISTRY METHOD 03/30/2024 9:49 PM [facility] Potassium 4.0 3.5 - 5.5 mmol/L LAB CHEMISTRY METHOD 03/30/2024 9:49 PM [facility] Chloride 106 96 - 110 mmol/L LAB CHEMISTRY METHOD 03/30/2024 9:49 PM [facility] CO2 26 21 - 32 mmol/L LAB CHEMISTRY METHOD 03/30/2024 9:49 PM [facility] Anion Gap 8 3 - 11 LAB CHEMISTRY METHOD 03/30/2024 9:49 PM [facility] Glucose 112(H) 70 - 100 mg/dL LAB CHEMISTRY METHOD 03/30/2024 9:49 PM [facility] BUN 12 5 - 25 mg/dL LAB CHEMISTRY METHOD 03/30/2024 9:49 PM [facility] Creatinine 1.15 0.70 - 1.30 mg/dL LAB CHEMISTRY METHOD 03/30/2024 9:49 PM [facility] eGFR 71 >=60 mL/min/1. 73m2 LAB CHEMISTRY METHOD 03/30/2024 9:49 PM [facility] Comment:Calculation based on the??Chronic Kidney Disease Epidemiology Collaboration (CKD-EPI) equation refit??without adjustment for race. BUN/Creatinine Ratio 10.4 LAB CHEMISTRY METHOD 03/30/2024 9:49 PM [facility] Calcium 9.0 8.5 - 10.5 mg/dL LAB CHEMISTRY METHOD 03/30/2024 9:49 PM [facility] AST (SGOT) 44(H) 10 - 42 unit/L LAB CHEMISTRY METHOD 03/30/2024 9:49 PM [facility] ALT (SGPT) 28 10 - 60 unit/L LAB CHEMISTRY METHOD 03/30/2024 9:49 PM [facility] Alkaline Phosphatase 78 42 - 121 unit/L LAB CHEMISTRY METHOD 03/30/2024 9:49 PM [facility] Total Protein 7.1 6.0 - 8.0 g/dL LAB CHEMISTRY METHOD 03/30/2024 9:49 PM [facility] Albumin 3.8 3.2 - 5.0 g/dL LAB CHEMISTRY METHOD 03/30/2024 9:49 PM [facility] Total Bilirubin 0.6 0.0 - 1.4 mg/dL LAB CHEMISTRY METHOD 03/30/2024 9:49 PM [facility] Blood Venous blood specimen / Unknown Venipuncture / Unknown 03/30/2024 8:36 PM EST 03/30/2024 9:00 PM EST Pipo Haynes MD LAB BLOOD ORDERABLES Final Res ult [facility] [address] [place] [address], from Last 3 Months Insurance [facility] [address] [place] [address] Care Teams Interventional Radiology Rn Relationship Specialty Start Date End Date José Miguel Espinoza MD [address] [place] [address] PCP - General Internal Medicine 03/31/24
--- OUTSIDE RECORDS SUMMARY | 2024-05-06 17:52 | XMS_ITS | Data Portability ---
Author Organization [facility] Address [address] [place] [address] Care Team Providers Care Bi Tester Name Role Phone SLADE EM Primary Care Provider [phone] Assessment No assessment recorded. Plan of Treatment Reminders Order Date Submit Date Provider Last Modified By Organization Details Last Modified Time Details Appointments None recorded. Lab urinalysis, dipstick 2022 023 [email or web address] [facility], [address] [place] [address], [place], [address], 3 16:34:09 culture, urine 2022 023 [facility], [address] [place] [address], [place], [address], 3 08:07:29 Referral urologist referral 2022 023 [email or web address] 26 Not available 3 09:08:28 Procedures None recorded. Surgeries None recorded. Imaging None recorded. Medication Orders Anusol-HC 25 mg rectal suppository 2022 023 [email or web address] [id number], [address] [place], [address], 3 08:13:41 Macrobid 100 mg capsule 2022 023 [email or web address] [id number], [address] [place], [address], 16:10:01 Patient TargetsNo targets recorded. Patient Instructions Encounter Date Encounter Id Patient Instructions Last Modified By Organization Details Last Modified Time 09/02/2022 [id number] hemorrhoids: car e instructions [email or web address] Not available 09/02/2022 16:47:47 Reason for Referral Urologist Referral for Incre ased frequency of urination Referring Physician: Chad Forman, Urgent Care, Encounter Date: 04/27/2022 Results Created Date Observation Date Name Description Value Unit Range Abnormal Flag Note LastModifiedBy Organization Detail LastModifiedTime 04/28/1904/29/2022 URINE CULTU RE, ROUTI NE urine culture, routine FINAL REPORT Not Available [facility] ([facility]) [address] [facility], [place], [address], 04/29/2022 08:07:29 04/28/19 23 04/29/2022 URINE CULTU RE, ROUTI NE result 1 NO GROWTH Not Available [facility] ([facility]) [address] [facility], [place], [address], 04/29/2022 08:07:29 04/28/19 23 04/27/2022 urina lysis , dipst ick Unknown Analyte Yellow Not Available _ [facility] [address], [address], 04/27/2022 15:44:07 04/28/19 23 04/27/2022 urina lysis , dipst ick Unknown Analyte Clear Not Available _ [facility] [address], [address], 04/27/2022 15:44:07 04/28/19 23 04/27/2022 urina lysis , dipst ick Unknown Analyte Negati ve Not Available tania jay [address], [address], 04/27/2022 15:44:07 04/28/19 23 04/27/2022 urina lysis , dipst ick Unknown Analyte Negati ve Not Available [facility] [address] [place] [address], [place], [address], 04/27/2022 15:44:07 04/28/19 23 04/27/2022 urina lysis , dipst ick Unknown Analyte Negati ve Not Available donnao pe [address], [place], [address], 04/27/2022 15:44:07 04/28/19 23 04/27/2022 urina lysis , dipst ick Unknown Analyte 1.025 Not Available donnaope [address], [place], [address], 04/27/2022 15:44:07 04/28/19 23 04/27/2022 urina lysis , dipst ick Unknown Analyte Small Not Available [facility] [address], [place], [address], 04/27/2022 15:44:07 04/28/19 23 04/27/2022 urina lysis , dipst ick Unknown Analyte 6.5 Not Available [facility] [address], [place], [address], 04/27/2022 15:44:07 04/28/19 23 04/27/2022 urina lysis , dipst ick Unknown Analyte 30 mg/dL Not Available donnao pe [address], [place], [address], 04/27/2022 15:44:07 04/28/19 23 04/27/2022 urina lysis , dipst ick Unknown Analyte 0.2 E.U./d L Not Available [facility], [place], [address], 04/27/2022 15:44:07 04/28/19 23 04/27/2022 urina lysis , dipst ick Unknown Analyte Negati ve Not Available [address] [address] [place] [address], [address], 04/27/2022 15:44:07 04/28/19 23 04/27/2022 urina lysis , dipst ick Unknown Analyte Negati ve Not Available [address] [place] [address], [address], 04/27/2022 15:44:07 Result Notes None recorded. Problems Name Problem SNOMED Code Status Onset Date Resolution Date Notes Provider Name and Address Organization Details Recorded Time Hypertensive disorder 49571047 Active 2022 WILLIAM palomino, [place] - [facility] 3 15:50:11 Hypercholester olemia 98165467 Active 2022 WILLIAM CARRILLO null, PA - [facility] 3 15:50:18 Gastroesophage al reflux disease 025042834 Active 2022 WILLIAM CARRILLO null, PA - [facility] 3 15:50:32 Anxiety 34159942 Active 2022 WILLIAM NOBLEICA null, PA - [facility] 3 15:50:43 Asthma 050242930 Active 2022 WILLIAM CARRILLO null, PA - [facility] 3 15:51:05 Sleep apnea 51770866 Active 2022 WILLIAM NOBLEICA null, PA - [...] Name and Address Organization Details Recorded Time 661491 amoxicill in medicatio n itching Not available [...] Updated DateTime 3 180.34 cm 34.7 kg/m2 541030. 5 g 97.1 [degF] 95 % 95 [...] Updated DateTime 3 180.34 cm 34.7 kg/m2 989550. 5 g 97 % 97 % 71 /min 18 /min 98.5 [degF] 128 mm[Hg] 78 mm[Hg] GURU EMILIANO PA - [facility] 3 16:12:20 Social History Question Answer Notes LastModified by Organizat ion Details LastModified Time Tobacco Smoking Status Never Smoker WILLIAM CARRILLO candelario [place] - [facility] 04/27/2022 15:52:41 What Is Your Level Of Alcohol Consumption? None [email or web address] Information not available 04/27/2022 Do You Use Any Illicit Or Recreational Drugs? No [email or web address] Information not available 04/27/2022 Have You Recently Traveled Abroad? No [email or web address] Information not available 04/27/2022 Do You Or Have You Ever Used Any Other Forms Of Tobacco Or Nicotine? No [email or web address] Information not available 04/27/2022 Sex: Unknown Functional Status None recorded. Mental Status None recorded. Family History Relationship Description Onset Age of this Age Resolved Age Notes LastModified by Organization Details LastModified Time Mother Heart disease [email or web address] Not available 2022 15:52:02 Mother Diabetes mellitus [email or web address] Not available 2022 15:52:09 Mother Myocardial infarction [email or web address] Not available 04/27 15:52:23 Father Myocardial infarction [email or web address] Not available 04/27 15:52:22 Medical History No medical history recorded. Past Encounters Encounter ID Performer Location Encounter Start Date Encounter Closed Date Diagnosis/Indication Diagnosis SNOMED-CT Code Diagnosis ICD10 Code Diagnosis Note [id number] [facility] [address] [address] 11/15/2018 19:08:29 11/15/2018 19:20:19 [id number] [facility] [address] [place] [address] 01/12/2017 19:30:06 01/12/2017 19:59:01 [id number] [address] [facility] [place] [address] 06/13/2019 14:32:24 06/13/2019 15:40:34 [id number] [address] [address] [facility] [place] [address] 04/27/2017 18:40:25 04/27/2017 19:31:53 [id number] [address] [address] [facility] [place] [address] 08/05/2021 08:35:18 08/05/2021 10:27:26 [id number] [address] [address] [facility] [place] [address] 06/04/2016 19:47:53 06/04/2016 20:19:56 [id number] [address] [address] [facility] [place] [address] 05/13/2020 17:53:47 05/13/2020 18:56:52 [id number] [address] [address] [facility] [place] [address] 03/07/2018 19:42:56 03/07/2018 20:23:16 [id number] [address] [address] [facility] [place] [address] 03/13/2015 15:25:32 03/13/2015 16:30:45 [id number] [address] [facility] [place] [address] 07/29/2021 15:41:12 07/29/2021 18:16:19 [id number] [address] [address] [facility] [place] [address] 08/20/2017 18:49:49 08/20/2017 19:53:37 [id number] [address] [facility] [place] [address] 06/18/2020 19:37:45 06/18/2020 20:14:38 [id number] Chad Form[place] [address] [address] 04/27/2022 12:51:09 04/27/2022 16:36:40 Increased frequency of urination 115351722 R35.0 suspect UTISigns and Symptoms c/w UTIUA [...] agreement with the plan as outlined above. [id number] Marcelino Lea MD [facility] [address] [place] [address] 09/02/2022 15:20:17 09/02/2022 16:50:35 Hemorrhoids 11853244 K64.9 likely internal hemorrhoid s as per [...] ID Guarantor Name 06/18/[address] [facility] [id number] Norbert Tolbert Keron [id number] Norbert Cabrales 07/29/[address] [facility] [id number] Norbert Tolbert Keron [id number] Norbert Cabrales 08/05/[address] [facility] [id number] Norbert Cabrales [id number] Norbert Cabrales 04/27/[address] [facility] [id number] Norbert Cabrales [id number] Norbert Cabrales 09/02/[address] [facility] [id number] Norbert Cabrales [id number] Norbert Cabrales Notes Date Note Type Note Provider Name and Address Organization Details Recorded Time 04/27/2022 text/html Urinary Problems-MaleReporte d bypatient.Notes:61 yo male c/o frequency in urination x couple days--no burning, no pain. + decreased stream no increased urgencyno incontinenceno pressureno malodorno blood in urineno back painno rashno feverno nausea or vomitingno MS change Chad Forman DO [address] [place], [address], [employer] 04/27/2022 16:35:50 09/02/2022 text/html Went to his PCP 2 days ago and told he had internal hemorrhoids. Told to take fiber drink only. Patient concerned and wants to be checked again. Feels anal discomfort. NO blood in stool or when wipes. no pain with defecation. Had colonoscopy 02/01. Marcelino Lea MD [address] [place], [address], [employer] 09/02/2022 18:39:03
== END 2024-05-06 15:34 | disposition home or self-care (01) ==
PROVIDERS: PCP Internal Medicine; Visit Provider Physician Assistant
DX: M79.662 Pain in left lower leg (principal)

== ENCOUNTER 2024-05-06 15:28 | Outpatient (REF) | payer OTHER, SELFPAY ==
--- NOTE | ~2024-05-06 | US_ITS ---
EXAMINATION: US TRIPLEX LOWER EXTREMITY, LEFT CLINICAL INFORMATION: Left lower leg pain. COMPARISON: None available. TECHNIQUE: Color-flow triplex imaging with spectral analysis and compression Doppler were performed on the left lower extremity. FINDINGS: Respiratory variation, normal compression and augmented flow are noted throughout the left lower extremity. The visualized common femoral vein, superficial femoral vein, profunda femoral vein, popliteal vein and midcalf peroneal and posterior tibial venous segments show no evidence of deep venous thrombosis. There is no Arzola's cyst. Incidental note is made of numerous patent and compressible calf varicosities. US/US venous duplex LE IMPRESSION: 1. No evidence of deep venous thrombosis involving the left lower extremity. 2. Incidental note is made of numerous patent and compressible calf varicosities. Electronically signed by: Lake Wilson MD 05/06/2024 03:58 PM EDT
== END 2024-05-06 15:29 | disposition home or self-care (01) ==
LOC: HO.HMGCX 15:28
PROVIDERS: PCP Internal Medicine; Visit Provider Physician Assistant
DX: M79.662 Pain in left lower leg (principal)
CPT/HCPCS: 93971

== ENCOUNTER → 2024-05-06 15:30 | Outpatient (BNV) | payer OTHER, SELFPAY | PROVIDERS: PCP Internal Medicine; Visit Provider Radiology Diagnostic Radiology | DX: I83.812 Varicose veins of left lower extremity with pain (principal) | CPT/HCPCS: 93971 ==

== ENCOUNTER 2024-05-20 12:11 | Outpatient (AMB) | payer OTHER, SELFPAY ==
--- NOTE | 2024-05-20 12:36 | MHC.PC.OV ---
Vital Signs 05/20/24 12:37 Height 5 ft 11 in Weight 237 lb 6 oz BMI 33.1 BP 132/62 Blood Pressure Location Lt brachial Position Sitting Pulse 83 Pulse Source Pulse Oximeter Temp 97.1 F Temp Source Temporal Artery Scan Pulse Oximetry (%) 97 Oxygen Delivery Method Room Air Intake Visit Reasons: f/u medication w/ Po Intake Note: Patient is here to follow up on medication review. In Service Educator Required: No Card Stripper: Not Required per policy Accompanied by: Self / Same As Patient Allergies Penicillins Adverse Reaction (Severe, Verified 05/20/24 12:37) Anxiety pineapple Adverse Reaction (Severe, Verified 05/20/24 12:37) swellling Medication List - Last Reconciled 05/20/24 by José Miguel David Po, albuterol sulfate 90 mcg/actuation (Proventil HFA) 2 puffs inhalation Q4-6H PRN alprazolam 0.5 mg PO DAILY amlodipine 10 mg PO DAILY budesonide-formoterol 80-4.5 mcg/actuation (Symbicort) 2 puffs inhalation BID PRN cholecalciferol (vitamin D3) 25 mcg PO DAILY clonidine HCl 0.1 mg PO BEDTIME mohamud.stocking,knee,reg,xlrg 15-20 cm olmesartan 20 mg PO DAILY omeprazole 20 mg PO DAILY psyllium husk 1 tbsp PO BID sildenafil 100 mg PO DIRECTED tamsulosin 0.4 mg PO BEDTIME Tobacco use date assessed: 05/20/24 Fall risk assessment: No Falls in past year Last assessed Fall Risk: 05/20/24 Dental Screening Dental Screen Date: 03/18/24 [facility] Medical History Murmur Enlarged prostate Atelectasis GERD (gastroesophageal reflux disease) ZOE (obstructive sleep apnea) Extremity edema Asthma Surgical History History of knee replacement procedure of left knee Social History Housing: House Alcohol intake: never Patient Tobacco Use Status: Never used Tobacco Tobacco use type: Cigarette e-Cigarette/Vaping Use: Never Used Second Hand Smoke Exposure: No 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 Cognitive needs: No Hearing needs: No Vision needs: Yes Questionnaire Thrive Questionnaire Date Thrive assessed: 03/18/24 I am a: Patient What is your living situation today?: I have a steady place to live Within the past 12 months, did the food you bought not last and you didn't have the money to get more?: I choose not to answer this question Within the past 12 months, did you worry whether your food would run out before you got money to buy more?: I choose not to answer this question Do you have trouble paying for medicines?: No Do you have trouble getting transportation to medical appointments?: No Do you have trouble paying your heating and electricity bill?: No Do you have trouble taking care of your child, family member or friend?: No Do you have trouble with day-to-day activities such as bathing, preparing meals, shopping, managing finances, etc.?: No Are you currently unemployed and looking for a job?: No Are you interested in more education?: Yes Please select the resources that you would like help with: None Currently or been in a relationship where the following occur: I choose not to answer THRIVE Score: 0 AUDIT C Alcohol Use Questionnaire (AUDIT-C) 3. How often do you have six or more drinks on one occasion?: Never Total Score: 0 ALISON-7 AMB Questionnaire ALISON-7 Date ALISON - 7 assessed: 03/18/24 Source: Developed by Drs. David Jeong, Jo Whitney, Cristofer Meyer and colleagues, with an educational esther from [employer]. Physical exam (Primary Care) Vital Signs: Last Vital Signs Temp 97.1 F 05/20/24 12:37 Pulse 83 05/20/24 12:37 BP 132/62 05/20/24 12:37 Pulse Ox 97 05/20/24 12:37 Oxygen Delivery Method Room Air 05/20/24 12:37 BMI result Body Mass Index 33.1 Tobacco/Smoking Status: Tobacco use Status Tobacco use date assessed 05/20/24 05/20/24 12:43 Patient Tobacco Use Status Never used Tobacco 05/20/24 12:43 Tobacco use type Cigarette 05/20/24 12:43 e-Cigarette/Vaping Use Never Used 05/20/24 12:43 Thrive Assessment: Date of Thrive Assessment Date Thrive assessed 03/18/24 05/20/24 12:43 Currently or been in a relationship where the following occur: I choose not to answer Const General: alert; No acute distress Eyes Conjunctivae: conjunctivae normal Resp Auscultation: clear to auscultation bilaterally Cardio Rate: regular rate Rhythm: regular rhythm GI Inspection: Yes normal to inspection Extrem General: Yes normal to inspection and No edema Coding Level of Care Code Est Pt Level 4 (06054) Complex EM visit Add On G2211 Diagnoses Dizziness R42 Benign prostatic hyperplasia with urinary frequency N40.1; R35.0 Lower urinary tract symptom detail: urinary frequency Lower urinary tract symptom presence: symptoms present Generalized anxiety disorder F41.1 Obesity (BMI 30-39.9) E66.9 Hypercholesterolemia E78.00 Impaired glucose tolerance R73.02 Gastroesophageal reflux disease without esophagitis K21.9 Esophagitis presence: without esophagitis ZOE (obstructive sleep apnea) G47.33 Mild intermittent asthma without complication J45.20 Asthma complication type: uncomplicated Asthma persistence: intermittent Asthma severity: mild Primary hypertension I10 Hypertension type: primary hypertension LFT elevation R79.89 Assessment & Plan Assessment & Plan (1) Dizziness: Code(s): R42 - Dizziness and giddiness Category: Medical (2) BPH (benign prostatic hyperplasia): Code(s): N40.0 - Benign prostatic hyperplasia without lower urinary tract symptoms Category: Medical Qualifiers: Lower urinary tract symptom detail: urinary frequency Lower urinary tract symptom presence: symptoms present Qualified Code(s): N40.1 - Benign prostatic hyperplasia with lower urinary tract symptoms; R35.0 - Frequency of micturition Plan: And follows up with urology on tamsulosin sildenafil. Mentioned in the note regarding introduction of finasteride. (3) Generalized anxiety disorder: Code(s): F41.1 - Generalized anxiety disorder Category: Medical Plan: Patient on alprazolam clonidine hydroxyzine (4) Obesity (BMI 30-39.9): Code(s): E66.9 - Obesity, unspecified Category: Medical Plan: Diet and exercise (5) Hypercholesterolemia: Code(s): E78.00 - Pure hypercholesterolemia, unspecified Category: Medical Plan: Avoid fried foods, chicken skin, eggs, butter margarine, pastries and meat. Be it pork or beef they have a lot of cholesterol LDL goal of less than 130 and triglyceride of less than 150. (6) Impaired glucose tolerance: Code(s): R73.02 - Impaired glucose tolerance (oral) Category: Medical Plan: Decrease the amount of carbohydrate intake, pasta, bread, rice and potatoes are all sugar and that is aside from all the sweet stuff, remember that fruits are good but they are Sweet also. (7) GERD (gastroesophageal reflux disease): Code(s): K21.9 - Gastro-esophageal reflux disease without esophagitis Category: Medical Qualifiers: Esophagitis presence: without esophagitis Qualified Code(s): K21.9 - Gastro-esophageal reflux disease without esophagitis Plan: Avoid the foods that causes that usually spicy foods, tomato products, juices, coffee, soda and foods that your sensitive to. After eating do not lie down, allow 3-4 hours before in lie down. And keep the head of bed above 30 degrees to avoid the acid from going up. On omeprazole 20 mg once a day (8) ZOE (obstructive sleep apnea): Comment: CPAP Code(s): G47.33 - Obstructive sleep apnea (adult) (pediatric) Category: Medical Plan: Continue to use the CPAP more than 4 hours a night and benefits from this. (9) Asthma: Code(s): J45.909 - Unspecified asthma, uncomplicated Category: Medical Qualifiers: Asthma complication type: uncomplicated Asthma persistence: intermittent Asthma severity: mild Qualified Code(s): J45.20 - Mild intermittent asthma, uncomplicated Plan: Continue with albuterol inhaler Symbicort montelukast (10) Hypertension: Code(s): I10 - Essential (primary) hypertension Category: Medical Qualifiers: Hypertension type: primary hypertension Qualified Code(s): I10 - Essential (primary) hypertension Plan: Continue with amlodipine 10 mg once a day olmesartan 20 mg once a day (11) LFT elevation: Code(s): R79.89 - Other specified abnormal findings of blood chemistry Category: Medical Plan History of Present Illness The patient is a 63-year-old male presenting for a follow-up to address dizziness and manage chronic conditions. He experienced dizziness, previously evaluated on April 14 and necessitating an urgent visit on April 15. Previous assessments, including a March MRI and echocardiogram, were negative for significant pathology. Peripheral vascular disease was diagnosed following left lower extremity ultrasound, while respiratory function remains stable under CPAP use. Current medication adherence includes omeprazole, clonidine, and other standard prescriptions, though challenges with benzodiazepine tapering persist. Blood tests indicated mild chronic leukopenia and recently increased liver enzymes, prompting the scheduling of an ultrasound. Continued education focuses on modifiable lifestyle variables impacting his hypercholesterolemia and hypertension. Health Maintenance - Consistent CPAP use for obstructive sleep apnea - Lifestyle modification for weight management related to hypertension and hypercholesterolemia - Recent echocardiogram (March 2024) confirmed mild left ventricular hypertrophy - Cholesterol management plan in place aiming for LDL less than 130 mg/dL - Blood work (March 2024): mild leukopenia, low vitamin D, and slightly elevated liver enzymes - Advised to undergo an abdominal ultrasound before August 2024 Social History - Exercise: Attends the gym regularly. - Nutrition: Consumes baked chicken with skin, daily consumption of eggs, noted intake of chocolate. - Medication: Reports difficulty in tapering benzodiazepines, adheres to regular medication schedules. - Lifestyle: Noted improvement in obstructive sleep apnea correlated with reduced snoring, benefitting marital dynamics. Review of Systems - Cardiovascular: Reports dizziness; denies chest discomfort apart from muscular-type chest pains. - Respiratory: Denies current use of rescue inhaler and verbalizes overall stability of asthma symptoms. - Gastrointestinal: Reports GERD, occasional reflux. - Neurological: Reports difficulty with benzodiazepine tapering leading to some withdrawal symptoms. - Musculoskeletal: Reports gym-related aches and mild foot discomfort. Physical Exam Results - Labs: Mild leukopenia, elevated liver enzyme (one value at 43, expected <37), low vitamin D levels. - Imaging/Tests: March 2024 MRI (normal brain findings with mild sinus mucosal thickening); March 2024 echocardiogram (EF 60-65%, mild LVH, normal cardiac doppler studies) Plan Ongoing management of chronic conditions includes hypertension and cholesterol level maintenance using amlodipine and olmesartan, complemented by lifestyle measures. Sildenafil and tamsulosin use will continue for prostatic symptoms, monitoring potential finasteride introduction with urology guidance. GERD control necessitates omeprazole with dietary caution. Planned ultrasound aims to assess recent liver test anomalies, guiding further action. Continuation of clonidine for anxiety was endorsed, while CPAP adherence for sleep apnea receives positive reinforcement. Asthma therapy aligns around situational inhaler use, and dietary adjustments for cholesterol reduction are advised, prominently cutting back on high cholesterol foods. Recommendation for vitamin D supplementation was affirmed. Patient was informed and verbally consented to the use of an ambient scribe for clinic note documentation during this visit. Discussion Notes We comprehensively reviewed the patient's long-standing conditions, with priority on effective management of hypertension, cholesterol, and sleep apnea. I explained the benefits of blood pressure and cholesterol medications alongside lifestyle changes, highlighting potential risks of polypharmacy. Clearly, using omeprazole for GERD is vital due to dietary triggers, while plotting an abdominal ultrasound for liver assessments is justified by concerning liver test results. The patient consented to discussions focusing on gradual benzodiazepine reduction, maintaining clonidine to bridge withdrawal symptoms. Discussions on CPAP adherence were favorable, itemizing how its use has diminished apnea-related symptoms. I reinforced heightened awareness for signs requiring expeditious follow-up, such as exacerbated symptoms or adverse medication effects. Patient Instructions - Continue current medications as prescribed, including amlodipine, olmesartan, and omeprazole. - Use CPAP nightly and monitor for any changes in symptoms. - Schedule an ultrasound of the liver before the end of July 2024. - Avoid foods high in cholesterol; limit egg yolk to twice a week and remove chicken skin. - Take vitamin D supplements as directed. - Stay hydrated, especially during physical activities. - Monitor blood pressure regularly, noting any significant deviations. - Contact our office if experiencing worsening symptoms or any side effects. - Follow up with urology and cardiology as scheduled. - Consult about benzodiazepine tapering strategy continuation. Orders: Orders Liver Panel Today R79.89 - Other specified abnormal findings of blood chemistry US abdomen complete Today R79.89 - Other specified abnormal findings of blood chemistry Hepatitis B,C Profile Today R79.89 - Other specified abnormal findings of blood chemistry Medications: Refilled alprazolam 0.5 mg PO DAILY 30 tabs 0RF R79.89 - Other specified abnormal findings of blood chemistry
[2024-05-20 12:37] VITALS: BP 132/62; PULSE 83; TEMP 36.2; O2SAT 97; BMI 33.1
--- OUTSIDE RECORDS SUMMARY | 2024-05-20 14:13 | XMS_ITS | Data Portability ---
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 Plan of Treatment Reminders Order Date Submit Date Provider Last Modified By Organization Details Last Modified Time Details Appointments None recorded. Lab urinalysis, dipstick 2022 023 [email or web address] [facility], [address] [place] [address], [place], [address], 3 16:34:09 culture, urine 2022 023 [email or web address], [address] [place] [address], [place], [address], 3 08:07:29 Referral urologist referral 2022 023 [email or web address] 26 Not available 3 09:08:28 Procedures None recorded. Surgeries None recorded. Imaging None recorded. Medication Orders Anusol-HC 25 mg rectal suppository 2022 023 [email or web address] [id number], [address] [place], [address], 3 08:13:41 Macrobid 100 mg capsule 2022 023 [email or web address] [id number], [address] [place], [address], 16:10:01 Patient TargetsNo targets recorded. Patient Instructions Encounter Date Encounter Id Patient Instructions Last Modified By Organization Details Last Modified Time 09/02/2022 [id number] hemorrhoids: car e instructions [email or web address] Not available 09/02/2022 16:47:47 Reason for Referral Urologist Referral for Incre ased frequency of urination Referring Physician: Chad Forman, Urgent Care, Encounter Date: 04/27/2022 Results Created Date Observation Date Name Description Value Unit Range Abnormal Flag Note LastModifiedBy Organization Detail LastModifiedTime 04/28/1904/29/2022 URINE CULTU RE, ROUTI NE urine culture, routine FINAL REPORT Not Available [facility] ([facility]) [address] [facility], [place], [address], 04/29/2022 08:07:29 04/28/19 23 04/29/2022 URINE CULTU RE, ROUTI NE result 1 NO GROWTH Not Available [facility] ([facility]) [address] [facility], [place], [address], 04/29/2022 08:07:29 04/28/19 23 04/27/2022 urina lysis , dipst ick Unknown Analyte Yellow Not Available _ [facility] [address], [address], 04/27/2022 15:44:07 04/28/19 23 04/27/2022 urina lysis , dipst ick Unknown Analyte Clear Not Available _ [facility] [address], [address], 04/27/2022 15:44:07 04/28/19 23 04/27/2022 urina lysis , dipst ick Unknown Analyte Negati ve Not Available tania jay [address], [address], 04/27/2022 15:44:07 04/28/19 23 04/27/2022 urina lysis , dipst ick Unknown Analyte Negati ve Not Available [facility] [address] [place] [address], [place], [address], 04/27/2022 15:44:07 04/28/19 23 04/27/2022 urina lysis , dipst ick Unknown Analyte Negati ve Not Available [facility]na[facility] pe [address], [place], [address], 04/27/2022 15:44:07 04/28/19 23 04/27/2022 urina lysis , dipst ick Unknown Analyte 1.025 Not Available donnaope [address], [place], [address], 04/27/2022 15:44:07 04/28/19 23 04/27/2022 urina lysis , dipst ick Unknown Analyte Small Not Available [facility] [address], [place], [address], 04/27/2022 15:44:07 04/28/19 23 04/27/2022 urina lysis , dipst ick Unknown Analyte 6.5 Not Available [facility] [address], [place], [address], 04/27/2022 15:44:07 04/28/19 23 04/27/2022 urina lysis , dipst ick Unknown Analyte 30 mg/dL Not Available [facility] [address], [place], [address], 04/27/2022 15:44:07 04/28/19 23 04/27/2022 urina lysis , dipst ick Unknown Analyte 0.2 E.U./d L Not Available [facility], [place], [address], 04/27/2022 15:44:07 04/28/19 23 04/27/2022 urina lysis , dipst ick Unknown Analyte Negati ve Not Available [address] [address] [place] [address], [address], 04/27/2022 15:44:07 04/28/19 23 04/27/2022 urina lysis , dipst ick Unknown Analyte Negati ve Not Available [address] [address] [address] [place] [address], [address], 04/27/2022 15:44:07 Result Notes None recorded. Problems Name Problem SNOMED Code Status Onset Date Resolution Date Notes Provider Name and Address Organization Details Recorded Time Hypertensive disorder 30490118 Active 2022 WILLIAM palomino, [place] - [facility] 3 15:50:11 Hypercholester olemia 75445986 Active 2022 WILLIAM CARRILLO null, PA - [facility] 3 15:50:18 Gastroesophage al reflux disease 843817994 Active 2022 WILLIAM CARRILLO null, PA - [facility] 3 15:50:32 Anxiety 36779420 Active 2022 WILLIAM NOBLEICA null, PA - [facility] 3 15:50:43 Asthma 727188095 Active 2022 WILLIAM CARRILLO null, PA - [facility] 3 15:51:05 Sleep apnea 36523433 Active 2022 WILLIAM NOBLEICA null, PA - [...] Name and Address Organization Details Recorded Time 724529 amoxicill in medicatio n itching Not available [...] Updated DateTime 3 180.34 cm 34.7 kg/m2 135869. 5 g 97.1 [degF] 95 % 95 [...] Updated DateTime 3 180.34 cm 34.7 kg/m2 352453. 5 g 97 % 97 % 71 /min 18 /min 98.5 [degF] 128 mm[Hg] 78 mm[Hg] GURU EMILIANO PA - [facility] 3 16:12:20 Social History Question Answer Notes LastModified by Organizat ion Details LastModified Time Tobacco Smoking Status Never Smoker WILLIAM CARRILLO candelario PA - [facility] 04/27/2022 15:52:41 What Is Your Level Of Alcohol Consumption? None [email or web address] Information not available 04/27/2022 Do You Use Any Illicit Or Recreational Drugs? No Information not available 04/27/2022 Have You Recently Traveled Abroad? No [email or web address] Information not available 04/27/2022 Do You Or Have You Ever Used Any Other Forms Of Tobacco Or Nicotine? No [email or web address] Information not available 04/27/2022 Sex: Unknown Functional Status None recorded. Mental Status None recorded. Family History Relationship Description Onset Age of this Age Resolved Age Notes LastModified by Organization Details LastModified Time Mother Heart disease [email or web address] Not available 2022 15:52:02 Mother Diabetes mellitus [email or web address] Not available 2022 15:52:09 Mother Myocardial infarction [email or web address] Not available 04/27 15:52:23 Father Myocardial infarction [email or web address] Not available 04/27 15:52:22 Medical History No medical history recorded. Past Encounters Encounter ID Performer Location Encounter Start Date Encounter Closed Date Diagnosis/Indication Diagnosis SNOMED-CT Code Diagnosis ICD10 Code Diagnosis Note [id number] [facility] [address] [address] 11/15/2018 19:08:29 11/15/2018 19:20:19 [id number] [address] [address] [place] [address] 01/12/2017 19:30:06 01/12/2017 19:59:01 [id number] [address] [facility] [place] [address] 06/13/2019 14:32:24 06/13/2019 15:40:34 [id number] [address] [facility] [place] [address] 04/27/2017 18:40:25 04/27/2017 19:31:53 [id number] [address] [address] [facility] [place] [address] 08/05/2021 08:35:18 08/05/2021 10:27:26 [id number] [address] [facility] [place] [address] 06/04/2016 19:47:53 06/04/2016 20:19:56 [id number] [address] [facility] [place] [address] 05/13/2020 17:53:47 05/13/2020 18:56:52 [id number] [address] [facility] [place] [address] 03/07/2018 19:42:56 03/07/2018 20:23:16 [id number] [address] [facility] [place] [address] 03/13/2015 15:25:32 03/13/2015 16:30:45 [id number] [address] [facility] [place] [address] 07/29/2021 15:41:12 07/29/2021 18:16:19 [id number] [address] [facility] [place] [address] 08/20/2017 18:49:49 08/20/2017 19:53:37 [id number] [address] [facility] [place] [address] 06/18/2020 19:37:45 06/18/2020 20:14:38 [id number] Chad Forman DO [address] [address] 04/27/2022 12:51:09 04/27/2022 16:36:40 Increased frequency of urination 985737117 R35.0 suspect UTISigns and Symptoms c/w UTIUA [...] agreement with the plan as outlined above. [id number] Marcelino Lea MD [facility] [address] [place] [address] 09/02/2022 15:20:17 09/02/2022 16:50:35 Hemorrhoids 03126529 K64.9 likely internal hemorrhoid s as per [...] Member ID Guarantor Name 06/18/2020 1 [facility] [id number] Norbert Tolbert Keron [id number] Norbert Cabrales 07/29/2021 1 [facility] [id number] Norbert Tolbert Keron [id number] Norbert Cabrales 08/05/2021 1 [facility] [id number] Norbert Cabrales [id number] Norbert Cabrales 04/27/2022 1 [facility] [id number] Norbert Cabrales [id number] Norbert Cabrales 09/02/2022 1 [facility] [id number] Norbert Cabrales [id number] Norbert Cabrales Notes Date Note Type Note Provider Name and Address Organization Details Recorded Time 04/27/2022 text/html Urinary Problems-MaleReporte d bypatient.Notes:61 yo male c/o frequency in urination x couple days--no burning, no pain. + decreased stream no increased urgencyno incontinenceno pressureno malodorno blood in urineno back painno rashno feverno nausea or vomitingno MS change Chad Forman DO [address] [place], [address], [employer] 04/27/2022 16:35:50 09/02/2022 text/html Went to his PCP 2 days ago and told he had internal hemorrhoids. Told to take fiber drink only. Patient concerned and wants to be checked again. Feels anal discomfort. NO blood in stool or when wipes. no pain with defecation. Had colonoscopy 02/01. Marcelino Lea MD [address] [place], [address], [employer] 09/02/2022 18:39:03
--- OUTSIDE RECORDS SUMMARY | 2024-05-20 14:13 | XMS_ITS | Clinical Summary ---
Author Organization [facility] Address [address] [place] [address] Phone Care Team Providers Care Tube Handler Name Role Phone José Miguel Espinoza MD Primary Care Provider [phone] Allergies Active Allergy Reactions Criticality Noted Date Comments Penicillins 03/30/2024 Pineapple 03/30/2024 Encounters Date Type Department Care Team Description 04/03/2024 5:38 PM EST - 04/03/2024 11:59 PM EST Hospital Encounter [facility] MRI [address] [place] [phone] Headache, unspecified Discharge Disposition: Home or Self Care 03/31/2024 7:16 AM EST - 03/31/2024 11:06 AM EST Emergency [facility] Emergency [address] [place] [phone] Pipo Haynes MD Vatrenko, Konstantin, MD Recurrent headache (Primary Dx); Benzodiazepine withdrawal with complication ([facility]/HCC) Discharge Disposition: Home or Self Care 03/25/2024 Telephone [facility] - [address] [facility] [address] [place] [address] Caren Otoole PA Referral (Received routine paper referral - May) from Last 3 Months Medical History Medical [...] 03/30/2024 8:31 PM EST Plan of Treatment Upcoming Encounters Date Type Department Care Team (Late st Contact Info) Description 07/07/2024 10:20 AM EDT Office Visit [facility] - [facility] [address] [facility] [address] [place] [address] Lewis Briggs MD [address] [facility] [address] [place] [address] Health Maintenance Due Date Last Done Comments [...] Vaccines (1 of 2) 09/09/2009 RSV Immunization Adult Patie nts (1 - Risk 60-74 years 1-dose series) 2019 Cholesterol Screening (Lipid Panel) 01/13/2022 Colorectal Cancer Screening: Colonoscopy 01/13/2022 Depression Screening 01/13/2022 HIV Screening 01/13/2022 Hepatitis C Screening 01/13/2022 Social Influencers of Health Screening 01/13/2022 COVID-19 Vaccine (2023-2 5 season) 2023 Influenza Vaccine (Season Ended) 2024 Hypertension/CHF/CAD Annual BMP Blood Test 03/30/2025 03/30/2024 [...] age to complete this topic Meningococcal B Vaccine Aged Out No l onger eligible based on patient's age to complete [...] Signed Date: 04/04/2024 10:25 ET Workstation ID: [id number] Transcribed By: Self Edit Transcribed Date: 04/04/2024 [...] Signed Date: 04/04/2024 10:25 ET Workstation ID: [id number] Transcribed By: Self Edit Transcribed Date: 04/04/2024 10:14 ET Clyde Bobo MD IMG MRI PROCEDURES Final Result * ECG-Annotated (04/01/2024) Only the most recent of2 resultswithin the time period is included. us Provider Onbase ECG ORDERABLES Final Result * ECG 12 lead (03/30/2024 10:06 PM EST) Only the most recent of2 resultswithin the time period is included. Pathologist [facility] Ventricular Rate ECG 58 BPM GEMUSE Atrial Rate 58 BPM GEMUSE P-R Interval 246 ms GEMUSE QRS Duration 94 ms GEMUSE Q-T Interval 426 ms GEMUSE QTc 418 ms GEMUSE P Wave Gerton 22 degrees GEMUSE R Gerton 66 degrees GEMUSE T Gerton 22 degrees GEMUSE ECG Interpretation Sinus bradycardia with 1st degree A-V block Otherwise normal ECG When compared with ECG of 30-MAR-2024 20:30, (unconfirmed) No significant change was found Confirmed by Tacos GUTIERREZ JOHN ([id number]) on 03/31/2024 7:55:08 AM GEMUSE 03/30/2024 10:0 6 PM EST 03/31/2024 7:55 AM EST us Pipo Haynes MD ECG ORDERABLES Final Result Performing Organization Address [facility] de Phone Number GEMUSE * Troponin I high sensitivity (03/30/2024 10:04 PM EST) Only the most recent of2 resultswithin the time period is included. [facility] High Sensitivity Troponin I 43 <=79 ng/L LAB CHEMISTRY METHOD 03/30/2024 10:59 PM EST [facility] Blood Venous blood specimen / Unknown Venipuncture / Unknown 03/30/2024 10:04 PM EST 03/30/2024 10:34 PM EST Narrative [facility] - 03/30/2024 10:59 PM EST High levels of biotin in samples may falsely decrease hsTroponin values. ??Use caution when interpreting hsTroponin results in patients taking biotin who exhibit renal impairment (eGFR <60) or in patients taking more than 20 mg/day of biotin. us Pipo Haynes MD LAB BLOOD ORDERABLES Final Res ult Performing Organization Address [facility]/ZIP Co de Phone Number [facility] [address] [place] [address], [place] [phone] * XR Chest 2 Views (03/30/2024 9:14 PM EST) Anatomical Region Laterality Modality Body Radiographic Rosemary ging 03/31/2024 8:08 AM EST Impressions 03/31/2024 8:09 AM EST No acute findings. -------- FINAL REPORT -------- Dictated By: Edmond Vazquez Dictated Date: 03/31/2024 08:08 ET Assigned Physician: Edmond Vazquez Reviewed and Electronically Signed By: Edmond Vazquez Signed Date: 03/31/2024 08:09 ET Workstation ID: [id number] Transcribed By: Self Edit Transcribed Date: 03/31/2024 [...] Signed Date: 03/31/2024 08:09 ET Workstation ID: [id number] Transcribed By: Self Edit Transcribed Date: 03/31/2024 08:08 ET Pipo Haynes MD IMG XR PROCEDURES Final Result * (ABNORMAL) CBC auto differential (03/30/2024 8:36 PM EST) WBC 3.4(L) 4.8 - 10.8 K/[facility] LAB HEMETOLOGY METHOD 03/30/2024 9:07 PM [facility] RBC 4.60 4.50 - 5.50 M/mcL LAB HEMETOLOGY METHOD 03/30/2024 9:07 PM [facility] Hemoglobin 13.1(L) 13.5 - 17.5 g/dL LAB HEMETOLOGY METHOD 03/30/2024 9:07 PM [facility] Hematocrit 40.4(L) 42.0 - 54.0 % LAB HEMETOLOGY METHOD 03/30/2024 9:07 PM [facility] MCV 87.6 79.0 - 98.0 FL LAB HEMETOLOGY METHOD 03/30/2024 9:07 PM [facility] MCH 28.4 27.0 - 32.0 pcg LAB HEMETOLOGY METHOD 03/30/2024 9:07 PM [facility] MCHC 32.4 32.0 - 37.0 g/dL LAB HEMETOLOGY METHOD 03/30/2024 9:07 PM [facility] RDW 13.5 11.0 - 15.0 % LAB HEMETOLOGY METHOD 03/30/2024 9:07 PM [facility] Platelets 230 130 - 400 K/mcL LAB HEMETOLOGY METHOD 03/30/2024 9:07 PM [facility] MPV 10.3 7.0 - 11.0 FL LAB HEMETOLOGY METHOD 03/30/2024 9:07 PM [facility] NRBC 0.0 <1.0 % LAB HEMETOLOGY METHOD 03/30/2024 9:07 PM [facility] NRBC Absolute 0.00 <0.10 K/mcL LAB HEMETOLOGY METHOD 03/30/2024 9:07 PM [facility] Neutrophils Relative 46.9 % LAB HEMETOLOGY METHOD 03/30/2024 9:07 PM [facility] Lymphocytes Relative 34.9 % LAB HEMETOLOGY METHOD 03/30/2024 9:07 PM [facility] Monocytes Relative 13.1 % LAB HEMETOLOGY METHOD 03/30/2024 9:07 PM [facility] Eosinophils Relative 3.6 % LAB HEMETOLOGY METHOD 03/30/2024 9:07 PM [facility] Basophils Relative 1.2 % LAB HEMETOLOGY METHOD 03/30/2024 9:07 PM [facility] Immature Granulocytes Relative 0.3 % LAB HEMETOLOGY METHOD 03/30/2024 9:07 PM [facility] Neutrophils Absolute 1.57 1.50 - 7.00 K/mcL LAB HEMETOLOGY METHOD 03/30/2024 9:07 PM [facility] Lymphocytes Absolute 1.17 1.00 - 5.00 K/mcL LAB HEMETOLOGY METHOD 03/30/2024 9:07 PM [facility] Monocytes Absolute 0.44 0.20 - 1.00 K/mcL LAB HEMETOLOGY METHOD 03/30/2024 9:07 PM [facility] Eosinophils Absolute 0.12 0.00 - 0.50 K/mcL LAB HEMETOLOGY METHOD 03/30/2024 9:07 PM [facility] Basophils Absolute 0.04 0.00 - 0.20 K/mcL LAB HEMETOLOGY METHOD 03/30/2024 9:07 PM [facility] Immature Granulocytes Absolute 0.01 0.00 - 0.03 K/mcL LAB HEMETOLOGY METHOD 03/30/2024 9:07 PM [facility] Blood Venous blood specimen / Unknown Venipuncture / Unknown 03/30/2024 8:36 PM EST 03/30/2024 9:00 PM EST us Pipo Haynes MD LAB BLOOD ORDERABLES Final Res ult Performing Organization Address [facility] de Phone Number [facility] [address] [place] [address], [place] [phone] * Magnesium (03/30/2024 8:36 PM EST) Pathologist [facility] Magnesium 2.2 1.9 - 2.6 mg/dL LAB CHEMISTRY METHOD 03/30/2024 9:49 PM EST [facility] Blood Venous blood specimen / Unknown Venipuncture / Unknown 03/30/2024 8:36 PM EST 03/30/2024 9:00 PM EST us Pipo Haynes MD LAB BLOOD ORDERABLES Final Res ult Performing Organization Address [facility] de Phone Number [facility] [address] [place] [address], [place] [phone] * Lipase (03/30/2024 8:36 PM EST) [facility] Lipase 14 13 - 75 unit/L LAB CHEMISTRY METHOD 03/30/2024 9:49 PM EST [facility] Blood Venous blood specimen / Unknown Venipuncture / Unknown 03/30/2024 8:36 PM EST 03/30/2024 9:00 PM EST us Pipo Haynes MD LAB BLOOD ORDERABLES Final Res ult Performing Organization Address [facility] de Phone Number [facility] [address] [place] [address], [place] [phone] * (ABNORMAL) Comprehensive metabolic panel (03/30/2024 8:36 PM EST) [facility] Sodium 140 133 - 145 mmol/L LAB CHEMISTRY METHOD 03/30/2024 9:49 PM EST [facility] Potassium 4.0 3.5 - 5.5 mmol/L LAB CHEMISTRY METHOD 03/30/2024 9:49 PM [facility] Chloride 106 96 - 110 mmol/L LAB CHEMISTRY METHOD 03/30/2024 9:49 PM [facility] CO2 26 21 - 32 mmol/L LAB CHEMISTRY METHOD 03/30/2024 9:49 PM [facility] Anion Gap 8 3 - 11 LAB CHEMISTRY METHOD 03/30/2024 9:49 PM [facility] Glucose 112(H) 70 - 100 mg/dL LAB CHEMISTRY METHOD 03/30/2024 9:49 PM [facility] BUN 12 5 - 25 mg/dL LAB CHEMISTRY METHOD 03/30/2024 9:49 PM [facility] Creatinine 1.15 0.70 - 1.30 mg/dL LAB CHEMISTRY METHOD 03/30/2024 9:49 PM [facility] eGFR 71 >=60 mL/min/1. 73m2 LAB CHEMISTRY METHOD 03/30/2024 9:49 PM [facility] Comment:Calculation based on the??Chronic Kidney Disease Epidemiology Collaboration (CKD-EPI) equation refit??without adjustment for race. BUN/Creatinine Ratio 10.4 LAB CHEMISTRY METHOD 03/30/2024 9:49 PM [facility] Calcium 9.0 8.5 - 10.5 mg/dL LAB CHEMISTRY METHOD 03/30/2024 9:49 PM [facility] AST (SGOT) 44(H) 10 - 42 unit/L LAB CHEMISTRY METHOD 03/30/2024 9:49 PM [facility] ALT (SGPT) 28 10 - 60 unit/L LAB CHEMISTRY METHOD 03/30/2024 9:49 PM [facility] Alkaline Phosphatase 78 42 - 121 unit/L LAB CHEMISTRY METHOD 03/30/2024 9:49 PM [facility] Total Protein 7.1 6.0 - 8.0 g/dL LAB CHEMISTRY METHOD 03/30/2024 9:49 PM [facility] Albumin 3.8 3.2 - 5.0 g/dL LAB CHEMISTRY METHOD 03/30/2024 9:49 PM EST [facility] Total Bilirubin 0.6 0.0 - 1.4 mg/dL LAB CHEMISTRY METHOD 03/30/2024 9:49 PM EST [facility] Blood Venous blood specimen / Unknown Venipuncture / Unknown 03/30/2024 8:36 PM EST 03/30/2024 9:00 PM EST us Pipo Haynes MD LAB BLOOD ORDERABLES Final Res ult [facility] [address] [place] [address], from Last 3 Months Insurance [facility] Care Teams Tube Handler Relationship Specialty Start Date End Date José Miguel Espinoza MD [address] [place] [address] PCP - General Internal Medicine 03/31/24
--- OUTSIDE RECORDS SUMMARY | 2024-05-20 14:13 | XMS_ITS | Encounter Summary ---
Author Organization [facility] Address [address] [place] [address] Care Team Providers Care Pluck Trimmer Name Role Phone José Miguel Espinoza MD Primary Care Provider [phone] Reason for Referral * Consultation (Routine) - Closed Specialty Diagnoses / Procedures Referred By Jorge Luis diamond Referred To Contact Cardiology Diagnoses Atrioventricular block, first degree Dizziness and giddiness Cardiac murmur, unspecified Caren Otoole PA [address] [facility], [address] [place] [address] Phone: tel: [facility] [address] [place] [address] Phone: tel: fax: Referral ID Status Reason Start Date Expiration Date V isits Requested Visits Authorized [id number] Closed Specialty Services Required 05/18/2024 05/18/2025 1 1 Reason for Visit * Reason Onset Date Comments Referral 03/25/2024 Received routine paper referral - May Encounter Details Date Type Department Care Team (Late st Contact Info) Description 03/25/2024 Telephone [facility] - [address] [facility] [address] [place] [address] Caren Otoole PA [address], [address] [place] [address] Referral (Received routine paper referral - May) Social History Tobacco Use Types Packs/Day Years Used Date Smoking Tobacco: Never Assessed Sex and Gender Information Value Date Recorded Sex Assigned at Not on file Legal Sex Male 8:22 PM EST Gender Identity Not on file Sexual Orientation Not on file documented as of this encounter Plan of Treatment Upcoming Encounters Date Type Department Care Team (Late st Contact Info) Description 07/07/2024 10:20 AM EDT Office Visit [facility] - [facility] [address] [facility] [address] [place] [phone] Lewis Briggs MD [address] [facility] [address] [place] [address] Scheduled Referrals Name Type Priority Associated Diagnoses Order Schedule Ambulatory referral to Cardiology Outpatient Referral Routine Atrioventricular block, first degree Dizziness and giddiness Cardiac murmur, unspecified 1 Occurrences starting 05/18/2024 until 05/18/2025 documented as of this encounter Visit Diagnoses Diagnosis Atrioventricular block, first degree- Primary First degree atrioventricular block Dizziness and giddiness Cardiac murmur, unspecified documented in this encounter Care Teams Pluck Trimmer Relationship Specialty Start Date End Date José Miguel Espinoza MD [address] [place] [address] PCP - General Internal Medicine 03/31/24 documented as of this encounter
== END 2024-05-20 13:13 | disposition home or self-care (01) ==
LOC: HO.HMCH 12:12
PROVIDERS: PCP Internal Medicine; Visit Provider Internal Medicine
DX: R42 Dizziness and giddiness (principal); N40.1 Benign prostatic hyperplasia with lower urinary tract symptoms; E66.9 Obesity, unspecified; Z68.33 Body mass index [BMI] 33.0-33.9, adult; R35.0 Frequency of micturition; F41.1 Generalized anxiety disorder; E78.00 Pure hypercholesterolemia, unspecified; R73.02 Impaired glucose tolerance (oral); K21.9 Gastro-esophageal reflux disease without esophagitis; G47.33 Obstructive sleep apnea (adult) (pediatric); J45.20 Mild intermittent asthma, uncomplicated; I10 Essential (primary) hypertension

== ENCOUNTER 2024-05-20 12:11 | Outpatient (REF) | payer OTHER, SELFPAY ==
[2024-05-20 14:40] LABS: Alanine Aminotransferase 24 U/L (0-40); Albumin Level 4.2 g/dL (3.5-5.0); Alkaline Phosphatase 71 U/L (39-117); Aspartate Amino Transferase 37 U/L (5-37); Bilirubin Direct 0.2 mg/dL (0.0-0.5); Bilirubin Total 0.5 mg/dL (0.0-1.0); Total Protein 7.3 g/dL (6.5-8.0)
--- OUTSIDE RECORDS SUMMARY | 2024-05-20 15:26 | XMS_ITS | Clinical Summary ---
Author Organization [facility] Address [address] [place] [address] Phone Care Team Providers Care Perl Developer Name Role Phone José Miguel Espinoza MD Primary Care Provider [phone] Allergies Active Allergy Reactions Criticality Noted Date Comments Penicillins 03/30/2024 Pineapple 03/30/2024 Encounters Date Type Department Care Team Description 04/03/2024 5:38 PM EST - 04/03/2024 11:59 PM EST Hospital Encounter [facility] MRI [address] [place] [id number] Headache, unspecified Discharge Disposition: Home or Self Care 03/31/2024 7:16 AM EST - 03/31/2024 11:06 AM EST Emergency [facility] Emergency [address] [place] [phone] Pipo Haynes MD Vatrenko, Konstantin, MD Recurrent headache (Primary Dx); Benzodiazepine withdrawal with complication ([facility]/HCC) Discharge Disposition: Home or Self Care 03/25/2024 Telephone [facility] - [address] [facility] [address] [place] [address] Caren Otoole PA Referral (Received [...] Description 07/07/2024 10:20 AM EDT Office Visit [facility] - [facility] [address] [facility] [address] [place] [address] Lewis Briggs MD [address] [facility] [address] [place] [address] Health Maintenance Due Date Last Done Comments [...] Signed Date: 04/04/2024 10:25 ET Workstation ID: [id number] Transcribed By: Self Edit Transcribed Date: 04/04/2024 [...] age. -------- FINAL REPORT -------- Dictated By: Edomnd Vazquez Dictated Date: 04/04/2024 10:13 ET Assigned Physician: Edmond Vazquez Reviewed and Electronically Signed By: Edmond Vazquez Signed Date: 04/04/2024 10:25 ET Workstation ID: [id number] Transcribed By: Self Edit Transcribed Date: 04/04/2024 10:14 ET Clyde Bobo MD IMG MRI PROCEDURES Final Result * ECG-Annotated (04/01/2024) Only the most recent of2 resultswithin the time period is included. us Provider Onbase ECG ORDERABLES Final Result * ECG 12 lead (03/30/2024 10:06 PM EST) Only the most recent of2 resultswithin the time period is included. Pathologist [facility] Ventricular Rate ECG 58 BPM GEMUSE Atrial Rate 58 BPM GEMUSE P-R Interval 246 ms GEMUSE QRS Duration 94 ms GEMUSE Q-T Interval 426 ms GEMUSE QTc 418 ms GEMUSE P Wave [facility] [place] 22 degrees GEMUSE R [facility] [place] 66 degrees GEMUSE T [facility] [place] 22 degrees GEMUSE ECG Interpretation Sinus bradycardia with 1st degree A-V block Otherwise normal ECG When compared with ECG of 30-MAR-2024 20:30, (unconfirmed) No significant change was found Confirmed by Tacos GUTIERREZ JOHN ([id number]) on 03/31/2024 7:55:08 AM GEMUSE 03/30/2024 10:0 6 PM EST 03/31/2024 7:55 AM EST us Pipo Haynes MD ECG ORDERABLES Final Result Performing Organization Address [facility] de Phone Number GEMUSE * Troponin I high sensitivity (03/30/2024 10:04 PM EST) Only the most recent of2 resultswithin the time period is included. [facility] High Sensitivity Troponin I 43 <=79 ng/L [...] ORDERABLES Final Res ult Performing Organization Address [facility]/ZIP Co de Phone Number [facility] [address] [place] [address], [place] [phone] * XR Chest 2 Views (03/30/2024 9:14 PM EST) Anatomical Region Laterality Modality Body Radiographic Rosemary ging 03/31/2024 8:08 AM EST Impressions 03/31/2024 8:09 AM EST No acute findings. -------- FINAL REPORT -------- Dictated By: Edmond Vazquez Dictated Date: 03/31/2024 08:08 ET Assigned Physician: Edmond Vazquez Reviewed and Electronically Signed By: Edmond Vazquez Signed Date: 03/31/2024 08:09 ET Workstation ID: [id number] Transcribed By: Self Edit Transcribed Date: 03/31/2024 [...] Signed Date: 03/31/2024 08:09 ET Workstation ID: [id number] Transcribed By: Self Edit Transcribed Date: 03/31/2024 08:08 ET Pipo Haynes MD IMG XR PROCEDURES Final Result * (ABNORMAL) CBC auto differential (03/30/2024 8:36 PM EST) WBC 3.4(L) 4.8 - 10.8 K/[facility] LAB HEMETOLOGY METHOD 03/30/2024 9:07 PM [facility] RBC 4.60 4.50 - 5.50 M/mcL LAB HEMETOLOGY METHOD 03/30/2024 9:07 PM [facility] Hemoglobin 13.1(L) 13.5 - 17.5 g/dL LAB HEMETOLOGY METHOD 03/30/2024 9:07 PM [facility] Hematocrit 40.4(L) 42.0 - 54.0 % LAB HEMETOLOGY METHOD 03/30/2024 9:07 PM [facility] MCV 87.6 79.0 - 98.0 FL LAB HEMETOLOGY METHOD 03/30/2024 9:07 PM [facility] MCH 28.4 27.0 - 32.0 pcg LAB HEMETOLOGY METHOD 03/30/2024 9:07 PM [facility] MCHC 32.4 32.0 - 37.0 g/dL LAB HEMETOLOGY METHOD 03/30/2024 9:07 PM [facility] RDW 13.5 11.0 - 15.0 % LAB HEMETOLOGY METHOD 03/30/2024 9:07 PM [facility] Platelets 230 130 - 400 K/mcL LAB HEMETOLOGY METHOD 03/30/2024 9:07 PM [facility] MPV 10.3 7.0 - 11.0 FL LAB HEMETOLOGY METHOD 03/30/2024 9:07 PM [facility] NRBC 0.0 <1.0 % LAB HEMETOLOGY METHOD 03/30/2024 9:07 PM [facility] NRBC Absolute 0.00 <0.10 K/mcL LAB HEMETOLOGY METHOD 03/30/2024 9:07 PM [facility] Neutrophils Relative 46.9 % LAB HEMETOLOGY METHOD 03/30/2024 9:07 PM [facility] Lymphocytes Relative 34.9 % LAB HEMETOLOGY METHOD 03/30/2024 9:07 PM [facility] Monocytes Relative 13.1 % LAB HEMETOLOGY METHOD 03/30/2024 9:07 PM [facility] Eosinophils Relative 3.6 % LAB HEMETOLOGY METHOD 03/30/2024 9:07 PM [facility] Basophils Relative 1.2 % LAB HEMETOLOGY METHOD 03/30/2024 9:07 PM [facility] Immature Granulocytes Relative 0.3 % LAB HEMETOLOGY METHOD 03/30/2024 9:07 PM [facility] Neutrophils Absolute 1.57 1.50 - 7.00 K/mcL LAB HEMETOLOGY METHOD 03/30/2024 9:07 PM [facility] Lymphocytes Absolute 1.17 1.00 - 5.00 K/mcL LAB HEMETOLOGY METHOD 03/30/2024 9:07 PM [facility] Monocytes Absolute 0.44 0.20 - 1.00 K/mcL LAB HEMETOLOGY METHOD 03/30/2024 9:07 PM [facility] Eosinophils Absolute 0.12 0.00 - 0.50 K/mcL LAB HEMETOLOGY METHOD 03/30/2024 9:07 PM [facility] Basophils Absolute 0.04 0.00 - 0.20 K/mcL LAB HEMETOLOGY METHOD 03/30/2024 9:07 PM [facility] Immature Granulocytes Absolute 0.01 0.00 - 0.03 K/mcL LAB HEMETOLOGY METHOD 03/30/2024 9:07 PM [facility] Blood Venous blood specimen / Unknown Venipuncture / Unknown 03/30/2024 8:36 PM EST 03/30/2024 9:00 PM EST us Pipo Hayens MD LAB BLOOD ORDERABLES Final Res ult Performing Organization Address [facility] de Phone Number [facility] [address] [place] [address], [place] [phone] * Magnesium (03/30/2024 8:36 PM EST) Pathologist [facility] Magnesium 2.2 1.9 - 2.6 mg/dL LAB CHEMISTRY METHOD 03/30/2024 9:49 PM EST [facility] Blood Venous blood specimen / Unknown Venipuncture / Unknown 03/30/2024 8:36 PM EST 03/30/2024 9:00 PM EST us Pipo Haynes MD LAB BLOOD ORDERABLES Final Res ult Performing Organization Address [facility] de Phone Number [facility] [address] [place] [address], [place] [phone] * Lipase (03/30/2024 8:36 PM EST) [facility] Lipase 14 13 - 75 unit/L LAB CHEMISTRY METHOD 03/30/2024 9:49 PM EST [facility] Blood Venous blood specimen / Unknown Venipuncture / Unknown 03/30/2024 8:36 PM EST 03/30/2024 9:00 PM EST us Pipo Haynes MD LAB BLOOD ORDERABLES Final Res ult Performing Organization Address [facility] de Phone Number [facility] [address] [place] [address], [place] [phone] * (ABNORMAL) Comprehensive metabolic panel (03/30/2024 8:36 PM EST) [facility] Sodium 140 133 - 145 mmol/L LAB CHEMISTRY METHOD 03/30/2024 9:49 PM EST [facility] Potassium 4.0 3.5 - 5.5 mmol/L LAB CHEMISTRY METHOD 03/30/2024 9:49 PM [facility] Chloride 106 96 - 110 mmol/L LAB CHEMISTRY METHOD 03/30/2024 9:49 PM [facility] CO2 26 21 - 32 mmol/L LAB CHEMISTRY METHOD 03/30/2024 9:49 PM [facility] Anion Gap 8 3 - 11 LAB CHEMISTRY METHOD 03/30/2024 9:49 PM [facility] Glucose 112(H) 70 - 100 mg/dL LAB CHEMISTRY METHOD 03/30/2024 9:49 PM [facility] BUN 12 5 - 25 mg/dL LAB CHEMISTRY METHOD 03/30/2024 9:49 PM [facility] Creatinine 1.15 0.70 - 1.30 mg/dL LAB CHEMISTRY METHOD 03/30/2024 9:49 PM [facility] eGFR 71 >=60 mL/min/1. 73m2 LAB CHEMISTRY METHOD 03/30/2024 9:49 PM [facility] Comment:Calculation based on the??Chronic Kidney Disease Epidemiology Collaboration (CKD-EPI) equation refit??without adjustment for race. BUN/Creatinine Ratio 10.4 LAB CHEMISTRY METHOD 03/30/2024 9:49 PM [facility] Calcium 9.0 8.5 - 10.5 mg/dL LAB CHEMISTRY METHOD 03/30/2024 9:49 PM [facility] AST (SGOT) 44(H) 10 - 42 unit/L LAB CHEMISTRY METHOD 03/30/2024 9:49 PM [facility] ALT (SGPT) 28 10 - 60 unit/L LAB CHEMISTRY METHOD 03/30/2024 9:49 PM [facility] Alkaline Phosphatase 78 42 - 121 unit/L LAB CHEMISTRY METHOD 03/30/2024 9:49 PM [facility] Total Protein 7.1 6.0 - 8.0 g/dL LAB CHEMISTRY METHOD 03/30/2024 9:49 PM [facility] Albumin 3.8 3.2 - 5.0 g/dL LAB CHEMISTRY METHOD 03/30/2024 9:49 PM EST [facility] Total Bilirubin 0.6 0.0 - 1.4 mg/dL LAB CHEMISTRY METHOD 03/30/2024 9:49 PM EST [facility] Blood Venous blood specimen / Unknown Venipuncture / Unknown 03/30/2024 8:36 PM EST 03/30/2024 9:00 PM EST us Pipo Haynes MD LAB BLOOD ORDERABLES Final Res ult [facility] [address] [place] [address], from Last 3 Months Insurance [facility] Care Teams Perl Developer Relationship Specialty Start Date End Date José Miguel Espinoza MD [address] [place] [address] PCP - General Internal Medicine 03/31/24
--- OUTSIDE RECORDS SUMMARY | 2024-05-20 15:26 | XMS_ITS | Encounter Summary ---
Author Organization [facility] Address [address] [place] [address] Care Team Providers Care Manufacturing Lead Name Role Phone José Miguel Espinoza MD Primary Care Provider [phone] Reason for Referral * Consultation (Routine) - Closed Specialty Diagnoses / Procedures Referred By Jorge Luis diamond Referred To Contact Cardiology Diagnoses Atrioventricular block, first degree Dizziness and giddiness Cardiac murmur, unspecified Caren Otoole PA [address] [facility], [address] [place] [address] Phone: tel: [facility] [address] [place] [address] Phone: tel: fax: Referral ID Status Reason Start Date Expiration Date V isits Requested Visits Authorized [id number] Closed Specialty Services Required 05/18/2024 05/18/2025 1 1 Reason for Visit * Reason Onset Date Comments Referral 03/25/2024 Received routine paper referral - May Encounter Details Date Type Department Care Team (Late st Contact Info) Description 03/25/2024 Telephone [facility] - [address] [facility] [address] [place] [address] Caren Otoole PA [address], [address] [place] [address] Referral (Received routine paper referral - May) [...] Description 07/07/2024 10:20 AM EDT Office Visit [facility] - [facility] [address] [facility] [address] [place] [phone] Lewis Briggs MD [address] [facility] [address] [place] [address] Scheduled Referrals Name Type Priority Associated Diagnoses Order Schedule Ambulatory referral to Cardiology Outpatient Referral Routine Atrioventricular block, first degree Dizziness and giddiness Cardiac murmur, unspecified 1 Occurrences starting 05/18/2024 until 05/18/2025 documented as of this encounter Visit Diagnoses Diagnosis Atrioventricular block, first degree- Primary First degree atrioventricular block Dizziness and giddiness Cardiac murmur, unspecified documented in this encounter Care Teams Manufacturing Lead Relationship Specialty Start Date End Date José Miguel Espinoza MD [address] [place] [address] PCP - General Internal Medicine 03/31/24 documented as of this encounter
[2024-05-21 05:29] LABS: HBS Num1 > 1000.00 mIU/mL (0-7.99); HBc Num1 0.07 S/CO (0.00-0.79); HBsAGNum1 0.35 S/CO (0.00-0.99); Hepatitis B Core Antibody Nonreactive (Nonreactive); Hepatitis B Surface Antigen Negative (Negative); ~HepC Num1 0.14 S/CO (0.00-0.79); ~Hepatitis B Surface Antibody REACTIVE (Nonreactive); ~Hepatitis C Antibody Nonreactive (Nonreactive)
== END 2024-05-20 12:12 | disposition home or self-care (01) ==
LOC: HO.LAB 12:11
PROVIDERS: PCP Internal Medicine; Visit Provider Internal Medicine
DX: R79.89 Other specified abnormal findings of blood chemistry (principal)
CPT/HCPCS: 36415; 80076; 86704; 86706; 86803; 87340

== ENCOUNTER 2024-06-15 14:33 | Outpatient (AMB) | payer OTHER, SELFPAY ==
[2024-06-15 14:38] VITALS: BP 122/68; PULSE 70; O2SAT 98; BMI 32.8
--- NOTE | 2024-06-15 14:38 | MHC.PC.OV ---
Vital Signs 06/15/24 14:38 Height 5 ft 11 in Weight 235 lb BMI 32.8 BP 122/68 Blood Pressure Location Lt brachial Position Sitting Pulse 70 Pulse Source Pulse Oximeter Pulse Oximetry (%) 98 Oxygen Delivery Method Room Air Intake Visit Reasons: Right thigh pain Allergies Penicillins Adverse Reaction (Severe, Verified 06/15/24 14:39) Anxiety pineapple Adverse Reaction (Severe, Verified 06/15/24 14:39) swellling Medication List - Last Reconciled 06/15/24 by José Miguel Espinoza MD albuterol sulfate 90 mcg/actuation (Proventil HFA) 2 puffs inhalation Q4-6H PRN alprazolam 0.5 mg PO DAILY amlodipine 10 mg PO DAILY budesonide-formoterol 80-4.5 mcg/actuation (Symbicort) 2 puffs inhalation BID PRN cholecalciferol (vitamin D3) 25 mcg PO DAILY clonidine HCl 0.1 mg PO BEDTIME mohamud.stocking,knee,reg,xlrg 15-20 cm olmesartan 20 mg PO DAILY pantoprazole 40 mg PO DAILY psyllium husk 1 tbsp PO BID sildenafil 100 mg PO DIRECTED tamsulosin 0.4 mg PO BEDTIME tizanidine 2 mg PO .QHS PRN Tobacco use date assessed: 05/20/24 Fall risk assessment: No Falls in past year Last assessed Fall Risk: 06/15/24 Dental Screening Dental Screen Date: 03/18/24 [facility] Medical History Murmur Enlarged prostate Atelectasis GERD (gastroesophageal reflux disease) ZEO (obstructive sleep apnea) Extremity edema Asthma Surgical History History of knee replacement procedure of left knee Social History Housing: House Alcohol intake: never Patient Tobacco Use Status: Never used Tobacco Tobacco use type: Cigarette e-Cigarette/Vaping Use: Never Used Second Hand Smoke Exposure: No service: Yes ([employer] [id number] ) Current occupational status: retired Cognitive needs: No Hearing needs: No Vision needs: Yes Questionnaire PHQ-9 Over the last 2 weeks, how often have you been bothered by any of the following problems? 1. Little interest or pleasure in doing things: not at all 2. Feeling down, depressed, or hopeless: not at all 3. Trouble falling or staying asleep, or sleeping too much: not at all 4. Feeling tired or having little energy: not at all 5. Poor appetite or overeating: not at all 6. Feeling bad about yourself - or that you are a failure or have let yourself or your family down: not at all 7. Trouble concentrating on things, such as reading the newspaper or watching television: not at all 8. Moving or speaking so slowly that other people could have noticed. Or the opposite - being so fidgety or restless that you have been moving around a lot more than usual: not at all 9. Thoughts that you would be better off or of hurting yourself in some way: not at all Total score: 0 Depression Screening Interpretation: Negative Depression Screening Done: Yes Source: Developed by Drs. David Jeong, Jo Whitney, Cristofer Meyer and colleagues, with an educational esther from [employer]. Thrive Questionnaire Date Thrive assessed: 03/18/24 I am a: Patient What is your living situation today?: I have a steady place to live Within the past 12 months, did the food you bought not last and you didn't have the money to get more?: I choose not to answer this question Within the past 12 months, did you worry whether your food would run out before you got money to buy more?: I choose not to answer this question Do you have trouble paying for medicines?: No Do you have trouble getting transportation to medical appointments?: No Do you have trouble paying your heating and electricity bill?: No Do you have trouble taking care of your child, family member or friend?: No Do you have trouble with day-to-day activities such as bathing, preparing meals, shopping, managing finances, etc.?: No Are you currently unemployed and looking for a job?: No Are you interested in more education?: Yes Please select the resources that you would like help with: None Currently or been in a relationship where the following occur: I choose not to answer THRIVE Score: 0 AUDIT C Alcohol Use Questionnaire (AUDIT-C) 2. How many drinks containing alcohol do you have on a typical day when you are drinking?: 1 or 2 Total Score: 0 ALISON-7 AMB Questionnaire ALISON-7 Date ALISON - 7 assessed: 03/18/24 Source: Developed by Drs. David Jeong, Jo Whitney, Cristofer Meyer and colleagues, with an educational esther from [employer]. Physical exam (Primary Care) Vital Signs: Last Vital Signs Pulse 70 06/15/24 14:38 BP 122/68 06/15/24 14:38 Pulse Ox 98 06/15/24 14:38 Oxygen Delivery Method Room Air 06/15/24 14:38 BMI result Body Mass Index 32.8 Tobacco/Smoking Status: Tobacco use Status Tobacco use date assessed 05/20/24 06/15/24 14:40 Patient Tobacco Use Status Never used Tobacco 06/15/24 14:40 Tobacco use type Cigarette 06/15/24 14:40 e-Cigarette/Vaping Use Never Used 06/15/24 14:40 PHQ-9: PHQ-9 Score PHQ-9: Total score 0 06/15/24 15:12 Depression Screening Interpretation: Negative Thrive Assessment: Date of Thrive Assessment Date Thrive assessed 03/18/24 06/15/24 14:40 Currently or been in a relationship where the following occur: I choose not to answer Const General: alert; No acute distress Eyes Conjunctivae: conjunctivae normal Resp Auscultation: clear to auscultation bilaterally Cardio Rate: regular rate Rhythm: regular rhythm GI Inspection: Yes normal to inspection Extrem General: Yes normal to inspection and No edema Coding Level of Care Code Est Pt Level 4 (85734) Diagnoses Obesity (BMI 30-39.9) E66.9 ZOE (obstructive sleep apnea) G47.33 Mild intermittent asthma without complication J45.20 Asthma complication type: uncomplicated Asthma persistence: intermittent Asthma severity: mild Primary hypertension I10 Hypertension type: primary hypertension Hypercholesterolemia E78.00 Hamstring strain S76.319A Assessment & Plan Assessment & Plan (1) Obesity (BMI 30-39.9): Code(s): E66.9 - Obesity, unspecified Category: Medical Plan: Diet and exercise (2) ZOE (obstructive sleep apnea): Comment: CPAP Code(s): G47.33 - Obstructive sleep apnea (adult) (pediatric) Category: Medical Plan: Continue to use the CPAP more than 4 hours a night and benefits from this. (3) Asthma: Code(s): J45.909 - Unspecified asthma, uncomplicated Category: Medical Qualifiers: Asthma complication type: uncomplicated Asthma persistence: intermittent Asthma severity: mild Qualified Code(s): J45.20 - Mild intermittent asthma, uncomplicated Plan: Patient on albuterol inhaler and Symbicort (4) Hypertension: Code(s): I10 - Essential (primary) hypertension Category: Medical Qualifiers: Hypertension type: primary hypertension Qualified Code(s): I10 - Essential (primary) hypertension Plan: Continue with blood pressure medication. Decrease salt intake and exercise on amlodipine 10 mg once a day clonidine 0.1 mg at bedtime olmesartan 20 mg once a day (5) Hypercholesterolemia: Code(s): E78.00 - Pure hypercholesterolemia, unspecified Category: Medical Plan: Avoid fried foods, chicken skin, eggs, butter margarine, pastries and meat. Be it pork or beef they have a lot of cholesterol LDL goal of less than 130 and triglyceride of less than 150 (6) Hamstring strain: Comment: right Code(s): S76.319A - Strain of muscle, fascia and tendon of the posterior muscle group at thigh level, unspecified thigh, initial encounter Category: Medical Plan History of Present Illness The patient is a 63-year-old male presenting with general health concerns and symptom assessment. The primary focus was on discomfort while sitting, mainly in the buttock region, described as tightness without significant pain, leading to a consideration of muscular etiology as opposed to nerve involvement. The patient has a history of asthma, sleep apnea treated successfully with CPAP, GERD, and hypercholesterolemia, currently managed with medications and lifestyle changes. There is a persistent concern about liver health following a liver function test showing elevated AST levels, suggesting possible nonalcoholic steatohepatitis, though the patient denies alcohol consumption. The patient engages in regular physical exercise and has reported significant weight loss, although still classed as obese. The patient has been proactive in managing health through active participation in lifestyle changes, such as regular gym attendance and dietary adjustments. Continued emphasis on hydration and monitoring is noted, given past instances of leg cramps suggested to be related to hydration status and electrolyte management. Health Maintenance - CPAP therapy: Consistent use of more than 4 hours per night - Lifestyle modifications: Regular exercise, dietary attention to weight management - Weight loss efforts: Reduction from >280 lbs, goal of further reduction for improved health markers - Monitoring of potential nonalcoholic steatohepatitis: Follow-up testing, including ultrasound - Management of chronic conditions: Albuterol inhaler, Symbicort, blood pressure management with amlodipine, clonidine, olmesartan, cholesterol management with goal LDL <130 Social History - Regular gym attendance as part of lifestyle modification efforts - No alcohol consumption - No smoking - Attention to diet and exercise in response to prior weight status Review of Systems - Musculoskeletal: Reports discomfort while sitting, described as tightness in buttocks area - Neurological: Denies significant pain related to nerve involvement - Gastrointestinal: Denies alcohol use, reports GERD - Respiratory: Reports using CPAP regularly without issues - Psychiatric: Denies significant anxiety concerns at present Physical Exam Results - Labs: Elevated AST at 43, normal potassium and sodium levels - Test: Pending liver ultrasound for evaluation of suspected fatty liver disease Plan The patient reports discomfort in the buttocks while seated, which appears muscular. Muscle relaxants for night use were offered if discomfort persists. Management of sleep apnea with CPAP is beneficial; hypertension is maintained with current medications. The patient is encouraged to continue daily exercise and weight loss efforts, crucial given elevated AST levels concerning potential fatty liver disease. Ongoing hydration is essential to alleviate muscular discomfort. Pending liver ultrasound will guide further actions on liver health, emphasizing the importance of lifestyle in management. Long-term goals include maintaining fitness levels, improving cardiovascular health, and monitoring weight loss progression. Patient was informed and verbally consented to the use of an ambient scribe for clinic note documentation during this visit. Discussion Notes I discussed with the patient the importance of continuing lifestyle changes, including regular exercise and a balanced diet, to support overall health and weight management, which also aides in managing nonalcoholic fatty liver disease. We reviewed liver test results, noting the elevation in AST levels and the plan to complete an ultrasound for further assessment. I reiterated the benefits of current hypertension management and encouraged the patient to maintain CPAP therapy adherence to manage sleep apnea. The muscular discomfort while sitting was attributed to possible muscular stress, and the potential use of nighttime muscle relaxants was explored. We addressed the importance of hydration for resolving muscular discomforts noted. Follow-up on the liver ultrasound and continued monitoring of liver enzyme levels were advised. Patient Instructions - Continue regular use of CPAP for at least 4 hours per night. - Maintain an active lifestyle with regular exercise to support weight loss. - Focus on a heart-healthy diet to assist in weight and cholesterol management. - Stay well-hydrated to prevent muscle cramps. - Follow up with a liver ultrasound as scheduled. - Monitor for any changes or persistent discomfort and use muscle relaxants at night if necessary. - Keep a record of medication adherence and notify of any adverse effects. Orders: Orders Magnesium Today M79.662 - Pain in left lower leg Medications: New tizanidine 2 mg PO .QHS PRN 30 tabs 0RF muscle spasticity S76.319A - Strain of muscle, fascia and tendon of the posterior muscle group at thigh level, unspecified thigh, initial encounter
--- OUTSIDE RECORDS SUMMARY | 2024-06-15 16:05 | XMS_ITS | Clinical Summary ---
Author Organization [facility] Address [address] [place] [address] Phone Care Team Providers Care Legal Stenographer Name Role Phone José Miguel Espinoza MD Primary Care Provider [phone] Allergies Active Allergy Reactions Criticality Noted Date Comments Penicillins 03/30/2024 Pineapple 03/30/2024 Medications albuterol HFA (PROAIR HFA ; PROVENTIL HFA ; VENTOLIN HFA) 90 mcg/actuation inhaler Inhale 2 puffs by mouth every 4 (four) hours if needed for shortness of breath. Active ALPRAZolam (XANAX) 0.25 mg tablet Take 1 tablet (0.25 mg total) by mouth 1 (one) time each day. Max Daily Amount: 0.25 mg 5 Active amLODIPine (NORVASC) 10 mg tablet Take 1 tablet (10 mg total) by mouth 1 (one) time each day. 4 Active atenoloL (TENORMIN) 100 mg tablet Take 1 tablet (100 mg total) by mouth 1 (one) time each day. Active cetirizine (ZyrTEC) 10 mg tablet Take 1 tablet (10 mg total) by mouth 1 (one) time each day. 4 Active Vitamin D3 25 mcg (1,000 unit) capsule Take 1 capsule (1,000 Units total) by mouth 1 (one) time each day. 02/05/202 5 Active olmesartan (BENICAR) 20 mg tablet Take 1 tablet (20 mg total) by mouth 1 (one) time each day. Active omeprazole (PriLOSEC) [address] capsule Take 1 capsule (20 mg total) by mouth 1 (one) time each day. before a meal Active sildenafiL (VIAGRA) 50 mg tablet Take 1 tablet (50 mg total) by mouth 1 (one) time each day if needed. Active tamsulosin (FLOMAX) 0.4 mg 24 hr capsule Take 1 capsule (0.4 mg total) by mouth at bedtime. Active budesonide-form oteroL (SYMBICORT) 80-4.5 mcg/actuation inhaler Inhale 2 puffs by mouth 2 (two) times a day. Rinse mouth with water after use to reduce aftertaste and incidence of candidiasis. Do not swallow. Active hydrOXYzine pamoate (VISTARIL) 50 mg capsule Take 1 capsule (50 mg total) by mouth 3 (three) times a day if needed for itching. Active Encounters Date Type Department Care Team Description 04/03/2024 5:38 PM EST - 04/03/2024 11:59 PM [facility] Hospital Encounter [facility] MRI [address] [place] [phone] Headache, unspecified Discharge Disposition: Home or Self Care 03/31/2024 7:16 AM EST - 03/31/2024 11:06 AM [facility] Emergency [facility] Emergency [address] [place] [phone] Pipo Haynes MD Vatrenko, Konstantin, MD Recurrent headache (Primary Dx); Benzodiazepine withdrawal with complication ([facility] V24, [facility] V28) Discharge Disposition: Home or Self Care 03/25/2024 Telephone [facility] [address] [facility] [address] [place] [phone] Caren Otoole PA Referral (Received routine paper referral - May) from Last 3 Months Medical History Medical History Date Comments Hypertension Asthma GERD (gastroesophageal reflux disease) Neutropenia (CMS/HCC V24) Hiatal hernia Social History Tobacco Use Types [...] Description 07/07/2024 10:20 AM EDT Office Visit [facility] [address] [facility] [address] [place] [address] Lewis Briggs MD [address] [facility] [address] [place] [address] Health Maintenance Due Date Last Done Comments [...] Signed Date: 04/04/2024 10:25 ET Workstation ID: [id number] Transcribed By: Self Edit Transcribed Date: 04/04/2024 [...] Signed Date: 04/04/2024 10:25 ET Workstation ID: [id number] Transcribed By: Self Edit Transcribed Date: 04/04/2024 [...] GEMUSE QTc 418 ms GEMUSE P Wave [place] 22 degrees GEMUSE R [place] 66 degrees GEMUSE T [place] 22 degrees GEMUSE ECG Interpretation Sinus bradycardia with 1st degree A-V block Otherwise normal ECG When compared with ECG of 30-MAR-2024 20:30, (unconfirmed) No significant change was found Confirmed by Tacos GUTIERREZ JOHN ([id number]) on 03/31/2024 7:55:08 AM GEMUSE 03/30/2024 10:0 6 PM EST 03/31/2024 7:55 AM EST us Pipo Haynes MD ECG ORDERABLES Final Result Performing Organization Address [facility] de Phone Number GEMUSE * Troponin I high sensitivity (03/30/2024 10:04 PM EST) Only the most recent of2 resultswithin the time period is included. Pathologist [facility] High Sensitivity Troponin I 43 <=79 ng/L [...] ORDERABLES Final Res ult Performing Organization Address City/[facility]/ZIP Co de Phone Number [facility] [address] [place] [address], [place] [phone] * XR Chest 2 Views (03/30/2024 9:14 PM EST) Anatomical Region Laterality Modality Body Radiographic Rosemary ging 03/31/2024 8:08 AM EST Impressions 03/31/2024 8:09 AM EST No acute findings. -------- FINAL REPORT -------- Dictated By: Edmond Vazquez Dictated Date: 03/31/2024 08:08 ET Assigned Physician: Edmond Vazquez Reviewed and Electronically Signed By: Edmond Vazquez Signed Date: 03/31/2024 08:09 ET Workstation ID: [id number] Transcribed By: Self Edit Transcribed Date: 03/31/2024 [...] Signed Date: 03/31/2024 08:09 ET Workstation ID: [id number] Transcribed By: Self Edit Transcribed Date: 03/31/2024 08:08 ET Pipo Haynes MD IMG XR PROCEDURES Final Result * (ABNORMAL) CBC auto differential (03/30/2024 8:36 PM EST) WBC 3.4(L) 4.8 - 10.8 K/[facility] LAB HEMETOLOGY METHOD 03/30/2024 9:07 PM EST [facility] RBC 4.60 4.50 - 5.50 M/mcL LAB HEMETOLOGY METHOD 03/30/2024 9:07 PM [facility] Hemoglobin 13.1(L) 13.5 - 17.5 g/dL LAB HEMETOLOGY METHOD 03/30/2024 9:07 PM [facility] Hematocrit 40.4(L) 42.0 - 54.0 % LAB HEMETOLOGY METHOD 03/30/2024 9:07 PM [facility] MCV 87.6 79.0 - 98.0 FL LAB HEMETOLOGY METHOD 03/30/2024 9:07 PM [facility] MCH 28.4 27.0 - 32.0 pcg LAB HEMETOLOGY METHOD 03/30/2024 9:07 PM [facility] MCHC 32.4 32.0 - 37.0 g/dL LAB HEMETOLOGY METHOD 03/30/2024 9:07 PM [facility] RDW 13.5 11.0 - 15.0 % LAB HEMETOLOGY METHOD 03/30/2024 9:07 PM [facility] Platelets 230 130 - 400 K/mcL LAB HEMETOLOGY METHOD 03/30/2024 9:07 PM [facility] MPV 10.3 7.0 - 11.0 FL LAB HEMETOLOGY METHOD 03/30/2024 9:07 PM [facility] NRBC 0.0 <1.0 % LAB HEMETOLOGY METHOD 03/30/2024 9:07 PM [facility] NRBC Absolute 0.00 <0.10 K/mcL LAB HEMETOLOGY METHOD 03/30/2024 9:07 PM [facility] Neutrophils Relative 46.9 % LAB HEMETOLOGY METHOD 03/30/2024 9:07 PM [facility] Lymphocytes Relative 34.9 % LAB HEMETOLOGY METHOD 03/30/2024 9:07 PM EST [facility] Monocytes Relative 13.1 % LAB HEMETOLOGY METHOD 03/30/2024 9:07 PM [facility] Eosinophils Relative 3.6 % LAB HEMETOLOGY METHOD 03/30/2024 9:07 PM [facility] Basophils Relative 1.2 % LAB HEMETOLOGY METHOD 03/30/2024 9:07 PM [facility] Immature Granulocytes Relative 0.3 % LAB HEMETOLOGY METHOD 03/30/2024 9:07 PM [facility] Neutrophils Absolute 1.57 1.50 - 7.00 K/mcL LAB HEMETOLOGY METHOD 03/30/2024 9:07 PM [facility] Lymphocytes Absolute 1.17 1.00 - 5.00 K/mcL LAB HEMETOLOGY METHOD 03/30/2024 9:07 PM [facility] Monocytes Absolute 0.44 0.20 - 1.00 K/mcL LAB HEMETOLOGY METHOD 03/30/2024 9:07 PM [facility] Eosinophils Absolute 0.12 0.00 - 0.50 K/mcL LAB HEMETOLOGY METHOD 03/30/2024 9:07 PM [facility] Basophils Absolute 0.04 0.00 - 0.20 K/mcL LAB HEMETOLOGY METHOD 03/30/2024 9:07 PM [facility] Immature Granulocytes Absolute 0.01 0.00 - 0.03 K/mcL LAB HEMETOLOGY METHOD 03/30/2024 9:07 PM [facility] Blood Venous blood specimen / Unknown Venipuncture / Unknown 03/30/2024 8:36 PM EST 03/30/2024 9:00 PM EST Pipo Haynes MD LAB BLOOD ORDERABLES Final Res ult [facility] [address] [place] [address], [place] [phone] * Magnesium (03/30/2024 8:36 PM EST) [facility] Magnesium 2.2 1.9 - 2.6 mg/dL LAB CHEMISTRY METHOD 03/30/2024 9:49 PM EST [facility] Blood Venous blood specimen / Unknown Venipuncture / Unknown 03/30/2024 8:36 PM EST 03/30/2024 9:00 PM EST us Pipo Haynes MD LAB BLOOD ORDERABLES Final Res ult Performing Organization Address City/[facility]/ZIP Co de Phone Number [facility] [address] [place] [address], [place] [phone] * Lipase (03/30/2024 8:36 PM EST) [facility] Lipase 14 13 - 75 unit/L LAB CHEMISTRY METHOD 03/30/2024 9:49 PM EST [facility] Blood Venous blood specimen / Unknown Venipuncture / Unknown 03/30/2024 8:36 PM EST 03/30/2024 9:00 PM EST us Pipo Haynes MD LAB BLOOD ORDERABLES Final Res ult Performing Organization Address City/[facility]/ZIP Co de Phone Number [facility] [address] [place] [address], [place] [phone] * (ABNORMAL) Comprehensive metabolic panel (03/30/2024 8:36 PM EST) [facility] Sodium 140 133 - 145 mmol/L LAB CHEMISTRY METHOD 03/30/2024 9:49 PM EST [facility] Potassium 4.0 3.5 - 5.5 mmol/L LAB CHEMISTRY METHOD 03/30/2024 9:49 PM EST [facility] Chloride 106 96 - 110 mmol/L LAB CHEMISTRY METHOD 03/30/2024 9:49 PM [facility] CO2 26 21 - 32 mmol/L LAB CHEMISTRY METHOD 03/30/2024 9:49 PM [facility] Anion Gap 8 3 - 11 LAB CHEMISTRY METHOD 03/30/2024 9:49 PM [facility] Glucose 112(H) 70 - 100 mg/dL LAB CHEMISTRY METHOD 03/30/2024 9:49 PM [facility] BUN 12 5 - 25 mg/dL LAB CHEMISTRY METHOD 03/30/2024 9:49 PM [facility] Creatinine 1.15 0.70 - 1.30 mg/dL LAB CHEMISTRY METHOD 03/30/2024 9:49 PM [facility] eGFR 71 >=60 mL/min/1. 73m2 LAB CHEMISTRY METHOD 03/30/2024 9:49 PM [facility] Comment:Calculation based on the??Chronic Kidney Disease Epidemiology Collaboration (CKD-EPI) equation refit??without adjustment for race. BUN/Creatinine Ratio 10.4 LAB CHEMISTRY METHOD 03/30/2024 9:49 PM [facility] Calcium 9.0 8.5 - 10.5 mg/dL LAB CHEMISTRY METHOD 03/30/2024 9:49 PM [facility] AST (SGOT) 44(H) 10 - 42 unit/L LAB CHEMISTRY METHOD 03/30/2024 9:49 PM [facility] ALT (SGPT) 28 10 - 60 unit/L LAB CHEMISTRY METHOD 03/30/2024 9:49 PM [facility] Alkaline Phosphatase 78 42 - 121 unit/L LAB CHEMISTRY METHOD 03/30/2024 9:49 PM [facility] Total Protein 7.1 6.0 - 8.0 g/dL LAB CHEMISTRY METHOD 03/30/2024 9:49 PM [facility] Albumin 3.8 3.2 - 5.0 g/dL LAB CHEMISTRY METHOD 03/30/2024 9:49 PM EST [facility] Total Bilirubin 0.6 0.0 - 1.4 mg/dL LAB CHEMISTRY METHOD 03/30/2024 9:49 PM EST [facility] ([facility] Blood Venous blood specimen / Unknown Venipuncture / Unknown 03/30/2024 8:36 PM EST 03/30/2024 9:00 PM EST us Pipo Haynes MD LAB BLOOD ORDERABLES Final Res ult [facility] ([facility] [address] [place] [address], from Last [address] [facility] Care Teams Legal Stenographer Relationship Specialty Start Date End Date José Miguel Espinoza MD PCP - General Internal Medicine 03/31/24
--- OUTSIDE RECORDS SUMMARY | 2024-06-15 16:05 | XMS_ITS | Data Portability ---
Author Organization [facility] [address] Address [address] [place] [address] Care Team Providers Care Pricing Strategist Name Role Phone SLADE EM Primary Care Provider [phone] Assessment No assessment recorded. Plan of Treatment Reminders Order Date Submit Date Provider Last Modified By Organization Details Last Modified Time Details Appointments None recorded. Lab urinalysis, dipstick 2022 [email or web address], [address] [place] [address], [place], [address], 3 16:34:09 culture, urine 2022 023 [email or web address], [address] [place] [address], [place], [address], 3 08:07:29 Referral urologist referral 2022 023 [email or web address] 26 Not available 3 09:08:28 Procedures None recorded. Surgeries None recorded. Imaging None recorded. Medication Orders Anusol-HC 25 mg rectal suppository 2022 023 [email or web address] [id number], [address] [place], [address], 3 08:13:41 Macrobid 100 mg capsule 2022 023 [email or web address] [id number], [address] [place], [address], 16:10:01 Patient TargetsNo targets recorded. Patient Instructions Encounter Date Encounter Id Patient Instructions Last Modified By Organization Details Last Modified Time 09/02/2022 [id number] hemorrhoids: car e instructions [email or web address] Not available 09/02/2022 16:47:47 Reason for Referral Urologist Referral for Incre ased frequency of urination Referring Physician: Chad Forman, Urgent Care, Encounter Date: 04/27/2022 Results Created Date Observation Date Name Description Value Unit Range Abnormal Flag Note LastModifiedBy Organization Detail LastModifiedTime 04/28/1904/29/2022 URINE CULTU RE, ROUTI NE urine culture, routine FINAL REPORT Not Available [facility] ([facility]) [address] [facility], [place], [address], 04/29/2022 08:07:29 04/28/19 23 04/29/2022 URINE CULTU RE, ROUTI NE result 1 NO GROWTH Not Available [facility] ([facility]) [address] [facility], [place], [address], 04/29/2022 08:07:29 04/28/19 23 04/27/2022 urina lysis , dipst ick Unknown Analyte Yellow Not Available _ [facility] [address], [address], 04/27/2022 15:44:07 04/28/19 23 04/27/2022 urina lysis , dipst ick Unknown Analyte Clear Not Available _ [facility] [address], [address], 04/27/2022 15:44:07 04/28/19 23 04/27/2022 urina lysis , dipst ick Unknown Analyte Negati ve Not Available tania jay [address], [address], 04/27/2022 15:44:07 04/28/19 23 04/27/2022 urina lysis , dipst ick Unknown Analyte Negati ve Not Available [facility] [address] [place] [address], [place], [address], 04/27/2022 15:44:07 04/28/19 23 04/27/2022 urina lysis , dipst ick Unknown Analyte Negati ve Not Available donnao pe [address], [place], [address], 04/27/2022 15:44:07 04/28/19 23 04/27/2022 urina lysis , dipst ick Unknown Analyte 1.025 Not Available donnaope [address], [place], [address], 04/27/2022 15:44:07 04/28/19 23 04/27/2022 urina lysis , dipst ick Unknown Analyte Small Not Available [facility] [address], [place], [address], 04/27/2022 15:44:07 04/28/19 23 04/27/2022 urina lysis , dipst ick Unknown Analyte 6.5 Not Available [facility] [address], [place], [address], 04/27/2022 15:44:07 04/28/19 23 04/27/2022 urina lysis , dipst ick Unknown Analyte 30 mg/dL Not Available donna[facility] pe [address], [place], [address], 04/27/2022 15:44:07 04/28/19 23 04/27/2022 urina lysis , dipst ick Unknown Analyte 0.2 E.U./d L Not Available [facility], [place], [address], 04/27/2022 15:44:07 04/28/19 23 04/27/2022 urina lysis , dipst ick Unknown Analyte Negati ve Not Available [address] [place] [address], [address], 04/27/2022 15:44:07 04/28/19 23 04/27/2022 urina lysis , dipst ick Unknown Analyte Negati ve Not Available [address] [place] [address], [address], 04/27/2022 15:44:07 Result Notes None recorded. Problems Name Problem SNOMED Code Status Onset Date Resolution Date Notes Provider Name and Address Organization Details Recorded Time Hypertensive disorder 59858252 Active 2022 WILLIAM palomino, PA - [facility] 3 15:50:11 Hypercholester olemia 61927517 Active 2022 WILLIAM CARRILLO null, PA - [facility] 3 15:50:18 Gastroesophage al reflux disease 779765502 Active 2022 WILLIAM CARRILLO null, PA - [facility] 3 15:50:32 Anxiety 71995607 Active 2022 WILLIAM NOBLEICA null, PA - [facility] 3 15:50:43 Asthma 306643943 Active 2022 WILLIAM CARRILLO null, PA - [facility] 3 15:51:05 Sleep apnea 73000229 Active 2022 WILLIAM NOBLEICA null, PA - [...] Name and Address Organization Details Recorded Time 875538 amoxicill in medicatio n itching Not available [...] Updated DateTime 3 180.34 cm 34.7 kg/m2 616900. 5 g 97.1 [degF] 95 % 95 [...] Updated DateTime 3 180.34 cm 34.7 kg/m2 057014. 5 g 97 % 97 % 71 /min 18 /min 98.5 [degF] 128 mm[Hg] 78 mm[Hg] GURU EMILIANO PA - [facility] 3 16:12:20 Social History Question Answer Notes LastModified by Organizat ion Details LastModified Time Tobacco Smoking Status Never Smoker WILLIAM CARRILLO candelario PA - [facility] 04/27/2022 15:52:41 What Is Your Level Of Alcohol Consumption? None [email or web address] Information not available 04/27/2022 Do You Use Any Illicit Or Recreational Drugs? No [email or web address] Information not available 04/27/2022 Have You Recently Traveled Abroad? No [email or web address] Information not available 04/27/2022 Do You Or Have You Ever Used Any Other Forms Of Tobacco Or Nicotine? No Information not available 04/27/2022 Sex: Unknown Functional Status None recorded. Mental Status None recorded. Family History Relationship Description Onset Age of this Age Resolved Age Notes LastModified by Organization Details LastModified Time Mother Heart disease [email or web address] Not available 2022 15:52:02 Mother Diabetes mellitus [email or web address] Not available 2022 15:52:09 Mother Myocardial infarction [email or web address] Not available 04/27 15:52:23 Father Myocardial infarction [email or web address] Not available 04/27 15:52:22 Medical History No medical history recorded. Past Encounters Encounter ID Performer Location Encounter Start Date Encounter Closed Date Diagnosis/Indication Diagnosis SNOMED-CT Code Diagnosis ICD10 Code Diagnosis Note [id number] [address] [facility] [address] [place] [address] 11/15/2018 19:08:29 11/15/2018 19:20:19 [id number] [address] [place] [address] 01/12/2017 19:30:06 01/12/2017 19:59:01 [id number] [address] [place] [address] 06/13/2019 14:32:24 06/13/2019 15:40:34 [id number] [address] [place] [address] 04/27/2017 18:40:25 04/27/2017 19:31:53 [id number] [address] [place] [address] 08/05/2021 08:35:18 08/05/2021 10:27:26 [id number] [address] [place] [address] 06/04/2016 19:47:53 06/04/2016 20:19:56 [id number] [address] [place] [address] 05/13/2020 17:53:47 05/13/2020 18:56:52 [id number] [address] [place] [address] 03/07/2018 19:42:56 03/07/2018 20:23:16 [id number] [address] [place] [address] 03/13/2015 15:25:32 03/13/2015 16:30:45 [id number] [place] [address] 07/29/2021 15:41:12 07/29/2021 18:16:19 [id number] [address] [facility] [address] [place] [address] 08/20/2017 18:49:49 08/20/2017 19:53:37 [id number] [address] [facility] [address] [place] [address] 06/18/2020 19:37:45 06/18/2020 20:14:38 [id number] Chad Sethdionicio _[facility] [address] [place] [address] 04/27/2022 12:51:09 04/27/2022 16:36:40 Increased frequency of urination 766365516 R35.0 suspect UTISigns and Symptoms c/w UTIUA [...] agreement with the plan as outlined above. [id number] Marcelino Lea MD [address] [facility] [place] [address] 09/02/2022 15:20:17 09/02/2022 16:50:35 Hemorrhoids 87929742 K64.9 likely internal hemorrhoid s as per [...] Amaya Member ID Guarantor Name 06/18/[address] [facility] [id number] Norbert Cabrales [id number] Norbert Barclay 07/29/[address] [facility] [id number] Norbert Cabrales [id number] Norbert Barclay 08/05/[address] [facility] [id number] Norbert Cabrales [id number] Norbert Barclay 04/27/[address] [facility] [id number] Norbert Cabrales [id number] Norbert Barclay 09/02/[address] [facility] [id number] Norbert Cabrales [id number] Norbert Barclay Notes Date Note Type Note Provider Name and Address Organization Details Recorded Time 04/27/2022 text/html Urinary Problems-MaleReporte d bypatient.Notes:61 yo male c/o frequency in urination x couple days--no burning, no pain. + decreased stream no increased urgencyno incontinenceno pressureno malodorno blood in urineno back painno rashno feverno nausea or vomitingno MS change Chad Forman DO [address] [place], [address], PA [employer] 04/27/2022 16:35:50 09/02/2022 text/html Went to his PCP 2 days ago and told he had internal hemorrhoids. Told to take fiber drink only. Patient concerned and wants to be checked again. Feels anal discomfort. NO blood in stool or when wipes. no pain with defecation. Had colonoscopy 02/01. Marcelino Lea MD [address] [place], [address], PA [employer] [facility] 09/02/2022 18:39:03
== END 2024-06-15 16:40 | disposition home or self-care (01) ==
LOC: HO.HMCH 14:34
PROVIDERS: PCP Internal Medicine; Visit Provider Internal Medicine
DX: G47.33 Obstructive sleep apnea (adult) (pediatric) (principal); S76.319A Strain of muscle, fascia and tendon of the posterior muscle group at thigh level, unspecified thigh, initial encounter; E66.9 Obesity, unspecified; Z68.32 Body mass index [BMI] 32.0-32.9, adult; J45.20 Mild intermittent asthma, uncomplicated; I10 Essential (primary) hypertension; E78.00 Pure hypercholesterolemia, unspecified

== ENCOUNTER → 2024-06-15 14:33 | Outpatient (BNVA) | payer OTHER, SELFPAY | PROVIDERS: PCP Internal Medicine; Visit Provider Internal Medicine ==

== ENCOUNTER 2024-06-18 08:59 | Outpatient (REF) | payer OTHER, SELFPAY ==
--- NOTE | ~2024-06-18 | US_ITS ---
CLINICAL HISTORY: R79.89 - Other specified abnormal findings of blood chemistry --- Additional Notes or Special Instructions: Elevated LFTs US abdomen complete Comparison: None Findings: The visualized pancreas is normal. The aorta and inferior vena cava are normal caliber. Mild atherosclerotic disease noted in the aorta. The liver is normal in size and echotexture. There is no intrahepatic bile duct dilatation. The common duct is 5 mm in diameter. Distended gallbladder with innumerable gallstones. No significant wall thickening. No pericholecystic fluid. There is no sonographic Zelaya sign. The right kidney is 10.7 cm in length. The left kidney is 10.8 cm in length. Midpole renal cysts measuring 1.6 x 1.7 x 1.5 cm, simple appearing. The spleen is normal. No ascites. IMPRESSION: Cholelithiasis without evidence for cholecystitis. This document has been electronically signed by: Edmond Mendez MD on 06/19/2024 05:55:30
--- OUTSIDE RECORDS SUMMARY | 2024-06-18 09:25 | XMS_ITS | Clinical Summary ---
Author Organization [facility] Address [address] [place] [address] Phone Care Team Providers Care Leather Stitcher Name Role Phone José Miguel Espinoza MD Primary Care Provider [phone] Allergies Active Allergy Reactions Criticality Noted Date [...] 5:38 PM EST - 04/03/2024 11:59 PM [facility] Hospital Encounter [facility] MRI [address] [place] [phone] Headache, unspecified Discharge Disposition: Home or Self Care 03/31/2024 7:16 AM EST - 03/31/2024 11:06 AM [facility] Emergency [facility] Emergency [address] [place] [phone] Pipo Haynes MD Vatrenko, Konstantin, MD Recurrent headache (Primary Dx); Benzodiazepine withdrawal with complication ([facility] V24, [facility] V28) Discharge Disposition: Home or Self Care 03/25/2024 Telephone [facility] [address] [facility] [address] [place] [phone] Caren Otoole PA Referral (Received routine paper [...] 07/07/2024 10:20 AM EDT Office Visit [facility] [address] [facility] [address] [place] [address] Lewis Briggs MD [address] [facility] [address] [place] [address] Health Maintenance Due Date Last Done Comments [...] Signed Date: 04/04/2024 10:25 ET Workstation ID: [id number] Transcribed By: Self Edit Transcribed Date: 04/04/2024 [...] Signed Date: 04/04/2024 10:25 ET Workstation ID: [id number] Transcribed By: Self Edit Transcribed Date: 04/04/2024 [...] GEMUSE QTc 418 ms GEMUSE P Wave Yale 22 degrees GEMUSE R Yale 66 degrees GEMUSE T Yale 22 degrees GEMUSE ECG Interpretation Sinus bradycardia with 1st degree A-V block Otherwise normal ECG When compared with ECG of 30-MAR-2024 20:30, (unconfirmed) No significant change was found Confirmed by Tacos GUTIERREZ JOHN ([id number]) on 03/31/2024 7:55:08 AM GEMUSE 03/30/2024 10:0 6 PM EST 03/31/2024 7:55 AM EST us Pipo Haynes MD ECG ORDERABLES Final Result Performing Organization Address [facility] de Phone Number GEMUSE * Troponin I high sensitivity (03/30/2024 10:04 PM EST) Only the most recent of2 resultswithin the time period is included. Pathologist [facility] High Sensitivity Troponin I 43 <=79 [...] ORDERABLES Final Res ult Performing Organization Address City/[facility]/ZIP Co de Phone Number [facility] [address] [place] [address], [place] [phone] * XR Chest 2 Views (03/30/2024 9:14 PM EST) Anatomical Region Laterality Modality Body Radiographic Rosemary ging 03/31/2024 8:08 AM EST Impressions 03/31/2024 8:09 AM EST No acute findings. -------- FINAL REPORT -------- Dictated By: Edmond Vazquez Dictated Date: 03/31/2024 08:08 ET Assigned Physician: Edmond Vazquez Reviewed and Electronically Signed By: Edmond Vazquez Signed Date: 03/31/2024 08:09 ET Workstation ID: [id number] Transcribed By: Self Edit Transcribed Date: 03/31/2024 [...] Signed Date: 03/31/2024 08:09 ET Workstation ID: [id number] Transcribed By: Self Edit Transcribed Date: 03/31/2024 08:08 ET Pipo Haynes MD IMG XR PROCEDURES Final Result * (ABNORMAL) CBC auto differential (03/30/2024 8:36 PM EST) WBC 3.4(L) 4.8 - 10.8 K/[facility] LAB HEMETOLOGY METHOD 03/30/2024 9:07 PM EST [facility] RBC 4.60 4.50 - 5.50 M/mcL LAB HEMETOLOGY METHOD 03/30/2024 9:07 PM [facility] Hemoglobin 13.1(L) 13.5 - 17.5 g/dL LAB HEMETOLOGY METHOD 03/30/2024 9:07 PM [facility] Hematocrit 40.4(L) 42.0 - 54.0 % LAB HEMETOLOGY METHOD 03/30/2024 9:07 PM [facility] MCV 87.6 79.0 - 98.0 FL LAB HEMETOLOGY METHOD 03/30/2024 9:07 PM [facility] MCH 28.4 27.0 - 32.0 pcg LAB HEMETOLOGY METHOD 03/30/2024 9:07 PM [facility] MCHC 32.4 32.0 - 37.0 g/dL LAB HEMETOLOGY METHOD 03/30/2024 9:07 PM [facility] RDW 13.5 11.0 - 15.0 % LAB HEMETOLOGY METHOD 03/30/2024 9:07 PM [facility] Platelets 230 130 - 400 K/mcL LAB HEMETOLOGY METHOD 03/30/2024 9:07 PM [facility] MPV 10.3 7.0 - 11.0 FL LAB HEMETOLOGY METHOD 03/30/2024 9:07 PM [facility] NRBC 0.0 <1.0 % LAB HEMETOLOGY METHOD 03/30/2024 9:07 PM [facility] NRBC Absolute 0.00 <0.10 K/mcL LAB HEMETOLOGY METHOD 03/30/2024 9:07 PM [facility] Neutrophils Relative 46.9 % LAB HEMETOLOGY METHOD 03/30/2024 9:07 PM [facility] Lymphocytes Relative 34.9 % LAB HEMETOLOGY METHOD 03/30/2024 9:07 PM EST [facility] Monocytes Relative 13.1 % LAB HEMETOLOGY METHOD 03/30/2024 9:07 PM [facility] Eosinophils Relative 3.6 % LAB HEMETOLOGY METHOD 03/30/2024 9:07 PM [facility] Basophils Relative 1.2 % LAB HEMETOLOGY METHOD 03/30/2024 9:07 PM [facility] Immature Granulocytes Relative 0.3 % LAB HEMETOLOGY METHOD 03/30/2024 9:07 PM [facility] Neutrophils Absolute 1.57 1.50 - 7.00 K/mcL LAB HEMETOLOGY METHOD 03/30/2024 9:07 PM [facility] Lymphocytes Absolute 1.17 1.00 - 5.00 K/mcL LAB HEMETOLOGY METHOD 03/30/2024 9:07 PM [facility] Monocytes Absolute 0.44 0.20 - 1.00 K/mcL LAB HEMETOLOGY METHOD 03/30/2024 9:07 PM [facility] Eosinophils Absolute 0.12 0.00 - 0.50 K/mcL LAB HEMETOLOGY METHOD 03/30/2024 9:07 PM [facility] Basophils Absolute 0.04 0.00 - 0.20 K/mcL LAB HEMETOLOGY METHOD 03/30/2024 9:07 PM [facility] Immature Granulocytes Absolute 0.01 0.00 - 0.03 K/mcL LAB HEMETOLOGY METHOD 03/30/2024 9:07 PM [facility] Blood Venous blood specimen / Unknown Venipuncture / Unknown 03/30/2024 8:36 PM EST 03/30/2024 9:00 PM EST Pipo Haynes MD LAB BLOOD ORDERABLES Final Res ult [facility] [address] [place] [address], [place] [phone] * Magnesium (03/30/2024 8:36 PM EST) [facility] Magnesium 2.2 1.9 - 2.6 mg/dL LAB CHEMISTRY METHOD 03/30/2024 9:49 PM EST [facility] Blood Venous blood specimen / Unknown Venipuncture / Unknown 03/30/2024 8:36 PM EST 03/30/2024 9:00 PM EST us Pipo Haynes MD LAB BLOOD ORDERABLES Final Res ult Performing Organization Address City/[facility]/ZIP Co de Phone Number [facility] [address] [place] [address], [place] [phone] * Lipase (03/30/2024 8:36 PM EST) [facility] Lipase 14 13 - 75 unit/L LAB CHEMISTRY METHOD 03/30/2024 9:49 PM EST [facility] Blood Venous blood specimen / Unknown Venipuncture / Unknown 03/30/2024 8:36 PM EST 03/30/2024 9:00 PM EST us Pipo Haynes MD LAB BLOOD ORDERABLES Final Res ult Performing Organization Address City/[facility]/ZIP Co de Phone Number [facility] [address] [place] [address], [place] [phone] * (ABNORMAL) Comprehensive metabolic panel (03/30/2024 8:36 PM EST) [facility] Sodium 140 133 - 145 mmol/L LAB CHEMISTRY METHOD 03/30/2024 9:49 PM EST [facility] Potassium 4.0 3.5 - 5.5 mmol/L LAB CHEMISTRY METHOD 03/30/2024 9:49 PM EST [facility] Chloride 106 96 - 110 mmol/L LAB CHEMISTRY METHOD 03/30/2024 9:49 PM [facility] CO2 26 21 - 32 mmol/L LAB CHEMISTRY METHOD 03/30/2024 9:49 PM [facility] Anion Gap 8 3 - 11 LAB CHEMISTRY METHOD 03/30/2024 9:49 PM [facility] Glucose 112(H) 70 - 100 mg/dL LAB CHEMISTRY METHOD 03/30/2024 9:49 PM [facility] BUN 12 5 - 25 mg/dL LAB CHEMISTRY METHOD 03/30/2024 9:49 PM [facility] Creatinine 1.15 0.70 - 1.30 mg/dL LAB CHEMISTRY METHOD 03/30/2024 9:49 PM [facility] eGFR 71 >=60 mL/min/1. 73m2 LAB CHEMISTRY METHOD 03/30/2024 9:49 PM [facility] Comment:Calculation based on the??Chronic Kidney Disease Epidemiology Collaboration (CKD-EPI) equation refit??without adjustment for race. BUN/Creatinine Ratio 10.4 LAB CHEMISTRY METHOD 03/30/2024 9:49 PM [facility] Calcium 9.0 8.5 - 10.5 mg/dL LAB CHEMISTRY METHOD 03/30/2024 9:49 PM [facility] AST (SGOT) 44(H) 10 - 42 unit/L LAB CHEMISTRY METHOD 03/30/2024 9:49 PM [facility] ALT (SGPT) 28 10 - 60 unit/L LAB CHEMISTRY METHOD 03/30/2024 9:49 PM [facility] Alkaline Phosphatase 78 42 - 121 unit/L LAB CHEMISTRY METHOD 03/30/2024 9:49 PM [facility] Total Protein 7.1 6.0 - 8.0 g/dL LAB CHEMISTRY METHOD 03/30/2024 9:49 PM [facility] Albumin 3.8 3.2 - 5.0 g/dL LAB CHEMISTRY METHOD 03/30/2024 9:49 PM EST [facility] Total Bilirubin 0.6 0.0 - 1.4 mg/dL LAB CHEMISTRY METHOD 03/30/2024 9:49 PM EST [facility] Blood Venous blood specimen / Unknown Venipuncture / Unknown 03/30/2024 8:36 PM EST 03/30/2024 9:00 PM EST us Pipo Haynes MD LAB BLOOD ORDERABLES Final Res ult [facility] [address] [place] [address], from Last 3 Months Insurance [facility] Care Teams Leather Stitcher Relationship Specialty Start Date End Date José Miguel Espinoza MD PCP - General Internal Medicine 03/31/24
--- OUTSIDE RECORDS SUMMARY | 2024-06-18 09:25 | XMS_ITS | Data Portability ---
Author Organization [facility], [address] Address [address] [place] [address] Care Team Providers Care Cable Tool Operator Name Role Phone SLADE EM Primary Care Provider Assessment No assessment recorded. Plan of Treatment Reminders Order Date Submit Date Provider Last Modified By Organization Details Last Modified Time Details Appointments None recorded. Lab urinalysis, dipstick 2022 023 [email or web address] [facility], [address] [place] [address], [place], [address], 3 16:34:09 culture, urine 2022 023 [facility], [address] [place] [address], [place], [address], 3 08:07:29 Referral urologist referral 2022 023 [email or web address] 26 Not available 3 09:08:28 Procedures None recorded. Surgeries None recorded. Imaging None recorded. Medication Orders Anusol-HC 25 mg rectal suppository 2022 023 [email or web address] [id number], [address] [place], [address], 3 08:13:41 Macrobid 100 mg capsule 2022 023 [email or web address] [id number], [address] [place], [address], 16:10:01 Patient TargetsNo targets recorded. Patient Instructions Encounter Date Encounter Id Patient Instructions Last Modified By Organization Details Last Modified Time 09/02/2022 [id number] hemorrhoids: car e instructions [email or web address] Not available 09/02/2022 16:47:47 Reason for Referral Urologist Referral for Incre ased frequency of urination Referring Physician: Chad Forman, Urgent Care, Encounter Date: 04/27/2022 Results Created Date Observation Date Name Description Value Unit Range Abnormal Flag Note LastModifiedBy Organization Detail LastModifiedTime 04/28/1904/29/2022 URINE CULTU RE, ROUTI NE urine culture, routine FINAL REPORT Not Available [facility] ([facility]) [address] [facility], [place], [address], 04/29/2022 08:07:29 04/28/19 23 04/29/2022 URINE CULTU RE, ROUTI NE result 1 NO GROWTH Not Available [facility] ([facility]) [address] [facility], [place], [address], 04/29/2022 08:07:29 04/28/19 23 04/27/2022 urina lysis , dipst ick Unknown Analyte Yellow Not Available _ [facility] [address], [address], 04/27/2022 15:44:07 04/28/19 23 04/27/2022 urina lysis , dipst ick Unknown Analyte Clear Not Available _ [facility] [address], [address], 04/27/2022 15:44:07 04/28/19 23 04/27/2022 urina lysis , dipst ick Unknown Analyte Negati ve Not Available tania jay [address], [address], 04/27/2022 15:44:07 04/28/19 23 04/27/2022 urina lysis , dipst ick Unknown Analyte Negati ve Not Available [facility] [address] [place] [address], [place], [address], 04/27/2022 15:44:07 04/28/19 23 04/27/2022 urina lysis , dipst ick Unknown Analyte Negati ve Not Available donnao pe [address], [place], [address], 04/27/2022 15:44:07 04/28/19 23 04/27/2022 urina lysis , dipst ick Unknown Analyte 1.025 Not Available donnaope em[address], [place], [address], 04/27/2022 15:44:07 04/28/19 23 04/27/2022 urina lysis , dipst ick Unknown Analyte Small Not Available [facility] [address], [place], [address], 04/27/2022 15:44:07 04/28/19 23 04/27/2022 urina lysis , dipst ick Unknown Analyte 6.5 Not Available [facility] [address], [place], [address], 04/27/2022 15:44:07 04/28/19 23 04/27/2022 urina lysis , dipst ick Unknown Analyte 30 mg/dL Not Available donnao pe em[address], [place], [address], 04/27/2022 15:44:07 04/28/19 23 04/27/2022 urina lysis , dipst ick Unknown Analyte 0.2 E.U./d L Not Available [facility], [place], [address], 04/27/2022 15:44:07 04/28/19 23 04/27/2022 urina lysis , dipst ick Unknown Analyte Negati ve Not Available [address] [place] [address], [address], 04/27/2022 15:44:07 04/28/19 23 04/27/2022 urina lysis , dipst ick Unknown Analyte Negati ve Not Available [address] [place] [address], [address], 04/27/2022 15:44:07 Result Notes None recorded. Problems Name Problem SNOMED Code Status Onset Date Resolution Date Notes Provider Name and Address Organization Details Recorded Time Hypertensive disorder 34880243 Active 2022 WILLIAM palomino, [place] - [facility] 3 15:50:11 Hypercholester olemia 52750349 Active 2022 WILLIAM CARRILLO null, PA - [facility] 3 15:50:18 Gastroesophage al reflux disease 491321818 Active 2022 WILLIAM CARRILLO null, PA - [facility] 3 15:50:32 Anxiety 12353041 Active 2022 WILLIAM NOBLEICA null, PA - [facility] 3 15:50:43 Asthma 609831647 Active 2022 WILLIAM CARRILLO null, PA - [facility] 3 15:51:05 Sleep apnea 55667184 Active 2022 WILLIAM NOBLEICA null, PA - [...] Name and Address Organization Details Recorded Time 864397 amoxicill in medicatio n itching Not available [...] Updated DateTime 3 180.34 cm 34.7 kg/m2 578671. 5 g 97.1 [degF] 95 % 95 [...] Updated DateTime 3 180.34 cm 34.7 kg/m2 167436. 5 g 97 % 97 % 71 /min 18 /min 98.5 [degF] 128 mm[Hg] 78 mm[Hg] GURU EMILIANO PA - [facility] 3 16:12:20 Social History Question Answer Notes LastModified by Organizat ion Details LastModified Time Tobacco Smoking Status Never Smoker WILLIAM CARRILLO candelario PA - [facility] 04/27/2022 15:52:41 What Is Your Level Of Alcohol Consumption? None [email or web address] Information not available 04/27/2022 Do You Use Any Illicit Or Recreational Drugs? No [email or web address] Information not available 04/27/2022 Have You Recently Traveled Abroad? No [email or web address] Information not available 04/27/2022 Do You Or Have You Ever Used Any Other Forms Of Tobacco Or Nicotine? No [email or web address] Information not available 04/27/2022 Sex: Unknown Functional Status None recorded. Mental Status None recorded. Family History Relationship Description Onset Age of this Age Resolved Age Notes LastModified by Organization Details LastModified Time Mother Heart disease [email or web address] Not available 2022 15:52:02 Mother Diabetes mellitus [email or web address] Not available 2022 15:52:09 Mother Myocardial infarction [email or web address] Not available 04/27 15:52:23 Father Myocardial infarction [email or web address] Not available 04/27 15:52:22 Medical History No medical history recorded. Past Encounters Encounter ID Performer Location Encounter Start Date Encounter Closed Date Diagnosis/Indication Diagnosis SNOMED-CT Code Diagnosis ICD10 Code Diagnosis Note [id number] [address] [facility] [address] [place] [address] 11/15/2018 19:08:29 11/15/2018 19:20:19 [id number] [address] [place] [address] 01/12/2017 19:30:06 01/12/2017 19:59:01 [id number] [address] [place] [address] 06/13/2019 14:32:24 06/13/2019 15:40:34 [id number] [address] [place] [address] 04/27/2017 18:40:25 04/27/2017 19:31:53 [id number] [address] [place] [address] 08/05/2021 08:35:18 08/05/2021 10:27:26 [id number] [address] [place] [address] 06/04/2016 19:47:53 06/04/2016 20:19:56 [id number] [address] [place] [address] 05/13/2020 17:53:47 05/13/2020 18:56:52 [id number] [address] [place] [address] 03/07/2018 19:42:56 03/07/2018 20:23:16 [id number] [address] [place] [address] 03/13/2015 15:25:32 03/13/2015 16:30:45 [id number] [place] [address] 07/29/2021 15:41:12 07/29/2021 18:16:19 [id number] [address] [facility] [address] [facility] [place] [address] 08/20/2017 18:49:49 08/20/2017 19:53:37 [id number] [address] [facility] [address] [facility] [place] [address] 06/18/2020 19:37:45 06/18/2020 20:14:38 [id number] Chad Sethdionicio _[facility] [address] [facility] [place] [address] 04/27/2022 12:51:09 04/27/2022 16:36:40 Increased frequency of urination 493445454 R35.0 suspect UTISigns and Symptoms c/w UTIUA [...] agreement with the plan as outlined above. [id number] Marcelino Lea MD [address] [facility] [place] [address] 09/02/2022 15:20:17 09/02/2022 16:50:35 Hemorrhoids 90941887 K64.9 likely internal hemorrhoid s as per history from PCP exam 2 days ago.TRial of suppositor y and follow up GI or PCP if continues Health Concerns Section Related Observation LastModified by Organization Detai ls LastModified Time None Recorded Concern Status LastModified by Organization Details LastModified Time None Recorded Advance Directives Directive None Recorded Payers Insurance Date Sequence Insurance Name Policy Number Policy Amaya Covered Member ID Amaya Member ID Guarantor Name 09/02/2022 1 [facility] [id number] 01 Norbert Cabrales [id number] Norbert Cabrales Notes Date Note Type Note Provider Name and Address Organization Details Recorded Time 04/27/2022 text/html Urinary Problems-MaleReporte d bypatient.Notes:61 yo male c/o frequency in urination x couple days--no burning, no pain. + decreased stream no increased urgencyno incontinenceno pressureno malodorno blood in urineno back painno rashno feverno nausea or vomitingno MS change Chad Forman, [address] [place], [address], [place] [facility] 04/27/2022 16:35:50 09/02/2022 text/html Went to his PCP 2 days ago and told he had internal hemorrhoids. Told to take fiber drink only. Patient concerned and wants to be checked again. Feels anal discomfort. NO blood in stool or when wipes. no pain with defecation. Had colonoscopy 02/01. Marcelino Lea MD [address] [place], [address], [place] [facility] 09/02/2022 18:39:03
[2024-06-18 11:32] LABS: Alanine Aminotransferase 23 U/L (0-40); Alkaline Phosphatase 64 U/L (39-117); Aspartate Amino Transferase 38 U/L (5-37); Bilirubin Direct 0.2 mg/dL (0.0-0.5); Bilirubin Total 0.6 mg/dL (0.0-1.0); Magnesium 2.2 mg/dL (1.6-2.6); Total Protein 6.9 g/dL (6.5-8.0)
== END 2024-06-18 09:00 | disposition home or self-care (01) ==
LOC: HO.HMGCX 08:59
PROVIDERS: PCP Internal Medicine; Visit Provider Internal Medicine
DX: R79.89 Other specified abnormal findings of blood chemistry (principal); M79.662 Pain in left lower leg
CPT/HCPCS: 36415; 76700; 80076; 83735

== ENCOUNTER → 2024-06-18 09:01 | Outpatient (BNV) | payer OTHER, SELFPAY | PROVIDERS: PCP Internal Medicine; Visit Provider Radiology Diagnostic Radiology | DX: K80.20 Calculus of gallbladder without cholecystitis without obstruction (principal) | CPT/HCPCS: 76700 ==

== ENCOUNTER 2024-06-20 10:59 | Outpatient (AMB) | payer OTHER, SELFPAY ==
[2024-06-20 12:49] VITALS: BP 110/60; PULSE 56; RESP 15; TEMP 36.4; O2SAT 99; BMI 32.9
--- NOTE | 2024-06-20 12:49 | MHC.OFFWIV ---
Intake Vital Signs 06/20/24 12:49 Height 5 ft 11 in Weight 236 lb BMI 32.9 BP 110/60 Blood Pressure Location Rt brachial Position Sitting Respiration 15 Pulse 56 Pulse Source Pulse Oximeter Temp 97.6 F Temp Source Oral Pulse Oximetry (%) 99 Intake Visit Reasons: EP- Itching hole body Intake Note: Pt is here today c/o itchyness sensation all over body Patient Tobacco Use Status: Never used Tobacco Allergies Penicillins Adverse Reaction (Severe, Verified 06/15/24 14:39) Anxiety pineapple Adverse Reaction (Severe, Verified 06/15/24 14:39) swellling Medication List - Last Reconciled 06/20/24 by Barrett Decker MD albuterol sulfate 90 mcg/actuation (Proventil HFA) 2 puffs inhalation Q4-6H PRN alprazolam 0.5 mg PO DAILY amlodipine 10 mg PO DAILY budesonide-formoterol 80-4.5 mcg/actuation (Symbicort) 2 puffs inhalation BID PRN cholecalciferol (vitamin D3) 25 mcg PO DAILY clonidine HCl 0.1 mg PO BEDTIME clotrimazole-betamethasone 1-0.05 % 1 appl topical BID 2 weeks mohamud.stocking,knee,reg,xlrg 15-20 cm olmesartan 20 mg PO DAILY pantoprazole 40 mg PO DAILY psyllium husk 1 tbsp PO BID sildenafil 100 mg PO DIRECTED sulfamethoxazole-trimethoprim 800-160 mg (Bactrim DS) 1 tab PO Q12H 7 days tamsulosin 0.4 mg PO BEDTIME tizanidine 2 mg PO .QHS PRN HPI EP- Itching hole body HPI Details Patient says he has been shaving his groin area recently Started getting itching in his groin which now has spread to multiple areas He started using some Benadryl which helped with the itch in most places but his groin still has a prickly sensation and itch PFSH Medical History Murmur Enlarged prostate Atelectasis GERD (gastroesophageal reflux disease) ZOE (obstructive sleep apnea) Extremity edema Asthma Surgical History History of knee replacement procedure of left knee Social History Housing: House Alcohol intake: never Patient Tobacco Use Status: Never used Tobacco Tobacco use type: Cigarette e-Cigarette/Vaping Use: Never Used Second Hand Smoke Exposure: No service: Yes ([employer] [id number] ) Current occupational status: retired Cognitive needs: No Hearing needs: No Vision needs: Yes Review of Systems Const Details: No fevers or chills See HPI Physical Exam Vital Signs: Last Vital Signs Temp 97.6 F 06/20/24 12:49 Pulse 56 06/20/24 12:49 Resp 15 06/20/24 12:49 BP 110/60 06/20/24 12:49 Pulse Ox 99 06/20/24 12:49 BMI result Body Mass Index 32.9 Const General: no acute distress and well developed Nutritional Appearance: well nourished Orientation/consciousness: patient oriented x3 HEENT Head: Yes normocephalic and Yes atraumatic Eyes General: appearance normal, both eyes and all related structures Pupils: Equal, round and reactive pupils present EOM: EOMs intact bilaterally Resp Effort & Inspection: normal respiratory effort Skin Other: Patient has small pustules at the follicles of the hairs in his groin Also has erythematous rash with leading edge with scale in groin. No other rash Neuro General: patient oriented x3 and gait normal Cranial nerves: Yes Equal, round and reactive pupils present Psych Affect: normal affect Assessment & Plan Assessment & Plan (1) Folliculitis: Code(s): L73.9 - Follicular disorder, unspecified (2) Yeast infection of the skin: Code(s): B37.2 - Candidiasis of skin and nail Plan Appears to have an acute folliculitis as well as yeast infection of the skin. Will give him a short course of Bactrim DS twice a day x7 days Will also give him a combination cream for a yeast infection and the inflammation there He can still use Benadryl for itch Follow-up with PCP if not improving or worsens Medications: New clotrimazole-betamethasone 1-0.05 % 1 appl topical BID 2 weeks 30 grams 0RF sulfamethoxazole-trimethoprim 800-160 mg (Bactrim DS) 1 tab PO Q12H 7 days 14 tabs 0RF Coding Level of Care Code Est Pt Level 3 (17972) Diagnoses Folliculitis L73.9 Yeast infection of the skin B37.2
== END 2024-06-20 13:18 | disposition home or self-care (01) ==
LOC: HO.HMCWIC 10:59
PROVIDERS: PCP Internal Medicine; Visit Provider Family Medicine
DX: L73.9 Follicular disorder, unspecified (principal); B37.2 Candidiasis of skin and nail

== ENCOUNTER → 2024-06-20 10:59 | Outpatient (BNVA) | payer OTHER, SELFPAY | PROVIDERS: PCP Internal Medicine; Visit Provider Family Medicine | DX: Z13.89 Encounter for screening for other disorder (principal) ==

== ENCOUNTER 2024-06-27 12:46 | Outpatient (AMB) | payer OTHER, SELFPAY ==
[2024-06-27 12:52] VITALS: BP 126/70; PULSE 68; TEMP 36.9; O2SAT 99; BMI 32.5
--- NOTE | 2024-06-27 12:52 | AM.OFFWIN_ITS ---
Intake Vital Signs 06/27/24 12:52 Height 5 ft 11 in Weight 233 lb BMI 32.5 BP 126/70 Blood Pressure Location Rt brachial Position Sitting Pulse 68 Pulse Source Pulse Oximeter Temp 98.4 F Temp Source Oral Pulse Oximetry (%) 99 Oxygen Delivery Method Room Air Intake Visit Reasons: EP-light headache, anxiety Intake Note: Pt is here today c/o light headedness and anxiety Patient Tobacco Use Status: Never used Tobacco Allergies Penicillins Adverse Reaction (Severe, Verified 06/27/24 12:53) Anxiety pineapple Adverse Reaction (Severe, Verified 06/27/24 12:53) swellling HPI HPI Comments History of Present Illness Details History of Present Illness - The patient is a 63-year-old male pres enting with balance disturbance, anxiety, and medication compliance issue. - Medication error occurred yesterday wh en the patient took nighttime medications tamsulosin and clonidine in the morning. This caused symptoms of hypotension, fatigue, and disorientation. - The patient experienced dehydration, v isual disturbances, and anxiety when mistakenly taking morning medications, leading to shaking and balance issues. - At-home interventions included [facility] ed fluid intake and rest to manage symptoms. - This morning he felt fine and ran an e rrand, when he came home, he felt dizzy and this gave him some anxiety. - Clinical examination revealed excess f luid in the left ear likely contributing to balance issues. - No prior allergic medication was being taken despite the allergy season, lead ing to a potential exacerbation. - Other health management included an an tibiotic course finished for a suspected yeast infection. Physical Exam General: Cooperative, healthy appearing, comfortable, no acute distress and well developed Orientation: Patient disoriented to some degree Limitations: No limitations Head: Normal to inspection Ears: External ears normal, EACs normal bilaterally, TM left with effusion but no infection, TM right normal Nose: Normal External nose present Face and sinus: Normal facial exam Mouth: normal oral mucosa, oropharynx erythema with slight cobblestoning Eyes: Appearance normal, both eyes and all related structures Neck: Normal visual inspection and Yes full ROM Respiratory: Normal respiratory effort and able to speak in complete sentences. Skin: No rashes or lesions noted Neuro: Patient disoriented to some degree Extremities: Normal to inspection [facility] Medical History Murmur Enlarged prostate Atelectasis GERD (gastroesophageal reflux disease) ZOE (obstructive sleep apnea) Extremity edema Asthma Surgical History History of knee replacement procedure of left knee Social History Housing: House Alcohol intake: never Patient Tobacco Use Status: Never used Tobacco Tobacco use type: Cigarette e-Cigarette/Vaping Use: Never Used Second Hand Smoke Exposure: No service: Yes ([employer] [id number] ) Current occupational status: retired Cognitive needs: No Hearing needs: No Vision needs: Yes Review of Systems Const All systems reviewed & are unremarkable except as noted in HPI and below Physical Exam Vital Signs: Last Vital Signs Temp 98.4 F 06/27/24 12:52 Pulse 68 06/27/24 12:52 BP 126/70 06/27/24 12:52 Pulse Ox 99 06/27/24 12:52 Oxygen Delivery Method Room Air 06/27/24 12:52 BMI result Body Mass Index 32.5 Assessment & Plan Assessment & Plan (1) Acute effusion of left ear: Code(s): H65.192 - Other acute nonsuppurative otitis media, left ear Plan: The plan involved addressing the balance disturbance and hypotension associated with an error in medication timing. The continuation of clonidine and tamsulosin will occur at their regular evening timings (tonight) to prevent further dosing errors. We identified and treated a possible cause of the balance issues as fluid in the left ear by recommending the use of intranasal corticosteroid, Flonase, twice daily. Additional allergy mitigation measures include starting either Zyrtec or another antihistamine daily for a week and then see how he feels stopping it, he may need to restart it. The patient was reminded of the importance of maintaining hydration and the current regimen of Benadryl, as needed. This approach is anticipated to streamline medication management and address the seasonal allergies affecting the patient?s ear-related symptoms and overall health. The patient?s future compliance with medication timing and these interventions is crucial for symptom management. Patient was informed and verbally consented to the use of an ambient scribe for clinic note documentation during this visit. (2) Medication administered in error: Code(s): T50.901A - Poisoning by unspecified drugs, medicaments and biological substances, accidental (unintentional), initial encounter Qualifiers: Encounter type: initial encounter Injury intent: accidental or unintentional Qualified Code(s): T50.901A - Poisoning by unspecified drugs, medicaments and biological substances, accidental (unintentional), initial encounter Plan: as above Coding Level of Care Code Est Pt Level 4 (12867) Diagnoses Acute effusion of left ear H65.192 Medication administered in error, accidental or unintentional, initial encounter T50.901A Encounter type: initial encounter Injury intent: accidental or unintentional
== END 2024-06-27 13:33 | disposition home or self-care (01) ==
PROVIDERS: PCP Internal Medicine; Visit Provider Physician Assistant
DX: H65.192 Other acute nonsuppurative otitis media, left ear (principal); T50.901A Poisoning by unspecified drugs, medicaments and biological substances, accidental (unintentional), initial encounter

== ENCOUNTER → 2024-06-27 12:46 | Outpatient (BNVA) | payer OTHER, SELFPAY | PROVIDERS: PCP Internal Medicine; Visit Provider Physician Assistant | DX: Z13.89 Encounter for screening for other disorder (principal) ==

== ENCOUNTER 2024-07-07 13:56 | Outpatient (AMB) | payer OTHER, SELFPAY ==
--- OUTSIDE RECORDS SUMMARY | 2024-07-07 14:11 | XMS_ITS | Clinical Summary ---
Author Organization [facility] Address [address] [place] [address] Phone Care Team Providers Care Joint Setter Name Role Phone José Miguel Espinoza MD Primary Care Provider [phone] Allergies Active Allergy Reactions Criticality Noted Date Comments Oxycodone-Acetaminophen Pain,Nausea And Vomiting High 11/21/2011 Penicillins 03/30/2024 Pineapple 03/30/2024 Medications albuterol HFA (PROAIR HFA ; PROVENTIL HFA ; VENTOLIN HFA) 90 mcg/actuation inhaler Inhale 2 puffs by mouth every 4 (four) hours if needed for shortness of breath. Active amLODIPine (NORVASC) 10 mg tablet Take 1 tablet (10 mg total) by mouth 1 (one) time each day. 4 Active Vitamin D3 25 mcg (1,000 unit) capsule Take 1 capsule (1,000 Units total) by mouth 1 (one) time each day. 5 Active olmesartan (BENICAR) 20 mg tablet Take 1 tablet (20 mg total) by mouth 1 (one) time each day. Active sildenafiL (VIAGRA) 50 mg tablet Take 1 tablet (50 mg total) by mouth 1 (one) time each day if needed. Active tamsulosin (FLOMAX) 0.4 mg 24 hr capsule Take 1 capsule (0.4 mg total) by mouth at bedtime. Active budesonide-for moteroL (SYMBICORT) 80-4.5 mcg/actuation inhaler Inhale 2 puffs by mouth 2 (two) times a day. Rinse mouth with water after use to reduce aftertaste and incidence of candidiasis. Do not swallow. Active ALPRAZolam (XANAX) 0.5 mg tablet Take 1 tablet (0.5 mg total) by mouth at bedtime as needed for anxiety. Active cloNIDine (CATAPRES) 0.1 mg tablet Take 1 tablet (0.1 mg total) by mouth at bedtime. Active ALPRAZolam (XANAX) 0.25 mg tablet Take 1 tablet (0.25 mg total) by mouth 1 (one) time each day. Max Daily Amount: 0.25 mg 5 07/08/19 Discontinu ed(Formula ry change) atenoloL (TENORMIN) 100 mg tablet Take 1 tablet (100 mg total) by mouth 1 (one) time each day. 07/08/19 Discontinu ed(Discont inued by another clinician) cetirizine (ZyrTEC) 10 mg tablet Take 1 tablet (10 mg total) by mouth 1 (one) time each day. 4 07/08/19 Discontinu ed(Formula ry change) omeprazole (PriLOSEC) [address] capsule Take 1 capsule (20 mg total) by mouth 1 (one) time each day. before a meal 07/08/19 Discontinu ed(Discont inued by another clinician) hydrOXYzine pamoate (VISTARIL) 50 mg capsule Take 1 capsule (50 mg total) by mouth 3 (three) times a day if needed for itching. 07/08/19 25 Discontinu ed(Formula ry change) Active Problems Problem Noted Date Diagnosed Date Primary hypertension 07/07/2024 Assessment & Plan (07/07/2024 2:10 PM EDT): Well-controlled. Dizziness 07/03/2024 Cardiac murmur 07/03/2024 Assessment & Plan (07/07/2024 2:10 PM EDT): He was reported to have a heart murmur during a routine office visit with his worsted winder. Currently, I do not appreciate significant murmur and his echocardiogram does not suggest valvular disease either. Most likely the murmur is a flow murmur and could be triggered by dehydration. Will continue clinical monitor giving his age. We also discussed about avoiding dehydration. I will obtain echo image from [facility]. He is otherwise completely asymptomatic with intense exercise. There is no further workup needed. Resolved Problems Problem Noted Date Diagnosed Date Resolved Date Atrioventricular block, first degree 07/03/2024 07/07/2024 Assessment & Plan (07/07/2024 2:10 PM EDT): Orders: Ambulatory referral to Cardiology ECG 12 lead Encounters Date Type Department Care Team Description 07/07/2024 10:20 AM EDT Office Visit [facility] [address] [place] [id number] Lewis Briggs MD Cardiac murmur (Primary Dx); Atrioventricular block, first degree; Dizziness and giddiness; Cardiac murmur, unspecified; Primary hypertension 06/28/2024 5:21 PM EDT - 06/28/2024 7:[address] [facility] [address] [place] [id number] Cory Novak MD Tension headache (Primary Dx) Discharge Disposition: Home or Self Care from Last 3 Months Medical History Medical History Date Comments Hypertension Asthma GERD (gastroesophageal reflux disease) Neutropenia ([facility] V24) Hiatal hernia Social History Tobacco Use [...] Sign Reading Time Taken Comments Blood Pressure 112/60 07/07/2024 10:10 AM EDT Pulse 58 07/07/2024 10:10 AM EDT Temperature 36.7 ??C (98.1 ??F) 06/28/2024 6:01 PM ED T Respiratory Rate 18 06/28/2024 6:01 PM EDT Oxygen Saturation 99% 07/07/2024 10:10 AM EDT Inhaled Oxygen Concentration - - Weight 107 kg (236 lb) 07/07/2024 10:10 AM EDT Height 180.3 cm (5' 11 ) 07/07/2024 10:10 AM EDT Body Mass Index 32.92 07/07/2024 10:10 AM EDT Plan of Treatment Health Maintenance Due Date Last Done Comments DTaP,Tdap,and Td Vaccines (1 - Tdap) 09/09/1978 Hepatitis A Vaccines (1 of 2 - Risk 2-dose series) 09/09/1978 Pneumococcal Vaccine: 50+ Years (1 of 2 - PCV) 09/09/1978 Pneumococcal Vaccine: Pediatrics (0 to 5 Years) and At-Risk Patients (6 to 64 Years) (1 of 2 - PCV) 09/09/1978 Zoster Vaccines (1 of 2) 09/09/2009 RSV Immunization Adult Patients (1 - Risk 60-74 years 1-dose series) 2019 Cholesterol Screening (Lipid Panel) 01/13/2022 Colorectal Cancer Screening: Colonoscopy 01/13/2022 Depression Screening 01/13/2022 HIV Screening 01/13/2022 Hepatitis C Screening 01/13/2022 Social Influencers of Health Screening 01/13/2022 COVID-19 Vaccine (2023-2 5 season) 2023 Influenza Vaccine (Season Ended) 2024 Hypertension/CHF/CAD Annual BMP Blood Test 06/28/2025 06/28/2024, 03/30/2024 HIB Vaccines Aged Out No longer [...] to complete this topic RSV Immunization Patients Under 20 months Aged Out No longer eligible b ased on patient's age to complete this topic Varicella Vaccines Aged Out No longer eligible based on patient's age to complete this topic Procedures Procedure Name Priority Date/Time Associated Diagnosis Comments ECG 12-LEAD Routine 07/07/2024 10:18 AM EDT Atrioventricular block, first degree CBC WITH AUTO DIFFERENTIAL STAT 06/28/2024 2:23 PM EDT BASIC METABOLIC PANEL STAT 06/28/2024 2:23 PM EDT CBC AND DIFFERENTIAL STAT 06/28/2024 2:23 PM EDT from Last 3 Months Results * ECG 12 lead (07/07/2024 10:18 AM EDT) Pathologist [facility] Ventricular Rate ECG 58 BPM GEMUSE Atrial Rate 58 BPM GEMUSE P-R Interval 220 ms GEMUSE QRS Duration 90 ms GEMUSE Q-T Interval 426 ms GEMUSE QTc 418 ms GEMUSE P Wave [place] 46 degrees GEMUSE R [place] 96 degrees GEMUSE T [place] -2 degrees GEMUSE ECG Interpretation Sinus bradycardia with 1st degree A-V block Rightward axis Abnormal QRS-T angle, consider primary T wave abnormality Abnormal ECG When compared with ECG of 30-MAR-2024 22:06, No significant change was found Confirmed by Tacos BRIGGS YUFENG ([id number]) on 07/07/2024 10:25:59 AM GEMUSE 07/07/2024 10:1 8 AM EDT 07/07/2024 10:25 AM EDT us Lewis Briggs MD ECG ORDERABLES Final Result GEMUSE * (ABNORMAL) CBC auto differential (06/28/2024 2:23 PM EDT) Pathologist [facility] WBC 3.5(L) 4.8 - 10.8 K/mcL LAB HEMETOLOGY METHOD 06/28/2024 2:54 PM EDT [facility] RBC 4.80 4.50 - 5.50 M/mcL LAB HEMETOLOGY METHOD 06/28/2024 2:54 PM EDT [facility] Hemoglobin 13.8 13.5 - 17.5 g/dL LAB HEMETOLOGY METHOD 06/28/2024 2:54 PM EDT [facility] Hematocrit 42.4 42.0 - 54.0 % LAB HEMETOLOGY METHOD 06/28/2024 2:54 PM EDT [facility] MCV 89.3 79.0 - 98.0 FL LAB HEMETOLOGY METHOD 06/28/2024 2:54 PM EDT [facility] MCH 29.1 27.0 - 32.0 pcg LAB HEMETOLOGY METHOD 06/28/2024 2:54 PM EDT [facility] MCHC 32.5 32.0 - 37.0 g/dL LAB HEMETOLOGY METHOD 06/28/2024 2:54 PM EDT [facility] RDW 13.4 11.0 - 15.0 % LAB HEMETOLOGY METHOD 06/28/2024 2:54 PM EDT [facility] Platelets 242 130 - 400 K/mcL LAB HEMETOLOGY METHOD 06/28/2024 2:54 PM EDT [facility] MPV 10.3 7.0 - 11.0 FL LAB HEMETOLOGY METHOD 06/28/2024 2:54 PM EDT [facility] NRBC 0.0 <1.0 % LAB HEMETOLOGY METHOD 06/28/2024 2:54 PM EDT [facility] NRBC Absolute 0.00 <0.10 K/mcL LAB HEMETOLOGY METHOD 06/28/2024 2:54 PM EDT [facility] Neutrophils Relative 44.5 % LAB HEMETOLOGY METHOD 06/28/2024 2:54 PM EDT [facility] Lymphocytes Relative 36.0 % LAB HEMETOLOGY METHOD 06/28/2024 2:54 PM EDT [facility] Monocytes Relative 13.8 % LAB HEMETOLOGY METHOD 06/28/2024 2:54 PM EDT [facility] Eosinophils Relative 3.7 % LAB HEMETOLOGY METHOD 06/28/2024 2:54 PM EDT [facility] Basophils Relative 1.7 % LAB HEMETOLOGY METHOD 06/28/2024 2:54 PM EDT [facility] Immature Granulocytes Relative 0.3 % LAB HEMETOLOGY METHOD 06/28/2024 2:54 PM EDT [facility] Neutrophils Absolute 1.54 1.50 - 7.00 K/mcL LAB HEMETOLOGY METHOD 06/28/2024 2:54 PM EDT [facility] Lymphocytes Absolute 1.25 1.00 - 5.00 K/mcL LAB HEMETOLOGY METHOD 06/28/2024 2:54 PM EDT [facility] Monocytes Absolute 0.48 0.20 - 1.00 K/mcL LAB HEMETOLOGY METHOD 06/28/2024 2:54 PM EDT [facility] Eosinophils Absolute 0.13 0.00 - 0.50 K/mcL LAB HEMETOLOGY METHOD 06/28/2024 2:54 PM EDT [facility] Basophils Absolute 0.06 0.00 - 0.20 K/mcL LAB HEMETOLOGY METHOD 06/28/2024 2:54 PM EDT [facility] Immature Granulocytes Absolute 0.01 0.00 - 0.03 K/mcL LAB HEMETOLOGY METHOD 06/28/2024 2:54 PM T [facility] Blood Venous blood specimen / Unknown Venipuncture / Unknown 06/28/2024 2:23 PM EDT 06/28/2024 2:44 PM EDT Pipo Haynes MD LAB BLOOD ORDERABLES Final Res ult [facility] [address] [place] [address], * Basic metabolic panel (06/28/2024 2:23 PM EDT) Sodium 137 133 - 145 mmol/L LAB CHEMISTRY METHOD 06/28/2024 3:08 PM [facility] Potassium 4.2 3.5 - 5.5 mmol/L LAB CHEMISTRY METHOD 06/28/2024 3:08 PM [facility] Chloride 105 96 - 110 mmol/L LAB CHEMISTRY METHOD 06/28/2024 3:08 PM [facility] CO2 27 21 - 32 mmol/L LAB CHEMISTRY METHOD 06/28/2024 3:08 PM [facility] Anion Gap 5 3 - 11 LAB CHEMISTRY METHOD 06/28/2024 3:08 PM [facility] Glucose 93 70 - 100 mg/dL LAB CHEMISTRY METHOD 06/28/2024 3:08 PM [facility] BUN 18 5 - 25 mg/dL LAB CHEMISTRY METHOD 06/28/2024 3:08 PM [facility] Creatinine 1.22 0.70 - 1.30 mg/dL LAB CHEMISTRY METHOD 06/28/2024 3:08 PM [facility] eGFR 66 >=60 mL/min/1. 73m2 LAB CHEMISTRY METHOD 06/28/2024 3:08 PM [facility] Comment:Calculation based on the Chronic Kidney Disease Epidemiology Collaboration (CKD-EPI) equation refit without adjustment for race. BUN/Creatinine Ratio 14.8 LAB CHEMISTRY METHOD 06/28/2024 3:08 PM [facility] Calcium 8.7 8.5 - 10.5 mg/dL LAB CHEMISTRY METHOD 06/28/2024 3:08 PM [facility] Blood Venous blood specimen / Unknown Venipuncture / Unknown 06/28/2024 2:23 PM EDT 06/28/2024 2:44 PM EDT us Pipo Haynes MD LAB BLOOD ORDERABLES Final Res ult [facility] [address] [place] [address], from Last 3 Months Insurance [facility] Care Teams Joint Setter Relationship Specialty Start Date End Date José Miguel Espinoza MD [address] [place] [phone] PCP - General Internal Medicine 07/07/24
--- NOTE | 2024-07-07 15:12 | AM.OFFWIN_ITS ---
Intake Vital Signs 07/07/24 15:18 Weight 234 lb BP 120/70 Blood Pressure Location Lt brachial Position Sitting Pulse 72 Pulse Source Pulse Oximeter Pulse Oximetry (%) 98 Oxygen Delivery Method Room Air Intake Visit Reasons: EP chest discomfort from asthma/spilled pinesol?? Intake Note: Patient here chest discomfort from asthma or muscle ache. Pt would also like to talk about right thigh that radiates to the buttocks. Patient Tobacco Use Status: Never used Tobacco Allergies Penicillins Adverse Reaction (Severe, Verified 07/07/24 15:17) Anxiety pineapple Adverse Reaction (Severe, Verified 07/07/24 15:17) swellling Do you need a note to return to daycare/school/sports/work: No HPI HPI Comments History of Present Illness Details 63 y/o Male patient who presents to the walk in clinic with c/o Chest irritation and discomfort since Saturday. Pt was cleaning his Bathroom using Pinesol cleaning liquid - he accidentally spilled the container on the Carpet. Pt has Asthma and worried that he inhaled the chemical fumes. Denies Wheezing, SOB or chest pains. He has been using his Rescue inhaler with some relief. Pt also c/o right sided lower back pain that radiates down to the Hip/and thigh. He is a very active [place], goes to the Gym 5 times a week. Reports Doing squats, Push ups, Stair master and Treadmill on inclined mode. He also did long distance drive recently and feels like did aggravated the pain. He was given Muscle relaxants with no improvement. [facility] Medical History (Updated 07/07/24 @ 15:46 by Daisy Taylor NP) Right hip pain Murmur Enlarged prostate Atelectasis GERD (gastroesophageal reflux disease) ZOE (obstructive sleep apnea) Extremity edema Asthma Surgical History History of knee replacement procedure of left knee Social History Housing: House Alcohol intake: never Patient Tobacco Use Status: Never used Tobacco Tobacco use type: Cigarette e-Cigarette/Vaping Use: Never Used Second Hand Smoke Exposure: No service: Yes ([employer] [id number] ) Current occupational status: retired Cognitive needs: No Hearing needs: No Vision needs: Yes Review of Systems Const All systems reviewed & are unremarkable except as noted in HPI and below Physical Exam Vital Signs: Last Vital Signs Pulse 72 07/07/24 15:18 BP 120/70 07/07/24 15:18 Pulse Ox 98 07/07/24 15:18 Oxygen Delivery Method Room Air 07/07/24 15:18 Const General: no acute distress Orientation/consciousness: patient oriented x3 Resp Effort & Inspection: normal respiratory effort and able to speak in complete sentences Auscultation: clear to auscultation bilaterally, no crackles, no rales, no rhonchi and no wheezes Cardio Heart sounds: S1 normal heart sound present and S2 normal heart sound present Neuro General: patient oriented x3 Extrem Right lower extremity: hip/thigh Details: normal to inspection, tenderness Location: of the hip and normal ROM; no lacerations, no ecchymosis, no crepitus and no deformity Psych Speech and movement: Normal speech and movement present Assessment & Plan Assessment & Plan (1) Chest pain: Code(s): R07.9 - Chest pain, unspecified Qualifiers: Chest pain type: intercostal pain Qualified Code(s): R07.82 - Intercostal pain Plan: B/L lung CTA Less likely Cardiac related. Possibly Muscular etiology Rest, no intense activities for few days. (2) Right hip pain: Code(s): M25.551 - Pain in right hip Plan: NSAIDs for pain relief. Abstain from intense exersice routines for few days. Coding Level of Care Code Est Pt Level 4 (81393) Diagnoses Intercostal pain R07.82 Chest pain type: intercostal pain Right hip pain M25.551 Time Spent (min) 20
[2024-07-07 15:18] VITALS: BP 120/70; PULSE 72; O2SAT 98
== END 2024-07-07 15:40 | disposition home or self-care (01) ==
PROVIDERS: PCP Internal Medicine; Visit Provider Nurse Practitioner Family
DX: R07.82 Intercostal pain (principal); M25.551 Pain in right hip

== ENCOUNTER → 2024-07-07 13:56 | Outpatient (BNVA) | payer OTHER, SELFPAY | PROVIDERS: PCP Internal Medicine; Visit Provider Nurse Practitioner Family ==

== ENCOUNTER 2024-07-20 12:17 | Outpatient (AMB) | payer OTHER, SELFPAY ==
[2024-07-20 12:39] VITALS: BP 128/72; PULSE 62; RESP 15; O2SAT 99
--- NOTE | 2024-07-20 12:39 | AM.OFFWIN_ITS ---
Intake Vital Signs 07/20/24 12:39 Weight 233 lb 8 oz BP 128/72 Blood Pressure Location Rt brachial Position Sitting Respiration 15 Pulse 62 Pulse Source Pulse Oximeter Pulse Oximetry (%) 99 Oxygen Delivery Method Room Air Intake Visit Reasons: EP lightheaded, off balance Intake Note: Pt came into the HI clinic c/o lightheadedness x Saturday afternoon around 1600 and which continues. Pt is a/o x 3, no sob/jarrod noted speaks in full sentences. Pt stated that he is not diabetic, but he took his blood sugar at home at it is between 70-90 during the weekend. Pt stated that he had a full breakfast this am (boiled egg, ripe banana, 2 granola bars and a cup of tea). Pt stated that he has lost approximately 45lbs over the last 2 years. Skin pink warm & dry. Pt also stated that blood pressure at home was 101/52-52. Pt valera. Slight tremors noted to bilateral hands. Negative with cva assessment (equal hand grasps, negative for bilateral arm drift, ambulated I gait steady/in a straight line). Pt kept saying that his head does not feel right. Pt stated that he is taking medication Alprazolam and Clonidine and that he is weaning off the Alprazolam. HALIMA (Kylah) and ARLYN (Kristy) aware. Patient Tobacco Use Status: Never used Tobacco Allergies Penicillins Adverse Reaction (Severe, Verified 07/20/24 13:18) Anxiety pineapple Adverse Reaction (Severe, Verified 07/20/24 13:18) swellling HPI HPI Comments History of Present Illness Details 63 y/o Male patient who presents to the walk in clinic with c/o Feeling Light-headedness, and headaches since Saturday. Pt is being wean off alprazolam and Clonidine was started - Pt thinks he is experiencing withdraw symptoms. He does check his BG randomly with WNL readings - he is not Diabetic. He has also noticed fluctuations on his blood Pressure readings at home. He does have Sleep Apnea and wears CPAP mask at Bedtime. He is very active, goes to the Gym 5 days a week, exercises 2-3 hours a day. He does eat healthy and denies any new stress and Anxiety in his life. [facility] Medical History (Updated 07/20/24 @ 14:36 by Daisy Taylor NP) Lightheadedness Right hip pain Murmur Enlarged prostate Atelectasis GERD (gastroesophageal reflux disease) ZOE (obstructive sleep apnea) Extremity edema Asthma Surgical History History of knee replacement procedure of left knee Social History Housing: House Alcohol intake: never Patient Tobacco Use Status: Never used Tobacco Tobacco use type: Cigarette e-Cigarette/Vaping Use: Never Used Second Hand Smoke Exposure: No service: Yes ([employer] [id number] ) Current occupational status: retired Cognitive needs: No Hearing needs: No Vision needs: Yes Review of Systems Const All systems reviewed & are unremarkable except as noted in HPI and below Physical Exam Vital Signs: Last Vital Signs Pulse 62 07/20/24 12:39 Resp 15 07/20/24 12:39 BP 128/72 07/20/24 12:39 Pulse Ox 99 07/20/24 12:39 Oxygen Delivery Method Room Air 07/20/24 12:39 Const General: no acute distress Nutritional Appearance: well nourished Orientation/consciousness: patient oriented x3 HEENT Head: Yes normocephalic Ears: external ears normal and TM abnormal with fluid behind the TM on the right Face and sinus: Yes sinuses nontender Resp Effort & Inspection: normal respiratory effort and able to speak in complete sentences Auscultation: clear to auscultation bilaterally, no crackles, no rales, no rhonchi and no wheezes Cardio Heart sounds: S1 normal heart sound present and S2 normal heart sound present Neuro General: patient oriented x3, gait normal and moves all extremities Psych Speech and movement: Normal speech and movement present Results AMB Random Glucose (hemocue) AMB Random Glucose (hemocue) 98 mg/dL Last Edit by Kristy Tiwari CMA on 07/20/24 13:58 Results Reviewed Results Reviewed: Laboratory Last Values Random Glu (Clinic) 98 mg/dL 07/20/24 13:57 Assessment & Plan Assessment & Plan (1) Lightheadedness: Code(s): R42 - Dizziness and giddiness Plan: No clear Etiology at this time. He was recently seen and evaluated at ED - MRI and all other testings were WNL. He did have Stress test and Holter monitor recently with Negative results by Cardiology. Advised to reduce his exercise routine hours or days. Acetaminophen for pain relief. Advised to take Zyrtec BID for 7 days to see if any relief. Orders: Orders AMB Random Glucose (hemocue) Today Z13.9 - Encounter for screening, unspecified Medications: New cetirizine (Zyrtec) TAKE DIRECTED 10 mg PO DAILY 30 tabs 1RF R42 - Dizziness and giddiness Coding Level of Care Code Est Pt Level 4 (48195) Diagnoses Lightheadedness R42 Time Spent (min) 20
--- OUTSIDE RECORDS SUMMARY | 2024-07-20 13:58 | XMS_ITS | Clinical Summary ---
Author Organization [facility] Address [address] [place] [address] Phone Care Team Providers Care [place] Name Role Phone José Miguel Espinoza MD Primary Care Provider [phone] Allergies Active Allergy Reactions Criticality Noted Date [...] during a routine office visit with his imaging technician. Currently, I do not appreciate significant murmur and his echocardiogram does not suggest valvular disease either. Most likely the murmur is a flow murmur and could be triggered by dehydration. Will continue clinical monitor giving his age. We also discussed about avoiding dehydration. I will obtain echo image from [facility]. He is otherwise completely asymptomatic with intense exercise. There is no further workup needed. Resolved Problems Problem Noted Date Diagnosed Date Resolved Date Atrioventricular block, first degree 07/03/2024 07/07/2024 Assessment & Plan (07/07/2024 2:10 PM EDT): Orders: Ambulatory referral to Cardiology ECG 12 lead Encounters Date Type Department Care Team Description 07/07/2024 10:20 AM EDT Office Visit [facility] [address] [place] [id number] Lewis Briggs MD Cardiac murmur (Primary Dx); Atrioventricular block, first degree; Dizziness and giddiness; Cardiac murmur, unspecified; Primary hypertension 06/28/2024 5:21 PM EDT - 06/28/2024 7:07 PM EDT Emergency [facility] Emergency [address] [place] [id number] Cory Novak MD Tension headache (Primary Dx) Discharge Disposition: Home or Self Care from Last 3 Months Medical History Medical History Date Comments Hypertension Asthma GERD (gastroesophageal reflux disease) Neutropenia ([facility] V24) Hiatal hernia Social History Tobacco Use [...] 12 lead (07/07/2024 10:18 AM EDT) Pathologist [facility] Ventricular Rate ECG 58 BPM GEMUSE Atrial Rate 58 BPM GEMUSE P-R Interval 220 ms GEMUSE QRS Duration 90 ms GEMUSE Q-T Interval 426 ms GEMUSE QTc 418 ms GEMUSE P Wave Heth 46 degrees GEMUSE R Heth 96 degrees GEMUSE T Heth -2 degrees GEMUSE ECG Interpretation Sinus bradycardia [...] auto differential (06/28/2024 2:23 PM EDT) Pathologist [facility] WBC 3.5(L) 4.8 - 10.8 K/mcL LAB HEMETOLOGY METHOD 06/28/2024 2:54 PM EDT [facility] RBC 4.80 4.50 - 5.50 M/mcL LAB HEMETOLOGY METHOD 06/28/2024 2:54 PM EDT [facility] Hemoglobin 13.8 13.5 - 17.5 g/dL LAB HEMETOLOGY METHOD 06/28/2024 2:54 PM EDT [facility] Hematocrit 42.4 42.0 - 54.0 % LAB HEMETOLOGY METHOD 06/28/2024 2:54 PM EDT [facility] MCV 89.3 79.0 - 98.0 FL LAB HEMETOLOGY METHOD 06/28/2024 2:54 PM EDT [facility] MCH 29.1 27.0 - 32.0 pcg LAB HEMETOLOGY METHOD 06/28/2024 2:54 PM EDT [facility] MCHC 32.5 32.0 - 37.0 g/dL LAB HEMETOLOGY METHOD 06/28/2024 2:54 PM EDT [facility] RDW 13.4 11.0 - 15.0 % LAB HEMETOLOGY METHOD 06/28/2024 2:54 PM EDT [facility] Platelets 242 130 - 400 K/mcL LAB HEMETOLOGY METHOD 06/28/2024 2:54 PM EDT [facility] MPV 10.3 7.0 - 11.0 FL LAB HEMETOLOGY METHOD 06/28/2024 2:54 PM EDT [facility] NRBC 0.0 <1.0 % LAB HEMETOLOGY METHOD 06/28/2024 2:54 PM EDT [facility] NRBC Absolute 0.00 <0.10 K/mcL LAB HEMETOLOGY METHOD 06/28/2024 2:54 PM EDT [facility] Neutrophils Relative 44.5 % LAB HEMETOLOGY METHOD 06/28/2024 2:54 PM EDT [facility] Lymphocytes Relative 36.0 % LAB HEMETOLOGY METHOD 06/28/2024 2:54 PM EDT [facility] Monocytes Relative 13.8 % LAB HEMETOLOGY METHOD 06/28/2024 2:54 PM EDT [facility] Eosinophils Relative 3.7 % LAB HEMETOLOGY METHOD 06/28/2024 2:54 PM EDT [facility] Basophils Relative 1.7 % LAB HEMETOLOGY METHOD 06/28/2024 2:54 PM EDT [facility] Immature Granulocytes Relative 0.3 % LAB HEMETOLOGY METHOD 06/28/2024 2:54 PM EDT [facility] Neutrophils Absolute 1.54 1.50 - 7.00 K/mcL LAB HEMETOLOGY METHOD 06/28/2024 2:54 PM EDT [facility] Lymphocytes Absolute 1.25 1.00 - 5.00 K/mcL LAB HEMETOLOGY METHOD 06/28/2024 2:54 PM EDT [facility] Monocytes Absolute 0.48 0.20 - 1.00 K/mcL LAB HEMETOLOGY METHOD 06/28/2024 2:54 PM EDT [facility] Eosinophils Absolute 0.13 0.00 - 0.50 K/mcL LAB HEMETOLOGY METHOD 06/28/2024 2:54 PM EDT [facility] Basophils Absolute 0.06 0.00 - 0.20 K/mcL LAB HEMETOLOGY METHOD 06/28/2024 2:54 PM EDT [facility] Immature Granulocytes Absolute 0.01 0.00 - 0.03 K/mcL LAB HEMETOLOGY METHOD 06/28/2024 2:54 PM T [facility] Blood Venous blood specimen / Unknown Venipuncture / Unknown 06/28/2024 2:23 PM EDT 06/28/2024 2:44 PM EDT Pipo Haynes MD LAB BLOOD ORDERABLES Final Res ult [facility] [address] [place] [address], * Basic metabolic panel (06/28/2024 2:23 PM EDT) Sodium 137 133 - 145 mmol/L LAB CHEMISTRY METHOD 06/28/2024 3:08 PM [facility] Potassium 4.2 3.5 - 5.5 mmol/L LAB CHEMISTRY METHOD 06/28/2024 3:08 PM [facility] Chloride 105 96 - 110 mmol/L LAB CHEMISTRY METHOD 06/28/2024 3:08 PM [facility] CO2 27 21 - 32 mmol/L LAB CHEMISTRY METHOD 06/28/2024 3:08 PM [facility] Anion Gap 5 3 - 11 LAB CHEMISTRY METHOD 06/28/2024 3:08 PM [facility] Glucose 93 70 - 100 mg/dL LAB CHEMISTRY METHOD 06/28/2024 3:08 PM [facility] BUN 18 5 - 25 mg/dL LAB CHEMISTRY METHOD 06/28/2024 3:08 PM [facility] Creatinine 1.22 0.70 - 1.30 mg/dL LAB CHEMISTRY METHOD 06/28/2024 3:08 PM [facility] eGFR 66 >=60 mL/min/1. 73m2 LAB CHEMISTRY METHOD 06/28/2024 3:08 PM [facility] Comment:Calculation based on the Chronic Kidney Disease Epidemiology Collaboration (CKD-EPI) equation refit without adjustment for race. BUN/Creatinine Ratio 14.8 LAB CHEMISTRY METHOD 06/28/2024 3:08 PM [facility] Calcium 8.7 8.5 - 10.5 mg/dL LAB CHEMISTRY METHOD 06/28/2024 3:08 PM [facility] Blood Venous blood specimen / Unknown Venipuncture / Unknown 06/28/2024 2:23 PM EDT 06/28/2024 2:44 PM EDT us Pipo Haynes MD LAB BLOOD ORDERABLES Final Res ult [facility] [address] [place] [address], from Last 3 Months Insurance [place] [id number] [facility] Care Teams Moshgiach Relationship Specialty Start Date End Date José Miguel Espinoza MD [address] [place] [phone] PCP - General Internal Medicine 07/07/24
== END 2024-07-20 15:57 | disposition home or self-care (01) ==
PROVIDERS: PCP Internal Medicine; Visit Provider Nurse Practitioner Family
DX: R42 Dizziness and giddiness (principal); Z13.9 Encounter for screening, unspecified

== ENCOUNTER → 2024-07-20 12:17 | Outpatient (BNVA) | payer OTHER, SELFPAY | PROVIDERS: PCP Internal Medicine; Visit Provider Nurse Practitioner Family | DX: R42 Dizziness and giddiness (principal) | CPT/HCPCS: 82948 ==

== ENCOUNTER 2024-09-22 09:44 | Outpatient (AMB) | payer OTHER, SELFPAY ==
--- NOTE | 2024-09-22 09:54 | A.OFFPC_ITS ---
Vital Signs 09/22/24 09:55 Height 5 ft 11 in Weight 227 lb 8 oz BMI 31.7 BP 130/68 Blood Pressure Location Lt brachial Position Sitting Pulse 67 Pulse Source Pulse Oximeter Temp 97.1 F Temp Source Temporal Artery Scan Pulse Oximetry (%) 98 Oxygen Delivery Method Room Air Intake Visit Reasons: f/u cholesterol and HTN Intake Note: Patient is here to follow up on HTN, Cholesterol. Medical Affairs Specialist Required: No Medical Records Analyst: Not Required per policy Accompanied by: Self / Same As Patient Allergies Penicillins Adverse Reaction (Severe, Verified 09/22/24 09:54) Anxiety pineapple Adverse Reaction (Severe, Verified 09/22/24 09:54) swellling Medication List - Last Reconciled 09/22/24 by José Miguel David PoMD alprazolam 0.5 mg PO DAILY amlodipine 10 mg PO DAILY budesonide-formoterol 80-4.5 mcg/actuation (Symbicort) 2 puffs inhalation BID PRN cetirizine (Zyrtec) 10 mg PO DAILY cholecalciferol (vitamin D3) 25 mcg PO DAILY clonidine HCl 0.1 mg PO BEDTIME clotrimazole-betamethasone 1-0.05 % 1 appl topical BID 2 weeks mohamud.stocking,knee,reg,xlrg 15-20 cm olmesartan 20 mg PO DAILY pantoprazole 40 mg PO DAILY sildenafil 100 mg PO DIRECTED tamsulosin 0.4 mg PO BEDTIME tizanidine 2 mg PO .QHS PRN Tobacco use date assessed: 09/22/24 Fall risk assessment: No Falls in past year Last assessed Fall Risk: 09/22/24 Dental Screening Dental Screen Date: 03/18/24 [facility] Medical History (Updated 07/20/24 @ 14:36 by Daisy Taylor NP) Lightheadedness Right hip pain Murmur Enlarged prostate Atelectasis GERD (gastroesophageal reflux disease) ZOE (obstructive sleep apnea) Extremity edema Asthma Surgical History History of knee replacement procedure of left knee Social History Housing: House Alcohol intake: never Patient Tobacco Use Status: Never used Tobacco Tobacco use type: Cigarette e-Cigarette/Vaping Use: Never Used Second Hand Smoke Exposure: No service: Yes ([employer] [id number] ) Current occupational status: retired Cognitive needs: No Hearing needs: No Vision needs: Yes Questionnaire Thrive Questionnaire Date Thrive assessed: 03/18/24 I am a: Patient What is your living situation today?: I have a steady place to live Within the past 12 months, did the food you bought not last and you didn't have the money to get more?: I choose not to answer this question Within the past 12 months, did you worry whether your food would run out before you got money to buy more?: I choose not to answer this question Do you have trouble paying for medicines?: No Do you have trouble getting transportation to medical appointments?: No Do you have trouble paying your heating and electricity bill?: No Do you have trouble taking care of your child, family member or friend?: No Do you have trouble with day-to-day activities such as bathing, preparing meals, shopping, managing finances, etc.?: No Are you currently unemployed and looking for a job?: No Are you interested in more education?: Yes Please select the resources that you would like help with: None Currently or been in a relationship where the following occur: I choose not to answer THRIVE Score: 0 ALISON-7 AMB Questionnaire ALISON-7 Date ALISON - 7 assessed: 03/18/24 Source: Developed by Drs. David Jeong, Jo Whitney, Cristofer Meyer and colleagues, with an educational esther from [employer]. Physical exam (Primary Care) Vital Signs: Last Vital Signs Temp 97.1 F 09/22/24 09:55 Pulse 67 09/22/24 09:55 BP 130/68 09/22/24 09:55 Pulse Ox 98 09/22/24 09:55 Oxygen Delivery Method Room Air 09/22/24 09:55 BMI result Body Mass Index 31.7 Tobacco/Smoking Status: Tobacco use Status Tobacco use date assessed 09/22/24 09/22/24 10:00 Patient Tobacco Use Status Never used Tobacco 09/22/24 10:00 Tobacco use type Cigarette 09/22/24 10:00 e-Cigarette/Vaping Use Never Used 09/22/24 10:00 Thrive Assessment: Date of Thrive Assessment Date Thrive assessed 03/18/24 09/22/24 10:00 Currently or been in a relationship where the following occur: I choose not to answer Const General: alert; No acute distress Eyes Conjunctivae: conjunctivae normal Resp Auscultation: clear to auscultation bilaterally Cardio Rate: regular rate Rhythm: regular rhythm GI Inspection: Yes normal to inspection Extrem General: Yes normal to inspection and No edema Immunizations pneumoc 20-pastor conj-dip cr(PF) 0.5 mL IM syringe Performing Provider: José Miguel Espinoza MD [facility] [place] [facility] Administered by: Usha Loza CMA on 09/22/24 10:21 Dose Route Admin Location Dispensed Lot Number Expiration Date ND Guest Relations Representative 0.5 mL IM Left Deltoid 0.5 mL [id number] 08/11/25 [employer] /P[employer]ER Total Dispensed Waste 0.5 mL 0 % VIS Given Date VIS Provided VIS Publication Date 09/22/24 Single Vaccine 24 Eligibility Eligibility Date Funding Source Not [facility] Eligible 09/22/24 Private Coding Level of Care Code Est Pt Level 4 (10540) Complex EM visit Add On G2211 Diagnoses ZOE (obstructive sleep apnea) G47.33 Mild intermittent asthma without complication J45.20 Asthma complication type: uncomplicated Asthma persistence: intermittent Asthma severity: mild Benign prostatic hyperplasia with urinary frequency N40.1; R35.0 Lower urinary tract symptom detail: urinary frequency Lower urinary tract symptom presence: symptoms present Gastroesophageal reflux disease without esophagitis K21.9 Esophagitis presence: without esophagitis Obesity (BMI 30-39.9) E66.9 Impaired glucose tolerance R73.02 Hypercholesterolemia E78.00 Generalized anxiety disorder F41.1 Assessment & Plan Assessment & Plan (1) ZOE (obstructive sleep apnea): Comment: CPAP Code(s): G47.33 - Obstructive sleep apnea (adult) (pediatric) Category: Medical Plan: Continue to use the CPAP more than 4 hours a night and benefits from this (2) Asthma: Code(s): J45.909 - Unspecified asthma, uncomplicated Category: Medical Qualifiers: Asthma complication type: uncomplicated Asthma persistence: intermittent Asthma severity: mild Qualified Code(s): J45.20 - Mild intermittent asthma, uncomplicated Plan: Patient is on Symbicort. Reminded about rinsing mouth after using (3) BPH (benign prostatic hyperplasia): Code(s): N40.0 - Benign prostatic hyperplasia without lower urinary tract symptoms Category: Medical Qualifiers: Lower urinary tract symptom detail: urinary frequency Lower urinary tract symptom presence: symptoms present Qualified Code(s): N40.1 - Benign prostatic hyperplasia with lower urinary tract symptoms; R35.0 - Frequency of micturition Plan: Continue with tamsulosin sildenafil (4) GERD (gastroesophageal reflux disease): Code(s): K21.9 - Gastro-esophageal reflux disease without esophagitis Category: Medical Qualifiers: Esophagitis presence: without esophagitis Qualified Code(s): K21.9 - Gastro-esophageal reflux disease without esophagitis Plan: Avoid the foods that causes that usually spicy foods, tomato products, juices, coffee, soda and foods that your sensitive to. After eating do not lie down, allow 3-4 hours before in lie down. And keep the head of bed above 30 degrees to avoid the acid from going up. (5) Obesity (BMI 30-39.9): Code(s): E66.9 - Obesity, unspecified Category: Medical Plan: Diet and exercise (6) Impaired glucose tolerance: Code(s): R73.02 - Impaired glucose tolerance (oral) Category: Medical Plan: Decrease the amount of carbohydrate intake, pasta, bread, rice and potatoes are all sugar and that is aside from all the sweet stuff, remember that fruits are good but they are Sweet also. (7) Hypercholesterolemia: Code(s): E78.00 - Pure hypercholesterolemia, unspecified Category: Medical Plan: Avoid fried foods, chicken skin, eggs, butter margarine, pastries and meat. Be it pork or beef they have a lot of cholesterol LDL goal of less than 130 and triglyceride of less than 150 (8) Generalized anxiety disorder: Code(s): F41.1 - Generalized anxiety disorder Category: Medical Plan: Continue with present therapy. Plan History of Present Illness The patient is a 64-year-old male presenting for a follow-up visit. The patient has a history of obesity, with a recent weight loss of 6 pounds noted. He also has a history of asthma and obstructive sleep apnea, for which he uses a CPAP machine more than 4 hours a night and finds it beneficial. The patient has been diagnosed with hypertension, hypercholesterolemia, and anxiety disorder. He follows up with cardiology, and no further workup was deemed necessary as he is active. The patient has a history of benign prostatic hyperplasia and is currently on tamsulosin and sildenafil. He was reminded to rinse his mouth after using Symbicort for asthma management. The patient had an ear infection requiring urgent care visits. His blood work from March showed normal blood count, stable renal function, and normal blood sugar. However, there was one episode of elevated liver function, and his cholesterol was mildly elevated at 131 mg/dL. His vitamin D levels were low, while vitamin B12 and thyroid function were normal. Health Maintenance - Colon cancer screening last performed in 2020 - Continues to use CPAP for obstructive sleep apnea management - Advised to rinse mouth after using Symbicort Social History Review of Systems Physical Exam Results - Labs: Normal blood count, stable renal function, normal blood sugar, elevated liver function episode, mildly elevated cholesterol at 131 mg/dL, low vitamin D, normal vitamin B12, normal thyroid function Plan The patient will continue using the CPAP machine for obstructive sleep apnea, as it has been beneficial. He is advised to maintain his current asthma management with Symbicort, ensuring to rinse his mouth after use. The patient will continue with his current medications, including tamsulosin and sildenafil, for benign prostatic hyperplasia. Diet and exercise plans are emphasized for weight management and overall health improvement. The patient's cholesterol management will aim for an LDL goal of less than 130 mg/dL and triglycerides of less than 150 mg/dL, continuing with present therapy. Patient was informed and verbally consented to the use of an ambient scribe for clinic note documentation during this visit. Discussion Notes Patient Instructions - Continue using CPAP machine for more than 4 hours each night. - Rinse mouth after using Symbicort. - Maintain diet and exercise regimen for weight management. - Continue current medications including tamsulosin and sildenafil. Orders: Orders Magnesium Today K21.9 - Gastro-esophageal reflux disease without esophagitis Thyroid Stimulating Hormone Today K21.9 - Gastro-esophageal reflux disease without esophagitis Lipid Panel Today E78.00 - Pure hypercholesterolemia, unspecified, K21.9 - Gastro-esophageal reflux disease without esophagitis Complete Blood Count Auto Diff Today K21.9 - Gastro-esophageal reflux disease without esophagitis Comprehensive Met. Panel Today K21.9 - Gastro-esophageal reflux disease without esophagitis Free T4 (Free Thyroxine) Today K21.9 - Gastro-esophageal reflux disease without esophagitis Prostate Specific Antigen Scr Today K21.9 - Gastro-esophageal reflux disease without esophagitis Vitamin B12 and Folate Today K21.9 - Gastro-esophageal reflux disease without esophagitis Hemoglobin A1c Today K21.9 - Gastro-esophageal reflux disease without esophagitis Pneumococcal 20 Immunization Today Z23 - Encounter for immunization Medications: Refilled alprazolam 0.5 mg PO DAILY 30 tabs 0RF R79.89 - Other specified abnormal findings of blood chemistry
[2024-09-22 09:55] VITALS: BP 130/68; PULSE 67; TEMP 36.2; O2SAT 98; BMI 31.7
--- OUTSIDE RECORDS SUMMARY | 2024-09-22 10:29 | XMS_ITS | Encounter Summary ---
Author Organization [facility] Address [address] [place] [address] [place] [phone] Phone Care Team Providers Care Meatcutter Name Role Phone Kyler Alonso MD Primary Care Provider [phone] Encounter Details Date Type Department Care Team (Late st Contact Info) Description 11/20/2021 Procedure [facility] [address] [place] [address] Social History Tobacco Use Types Packs/Day Years Used Date Smoking Tobacco: Former Smokeless Tobacco: Never Alcohol Use Standard Drinks/Week Comments Not Currently 0 (1 standard drink = 0.6 oz pur e alcohol) Sex and Gender Information Value Date Recorded Sex Assigned at Not on file Legal Sex Male 4:15 PM EDT Gender Identity Not on file Sexual Orientation Not on file documented as of this encounter Functional Status * Calculated C-SSRS Risk Score (Lifetime/Recent) Answer Date of Assessment Author No Risk Indicated 11/20/2021 8:55 PM EDT Kyler Coto RN * [place] Suicide Severity Rating Scale (Screener/Recent Self-Report) Question Answer Date of Assessment Author 1. Wish to be (Past 1 Month) No 11/20/2021 8:55 PM EDT Kyler Coto Cha, RN 2. Non-Specific Active Suicidal Thoughts (Past 1 Month) No 11/20/2021 8:55 PM EDT Kyler Coto Cha, RN 6. Suicidal Behavior (Lifetime) No 11/20/2021 8:55 PM EDT Kyler Coto Cha, RN documented as of this encounter Plan of Treatment Not on file documented as of this encounter Visit Diagnoses Not on filedocumented in this encounter Additional Health Concerns Infection Onset Date Last Indicated Resolved Time CoV-Risk 11/20/2021 11/20/2021 12/01/2021 1:23 AM EDT documented as of this encounter Care Teams Meatcutter Relationship Specialty Start Date End Date Kyler Alonso MD [address] [place] [address] PCP - General Internal Medicine 11/20/21 documented as of this encounter Additional Source Comments The information contained in this document represents components of the legal health record. It is not the complete legal health record.[facility]
--- OUTSIDE RECORDS SUMMARY | 2024-09-22 10:29 | XMS_ITS | Clinical Summary ---
Author Organization [facility] Address [address] [place] [address] Phone Care Team Providers Care Photographic Intelligence Officer Name Role Phone José Miguel Espinoza MD Primary Care Provider [phone] Allergies Active Allergy Reactions Criticality Noted Date [...] mg total) by mouth at bedtime. Active Active Problems Problem Noted Date Diagnosed Date Primary hypertension 07/07/2024 Assessment & Plan (07/07/2024 2:10 PM EDT): Well-controlled. Dizziness 07/03/2024 Cardiac murmur 07/03/2024 Assessment & Plan (07/07/2024 2:10 PM EDT): He was reported to have a heart murmur during a routine office visit with his sign installer. Currently, I do not appreciate significant murmur and his echocardiogram does not suggest valvular disease either. Most likely the murmur is a flow murmur and could be triggered by dehydration. Will continue clinical monitor giving his age. We also discussed about avoiding dehydration. I will obtain echo image from [facility]. He is otherwise completely asymptomatic with intense exercise. There is no further workup needed. Resolved Problems Problem Noted Date Diagnosed Date Resolved Date Atrioventricular block, first degree 07/03/2024 07/07/2024 Assessment & Plan (07/07/2024 2:10 PM EDT): Orders: Ambulatory referral to Cardiology ECG 12 lead Encounters Date Type Department Care Team Description 07/16/2024 Telephone [facility] [address] [place] [address] José Miguel Espinoza MD 07/07/2024 10:20 AM EDT Office Visit [facility] [address] [place] [address] Lore Briggs MD Cardiac murmur (Primary Dx); Atrioventricular block, first degree; Dizziness and giddiness; Cardiac murmur, unspecified; Primary hypertension 06/28/2024 5:21 PM EDT - 06/28/2024 7:07 PM EDT Emergency [facility] [address] [place] [address] Cory Novak MD Tension headache (Primary Dx) Discharge Disposition: Home or Self Care from Last 3 Months Medical History Medical History Date Comments Hypertension Asthma GERD (gastroesophageal reflux disease) Neutropenia ([facility] V24) Hiatal hernia Social History Tobacco Use [...] 58 07/07/2024 10:10 AM EDT Temperature 36.7 C (98.1 F) 06/28/2024 6:01 PM EDT Respiratory Rate 18 06/28/2024 6:01 PM EDT [...] Years (1 of 2 - PCV) 09/09/1978 Zoster Vaccines (1 of 2) 09/09/2009 RSV Immunization Adult Patients (1 - Risk 60-74 years 1-dose series) 2019 Cholesterol Screening (Lipid Panel) 01/13/2022 Colorectal Cancer Screening: Colonoscopy 01/13/2022 Hepatitis C Screening 01/13/2022 Social Influencers of Health Screening 01/13/2022 COVID-19 Vaccine (1 - 2023-2 5 season) 2023 Depression Screening 02/12/2024 Falls Risk Assessment 09/09/2024 Influenza Vaccine (#1) 2024 Hypertension/CHF/CAD Annual BMP Blood Test 06/28/2025 [...] ECG 12 lead (07/07/2024 10:18 AM EDT) Ventricular Rate ECG 58 BPM GEMUSE Atrial Rate 58 BPM GEMUSE P-R Interval 220 ms GEMUSE QRS Duration 90 ms GEMUSE Q-T Interval 426 ms GEMUSE QTc 418 ms GEMUSE P Wave [place] 46 degrees GEMUSE R [place] 96 degrees GEMUSE T [place] -2 degrees GEMUSE ECG Interpretation Sinus bradycardia with 1st degree A-V block Rightward axis Abnormal QRS-T angle, consider primary T wave abnormality Abnormal ECG When compared with ECG of 30-MAR-2024 22:06, No significant change was found Confirmed by [place] BRIGGS, LORE ([id number]) on 07/07/2024 10:25:59 AM GEMUSE 07/07/2024 10:1 8 AM EDT 07/07/2024 10:25 AM EDT us Lore Briggs MD ECG ORDERABLES Final Result GEMUSE * (ABNORMAL) CBC auto differential (06/28/2024 2:23 PM EDT) WBC 3.5(L) 4.8 - 10.8 K/mcL LAB HEMETOLOGY METHOD 06/28/2024 2:54 PM EDT [facility] RBC 4.80 4.50 - 5.50 M/mcL LAB HEMETOLOGY METHOD 06/28/2024 2:54 PM EDT [facility] Hemoglobin 13.8 13.5 - 17.5 g/dL LAB HEMETOLOGY METHOD 06/28/2024 2:54 PM EDT [facility] Hematocrit 42.4 42.0 - 54.0 % LAB HEMETOLOGY METHOD 06/28/2024 2:54 PM EDT [facility] MCV 89.3 79.0 - 98.0 FL LAB HEMETOLOGY METHOD 06/28/2024 2:54 PM EDT [facility] MCH 29.1 27.0 - 32.0 pcg LAB HEMETOLOGY METHOD 06/28/2024 2:54 PM EDT [facility] MCHC 32.5 32.0 - 37.0 g/dL LAB HEMETOLOGY METHOD 06/28/2024 2:54 PM EDT [facility] RDW 13.4 11.0 - 15.0 % LAB HEMETOLOGY METHOD 06/28/2024 2:54 PM EDT [facility] Platelets 242 130 - 400 K/mcL LAB HEMETOLOGY METHOD 06/28/2024 2:54 PM EDT [facility] MPV 10.3 7.0 - 11.0 FL LAB HEMETOLOGY METHOD 06/28/2024 2:54 PM EDT [facility] NRBC 0.0 <1.0 % LAB HEMETOLOGY METHOD 06/28/2024 2:54 PM EDT [facility] NRBC Absolute 0.00 <0.10 K/mcL LAB HEMETOLOGY METHOD 06/28/2024 2:54 PM EDT [facility] Neutrophils Relative 44.5 % LAB HEMETOLOGY METHOD 06/28/2024 2:54 PM EDT [facility] Lymphocytes Relative 36.0 % LAB HEMETOLOGY METHOD 06/28/2024 2:54 PM EDT [facility] Monocytes Relative 13.8 % LAB [facility] Eosinophils Relative 3.7 % LAB HEMETOLOGY METHOD 06/28/2024 2:54 PM [facility] Basophils Relative 1.7 % LAB HEMETOLOGY METHOD 06/28/2024 2:54 PM EDT [facility] Immature Granulocytes Relative 0.3 % LAB HEMETOLOGY METHOD 06/28/2024 2:54 PM EDT [facility] Neutrophils Absolute 1.54 1.50 - 7.00 K/mcL LAB HEMETOLOGY METHOD 06/28/2024 2:54 PM EDT [facility] Lymphocytes Absolute 1.25 1.00 - 5.00 K/mcL LAB HEMETOLOGY METHOD 06/28/2024 2:54 PM EDT [facility] Monocytes Absolute 0.48 0.20 - 1.00 K/[facility] LAB HEMETOLOGY METHOD 06/28/2024 2:54 PM EDT [facility] Eosinophils Absolute 0.13 0.00 - 0.50 K/[facility] LAB HEMETOLOGY METHOD 06/28/2024 2:54 PM EDT [facility] Basophils Absolute 0.06 0.00 - 0.20 K/[facility] LAB HEMETOLOGY METHOD 06/28/2024 2:54 PM EDT [facility] Immature Granulocytes Absolute 0.01 0.00 - 0.03 K/[facility] 06/28/2024 2:54 PM EDT [facility] Blood Venous blood specimen / Unknown Venipuncture / Unknown 06/28/2024 2:23 PM EDT 06/28/2024 2:44 PM EDT Pipo Haynes MD LAB BLOOD ORDERABLES Final Res ult [facility] [address] [place] [address], * Basic metabolic panel (06/28/2024 2:23 PM EDT) Sodium 137 133 - 145 mmol/L LAB CHEMISTRY METHOD 06/28/2024 3:08 PM EDT [facility] Potassium 4.2 3.5 - 5.5 mmol/L LAB CHEMISTRY METHOD 06/28/2024 3:08 PM [facility] Chloride 105 96 - 110 mmol/L LAB CHEMISTRY METHOD 06/28/2024 3:08 PM EDT [facility] CO2 27 21 - 32 mmol/L LAB CHEMISTRY METHOD 06/28/2024 3:08 PM [facility] Anion Gap 5 3 - 11 LAB CHEMISTRY METHOD 06/28/2024 3:08 PM EDT [facility] Glucose 93 70 - 100 mg/dL LAB CHEMISTRY METHOD 06/28/2024 3:08 PM EDT [facility] BUN 18 5 - 25 mg/dL LAB CHEMISTRY METHOD 06/28/2024 3:08 PM EDT [facility] Creatinine 1.22 0.70 - 1.30 mg/dL LAB CHEMISTRY METHOD 06/28/2024 3:08 PM EDT [facility] eGFR 66 >=60 mL/min/1. 73m2 LAB CHEMISTRY METHOD 06/28/2024 3:08 PM EDT [facility] Comment:Calculation based on the Chronic Kidney Disease Epidemiology Collaboration (CKD-EPI) equation refit without adjustment for race. BUN/Creatinine Ratio 14.8 LAB CHEMISTRY METHOD 06/28/2024 3:08 PM EDT [facility] Calcium 8.7 8.5 - 10.5 mg/dL LAB CHEMISTRY METHOD 06/28/2024 3:08 PM EDT [facility] Blood Venous blood specimen / Unknown Venipuncture / Unknown 06/28/2024 2:23 PM EDT 06/28/2024 2:44 PM EDT Pipo Haynes MD LAB BLOOD ORDERABLES Final Res ult [facility] [address] [place] [address], from Last 3 Months Insurance [facility] [address] [place] [address] Care Teams Photographic Intelligence Officer Relationship Specialty Start Date End Date José Miguel Espinoza MD [address] [place] [phone] PCP - General Internal Medicine 07/07/24
== END 2024-09-22 10:37 | disposition home or self-care (01) ==
LOC: HO.HMCH 09:45
PROVIDERS: PCP Internal Medicine; Visit Provider Internal Medicine
DX: G47.33 Obstructive sleep apnea (adult) (pediatric) (principal); J45.20 Mild intermittent asthma, uncomplicated; E66.9 Obesity, unspecified; Z68.31 Body mass index [BMI] 31.0-31.9, adult; N40.1 Benign prostatic hyperplasia with lower urinary tract symptoms; R35.0 Frequency of micturition; K21.9 Gastro-esophageal reflux disease without esophagitis; E78.00 Pure hypercholesterolemia, unspecified; R73.02 Impaired glucose tolerance (oral); F41.1 Generalized anxiety disorder; Z23 Encounter for immunization

== ENCOUNTER 2024-09-22 09:44 | Outpatient (REF) | payer OTHER, MEDICARE, SELFPAY ==
[2024-09-22 11:04] LABS: MANUAL DIFF FLAG NO
[2024-09-22 11:46] LABS: Hematocrit 40.3 % (42.0-52.0); Hemoglobin 13.1 g/dl (14.0-18.0); Imm Gran Abs Auto 0.01 X10*3/uL (0.00-0.03); Imm Gran Pct Auto 0.3 % (0.0-0.4); Lymphocytes Absolute Auto 1.0 X10*3/uL (1.2-4.9); Mean Corpuscular HGB Conc 32.5 g/dl (31.0-36.0); Mean Corpuscular Hemoglobin 28.7 pg (27.0-33.0); Mean Corpuscular Volume 88.4 fL (80.0-98.0); NRBC Abs Auto 0.000 X10*3/uL (0.0-0.012); NRBC Pct Auto 0.0 /100WBC (0.0-0.2); Platelet Count 227 X10*3/uL (160-400); Red Blood Count 4.56 X10*6/uL (4.60-5.80); White Blood Count 3.1 X10*3/uL (4.8-10.8)
[2024-09-22 11:55] LABS: Hemoglobin A1C 118.9871 umol/L; Total Hemoglobin (HGBA1C) 3465.9861 umol/L
[2024-09-22 12:53] LABS: Alanine Aminotransferase 19 U/L (0-40); Albumin Level 4.3 g/dL (3.5-5.0); Alkaline Phosphatase 68 U/L (39-117); Anion Gap 14 (12-20); Aspartate Amino Transferase 37 U/L (5-37); Blood Urea Nitrogen 16 mg/dL (9-16); Calcium 8.8 mg/dL (8.4-10.2); Carbon Dioxide 26 mmol/L (22-29); Chloride 108 mmol/L (96-108); Cholesterol 193 mg/dL (<200); Estimated Glomerular Filt Rate > 60; Free T4 (Free Thyroxine) 0.89 ng/dL (0.71-1.85); HDL Cholesterol 51 mg/dL (>40); Magnesium 2.2 mg/dL (1.6-2.6); Potassium 4.1 mmol/L (3.3-5.1); Sodium 144 mmol/L (135-145); Thyroid Stimulating Hormone 1.30 uIU/mL (0.32-4.0); Total Protein 7.1 g/dL (6.5-8.0); Triglycerides 49 mg/dL (<150)
[2024-09-22 13:15] LABS: Folate 4.2 ng/mL (> or = 4.0); Vitamin B12 348 pg/mL (200-900)
== END 2024-09-22 09:45 | disposition home or self-care (01) ==
LOC: HO.LAB 09:44
PROVIDERS: PCP Internal Medicine; Visit Provider Internal Medicine
DX: Z12.5 Encounter for screening for malignant neoplasm of prostate (principal); Z23 Encounter for immunization; I10 Essential (primary) hypertension; G47.33 Obstructive sleep apnea (adult) (pediatric); J45.20 Mild intermittent asthma, uncomplicated; N40.1 Benign prostatic hyperplasia with lower urinary tract symptoms; R35.0 Frequency of micturition; K21.9 Gastro-esophageal reflux disease without esophagitis; E66.9 Obesity, unspecified; R73.02 Impaired glucose tolerance (oral); E78.00 Pure hypercholesterolemia, unspecified; F41.1 Generalized anxiety disorder
CPT/HCPCS: 36415; 80053; 80061; 82607; 82746; 83036; 83735; 84153; 84439; 84443; 85025; 90471; 90677

== ENCOUNTER 2024-10-13 13:23 | Outpatient (AMB) | payer MEDICARE, OTHER, SELFPAY ==
[2024-10-13 13:44] VITALS: BP 102/60; PULSE 71; TEMP 36.6; O2SAT 97; BMI 31.2
--- NOTE | 2024-10-13 13:44 | AM.OFFWIN_ITS ---
Intake Vital Signs 10/13/24 13:44 Height 5 ft 11 in Weight 224 lb BMI 31.2 BP 102/60 Blood Pressure Location Lt brachial Position Sitting Pulse 71 Pulse Source Pulse Oximeter Temp 97.9 F Temp Source Oral Pulse Oximetry (%) 97 Oxygen Delivery Method Room Air Intake Visit Reasons: EP-b/l feet toes pain Intake Note: pt presents with recurrent sores between RT great toe and 2nd toe webspace, LT 4th-5th webspace Patient Tobacco Use Status: Never used Tobacco Allergies Penicillins Adverse Reaction (Severe, Verified 10/13/24 13:48) Anxiety pineapple Adverse Reaction (Severe, Verified 10/13/24 13:48) swellling Medication List - Last Reconciled 10/13/24 by Nicolas French MD alprazolam 0.5 mg PO DAILY amlodipine 10 mg PO DAILY budesonide-formoterol 80-4.5 mcg/actuation (Symbicort) 2 puffs inhalation BID PRN cetirizine (Zyrtec) 10 mg PO DAILY cholecalciferol (vitamin D3) 25 mcg PO DAILY clotrimazole-betamethasone 1-0.05 % 1 appl topical BID 2 weeks mohamud.stocking,knee,reg,xlrg 15-20 cm olmesartan 20 mg PO DAILY pantoprazole 40 mg PO DAILY sildenafil 100 mg PO DIRECTED tamsulosin 0.4 mg PO BEDTIME tizanidine 2 mg PO .QHS PRN Do you need a note to return to daycare/school/sports/work: No HPI EP-b/l feet toes pain HPI Details Chief Complaint The patient reports having persistent problems with a wart on the right foot between the toes. History of Present Illness The patient is a 64-year-old male presenting with chronic and recurrent wart on the toes. Wart on the toe: - The patient has developed a wart betwe en 1st and 2nd right toe Patient has appointment coming up with a soliciting freight agent meanwhile he is seeking guidance Problem List - Plantar wart Patient Instructions - Use a pumice stone after showering whe n the skin is soft to gently remove excess skin pressing on the adjacent toe. - Place a spacer or cotton between the t oes to prevent rubbing. - Apply an ogtu-imn-cubjdms solution to soften the skin and facilitate the use of the pumice stone. Salicylic acid sent to be applied at night and then wash off in the morning - Continue using foot wear that are comf ortable and effective in keeping the skin between the toes from irritating each other. Review of Systems - General: No fever no chills - Neurological: No headaches no dizziness - Ear nose throat: No sore throat no hearing difficulty no ear pain - Cardiovascular: No syncope, no chest pain, no palpitations Physical Exam General: No acute distress HEENT: No acute findings Neck: Supple Respiratory system: Able to talk in full sentences, no audible wheeze Gastrointestinal: No pain Extremities: Chronic problem with toes, primarily the right foot between the first and second toes, presence of a wart causing irritation due to rubbing CLAMPER: Alert awake oriented x3 Skin: Normal turgor [facility] Medical History Lightheadedness Right hip pain Murmur Enlarged prostate Atelectasis GERD (gastroesophageal reflux disease) ZOE (obstructive sleep apnea) Extremity edema Asthma Surgical History History of knee replacement procedure of left knee Social History Housing: House Alcohol intake: never Patient Tobacco Use Status: Never used Tobacco Tobacco use type: Cigarette e-Cigarette/Vaping Use: Never Used Second Hand Smoke Exposure: No service: Yes ([employer] [id number] ) Current occupational status: retired Cognitive needs: No Hearing needs: No Vision needs: Yes Physical Exam Vital Signs: Last Vital Signs Temp 97.9 F 10/13/24 13:44 Pulse 71 10/13/24 13:44 BP 102/60 10/13/24 13:44 Pulse Ox 97 10/13/24 13:44 Oxygen Delivery Method Room Air 10/13/24 13:44 BMI result Body Mass Index 31.2 Assessment & Plan Assessment & Plan (1) Plantar wart of right foot: Code(s): B07.0 - Plantar wart Plan Chief Complaint The patient reports having persistent problems with a wart on the right foot between the toes. History of Present Illness The patient is a 64-year-old male presenting with chronic and recurrent wart on the toes. Wart on the toe: - The patient has developed a wart between 1st and 2nd right toe Patient has appointment coming up with a soliciting freight agent meanwhile he is seeking guidance Problem List - Plantar wart Patient Instructions - Use a pumice stone after showering when the skin is soft to gently remove excess skin pressing on the adjacent toe. - Place a spacer or cotton between the toes to prevent rubbing. - Apply an vnrg-kmd-frxoviu solution to soften the skin and facilitate the use of the pumice stone. Salicylic acid sent to be applied at night and then wash off in the morning - Continue using foot wear that are comfortable and effective in keeping the skin between the toes from irritating each other. Medications: New salicylic acid 26% Apply and cover with Band-Aid overnight, take it off in the morning and wash it off 1 appl topical BEDTIME 10 mL 0RF Wart between toes 7 days Coding Level of Care Code Est Pt Level 3 (00892) Diagnoses Plantar wart of right foot B07.0
--- OUTSIDE RECORDS SUMMARY | 2024-10-13 14:39 | XMS_ITS | Encounter Summary ---
Author Organization [facility] Address [address] [place] [address] [place] [id number] Phone Care Team Providers Care Bail Bond Agent Name Role Phone Kyler Alonso MD Primary Care Provider [phone] Encounter Details Date Type Department Care Team (Late st Contact Info) Description 11/20/2021 Procedure [facility] [address] [place] [address] Social History Tobacco Use Types Packs/Day Years [...] 8:55 PM EDT Kyler Coto RN * [place] Suicide Severity Rating Scale (Screener/Recent Self-Report) Question [...] documented as of this encounter Care Teams Bail Bond Agent Relationship Specialty Start Date End Date Kyler Alonso MD [address] [place] [address] PCP - General Internal Medicine 11/20/21 documented as of this encounter Additional Source Comments The information contained in this document represents components of the legal health record. It is not the complete legal health record.[facility]
--- OUTSIDE RECORDS SUMMARY | 2024-10-13 14:39 | XMS_ITS | Clinical Summary ---
Author Organization 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 Currently, I do not appreciate significant murmur and his echocardiogram does not suggest valvular disease either. Most likely the murmur is a flow murmur and could be triggered by dehydration. Will continue clinical monitor giving his age. We also discussed about avoiding dehydration. I will obtain echo image from [facility]. He is otherwise completely asymptomatic with intense exercise. There is no further workup needed. Resolved Problems Problem Noted Date Diagnosed Date Resolved Date Atrioventricular block, first degree 07/03/2024 07/07/2024 Assessment & Plan (07/07/2024 2:10 PM EDT): Orders: Ambulatory referral to Cardiology ECG 12 lead Encounters Date Type Department Care Team Description 07/16/2024 Telephone [facility] [address] [place] [address] José Miguel Espinoza MD from Last 3 Months Medical History Medical [...] Procedure Name Priority Date/Time Associated Diagnosis Comments BASIC METABOLIC PANEL STAT 06/28/2024 2:23 PM EDT from Last 3 Months or Most Recently Relevant to Health Maintenance Results * Basic metabolic panel (06/28/2024 2:23 PM EDT) Sodium 137 133 - 145 mmol/L LAB CHEMISTRY METHOD 06/28/2024 3:08 PM [facility] Potassium 4.2 3.5 - 5.5 mmol/L LAB CHEMISTRY METHOD 06/28/2024 3:08 PM [facility] Chloride 105 96 - 110 mmol/L LAB CHEMISTRY METHOD 06/28/2024 3:08 PM [facility] CO2 27 21 - 32 mmol/L LAB CHEMISTRY METHOD 06/28/2024 3:08 PM [facility] Anion Gap 5 3 - 11 LAB CHEMISTRY METHOD 06/28/2024 3:08 PM [facility] Glucose 93 70 - 100 mg/dL LAB CHEMISTRY METHOD 06/28/2024 3:08 PM [facility] BUN 18 5 - 25 mg/dL LAB CHEMISTRY METHOD 06/28/2024 3:08 PM [facility] Creatinine 1.22 0.70 - 1.30 mg/dL LAB CHEMISTRY METHOD 06/28/2024 3:08 PM [facility] eGFR 66 >=60 mL/min/1. 73m2 LAB CHEMISTRY METHOD 06/28/2024 3:08 PM EDT [facility] Comment:Calculation based on the Chronic Kidney Disease Epidemiology Collaboration (CKD-EPI) equation refit without adjustment for race. BUN/Creatinine Ratio 14.8 LAB CHEMISTRY METHOD 06/28/2024 3:08 PM EDT [facility] Calcium 8.7 8.5 - 10.5 mg/dL LAB CHEMISTRY METHOD 06/28/2024 3:08 PM EDT [facility] Blood Venous blood specimen / Unknown Venipuncture / Unknown 06/28/2024 2:23 PM EDT 06/28/2024 2:44 PM EDT us Pipo Haynes MD LAB BLOOD ORDERABLES Final Res ult [facility] [address] [place] [address], from Last 3 Months or Most Recently Relevant to Health Maintenance Insurance [facility] Care Teams Reliability Technician Relationship Specialty Start Date End Date José Miguel Espinoza MD [address] [place] [id number] PCP - General Internal Medicine 07/07/24
--- OUTSIDE RECORDS SUMMARY | 2024-10-13 14:39 | XMS_ITS | Clinical Summary ---
Author Organization [facility] Address [address] [place] [address] [place] [address] Phone Care Team Providers Care Accounting Systems Analyst Name Role Phone Kyler Alonso MD Primary Care Provider [phone] Allergies Active Allergy Reactions Criticality Noted Date Comments House Dust 11/20/2021 Penicillins 11/20/2021 Pineapple 11/20/2021 Family History Medical History Relation Comments Heart attack Father Heart disease Father Diabetes Mother Heart disease Mother Diabetes Sister Kidney disease Sister Relation Status Comments Father Mother Sister Social History Tobacco Use Types Packs/Day Years Used Date Smoking Tobacco: Former Smokeless Tobacco: Never Alcohol Use Standard Drinks/Week Comments Not Currently 0 (1 standard drink = 0.6 oz pur e alcohol) Education Answer Date Recorded Are you interested in more education? Not on erwin e 06/24/2022 Are you concerned about learning? Not on file 06/24/2022 No 06/24/2022 No 06/24/2022 Digital Access Answer Date Recorded No 07/08/2022 No 07/08/2022 No 07/08/2022 Reliable internet access at home? Not on file 07/08/2022 Device with a working camera? Not on file Sex and Gender Information Value Date Recorded Sex Assigned at Not on file Legal Sex Male 4:15 PM EDT Gender Identity Not on file Sexual Orientation Not on file Last Filed Vital Signs Vital Sign Reading Time Taken Comments Blood Pressure 140/86 11/20/2021 10:05 PM EDT Pulse 75 11/20/2021 10:05 PM EDT Temperature 36.5 C (97.7 F) 11/20/2021 10:05 PM EDT Respiratory Rate 18 11/20/2021 10:05 PM EDT Oxygen Saturation 97% 11/20/2021 10:05 PM EDT Inhaled Oxygen Concentration - - Weight 124.7 kg (275 lb) 11/20/2021 4:23 PM EDT Height 182.9 cm (6') 11/20/2021 4:23 PM EDT Body Mass Index 37.3 11/20/2021 4:23 PM EDT Plan of Treatment Health Maintenance Due Date Last Done Comments Adult Td,Tdap Booster 1959 LIPID PANEL 1959 DEPRESSION SCREENING 1971 SMOKING Hx and SMOKELESS TOB ACCO SCREENING 09/09/1972 HEPATITIS C SCREENING 09/09/1977 HIV ONE-TIME SCREENING (18-6 5 YEARS) 09/09/1977 COLOGUARD 09/09/2004 COLONOSCOPY 09/09/2004 COLORECTAL CANCER SCREENING 09/09/2004 FIT TEST 09/09/2004 FOBT 09/09/2004 SIGMOIDOSCOPY 09/09/2004 VIRTUAL COLONOSCOPY 09/09/2004 PNEUMOCOCCAL VACCINES (50+ y ears) (1 of 1 - PCV) 09/09/2009 ZOSTER VACCINES (1 of 2) 09/09/2009 COVID-19 VACCINE ( - 2023-2 5 season) 2023 ABDOMINAL AORTIC ANEURYSM (A AA) SCREENING 09/09/2024 SCREENING FOR DIABETES 11/20/2024 11/20/2021 RSV VACCINE (1 - 1-dose 75+ series) 09/09/2034 HEPATITIS A VACCINES Aged Out No long er eligible based on patient's age to complete this topic HIB VACCINES Aged Out No longer eligi ble based on patient's age to complete this topic MENINGOCOCCAL VACCINES (ACWY) Aged Out No longer eligible based on patient's age to complete this topic MENINGOCOCCAL VACCINES (B) Aged Out N o longer eligible based on patient's age to complete this topic Medical Devices Not on file Insurance HMO [facility] [address] [place], [place] [address] [place] [place] [address] [place], [place] [address]O [facility] H[facility] Advance Directives For more information, please contact: [phone] (9AM - 5PM [facility], Saturday-Saturday) Healthcare Agents on File Name Relationship Healthcare Agent [facility] Communication Hannah Cabrales Spouse .Primary Health Care Agent (Proxy form on file) Care Teams Accounting Systems Analyst Relationship Specialty Start Date End Date Kyler Alonso MD [address] [place] [address] [address] [place] [address] PCP - General Internal Medicine 11/20/21 Additional Source Comments The information contained in this document represents components of the legal health record. It is not the complete legal health record.[facility]
== END 2024-10-13 14:03 | disposition home or self-care (01) ==
PROVIDERS: PCP Internal Medicine; Visit Provider Internal Medicine
DX: B07.0 Plantar wart (principal)

== ENCOUNTER → 2024-10-13 13:23 | Outpatient (BNVA) | payer MEDICARE, OTHER, SELFPAY | PROVIDERS: PCP Internal Medicine; Visit Provider Internal Medicine | DX: B07.0 Plantar wart (principal) | CPT/HCPCS: 99212 ==

== ENCOUNTER 2024-10-29 09:27 | Outpatient (AMB) | payer MEDICARE, OTHER, SELFPAY ==
--- NOTE | 2024-10-29 09:30 | MHC.OFFVIS ---
Intake Visit Reasons: 6m/ PVR Intake Note: Patient is present for 6M/PVR Urology Medication:TAMSULOSIN,SILDENAFIL Antibiotic Allergy:PENICILLINS Blood Thinner:NONE Last PVR:24ML'S Todays PVR:159ML'S Lead Pourer Required: No Allergies Penicillins Adverse Reaction (Severe, Verified 10/29/24 10:20) Anxiety pineapple Adverse Reaction (Severe, Verified 10/29/24 10:20) swellling Medication List - Last Reconciled 10/29/24 by AJDA GaffneyP- alprazolam 0.5 mg PO DAILY amlodipine 10 mg PO DAILY budesonide-formoterol 80-4.5 mcg/actuation (Symbicort) 2 puffs inhalation BID PRN cetirizine (Zyrtec) 10 mg PO DAILY cholecalciferol (vitamin D3) 25 mcg PO DAILY clotrimazole-betamethasone 1-0.05 % 1 appl topical BID 2 weeks mohamud.stocking,knee,reg,xlrg 15-20 cm olmesartan 20 mg PO DAILY pantoprazole 40 mg PO DAILY salicylic acid 26% 1 appl topical BEDTIME 7 days sildenafil 100 mg PO DIRECTED tamsulosin 0.4 mg PO BEDTIME tizanidine 2 mg PO .QHS PRN HPI Comments Details: Norbert is a very pleasant 64-year-old male patient of Dr. Espinoza. He has a past medical history of GERD, obstructive sleep apnea compliant with CPAP, and asthma. He presents to the office today for follow-up of his lower urinary tract symptoms as well as erectile dysfunction. In discussion with the patient today he reports to be doing and feeling well. He discusses his intentional weight loss of over 45 lb in the last 2 years. He discusses being active in the gym 5 times per week. He reports compliance with Flomax and p.r.n. Viagra as prescribed. He currently denies any bothersome urinary issues or concerns. PSAs are as follows: PSAs: 06/04 0.8, 11/04 0.7, 05/05 0.8, 10/05 1.1 Previous workup has included a bladder ultrasound 06/04 noting distended urinary bladder with pre void volume of approximately 410 mL. Postvoid bladder volume is approximately 115 mL. Enlarged prostate measuring 280 mL. In office urinalysis results reviewed with the patient today. PVR 159 mL. He discusses taking p.r.n. Viagra 50 mg and feels this is helpful with maintaining his erections. Discussed at length enlarged prostate as well as lower urinary tract symptoms. Discussed potential causes and affects of these urological issues. We did discuss bladder triggers and irritants. All questions were answered. He otherwise offers no other issues or concerns at this time. [facility] Medical History (Updated 10/29/24 @ 10:35 by KIP Gaffney) Enlarged prostate Lightheadedness Right hip pain Murmur Atelectasis GERD (gastroesophageal reflux disease) ZOE (obstructive sleep apnea) Extremity edema Asthma Surgical History History of knee replacement procedure of left knee Social History Housing: House Alcohol intake: never Patient Tobacco Use Status: Never used Tobacco Tobacco use type: Cigarette e-Cigarette/Vaping Use: Never Used Second Hand Smoke Exposure: No service: Yes ([employer] [id number] ) Current occupational status: retired Cognitive needs: No Hearing needs: No Vision needs: Yes Review of Systems Const All systems reviewed & are unremarkable except as noted in HPI and below Physical Exam Const General: cooperative, healthy appearing, comfortable, no acute distress, well developed, alert and awake Nutritional Appearance: overweight Orientation/consciousness: patient oriented x3 Limitations: no limitations HEENT Head: Yes normal to inspection, Yes normocephalic and Yes atraumatic Ears: hearing grossly normal bilaterally Eyes General: appearance normal, both eyes and all related structures Neck Neck: Yes normal visual inspection and Yes trachea midline Chest Chest palpation & inspection: normal inspection of the chest Resp Effort & Inspection: normal respiratory effort and able to speak in complete sentences Cardio Rate: regular rate GI Inspection: Yes normal to inspection General: Yes no CVA tenderness Back/Spine/Pelvis Back: no CVA tenderness Skin General skin exam: no rashes or lesions noted Neuro General: patient oriented x3 Extrem General: Yes normal to inspection Psych Appearance: grossly normal and well kempt Mental Status: mental status grossly normal Speech and movement: Normal speech and movement present and Clear speech present Affect: normal affect Attitude: cooperative Thought process: Normal thought process present Thought content: Normal thought content present Insight: Fair insight present (Psych) Judgement: Fair judgement present (Psych) Office Procedures Post Void Residual Post Residual Void Post Void Residual (PVR): 159 [id number]-Aspu Void Residual by ultrasound Results AMB Urinalysis, Automated UA Leukoctes 0 Lela/uL Last Edit by NATALIE Chiang on 10/29/24 09:50 UA Nitrite Negative Last Edit by Kim Vargas [facility] on 10/29/24 09:50 UA Urobilinogen 0.2 mg/dL Last Edit by Kim Vargas [facility] on 10/29/24 09:50 UA Protein 15 mg/dL Last Edit by Kim Vargas [facility] on 10/29/24 09:50 UA pH 6.0 Last Edit by Kim Vargas [facility] on 10/29/24 09:50 UA Blood 0 Edwin/uL Last Edit by Kim Vargas [facility] on 10/29/24 09:50 UA Specific [place] 1.015 Last Edit by Kim Vargas [facility] on 10/29/24 09:50 UA Ketone Negative Last Edit by Kim Vargas [facility] on 10/29/24 09:50 UA Bilirubin 1 mg/dL Last Edit by Kim Vargas [facility] on 10/29/24 09:50 UA Glucose 0 mg/dL Last Edit by Kim Vargas [facility] on 10/29/24 09:50 Results Reviewed Results Reviewed: Laboratory Last Values Urine pH (Auto) 6.0 10/29/24 09:49 Specific [place] (Auto) 1.015 10/29/24 09:49 Urine Protein (Auto) 15 mg/dL 10/29/24 09:49 Glucose (UA)(Auto) 0 mg/dL 10/29/24 09:49 Urine Ketones (Auto) Negative 10/29/24 09:49 Urine Blood (Auto) 0 Edwin/uL 10/29/24 09:49 Urine Nitrite (Auto) Negative 10/29/24 09:49 Urine Bilirubin (Auto) 1 mg/dL 10/29/24 09:49 Urine Urobilinogen (Auto) 0.2 mg/dL 10/29/24 09:49 Leukocyte Esterase (Auto) 0 Lela/uL 10/29/24 09:49 Assessment & Plan Assessment & Plan (1) BPH (benign prostatic hyperplasia): Code(s): N40.0 - Benign prostatic hyperplasia without lower urinary tract symptoms Category: Medical Qualifiers: Lower urinary tract symptom presence: symptoms present Lower urinary tract symptom detail: urinary frequency Qualified Code(s): N40.1 - Benign prostatic hyperplasia with lower urinary tract symptoms; R35.0 - Frequency of micturition (2) Erectile dysfunction: Code(s): N52.9 - Male erectile dysfunction, unspecified Category: Medical Qualifiers: Erectile dysfunction type: unspecified Qualified Code(s): N52.9 - Male erectile dysfunction, unspecified (3) Frequency of micturition: Code(s): R35.0 - Frequency of micturition Category: Medical (4) Incomplete bladder emptying: Code(s): R33.9 - Retention of urine, unspecified Category: Medical (5) Enlarged prostate: Code(s): N40.0 - Benign prostatic hyperplasia without lower urinary tract symptoms Category: Medical Plan In office urinalysis results reviewed with the patient today; as noted above. PVR 159 mL We did discussed attempting to double void to assist with bladder emptying. We discussed incomplete bladder emptying in the setting of an enlarged prostate. Continue Flomax as discussed and prescribed. Continue Viagra as needed. Will schedule for in office cystoscopy as patient would like to further assess for surgical intervention for enlarged prostate. All questions were answered. Information provided regarding cystoscopy as well as GreenLight laser. He reports be happy with current voiding parameters. Follow-up next available in office cystoscopy Follow-up per doctor's orders; or sooner with any issues, concerns, and or questions. Orders: Orders AMB Urinalysis Automated Today Z13.9 - Encounter for screening, unspecified Patient Instructions: The patient had an opportunity to ask questions regarding the treatment plan. All questions were answered. Physical exam, labs, and imaging were discussed and reviewed in detail. As well as risks, benefits, and discussion of treatment choices. No major barriers to understanding were identified. The patient expressed understanding and agreement with the above treatment plan. The patient was made aware they should contact our office by phone for worsening of their current condition, the appearance of new symptoms, or with any questions or concerns. Compliance is encouraged with any medications and follow up testing that is ordered. It is a privilege to be allowed the opportunity to participate in? your urological care.? Again, if you have any questions or concerns If you have any questions or concerns please do not hesitate to contact me. The office is [phone]. This note is constructed using voice recognition software. While every effort has been made to ensure accuracy nail setter errors may have been included. Yours sincerely, ALEJANDRA Gaffney Coding Level of Care Code Est Pt Level 3 (12266) Complex EM visit Add On G2211 Diagnoses Benign prostatic hyperplasia with urinary frequency N40.1; R35.0 Lower urinary tract symptom presence: symptoms present Lower urinary tract symptom detail: urinary frequency Erectile dysfunction, unspecified erectile dysfunction type N52.9 Erectile dysfunction type: unspecified Frequency of micturition R35.0 Incomplete bladder emptying R33.9 Enlarged prostate N40.0 CPT Codes Post Residual Void - PVR CPT Code: 16338-Ntib Void Residual by ultrasound ([id number])
--- OUTSIDE RECORDS SUMMARY | 2024-10-29 11:04 | XMS_ITS | Clinical Summary ---
Author Organization [facility] Address [address] [place] [address] Phone Care Team Providers Care International Trade Teacher Name Role Phone José Miguel Espinoza MD Primary Care Provider [phone] Allergies Active Allergy Reactions Criticality Noted Date [...] during a routine office visit with his tube balancer. Currently, I do not appreciate significant murmur and his echocardiogram does not suggest valvular disease either. Most likely the murmur is a flow murmur and could be triggered by dehydration. Will continue clinical monitor giving his age. We also discussed about avoiding dehydration. I will obtain echo image from [facility]. He is otherwise completely asymptomatic with intense exercise. There is no further workup needed. Resolved Problems Problem Noted Date Diagnosed Date Resolved Date Atrioventricular block, first degree 07/03/2024 07/07/2024 Assessment & Plan (07/07/2024 2:10 PM EDT): Orders: Ambulatory referral to Cardiology ECG 12 lead Medical History Medical History Date Comments Hypertension Asthma GERD (gastroesophageal reflux disease) Neutropenia (CMS/[facility] V24) Hiatal hernia Social History Tobacco [...] 01/13/2022 Social Influencers of Health Screening 01/13/2022 Depression Screening 02/12/2024 Falls Risk Assessment 09/09/2024 COVID-19 Vaccine ( - 2023-2 5 season) 2024 Influenza Vaccine (#1) 2024 Hypertension/CHF/CAD Annual BMP [...] mmol/L LAB CHEMISTRY METHOD 06/28/2024 3:08 PM [facility] Potassium 4.2 3.5 - 5.5 mmol/L LAB CHEMISTRY METHOD 06/28/2024 3:08 PM [facility] Chloride 105 96 - 110 mmol/L LAB CHEMISTRY METHOD 06/28/2024 3:08 PM [facility] CO2 27 21 - 32 mmol/L LAB CHEMISTRY METHOD 06/28/2024 3:08 PM [facility] Anion Gap 5 3 - 11 LAB CHEMISTRY METHOD 06/28/2024 3:08 PM [facility] Glucose 93 70 - 100 mg/dL LAB CHEMISTRY METHOD 06/28/2024 3:08 PM [facility] BUN 18 5 - 25 mg/dL LAB CHEMISTRY METHOD 06/28/2024 3:08 PM [facility] Creatinine 1.22 0.70 - 1.30 mg/dL LAB CHEMISTRY METHOD 06/28/2024 3:08 PM [facility] eGFR 66 >=60 mL/min/1. 73m2 LAB CHEMISTRY METHOD 06/28/2024 3:08 PM [facility] Comment:Calculation based on the Chronic Kidney Disease Epidemiology Collaboration (CKD-EPI) equation refit without adjustment for race. BUN/Creatinine Ratio 14.8 LAB CHEMISTRY METHOD 06/28/2024 3:[address] [facility] Calcium 8.7 8.5 - 10.5 mg/dL LAB CHEMISTRY METHOD 06/28/2024 3:[address] [facility] Blood Venous blood specimen / Unknown Venipuncture / Unknown 06/28/2024 2:23 PM EDT 06/28/2024 2:44 PM EDT us Pipo Haynes MD LAB BLOOD ORDERABLES Final Res ult [facility] [address] [place] [address], from Last 3 Months or Most Recently Relevant to Health Maintenance Insurance [facility] Care Teams International Trade Teacher Relationship Specialty Start Date End Date José Miguel Espinoza MD [address] [place] [address] PCP - General Internal Medicine 07/07/24
--- OUTSIDE RECORDS SUMMARY | 2024-10-29 11:04 | XMS_ITS | Encounter Summary ---
Author Organization [facility] Address [address] [place] [address] [place] [phone] Phone Care Team Providers Care Hvac Service Technician Name Role Phone Kyler Alonso MD Primary Care Provider [phone] Encounter Details Date Type Department Care Team (Late st Contact Info) Description 11/20/2021 Procedure [facility] [address] [place] [address] Social History Tobacco Use Types Packs/Day Years [...] 8:55 PM EDT Kyler Coto RN * [place] Suicide Severity Rating Scale (Screener/Recent Self-Report) Question [...] documented as of this encounter Care Teams Hvac Service Technician Relationship Specialty Start Date End Date Kyler Alonso MD [address] [place] [address] PCP - General Internal Medicine 11/20/21 documented as of this encounter Additional Source Comments The information contained in this document represents components of the legal health record. It is not the complete legal health record.[facility]
--- OUTSIDE RECORDS SUMMARY | 2024-10-29 11:05 | XMS_ITS | Clinical Summary ---
Author Organization [facility] Address [address] [place] [address] [place] [address] Phone Care Team Providers Care Pathology Laboratory Technologist Name Role Phone Kyler Alonso MD Primary Care Provider [phone] Allergies Active Allergy Reactions Criticality Noted Date [...] 09/09/2009 ZOSTER VACCINES (1 of 2) 09/09/2009 ABDOMINAL AORTIC ANEURYSM (A AA) SCREENING 09/09/2024 INFLUENZA VACCINE (#1) 2024 COVID-19 VACCINE (1 - 2023-2 5 season) 2024 SCREENING FOR DIABETES 11/20/2024 11/20/2021 RSV VACCINE [...] Medical Devices Not on file Insurance HMO [address] [place], [place] [id number] [facility] [place] [address] [facility] [place] [address] [facility] Address: [address] [address] Advance Directives For more information, please contact: [phone] (9AM - 5PM [facility], Saturday-Saturday) Healthcare Agents on File Name Relationship [facility] Agent [facility] Hannah Cabrales Spouse .Primary Health Care Agent (Proxy form on file) Care Teams Pathology Laboratory Technologist Relationship Specialty Start Date End Date Kyler Alonso MD [address] [place] [id number] PCP - General Internal Medicine 11/20/21 Additional Source Comments The information contained in this document represents components of the legal health record. It is not the complete legal health record.[facility]
== END 2024-10-29 10:20 | disposition home or self-care (01) ==
LOC: HO.HUSH 09:28
PROVIDERS: PCP Internal Medicine; Visit Provider Nurse Practitioner Family
DX: N40.1 Benign prostatic hyperplasia with lower urinary tract symptoms (principal); R35.0 Frequency of micturition; N52.9 Male erectile dysfunction, unspecified; R33.9 Retention of urine, unspecified; N40.0 Benign prostatic hyperplasia without lower urinary tract symptoms; Z13.9 Encounter for screening, unspecified
CPT/HCPCS: 99213; G2211

== ENCOUNTER → 2024-10-29 09:27 | Outpatient (BNVA) | payer MEDICARE, OTHER, SELFPAY | PROVIDERS: PCP Internal Medicine; Visit Provider Nurse Practitioner Family | DX: N40.1 Benign prostatic hyperplasia with lower urinary tract symptoms (principal); R35.0 Frequency of micturition; R33.9 Retention of urine, unspecified; N52.9 Male erectile dysfunction, unspecified | CPT/HCPCS: 51798; 81003; 99212 ==

== ENCOUNTER 2024-11-27 09:27 | Outpatient (AMB) | payer MEDICARE, OTHER, SELFPAY ==
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
[2024-11-27 09:36] VITALS: BP 146/76; PULSE 72; TEMP 36.2; O2SAT 99; BMI 32.0
--- OUTSIDE RECORDS SUMMARY | 2024-11-27 10:33 | XMS_ITS | Encounter Summary ---
Author Organization [facility] Address [address] [place] [address] [place] [address] Phone Care Team Providers Care Coat Agent Name Role Phone Kyler Alonso MD Primary Care Provider [phone] Encounter Details Date Type Department Care Team (Late st Contact Info) Description 11/20/2021 Procedure [facility] [address] [place] [address] Social History Tobacco Use Types Packs/Day Years [...] 8:55 PM EDT Kyler Coto RN * [place] Suicide Severity Rating Scale (Screener/Recent Self-Report) Question [...] documented as of this encounter Care Teams Coat Agent Relationship Specialty Start Date End Date Kyler Alonso MD [address] [place] [address] PCP - General Internal Medicine 11/20/21 documented as of this encounter Additional Source Comments The information contained in this document represents components of the legal health record. It is not the complete legal health record.[facility]
--- OUTSIDE RECORDS SUMMARY | 2024-11-27 10:34 | XMS_ITS | Clinical Summary ---
Author Organization [facility] Address [address] [place] [address] [place] [address] Phone Care Team Providers Care Certifed Refrigeration Operator Name Role Phone Kyler Alonso MD Primary Care Provider [phone] Allergies Active Allergy Reactions Criticality Noted Date [...] VACCINE (#1) 2024 COVID-19 VACCINE (1 - 2024-2 6 season) 2024 RSV VACCINE (1 - 1-dose 75+ series) [...] Medical Devices Not on file Insurance HMO [facility] [place] [place] [facility] [address] [place] [id number] HMO Advance Directives For more information, please contact: [phone] (9AM - 5PM [facility], Saturday-Saturday) Healthcare Agents on File Name Relationship Healthcare Agent Relationshi Communication Hannah Cabrales Spouse .Primary Health Care Agent (Proxy form on file) Care Teams Certifed Refrigeration Operator Relationship Specialty Start Date End Date Kyler Alonso MD [address] [place] [address] [place] [address] PCP - General Internal Medicine 11/20/21 Additional Source Comments The information contained in this document represents components of the legal health record. It is not the complete legal health record.[facility]
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
== END 2024-11-27 10:24 | disposition home or self-care (01) ==
LOC: HO.HMCH 09:28
PROVIDERS: PCP Internal Medicine; Visit Provider Nurse Practitioner Family
DX: M79.604 Pain in right leg (principal)

== ENCOUNTER → 2024-11-27 09:27 | Outpatient (BNVA) | payer MEDICARE, OTHER, SELFPAY | PROVIDERS: PCP Internal Medicine; Visit Provider Nurse Practitioner Family | DX: M25.551 Pain in right hip (principal); M25.561 Pain in right knee; M79.604 Pain in right leg; V89.2XXA Person injured in unspecified motor-vehicle accident, traffic, initial encounter; Y93.9 Activity, unspecified; Y92.9 Unspecified place or not applicable; Y99.9 Unspecified external cause status | CPT/HCPCS: 99212 ==

== ENCOUNTER 2025-01-06 14:01 | Outpatient (AMB) | payer OTHER, MEDICARE, SELFPAY ==
--- NOTE | 2025-01-06 14:02 | MHC.OFFVIS ---
Intake Visit Reasons: 2M Cystoscopy/PVR/UA(Enlarged Prostate)-SET Intake Note: Reason for Visit: 2M Cystoscopy(Enlarged Prostate) Urology Meds: Tamsulosin, Sildenafil Blood Thinners: None Labs: PSA- 1.06 A1C- 5.3 (09/22/2024) Imaging: None Last PVR: 159ml PVR:0ML URO G-HD Cystoscope LOT:[id number] EXP:07/21/2027 Track Laying Equipment Operator Required: No Accompanied by: Self / Same As Patient Allergies Penicillins Adverse Reaction (Severe, Verified 11/27/24 09:36) Anxiety pineapple Adverse Reaction (Severe, Verified 11/27/24 09:36) swellling HPI Comments Details: Norbert is a pleasant male. He is a patient of Dr. Mosqueda. 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 Viagra [facility] Medical History (Updated 11/27/24 @ 10:06 by Daisy Taylor NP) Pain of right lower extremity due to injury Enlarged prostate Lightheadedness Right hip pain Murmur Atelectasis GERD (gastroesophageal reflux disease) ZOE (obstructive sleep apnea) Extremity edema Asthma Surgical History History of knee replacement procedure of left knee Social History Housing: House Alcohol intake: never Patient Tobacco Use Status: Never used Tobacco Tobacco use type: Cigarette e-Cigarette/Vaping Use: Never Used Second Hand Smoke Exposure: No service: Yes ([employer] [id number] ) Current occupational status: retired Cognitive needs: No Hearing needs: No Vision needs: Yes Office Procedures Cystoscopy Consent Discussed risk and benefit or proposed procedure with the patient. Information consent for procedure given to the patient. Discussed technical aspects, risks, benefits and alternatives in full. Addressed all of the patient's questions and concerns regarding the procedure. The patient demonstrated knowledge and understanding. They wish to proceed with this procedure. Preparation The patient was prepped in the usual manner. A dielectric testing machine operator was present and in the room. Genitalia was prepped with betadine solution in a sterile manner. Lidocaine Jelly 2% was placed into the urethra and 16Fr flexible Olympus cystoscope was inserted into the meatus after adequate lubrication. Procedure Consent confirmed Cystoscopy performed using a disposable Urovue digital 16 Barbadian cystoscope. Meatus circumcised Urethra anterior and posterior urethra normal Prostatic Urethra unremarkable marginally elevated bladder neck Bladder examination with retroflexion of cystoscope Bladder Orifices normal shape and position Bladder Capacity Normal Trabeculations Grade 0 Cellule Formation None Diverticulum Formation None Mucosal Erythema None Bladder Tumor None 47462-Spiqbrrwtx DISPOSABLE SCOPE URO-G FLEXIBLE SCOPE Procedure code (CPT) selection complete Post Void Residual Post Residual Void Post Void Residual (PVR): 0 47130-Qfft Void Residual by ultrasound Office Meds lidocaine HCl 2 % mucosal jelly in applicator Performing Provider: Indra Zheng MD Performing Location: [facility] Administered by: Eber Calzada LPN on 01/06/25 14:12 Dose Route Admin Location Dispensed Lot Number Expiration Date ND [employer] 10 mL intra-urethral 10 mL nitrofurantoin monohydrate/macrocrystals 100 mg capsule Performing Provider: Indra Zheng MD Performing Location: [facility] Administered by: Eber Calzada LPN on 01/06/25 14:12 Dose Route Admin Location Dispensed Lot Number Expiration Date ND Super[employer] 100 mg PO 1 cap Results AMB Urinalysis, Automated UA Leukoctes 0 Lela/uL Last Edit by [place] Lara on 01/06/25 14:16 UA Nitrite Negative Last Edit by [place] Lara on 01/06/25 14:16 UA Urobilinogen 1 mg/dL Last Edit by [place] Lara on 01/06/25 14:16 UA Protein 15 mg/dL Last Edit by [place] Lara on 01/06/25 14:16 UA pH 6.0 Last Edit by [place] Lara on 01/06/25 14:16 UA Blood 0 Edwin/uL Last Edit by [place] Lara on 01/06/25 14:16 UA Specific Palmer 1.015 Last Edit by Serena Fox [place] on 01/06/25 14:16 UA Ketone Negative Last Edit by Serena Fox, JUNA on 01/06/25 14:16 UA Bilirubin 0 mg/dL Last Edit by Serena Fox, JUNA on 01/06/25 14:16 UA Glucose 0 mg/dL Last Edit by Serena Guillenro, JUNA on 01/06/25 14:16 Assessment & Plan Assessment & Plan (1) BPH (benign prostatic hyperplasia): Code(s): N40.0 - Benign prostatic hyperplasia without lower urinary tract symptoms Category: Medical Qualifiers: Lower urinary tract symptom presence: symptoms present Lower urinary tract symptom detail: urinary frequency Qualified Code(s): N40.1 - Benign prostatic hyperplasia with lower urinary tract symptoms; R35.0 - Frequency of micturition (2) Erectile dysfunction: Code(s): N52.9 - Male erectile dysfunction, unspecified Category: Medical Qualifiers: Erectile dysfunction type: unspecified Qualified Code(s): N52.9 - Male erectile dysfunction, unspecified (3) Frequency of micturition: Code(s): R35.0 - Frequency of micturition Category: Medical Plan Twelve month follow-up PSA, PVR Orders: Orders AMB Post Void Residual by ultrasound Today R33.9 - Retention of urine, unspecified AMB Urinalysis Automated Today Z13.9 - Encounter for screening, unspecified AMB Cystoscopy Today N40.1 - Benign prostatic hyperplasia with lower urinary tract symptoms, R33.9 - Retention of urine, unspecified, R35.0 - Frequency of micturition Prostate Specific Antigen 12 Months N40.0 - Benign prostatic hyperplasia without lower urinary tract symptoms Medications: Changed From tamsulosin 0.4 mg PO BEDTIME 90 caps 0RF N40.0 - Benign prostatic hyperplasia without lower urinary tract symptoms To tamsulosin 0.4 mg PO BEDTIME 90 caps 3RF 90 days N40.0 - Benign prostatic hyperplasia without lower urinary tract symptoms Patient Instructions: This note is constructed using voice recognition software. While every effort has been made to ensure accuracy adding machine operator errors may have been included. Imaging studies, laboratory and physical exam results were discussed and reviewed in detail. No major barriers to patient understanding were identified. An opportunity to ask questions regarding the treatment plan was provided. All questions were answered. The patient expressed understanding and agreement with the above treatment plan. The patient is aware they should contact our office by phone for worsening of their current condition or the appearance of new urologic symptoms. Compliance is encouraged with any medications and followup testing that is ordered. It is a privilege to participate in the urologic care of your patient. If you have any questions or concerns regarding treatment for the above conditions, or other urologic issues, please do not hesitate to contact me. The office telephone contact is [phone]. Sincerely, Dr Indra Zheng MD, [facility] - Urology Compassionate Specialist Care for the Genitourinary System Coding Level of Care Code Est Pt Level 3 (13649) Diagnoses Benign prostatic hyperplasia with urinary frequency N40.1; R35.0 Lower urinary tract symptom presence: symptoms present Lower urinary tract symptom detail: urinary frequency Erectile dysfunction, unspecified erectile dysfunction type N52.9 Erectile dysfunction type: unspecified Frequency of micturition R35.0 CPT Codes Cystoscopy - CPT: 18543-Zkhqgbkfwz ([id number]) Post Residual Void - PVR CPT Code: 82746-Cuco Void Residual by ultrasound ([id number])
--- OUTSIDE RECORDS SUMMARY | 2025-01-06 17:03 | XMS_ITS | Encounter Summary ---
Author Organization [facility] Address [address] [place] [address] [place] [address] Phone Care Team Providers Care Automatic Silk Screen Printer Name Role Phone Kyler Alonso MD Primary Care Provider [phone] [phone] Encounter Details Date Type Department Care Team (Late st Contact Info) Description 11/20/2021 Procedure [facility] [address] [place] [address] Social History Tobacco Use Types Packs/Day Years [...] 8:55 PM EDT Kyler Coto RN * [place] Suicide Severity Rating Scale (Screener/Recent Self-Report) Question [...] documented as of this encounter Care Teams Automatic Silk Screen Printer Relationship Specialty Start Date End Date Kyler Alonso MD [address] [place] [address] PCP - General Internal Medicine 11/20/21 documented as of this encounter Additional Source Comments The information contained in this document represents components of the legal health record. It is not the complete legal health record.[facility]
--- OUTSIDE RECORDS SUMMARY | 2025-01-06 17:03 | XMS_ITS | Clinical Summary ---
Author Organization [facility] Address [address] [place] [address] [place] [address] Phone Care Team Providers Care Funding Coordinator Name Role Phone Kyler Alonso MD Primary Care Provider [phone] Allergies Active Allergy Reactions Criticality Noted Date [...] 09/09/2024 INFLUENZA VACCINE (#1) 2024 COVID-19 VACCINE ( - 2024-2 6 season) 2024 RSV VACCINE (1 - 1-dose 75+ series) 09/09/2034 HEPATITIS A VACCINES Aged Out No long er eligible based on patient's age to complete this topic HIB VACCINES Aged Out No longer eligi ble based on patient's age to complete this topic IPV VACCINES Aged Out No longer eligi ble based on patient's age to complete this topic MENINGOCOCCAL VACCINES (ACWY) Aged Out No longer eligible based on patient's age to complete this topic MENINGOCOCCAL VACCINES (B) Aged Out N o longer eligible based on patient's age to complete this topic Medical Devices Not on file [place] [address] [place] [address] [place], [place] [address] [place] [address] HMO Advance Directives For more information, please contact: [phone] (9AM - 5PM [facility], Saturday-Saturday) Healthcare Agents on File Name Relationship [facility] Communication Hannah Cabrales Spouse .Primary Health Care Agent (Proxy form on file) Care Teams Funding Coordinator Relationship Specialty Start Date End Date Kyler Alonso MD [address] [place] [address] PCP - General Internal Medicine 11/20/21 Additional Source Comments The information contained in this document represents components of the legal health record. It is not the complete legal health record.[facility]
--- OUTSIDE RECORDS SUMMARY | 2025-01-06 17:03 | XMS_ITS | Data Portability ---
Author Organization [facility], [address] Address [address] [place] [address] Care Team Providers Care Vice President Of Operations Name Role Phone SLADE EM Primary Care Provider Assessment No assessment recorded. Plan of Treatment Reminders Order Date Submit Date Provider Last Modified By Organization Details Last Modified Time Details Appointments None recorded. Lab urinalysis, dipstick 20[email or web address] [facility], [address] [place] [address], [place], [address], 3 16:34:09 culture, urine 2022 023 [facility], [address] [place] [address], [place], [address], 3 08:07:29 Referral urologist referral 2022 023 [email or web address] 26 Not available 3 09:08:28 Procedures None recorded. Surgeries None recorded. Imaging None recorded. Medication Orders Anusol-HC 25 mg rectal suppository 2022 023 [email or web address] [id number], [address] [place], [address], 3 08:13:41 Macrobid 100 mg capsule 2022 023 [email or web address] [id number], [address] [place], [address], 16:10:01 Patient TargetsNo targets recorded. Patient Instructions Encounter Date Encounter Id Patient Instructions Last Modified By Organization Details Last Modified Time 09/02/2022 [id number] hemorrhoids: car e instructions [email or web address] Not available 09/02/2022 16:47:47 Reason for Referral Urologist Referral for Incre ased frequency of urination Referring Physician: Chad Forman, Urgent Care, Encounter Date: 04/27/2022 Results Created Date Observation Date Name Description Value Unit Range Abnormal Flag Note LastModifiedBy Organization Detail LastModifiedTime 04/28/1904/29/2022 URINE CULTU RE, ROUTI NE urine culture, routine FINAL REPORT Not Available [facility] ([facility]) [address] [facility], [place], [address], 04/29/2022 08:07:29 04/28/19 23 04/29/2022 URINE CULTU RE, ROUTI NE result 1 NO GROWTH Not Available [facility] ([facility]) [address] [facility], [place], [address], 04/29/2022 08:07:29 04/28/19 23 04/27/2022 urina lysis , dipst ick Unknown Analyte Yellow Not Available _ [facility] [address], [address], 04/27/2022 15:44:07 04/28/19 23 04/27/2022 urina lysis , dipst ick Unknown Analyte Clear Not Available _ [facility] [address], [address], 04/27/2022 15:44:07 04/28/19 23 04/27/2022 urina lysis , dipst ick Unknown Analyte Negati ve Not Available tania jay [address], [address], 04/27/2022 15:44:07 04/28/19 23 04/27/2022 urina lysis , dipst ick Unknown Analyte Negati ve Not Available [facility], [place], [address], 04/27/2022 15:44:07 04/28/19 23 04/27/2022 urina lysis , dipst ick Unknown Analyte Negati ve Not Available [facility], [place], [address], 04/27/2022 15:44:07 04/28/19 23 04/27/2022 urina lysis , dipst ick Unknown Analyte 1.025 Not Available [facility] [address], [place], [address], 04/27/2022 15:44:07 04/28/19 23 04/27/2022 urina lysis , dipst ick Unknown Analyte Small Not Available [facility] [address], [place], [address], 04/27/2022 15:44:07 04/28/19 23 04/27/2022 urina lysis , dipst ick Unknown Analyte 6.5 Not Available [facility] [address], [place], [address], 04/27/2022 15:44:07 04/28/19 23 04/27/2022 urina lysis , dipst ick Unknown Analyte 30 mg/dL Not Available [facility], [place], [address], 04/27/2022 15:44:07 04/28/19 23 04/27/2022 urina lysis , dipst ick Unknown Analyte 0.2 E.U./d L Not Available [facility], [place], [address], 04/27/2022 15:44:07 04/28/19 23 04/27/2022 urina lysis , dipst ick Unknown Analyte Negati ve Not Available [address] [place] [address], [address], 04/27/2022 15:44:07 04/28/19 23 04/27/2022 urina lysis , dipst ick Unknown Analyte Negati ve Not Available [address] [place] [address], [address], 04/27/2022 15:44:07 Result Notes None recorded. Problems Name Problem SNOMED Code Status Onset Date Resolution Date Notes Provider Name and Address Organization Details Recorded Time Hypertensive disorder 83349604 Active 2022 WILLIAM CARRILLO null, PA - [facility] 3 15:50:11 Hypercholester olemia 61700377 Active 2022 WILLIAM CARRILLO null, PA - [facility] 3 15:50:18 Gastroesophage al reflux disease 032511830 Active 2022 WILLIAM NOBLEICA null, PA - [facility] 3 15:50:32 Anxiety 36036129 Active 2022 WILLIAM NOBLEICA null, PA - [facility] 3 15:50:43 Asthma 609198035 Active 2022 WILLIAM CARRILLO null, PA - [facility] 3 15:51:05 Sleep apnea 45351972 Active 2022 WILLIAM LUPICA null, PA - [facility] 3 15:54:21 [...] Name and Address Organization Details Recorded Time 231608 amoxicill in medicatio n itching Not available Not available 04/27/2022 723 RxNorm [facility]N oSni - [facility] 3 15:46:06 Medications Name [...] (BMI) Body weight Body temperature Oxygen saturation Heart rate Respiratory rate Systolic And Diastolic Provider Name and Address Organization Details Last Updated DateTime 3 180.34 cm 34.7 kg/m2 215543. 5 g 97.1 [degF] 95 % 99 /min 16 /min 129/82 mm[Hg] WILLIAM CARRILLO PA - [facility] 3 15:55:20 Date Recorded Body height Body mass index (BMI) Body weight Oxygen saturation Heart rate Respiratory rate Body temperature Systolic And Diastolic Provider Name and Address Organization Details Last Updated DateTime 3 180.34 cm 34.7 kg/m2 522875. 5 g 97 % 71 /min 18 /min 98.5 [degF] 128/78 mm[Hg] GURU CUMMINGS PA - [facility] 3 16:12:20 Social History Question Answer Notes LastModified by Saharey Details LastModified Time Tobacco Smoking Status Never Smoker WILLIAM CARRILLO candelario PA - [facility] 04/27/2022 15:52:41 Have You Recently Traveled Abroad? No [email or web address] Information not available 04/27/2022 Sex: Unknown Functional Status Question Answer Note LastModified by Saharey Details LastModified Time Do you use any illicit or recreational drugs? No Information not available 04/27/2022 Do you or have you ever used any other forms of tobacco or nicotine? No [email or web address] Information not available 04/27/2022 What is your level of alcohol consumption? None [email or web address] Information not available 04/27/2022 Mental Status None recorded. Family History Relationship Description Onset Age of this Age Resolved Age Notes LastModified by Organization Details LastModified Time Mother Heart disease [email or web address] Not available 2022 15:52:02 Mother Diabetes mellitus [email or web address] Not available 2022 15:52:09 Mother Myocardial infarction [email or web address] Not available 04/27 15:52:23 Father Myocardial infarction [email or web address] Not available 04/27 15:52:22 Medical History No medical history recorded. Past Encounters Encounter ID Performer Location Encounter Start Date Encounter Closed Date Diagnosis/Indication Diagnosis SNOMED-CT Code Diagnosis ICD10 Code Diagnosis IMO Codes Diagnosis Note [id number] [address] [place] [address] 11/15/2018 19:08:29 11/15/2018 19:20:19 [id number] [address] [place] [address] 01/12/2017 19:30:06 01/12/2017 19:59:01 [id number] [address] [place] [address] 06/13/2019 14:32:24 06/13/2019 15:40:34 [id number] [address] [place] [address] 04/27/2017 18:40:25 04/27/2017 19:31:53 [id number] [address] [place] [address] 08/05/2021 08:35:18 08/05/2021 10:27:26 [id number] [address] [place] [address] 06/04/2016 19:47:53 06/04/2016 20:19:56 [id number] [address] [place] [address] 05/13/2020 17:53:47 05/13/2020 18:56:52 [id number] [address] [place] [address] 03/07/2018 19:42:56 03/07/2018 20:23:16 [id number] [address] [place] [address] 03/13/2015 15:25:32 03/13/2015 16:30:45 [id number] [address] [place] [address] 07/29/2021 15:41:12 07/29/2021 18:16:19 [id number] [address] [place] [address] 08/20/2017 18:49:49 08/20/2017 19:53:37 [id number] [address] [place] [address] 06/18/2020 19:37:45 06/18/2020 20:14:38 [id number] Chad Forman DO [address] [place] [address] 04/27/2022 12:51:09 04/27/2022 16:36:40 Increased frequency of urination 049096029 R35.0 suspect UTISigns and Symptoms c/w UTIUA [...] agreement with the plan as outlined above. [id number] Marcelino Lea [place] [address] [place] [address] 09/02/2022 15:20:17 09/02/2022 16:50:35 Hemorrhoids 03542148 K64.9 likely internal hemorrhoid s as per [...] Amaya Member ID Guarantor Name 09/02/2022 1 [facility] [id number] 01 Norbert Cabrales [id number] Norbert Cabrales Notes Date Note Type Note Provider Name and Address Organization Details Recorded Time 04/27/2022 text/html Urinary Problems-MaleReporte d by [email or web address] yo male c/o frequency in urination x couple days--no burning, no pain. + decreased stream no increased urgencyno incontinenceno pressureno malodorno blood in urineno back painno rashno feverno nausea or vomitingno MS changeROS as noted in the HPI Chad Forman DO [address] [place], [address], [employer] 04/27/2022 16:35:50 09/02/2022 text/html UC Hemorrhoids/A nal PainReported by Patient Went to his PCP 2 days ago and told he had internal hemorrhoids. Told to take fiber drink only. Patient concerned and wants to be checked again. Feels anal discomfort. NO blood in stool or when wipes. no pain with defecation. Had colonoscopy 02/01. Marcelino Lea MD [address] [place], [address], [employer] [facility] 09/02/2022 18:39:03
--- OUTSIDE RECORDS SUMMARY | 2025-01-06 17:03 | XMS_ITS | Clinical Summary ---
Author Organization [facility] Address [address] [place] [address] Phone Care Team Providers Care Orthopedic Dentist Name Role Phone José Miguel Espinoza MD Primary Care Provider [phone] Allergies Active Allergy Reactions Criticality Noted Date [...] during a routine office visit with his financial analysis consultant. Currently, I do not appreciate significant murmur and his echocardiogram does not suggest valvular disease either. Most likely the murmur is a flow murmur and could be triggered by dehydration. Will continue clinical monitor giving his age. We also discussed about avoiding dehydration. I will obtain echo image from [facility]. He is otherwise completely asymptomatic with intense exercise. There is no further workup needed. Resolved Problems Problem Noted Date Diagnosed Date Resolved Date Atrioventricular block, first degree 07/03/2024 07/07/2024 Assessment & Plan (07/07/2024 2:10 PM EDT): Orders: Ambulatory referral to Cardiology ECG 12 lead Encounters Date Type Department Care Team Description 11/25/2024 4:09 PM EDT - 11/25/2024 6:15 PM EDT Emergency [facility] Emergency [address] [place] [address] Anthony Amanda MD Motor vehicle [...] Risk Assessment 09/09/2024 COVID-19 Vaccine (1 - 2024-2 6 season) 2024 Influenza Vaccine (#1) 2024 Hypertension/CHF/CAD [...] Signed Date: 11/26/2024 08:01 ET Workstation ID: [id number] Transcribed By: Self Edit Transcribed Date: 11/26/2024 [...] Signed Date: 11/26/2024 08:01 ET Workstation ID: [id number] Transcribed By: Self Edit Transcribed Date: 11/26/2024 07:59 ET Anthony Méndez MD IMG XR PROCEDURES Fi nal Result * XR Knee 4+ Views Right (11/25/2024 5:08 PM EDT) Anatomical Region Laterality Modality Lower Extremities, Knee Right [facility] 11/26/2024 7:59 AM EDT Impressions 11/26/2024 8:01 AM EDT No acute fracture or subluxation. -------- FINAL REPORT -------- Dictated By: Ricardo Hercules Dictated Date: 11/26/2024 07:59 ET Assigned Physician: Ricardo Hercules Reviewed and Electronically Signed By: Ricardo Hercules Signed Date: 11/26/2024 08:01 ET Workstation ID: [id number] Transcribed By: Self Edit Transcribed Date: 11/26/2024 [...] Signed Date: 11/26/2024 08:01 ET Workstation ID: [id number] Transcribed By: Self Edit Transcribed Date: 11/26/2024 07:59 ET us Anthony Méndez MD IMG XR PROCEDURES Fi nal Result * Basic metabolic panel (06/28/2024 2:23 PM EDT) Sodium 137 133 - 145 mmol/L LAB CHEMISTRY METHOD 06/28/2024 3:08 PM EDT [facility] Potassium 4.2 3.5 - 5.5 mmol/L LAB CHEMISTRY METHOD 06/28/2024 3:08 PM [facility] Chloride 105 96 - 110 mmol/L LAB CHEMISTRY METHOD 06/28/2024 3:08 PM [facility] CO2 27 21 - 32 mmol/L LAB CHEMISTRY METHOD 06/28/2024 3:08 PM [facility] Anion Gap 5 3 - 11 LAB CHEMISTRY METHOD 06/28/2024 3:08 PM [facility] Glucose 93 70 - 100 mg/dL LAB CHEMISTRY METHOD 06/28/2024 3:08 PM [facility] BUN 18 5 - 25 mg/dL LAB CHEMISTRY METHOD 06/28/2024 3:08 PM [facility] Creatinine 1.22 0.70 - 1.30 mg/dL LAB CHEMISTRY METHOD 06/28/2024 3:08 PM [facility] eGFR 66 >=60 mL/min/1. 73m2 LAB CHEMISTRY METHOD 06/28/2024 3:08 PM [facility] Comment:Calculation based on the Chronic Kidney Disease Epidemiology Collaboration (CKD-EPI) equation refit without adjustment for race. BUN/Creatinine Ratio 14.8 LAB CHEMISTRY METHOD 06/28/2024 3:08 PM [facility] Calcium 8.7 8.5 - 10.5 mg/dL LAB CHEMISTRY METHOD 06/28/2024 3:08 PM [facility] Blood Venous blood specimen / Unknown Venipuncture / Unknown 06/28/2024 2:23 PM EDT 06/28/2024 2:44 PM EDT us Pipo Haynes MD LAB BLOOD ORDERABLES Final Res ult [facility] [address] [place] [address], [place] [phone] from Last 3 Months or Most Recently Relevant to Health Maintenance Insurance [facility] [employer] [facility] MEDICARE Care Teams Orthopedic Dentist Relationship Specialty Start Date End Date José Miguel Espinoza MD [address] [place] [address] PCP - General Internal Medicine 07/07/24
== END 2025-01-06 14:42 | disposition home or self-care (01) ==
LOC: HO.HUSH 14:01
PROVIDERS: PCP Internal Medicine; Visit Provider Urology
DX: N40.1 Benign prostatic hyperplasia with lower urinary tract symptoms (principal); R35.0 Frequency of micturition; R33.9 Retention of urine, unspecified; N52.9 Male erectile dysfunction, unspecified; Z13.9 Encounter for screening, unspecified
CPT/HCPCS: 52000; 99213

== ENCOUNTER → 2025-01-06 14:01 | Outpatient (BNVA) | payer OTHER, MEDICARE, SELFPAY | PROVIDERS: PCP Internal Medicine; Visit Provider Urology | DX: N40.1 Benign prostatic hyperplasia with lower urinary tract symptoms (principal); R35.0 Frequency of micturition; N52.9 Male erectile dysfunction, unspecified; R33.9 Retention of urine, unspecified; Z13.9 Encounter for screening, unspecified | CPT/HCPCS: 51798; 52000; 81003 ==

== ENCOUNTER 2025-01-13 09:34 | Outpatient (REF) | payer MEDICARE, OTHER, SELFPAY ==
[2025-01-13 11:13] LABS: MANUAL DIFF FLAG NO
[2025-01-13 11:58] LABS: Hematocrit 39.9 % (42.0-52.0); Hemoglobin 13.0 g/dl (14.0-18.0); Imm Gran Abs Auto 0.01 X10*3/uL (0.00-0.03); Imm Gran Pct Auto 0.2 % (0.0-0.4); Lymphocytes Absolute Auto 1.3 X10*3/uL (1.2-4.9); Mean Corpuscular HGB Conc 32.6 g/dl (31.0-36.0); Mean Corpuscular Hemoglobin 28.6 pg (27.0-33.0); Mean Corpuscular Volume 87.9 fL (80.0-98.0); NRBC Abs Auto 0.000 X10*3/uL (0.0-0.012); NRBC Pct Auto 0.0 /100WBC (0.0-0.2); Platelet Count 227 X10*3/uL (160-400); Red Blood Count 4.54 X10*6/uL (4.60-5.80); Reticulocytes Absolute 0.057 X10*6/uL (0.026-0.095); White Blood Count 5.6 X10*3/uL (4.8-10.8)
[2025-01-13 12:25] LABS: Alanine Aminotransferase 18 U/L (0-40); Albumin Level 4.3 g/dL (3.5-5.0); Alkaline Phosphatase 79 U/L (39-117); Anion Gap 11 (12-20); Aspartate Amino Transferase 32 U/L (5-37); Blood Urea Nitrogen 16 mg/dL (9-16); Calcium 8.9 mg/dL (8.4-10.2); Carbon Dioxide 29 mmol/L (22-29); Chloride 105 mmol/L (96-108); Cholesterol 180 mg/dL (<200); Estimated Glomerular Filt Rate > 60; HDL Cholesterol 53 mg/dL (>40); Iron 34 mcg/dL (45-160); Magnesium 2.2 mg/dL (1.6-2.6); Percent Iron Saturation 17 % (15-50); Potassium 4.3 mmol/L (3.3-5.1); Sodium 141 mmol/L (135-145); Total Iron Binding Capacity 201 mcg/dL (228-428); Total Protein 7.3 g/dL (6.5-8.0); Triglycerides 58 mg/dL (<150); Unsaturated Iron Binding 167 ug/dL; Uric Acid 6.1 mg/dL (3.4-7.0)
[2025-01-13 12:44] LABS: Ferritin 218 ng/mL (20-250); Free T4 (Free Thyroxine) 0.91 ng/dL (0.71-1.85); Thyroid Stimulating Hormone 2.48 uIU/mL (0.32-4.0)
[2025-01-13 12:50] LABS: Folate 4.8 ng/mL (> or = 4.0); Vitamin B12 323 pg/mL (200-900)
== END 2025-01-13 09:35 | disposition home or self-care (01) ==
LOC: HO.LAB 09:34
PROVIDERS: PCP Internal Medicine; Visit Provider Internal Medicine
DX: Z12.5 Encounter for screening for malignant neoplasm of prostate (principal); I10 Essential (primary) hypertension; E78.00 Pure hypercholesterolemia, unspecified; F41.1 Generalized anxiety disorder; R73.02 Impaired glucose tolerance (oral); E66.9 Obesity, unspecified; K21.9 Gastro-esophageal reflux disease without esophagitis; N40.1 Benign prostatic hyperplasia with lower urinary tract symptoms; R35.0 Frequency of micturition; J45.20 Mild intermittent asthma, uncomplicated; G47.33 Obstructive sleep apnea (adult) (pediatric); B35.3 Tinea pedis; Z68.31 Body mass index [BMI] 31.0-31.9, adult
CPT/HCPCS: 36415; 80053; 80061; 82607; 82728; 82746; 83036; 83540; 83735; 84153; 84439; 84443; 84550; 85025; 85045; 99212

== ENCOUNTER 2025-01-13 09:34 | Outpatient (AMB) | payer MEDICARE, OTHER, SELFPAY ==
[2025-01-13 09:43] VITALS: BP 132/68; PULSE 71; O2SAT 98; BMI 31.8
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
--- OUTSIDE RECORDS SUMMARY | 2025-01-13 10:32 | XMS_ITS | Encounter Summary ---
Author Organization [facility] Address [address] [place] [address] [place] [address] Phone Care Team Providers Care Featheredger And Reducer Machine Name Role Phone Kyler Alonso MD Primary Care Provider [phone] Encounter Details Date Type Department Care Team (Late st Contact Info) Description 11/20/2021 Procedure [facility] [address] [place] [address] Social History Tobacco Use Types Packs/Day Years [...] 8:55 PM EDT Kyler Coto RN * [place] Suicide Severity Rating Scale (Screener/Recent Self-Report) Question [...] documented as of this encounter Care Teams Featheredger And Reducer Machine Relationship Specialty Start Date End Date Kyler Alonso MD [address] [place] [address] PCP - General Internal Medicine 11/20/21 documented as of this encounter Additional Source Comments The information contained in this document represents components of the legal health record. It is not the complete legal health record.[facility]
--- OUTSIDE RECORDS SUMMARY | 2025-01-13 10:32 | XMS_ITS | Clinical Summary ---
Author Organization [facility] Address [address] [place] [address] [place] [address] Phone Care Team Providers Care Pilot Control Operator Helper Name Role Phone Kyler Alonso MD Primary Care Provider [phone] Allergies Active Allergy Reactions Criticality Noted Date [...] Medical Devices Not on file Insurance HMO [facility] [place] [place] [facility] [address] [place], [place] [address] [facility] H[facility] Advance Directives For more information, please contact: [phone] (9AM - 5PM [facility], Saturday-Saturday) Healthcare Agents on File Name Relationship Healthcare Agent Relationshi Communication Hannah Cabrales Spouse .Primary Health Care Agent (Proxy form on file) Care Teams Pilot Control Operator Helper Relationship Specialty Start Date End Date Kyler Alonso MD [address] [place] [address] [place] [id number] PCP - General Internal Medicine 11/20/21 Additional Source Comments The information contained in this document represents components of the legal health record. It is not the complete legal health record.[facility]
--- OUTSIDE RECORDS SUMMARY | 2025-01-13 10:32 | XMS_ITS | Data Portability ---
Author Organization [facility], [address] Address [address] [place] [address] Care Team Providers Care Oracle Financial Application Developer Name Role Phone SLADE EM Primary Care Provider Assessment No assessment recorded. Plan of Treatment Reminders Order Date Submit Date Provider Last Modified By Organization Details Last Modified Time Details Appointments None recorded. Lab urinalysis, dipstick 2022 023 [email or web address] [facility], [address] [place] [address], [place], [address], 3 16:34:09 culture, urine 2022 023 [place] [facility], [address] [place] [address], [place], [address], 3 08:07:29 Referral urologist referral 2022 023 [email or web address] 26 Not available 3 09:08:28 Procedures None recorded. Surgeries None recorded. Imaging None recorded. Medication Orders Anusol-HC 25 mg rectal suppository 2022 023 [email or web address] [id number], [address] [place], [address], 3 08:13:41 Macrobid 100 mg capsule 2022 023 [email or web address] [id number], [address] [place], [address], 16:10:01 Patient TargetsNo targets recorded. Patient Instructions Encounter Date Encounter Id Patient Instructions Last Modified By Organization Details Last Modified Time 09/02/2022 [id number] hemorrhoids: car e instructions [email or web address] Not available 09/02/2022 16:47:47 Reason for Referral Urologist Referral for Incre ased frequency of urination Referring Physician: Chad Forman, Urgent Care, Encounter Date: 04/27/2022 Results Created Date Observation Date Name Description Value Unit Range Abnormal Flag Note LastModifiedBy Organization Detail LastModifiedTime 04/28/1904/29/2022 URINE CULTU RE, ROUTI NE urine culture, routine FINAL REPORT Not Available [facility]) [address] [facility], [place], [address], 04/29/2022 08:07:29 04/28/19 23 04/29/2022 URINE CULTU RE, ROUTI NE result 1 NO GROWTH Not Available [facility] ([facility]) [address] [facility], [place], [address], 04/29/2022 08:07:29 04/28/19 23 04/27/2022 urina lysis , dipst ick Unknown Analyte Yellow Not Available _ [facility] [address], [address], 04/27/2022 15:44:07 04/28/19 23 04/27/2022 urina lysis , dipst ick Unknown Analyte Clear Not Available _ [facility] [address], [address], 04/27/2022 15:44:07 04/28/19 23 04/27/2022 urina lysis , dipst ick Unknown Analyte Negati ve Not Available tania jay [address], [address], 04/27/2022 15:44:07 04/28/19 23 04/27/2022 urina lysis , dipst ick Unknown Analyte Negati ve Not Available [facility], [place], [address], 04/27/2022 15:44:07 04/28/19 23 04/27/2022 urina lysis , dipst ick Unknown Analyte Negati ve Not Available [facility], [place], [address], 04/27/2022 15:44:07 04/28/19 23 04/27/2022 urina lysis , dipst ick Unknown Analyte 1.025 Not Available [facility] [address], [place], [address], 04/27/2022 15:44:07 04/28/19 23 04/27/2022 urina lysis , dipst ick Unknown Analyte Small Not Available [facility] [address], [place], [address], 04/27/2022 15:44:07 04/28/19 23 04/27/2022 urina lysis , dipst ick Unknown Analyte 6.5 Not Available [facility] [address], [place], [address], 04/27/2022 15:44:07 04/28/19 23 04/27/2022 urina lysis , dipst ick Unknown Analyte 30 mg/dL Not Available [facility], [place], [address], 04/27/2022 15:44:07 04/28/19 23 04/27/2022 urina lysis , dipst ick Unknown Analyte 0.2 E.U./d L Not Available [facility], [place], [address], 04/27/2022 15:44:07 04/28/19 23 04/27/2022 urina lysis , dipst ick Unknown Analyte Negati ve Not Available [address] [place] [address], [address], 04/27/2022 15:44:07 04/28/19 23 04/27/2022 urina lysis , dipst ick Unknown Analyte Negati ve Not Available [address] [place] [address], [address], 04/27/2022 15:44:07 Result Notes None recorded. Problems Name Problem SNOMED Code Status Onset Date Resolution Date Notes Provider Name and Address Organization Details Recorded Time Hypertensive disorder 76286555 Active 2022 WILLIAM CARRILLO null, PA - [facility] 3 15:50:11 Hypercholester olemia 25309068 Active 2022 WILLIAM CARRILLO null, PA - [facility] 3 15:50:18 Gastroesophage al reflux disease 141489909 Active 2022 WILLIAM NOBLEICA null, PA - [facility] 3 15:50:32 Anxiety 37859637 Active 2022 WILLIAM NOBLEICA null, PA - [facility] 3 15:50:43 Asthma 043176590 Active 2022 WILLIAM CARRILLO null, PA - [facility] 3 15:51:05 Sleep apnea 03803820 Active 2022 WILLIAM LUPICA null, PA - [...] Name and Address Organization Details Recorded Time 241585 amoxicill in medicatio n itching Not available [...] Updated DateTime 3 180.34 cm 34.7 kg/m2 916931. 5 g 97.1 [degF] 95 % 99 /min 16 /min 129/82 mm[Hg] WILLIAM CARRILLO PA - [facility] 3 15:55:20 Date Recorded Body height Body mass index (BMI) Body weight Oxygen saturation Heart rate Respiratory rate Body temperature Systolic And Diastolic Provider Name and Address Organization Details Last Updated DateTime 3 180.34 cm 34.7 kg/m2 257942. 5 g 97 % 71 /min 18 /min 98.5 [degF] 128/78 mm[Hg] GURU CUMMINGS PA - [facility] 3 16:12:20 Social History Question Answer Notes LastModified by [employer] Details LastModified Time Tobacco Smoking Status Never Smoker WILLIAM CARRILLO candelario PA - [facility] 04/27/2022 15:52:41 Have You Recently Traveled Abroad? No [email or web address] Information not available 04/27/2022 Sex: Unknown Functional Status Question Answer Note LastModified by [employer] Details LastModified Time Do you use any illicit or recreational drugs? No [email or web address] Information not available 04/27/2022 Do you or have you ever used any other forms of tobacco or nicotine? No [email or web address] Information not available 04/27/2022 What is your level of alcohol consumption? None Information not available 04/27/2022 Mental Status None recorded. Family History Relationship Description Onset Age of this Age Resolved Age Notes LastModified by Organization Details LastModified Time Mother Heart disease [email or web address] Not available 2022 15:52:02 Mother Diabetes mellitus [email or web address] Not available 2022 15:52:09 Mother Myocardial infarction Not available 04/27 15:52:23 Father Myocardial infarction [email or web address] Not available 04/27 15:52:22 Medical History No medical history recorded. Past Encounters Encounter ID Performer Location Encounter Start Date Encounter Closed Date Diagnosis/Indication Diagnosis SNOMED-CT Code Diagnosis ICD10 Code Diagnosis IMO Codes Diagnosis Note [id number] [address] [address] [place] [address] 11/15/2018 19:08:29 11/15/2018 19:20:19 [id number] [address] [place] [address] 01/12/2017 19:30:06 01/12/2017 19:59:01 [id number] [address] [place] [address] 06/13/2019 14:32:24 06/13/2019 15:40:34 [id number] [address] [place] [address] 04/27/2017 18:40:25 04/27/2017 19:31:53 [id number] [address] [place] [address] 08/05/2021 08:35:18 08/05/2021 10:27:26 [id number] [address] [place] [address] 06/04/2016 19:47:53 06/04/2016 20:19:56 [id number] [address] [place] [address] 05/13/2020 17:53:47 05/13/2020 18:56:52 [id number] [address] [place] [address] 03/07/2018 19:42:56 03/07/2018 20:23:16 [id number] [address] [place] [address] 03/13/2015 15:25:32 03/13/2015 16:30:45 [id number] [address] [place] [address] 07/29/2021 15:41:12 07/29/2021 18:16:19 [id number] [address] [place] [address] 08/20/2017 18:49:49 08/20/2017 19:53:37 [id number] [facility] [place] [address] 06/18/2020 19:37:45 06/18/2020 20:14:38 [id number] Chad Forman DO [address] [place] [address] 04/27/2022 12:51:09 04/27/2022 16:36:40 Increased frequency of urination 571670757 R35.0 suspect UTISigns and Symptoms c/w UTIUA [...] agreement with the plan as outlined above. [id number] Marcelino Lea MD [address] [place] [address] 09/02/2022 15:20:17 09/02/2022 16:50:35 Hemorrhoids [id number] K64.9 likely internal hemorrhoid s as per [...] Amaya Member ID Guarantor Name 09/02/2022 1 [facility] [id number] 01 Norbert Cabrales [id number] Norbert Cabrales Notes Date Note Type Note Provider Name and Address Organization Details Recorded Time 04/27/2022 text/html Urinary Problems-MaleReporte d by [email or web address] yo male c/o frequency in urination x couple days--no burning, no pain. + decreased stream no increased urgencyno incontinenceno pressureno malodorno blood in urineno back painno rashno feverno nausea or vomitingno MS changeROS as noted in the HPI Chad Forman DO [address] [place], [address], [employer] 04/27/2022 16:35:50 09/02/2022 text/html UC Hemorrhoids/A nal PainReported by Patient Went to his PCP 2 days ago and told he had internal hemorrhoids. Told to take fiber drink only. Patient concerned and wants to be checked again. Feels anal discomfort. NO blood in stool or when wipes. no pain with defecation. Had colonoscopy 02/01. Marcelino Lea MD [address] [place], [address], [employer] 09/02/2022 18:39:03
== END 2025-01-13 10:48 | disposition home or self-care (01) ==
LOC: HO.HMCH 09:34
PROVIDERS: PCP Internal Medicine; Visit Provider Internal Medicine
DX: I10 Essential (primary) hypertension (principal); F41.1 Generalized anxiety disorder; E66.9 Obesity, unspecified; Z68.31 Body mass index [BMI] 31.0-31.9, adult; E78.00 Pure hypercholesterolemia, unspecified; R73.02 Impaired glucose tolerance (oral); K21.9 Gastro-esophageal reflux disease without esophagitis; N40.1 Benign prostatic hyperplasia with lower urinary tract symptoms; R35.0 Frequency of micturition; J45.20 Mild intermittent asthma, uncomplicated; G47.33 Obstructive sleep apnea (adult) (pediatric); B35.3 Tinea pedis

== ENCOUNTER 2025-01-15 08:09 | Outpatient (REF) | payer MEDICARE, OTHER, SELFPAY ==
[2025-01-15 09:40] LABS: PSA,Total (Free>4and<10) 28.90 ng/mL (0.00-4.00)
== END 2025-01-15 08:10 | disposition home or self-care (01) ==
LOC: HO.LAB 08:09
PROVIDERS: PCP Internal Medicine; Visit Provider Nurse Practitioner Family
DX: R97.20 Elevated prostate specific antigen [PSA] (principal); Z12.5 Encounter for screening for malignant neoplasm of prostate
CPT/HCPCS: 36415; 84153

== ENCOUNTER 2025-01-26 10:19 | Outpatient (AMB) | payer MEDICARE, OTHER, SELFPAY ==
--- NOTE | 2025-01-26 10:22 | A.OFFVIS_ITS ---
Intake Visit Reasons: Elevated PSA Intake Note: Patient is present for ELEVATED PSA Urology Medication:TAMSULSOIN,SILDENAFIL Antibiotic Allergy:PENICILLINS Blood Thinner:NONE Ball Winder Required: No Allergies Penicillins Adverse Reaction (Severe, Verified 01/26/25 14:39) Anxiety pineapple Adverse Reaction (Severe, Verified 01/26/25 14:39) swellling Medication List - Last Reconciled 01/26/25 by Madelaine Salcedo INSTRUCTOR WARPER- alprazolam 0.5 mg PO DAILY amlodipine 10 mg PO DAILY budesonide-formoterol 80-4.5 mcg/actuation (Symbicort) 2 puffs inhalation BID PRN cetirizine (Zyrtec) 10 mg PO DAILY cholecalciferol (vitamin D3) 25 mcg PO DAILY clotrimazole 1% 1 appl topical BID 4 weeks mohamud.stocking,knee,reg,xlrg 15-20 cm olmesartan 20 mg PO DAILY pantoprazole 40 mg PO DAILY salicylic acid 26% 1 appl topical BEDTIME 7 days sildenafil 100 mg PO DIRECTED tamsulosin 0.4 mg PO BEDTIME 90 days tizanidine 2 mg PO .QHS PRN HPI Comments Details: Norbert is a very pleasant 64-year-old male patient of Dr. Espinoza. He has a past medical history of GERD, obstructive sleep apnea compliant with CPAP, and asthma. He presents to the office today for a follow-up of his elevated PSA. In discussion with the patient today he reports having followed up with his PCP and having had blood work performed an elevated PSA was noted and recommendations were made to follow-up with Urology. Most recent PSA results reviewed with the patient today. As noted and trended below. We did discussed at length potential causes of elevated PSA. Of note, patient underwent an office cystoscopy with Dr. Zheng less than 1 month ago 01/06/25. UNIQUE was performed no nodules or masses palpated. In office urinalysis results reviewed with the patient today. He does continue to report labile lower urinary tract symptoms however he does feel Flomax has been helpful. He discusses his intentional weight loss of over 45 lb in the last 2 years. He discusses being active in the gym 5 times per week. He reports compliance with Flomax and p.r.n. Viagra as prescribed. He currently denies any bothersome urinary issues or concerns. PSAs are as follows: PSAs: 06/04 0.8, 11/04 0.7, 05/05 0.8, 10/05 1.1, 02/04 11.9, 02/04 28.9 Previous workup has included a bladder ultrasound 06/04 noting distended urinary bladder with pre void volume of approximately 410 mL. Postvoid bladder volume is approximately 115 mL. Enlarged prostate measuring 280 mL. In office urinalysis results reviewed with the patient today. When asked he denies any known family history of prostate cancer. All questions were answered. He otherwise offers no other issues or concerns at this time. [facility] Medical History Pain of right lower extremity due to injury Enlarged prostate Lightheadedness Right hip pain Murmur Atelectasis GERD (gastroesophageal reflux disease) ZOE (obstructive sleep apnea) Extremity edema Asthma Surgical History History of knee replacement procedure of left knee Social History Housing: House Alcohol intake: never Patient Tobacco Use Status: Never used Tobacco Tobacco use type: Cigarette e-Cigarette/Vaping Use: Never Used Second Hand Smoke Exposure: No service: Yes ([employer] [id number] ) Current occupational status: retired Cognitive needs: No Hearing needs: No Vision needs: Yes Review of Systems Const All systems reviewed & are unremarkable except as noted in HPI and below Physical Exam Const General: cooperative, healthy appearing, comfortable, no acute distress, well developed, alert and awake Nutritional Appearance: overweight Orientation/consciousness: patient oriented x3 Limitations: no limitations HEENT Head: Yes normal to inspection, Yes normocephalic and Yes atraumatic Ears: hearing grossly normal bilaterally Eyes General: appearance normal, both eyes and all related structures Neck Neck: Yes normal visual inspection and Yes trachea midline Chest Chest palpation & inspection: normal inspection of the chest Resp Effort & Inspection: normal respiratory effort and able to speak in complete sentences Cardio Rate: regular rate GI Inspection: Yes normal to inspection General: Yes no CVA tenderness Back/Spine/Pelvis Back: no CVA tenderness Skin General skin exam: no rashes or lesions noted Neuro General: patient oriented x3 Extrem General: Yes normal to inspection Psych Appearance: grossly normal and well kempt Mental Status: mental status grossly normal Speech and movement: Normal speech and movement present and Clear speech present Affect: normal affect Attitude: cooperative Thought process: Normal thought process present Thought content: Normal thought content present Insight: Fair insight present (Psych) Judgement: Fair judgement present (Psych) Results AMB Urinalysis, Automated UA Leukoctes 0 Lela/uL Last Edit by NATALIE Chiang on 01/26/25 10:36 UA Nitrite Negative Last Edit by Kim Vargas [facility] on 01/26/25 10:36 UA Urobilinogen 0.2 mg/dL Last Edit by Kim Vargas [facility] on 01/26/25 10:3 6 UA Protein 15 mg/dL Last Edit by Kim Vargas [facility] on 01/26/25 10:36 UA pH 6.0 Last Edit by Kim Vargas [facility] on 01/26/25 10:36 UA Blood 0 Edwin/uL Last Edit by Kim Vargas [facility] on 01/26/25 10:36 UA Specific [place] 1.015 Last Edit by Kim Vargas [facility] on 01/26/25 10: 36 UA Ketone Negative Last Edit by Kim Vargas [facility] on 01/26/25 10:36 UA Bilirubin 1 mg/dL Last Edit by Kim Vargas [facility] on 01/26/25 10:36 UA Glucose 0 mg/dL Last Edit by Kim Vargas [facility] on 01/26/25 10:36 Results Reviewed Results Reviewed: Laboratory Last Values Urine pH (Auto) 6.0 01/26/25 10:36 Specific [place] (Auto) 1.015 01/26/25 10:36 Urine Protein (Auto) 15 mg/dL 01/26/25 10:36 Glucose (UA)(Auto) 0 mg/dL 01/26/25 10:36 Urine Ketones (Auto) Negative 01/26/25 10:36 Urine Blood (Auto) 0 Edwin/uL 01/26/25 10:36 Urine Nitrite (Auto) Negative 01/26/25 10:36 Urine Bilirubin (Auto) 1 mg/dL 01/26/25 10:36 Urine Urobilinogen (Auto) 0.2 mg/dL 01/26/25 10:36 Leukocyte Esterase (Auto) 0 Lela/uL 01/26/25 10:36 Assessment & Plan Assessment & Plan (1) PSA elevation: Code(s): R97.20 - Elevated prostate specific antigen [PSA] Category: Medical (2) Enlarged prostate: Code(s): N40.0 - Benign prostatic hyperplasia without lower urinary tract symptoms Category: Medical (3) BPH (benign prostatic hyperplasia): Code(s): N40.0 - Benign prostatic hyperplasia without lower urinary tract symptoms Category: Medical Qualifiers: Lower urinary tract symptom detail: urinary frequency Lower urinary tract symptom presence: symptoms present Qualified Code(s): N40.1 - Benign prostatic hyperplasia with lower urinary tract symptoms; R35.0 - Frequency of micturition Plan: Plan Risks and benefits regarding trans rectal ultrasound with prostate biopsy were discussed.? Options of continued surveillance, no treatment and biopsy were offered. The risks include but are not limited to, urinary tract infection, sepsis, difficulty urinating, bleeding into the rectum or bladder that requires intervention and transfusion,and failure to diagnose prostate cancer. The patient understands the options and the risks involved. They wish to proceed. Printed information was provided to ensure he remains off anticoagulation for the appropriate length of time. He may require cardiology or PCP clearance.? An antibiotic will be administered prior to, and following the procedure Plan In office urinalysis results with the patient today; as noted above. Most recent PSA results reviewed with the patient today; as noted above. We did discussed at length potential causes of elevated PSA as well as further treatment options and risks and benefits of these treatment options. All questions were answered. UNIQUE was performed; as noted above Continue Flomax. Will schedule for prostate biopsy as discussed. Prescription provided for antibiotic therapy; we did discussed importance of taking medication day before procedure, morning of procedure, and day after procedure. Follow-up per doctor's orders; or sooner with any issues, concerns, and or questions. Orders: Orders AMB Urinalysis Automated Today Z13.9 - Encounter for screening, unspecified US biopsy prostate Today N40.0 - Benign prostatic hyperplasia without lower urinary tract symptoms, N40.1 - Benign prostatic hyperplasia with lower urinary tract symptoms, R35.0 - Frequency of micturition, R97.20 - Elevated prostate specific antigen [PSA] Medications: New levofloxacin take 1 tablet day before procedure, 1 tablet day of procedure and 1 tablet day after procedure 500 mg PO DAILY 3 tabs 0RF 3 days Patient Instructions: The patient had an opportunity to ask questions regarding the treatment plan. All questions were answered. Physical exam, labs, and imaging were discussed and reviewed in detail. As well as risks, benefits, and discussion of treatment choices. No major barriers to understanding were identified. The patient expre ssed understanding and agreement with the above treatment plan. The patient was made aware they should contact our office by phone for worsening of their current condition, the appearance of new symptoms, or with any questions or concerns. Compliance is encouraged with any medications and follow up testing that is ordered. It is a privilege to be allowed the opportunity to participate in? your urological care.? Again, if you have any questions or concerns If you have any questions or concerns please do not hesitate to contact me. The office is [phone]. This note is constructed using voice recognition software. While every effort has been made to ensure accuracy damascener errors may have been included. Yours sincerely, ALEJANDRA Gaffney Coding Level of Care Code Est Pt Level 4 (70666) Add On Problem Visit Only Diagnoses PSA elevation R97.20 Enlarged prostate N40.0 Benign prostatic hyperplasia with urinary frequency N40.1; R35.0 Lower urinary tract symptom detail: urinary frequency Lower urinary tract symptom presence: symptoms present
--- OUTSIDE RECORDS SUMMARY | 2025-01-26 12:59 | XMS_ITS | Clinical Summary ---
Author Organization [facility] Address [address] [place] [address] [place] [address] Phone Care Team Providers Care Community Arts Officer Name Role Phone Kyler Alonso MD Primary Care Provider [phone] Allergies Active Allergy Reactions Criticality Noted Date [...] Medical Devices Not on file Insurance HMO [facility] [place] [facility] [address] [place], [place] [address] [facility] HMO Advance Directives For more information, please contact: [phone] (9AM - 5PM [facility], Saturday-Saturday) Healthcare Agents on File Name Relationship Healthcare Agent Relationshi Communication Hannah Cabrales Spouse .Primary Health Care Agent (Proxy form on file) Care Teams Community Arts Officer Relationship Specialty Start Date End Date Kyler Alonso MD [address] [place] [address] [place] [id number] PCP - General Internal Medicine 11/20/21 Additional Source Comments The information contained in this document represents components of the legal health record. It is not the complete legal health record.[facility]
--- OUTSIDE RECORDS SUMMARY | 2025-01-26 12:59 | XMS_ITS | Encounter Summary ---
Author Organization [facility] Address [address] [place] [address] [place] [address] Phone Care Team Providers Care Clerk Manager Name Role Phone Kyler Alonso MD Primary Care Provider [phone] Encounter Details Date Type Department Care Team (Late st Contact Info) Description 11/20/2021 Procedure [facility] [address] [place] [address] Social History Tobacco Use Types Packs/Day Years [...] 8:55 PM EDT Kyler Coto RN * [place] Suicide Severity Rating Scale (Screener/Recent Self-Report) Question [...] documented as of this encounter Care Teams Clerk Manager Relationship Specialty Start Date End Date Kyler Alonso MD [address] [place] [address] PCP - General Internal Medicine 11/20/21 documented as of this encounter Additional Source Comments The information contained in this document represents components of the legal health record. It is not the complete legal health record.[facility]
--- OUTSIDE RECORDS SUMMARY | 2025-01-26 12:59 | XMS_ITS | Clinical Summary ---
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 Currently, I do not appreciate significant murmur and his echocardiogram does not suggest valvular disease either. Most likely the murmur is a flow murmur and could be triggered by dehydration. Will continue clinical monitor giving his age. We also discussed about avoiding dehydration. I will obtain echo image from [facility]. He is otherwise completely asymptomatic with intense exercise. There is no further workup needed. Resolved Problems Problem Noted Date Diagnosed Date Resolved Date Atrioventricular block, first degree 07/03/2024 07/07/2024 Assessment & Plan (07/07/2024 2:10 PM EDT): Orders: Ambulatory referral to Cardiology ECG 12 lead Encounters Date Type Department Care Team Description 11/25/2024 4:09 PM EDT - 11/25/2024 6:15 PM EDT Emergency [facility] Emergency [address] [place] [address] Anthony Amanda MD Motor vehicle [...] Signed Date: 11/26/2024 08:01 ET Workstation ID: [id number] Transcribed By: Self Edit Transcribed Date: 11/26/2024 [...] Signed Date: 11/26/2024 08:01 ET Workstation ID: [id number] Transcribed By: Self Edit Transcribed Date: 11/26/2024 07:59 ET Anthony Méndez MD IMG XR PROCEDURES Fi nal Result * XR Knee 4+ Views Right (11/25/2024 5:08 PM EDT) Anatomical Region Laterality Modality Lower Extremities, Knee Right Radiogra [facility] Imaging 11/26/2024 7:59 AM EDT Impressions 11/26/2024 8:01 AM EDT No acute fracture or subluxation. -------- FINAL REPORT -------- Dictated By: Ricardo Hercules Dictated Date: 11/26/2024 07:59 ET Assigned Physician: Ricardo Hercules Reviewed and Electronically Signed By: Ricardo Hercules Signed Date: 11/26/2024 08:01 ET Workstation ID: [id number] Transcribed By: Self Edit Transcribed Date: 11/26/2024 [...] Signed Date: 11/26/2024 08:01 ET Workstation ID: [id number] Transcribed By: Self Edit Transcribed Date: 11/26/2024 07:59 ET us Anthony Méndez MD IMG XR PROCEDURES Fi nal Result * Basic metabolic panel (06/28/2024 2:23 PM EDT) Sodium 137 133 - 145 mmol/L LAB CHEMISTRY METHOD 06/28/2024 3:08 PM EDT [facility] Potassium 4.2 3.5 - 5.5 mmol/L LAB CHEMISTRY METHOD 06/28/2024 3:08 PM T [facility] Chloride 105 96 - 110 [...] MD LAB BLOOD ORDERABLES Final Res ult [facility] [address] [place] [address], [place] [phone] from Last 3 Months or Most Recently Relevant to Health Maintenance Insurance [facility] [employer] [address] [address] MEDICARE Care Teams High School Football Coach Relationship Specialty Start Date End Date José Miguel Espinoza MD [address] [place] [address] PCP - General Internal Medicine 07/07/24
== END 2025-01-26 11:03 | disposition home or self-care (01) ==
LOC: HO.HUSH 10:21
PROVIDERS: PCP Internal Medicine; Visit Provider Nurse Practitioner Family
DX: R97.20 Elevated prostate specific antigen [PSA] (principal); N40.0 Benign prostatic hyperplasia without lower urinary tract symptoms; N40.1 Benign prostatic hyperplasia with lower urinary tract symptoms; R35.0 Frequency of micturition; Z13.9 Encounter for screening, unspecified
CPT/HCPCS: 99214; G2211

== ENCOUNTER → 2025-01-26 10:19 | Outpatient (BNVA) | payer MEDICARE, OTHER, SELFPAY | PROVIDERS: PCP Internal Medicine; Visit Provider Nurse Practitioner Family | DX: R97.20 Elevated prostate specific antigen [PSA] (principal); N40.1 Benign prostatic hyperplasia with lower urinary tract symptoms; R35.0 Frequency of micturition | CPT/HCPCS: 81003; 99212 ==

== ENCOUNTER 2025-02-03 08:59 | Outpatient (AMB) | payer MEDICARE, OTHER, SELFPAY ==
--- NOTE | 2025-02-03 09:03 | MHC.OFFVIS ---
Intake Visit Reasons: irritation between toes Intake Note: Norbert is a 64 year old male who presents today as a new patient for an evaluation of irritation inbetween her toes. Patient reports Ask where the irritation is located foot and right how long 1 year left foot and 4 months for right foot what has he tried to us alcohal and cotton balls in the balls tea tree and aquafora not helping Allergies Penicillins Adverse Reaction (Severe, Verified 02/03/25 09:06) Anxiety pineapple Adverse Reaction (Severe, Verified 02/03/25 09:06) swellling HPI HPI irritation between toes: Details: The patient is a 64 year old male past medical history of hypertension, hypothyroidism, GERD, who presents for initial evaluation of a painful lesion between his toes in both of his feet. He previously saw a senior mortgage loan processor for his left foot lesion which was debrided. States he has not had any other treatment at this time. He has been applying topical Aquaphor and tea tree oil which helps relieve some of his symptoms. The patient reports a recurring painful bump between the toes on his left foot, which is caused by a bone spur that rubs against the adjacent toe. A previous doctor had shaved it down, and the patient has tried various topical treatments on it. The condition is exacerbated by a bunion pushing the great toe inward. [facility] Medical History (Reviewed 01/26/25 @ 14:44 by Madelaine Salcedo [facility]) Pain of right lower extremity due to injury Enlarged prostate Lightheadedness Right hip pain Murmur Atelectasis GERD (gastroesophageal reflux disease) ZOE (obstructive sleep apnea) Extremity edema Asthma Surgical History History of knee replacement procedure of left knee Social History Housing: House Alcohol intake: never Patient Tobacco Use Status: Never used Tobacco Tobacco use type: Cigarette e-Cigarette/Vaping Use: Never Used Second Hand Smoke Exposure: No service: Yes ([employer] [id number] ) Current occupational status: retired Cognitive needs: No Hearing needs: No Vision needs: Yes Review of Systems Const All systems reviewed & are unremarkable except as noted in HPI and below Physical Exam Extrem Other: *Bilateral Lower Extremity Focused Exam Vascular: DP/PT 2/4, CFT<3s to digits, TG warm to cool, pedal hair present, no pedal edema Derm: Mild hyperkeratotic lesions to the medial border of the right 2nd PIPJ, left 4th lateral PIPJ. Neuro: Protective sensation grossly intact to bilateral lower extremities MSK: Semi rigid flexion deformity of digits 2 through 4 bilateral feet. Tracking right hallux valgus deformity, moderate, no crepitus. range of motion 50 degrees dorsiflexion bilateral 1st Metatarsal-phalangeal joint Assessment & Plan Assessment & Plan (1) Acquired hammertoes of both feet: Code(s): M20.41 - Other hammer toe(s) (acquired), right foot; M20.42 - Other hammer toe(s) (acquired), left foot Category: Medical Plan: - Several options for management were discussed, with a recommendation to start with conservative care as surgery is not deemed necessary at this time if his pain symptoms are minimal. - Recommended using a gel toe separator and wider shoes to decrease friction. - Advised that if calluses develop, he can file them down and apply dvfs-jgk-gnuishf urea cream. - Placed a referral for foot X-rays - Instructed to follow up in one month to review X-ray results and evaluate the effectiveness of the conservative measures. F/u in 1 month (2) Hallux valgus (acquired), right foot: Code(s): M20.11 - Hallux valgus (acquired), right foot Category: Medical Plan: Ordered x-rays Orders: Orders XR Foot Nadeem 3V Today M20.41 - Other hammer toe(s) (acquired), right foot, M20.42 - Other hammer toe(s) (acquired), left foot Medications: New urea 20% Apply to calluses between toes 1 appl topical BID 85 grams 3RF Calluses between toes L84 - Corns and callosities Coding Level of Care Code New Pt Level 4 (71187) Diagnoses Acquired hammertoes of both feet M20.41; M20.42 Hallux valgus (acquired), right foot M20.11 Time Spent (min) 35
--- OUTSIDE RECORDS SUMMARY | 2025-02-03 09:04 | XMS_ITS | Encounter Summary ---
Author Organization [facility] Address [address] [place] [address] Phone Care Team Providers Care Brain Surgeon Name Role Phone Kyler Alonso MD Primary Care Provider [phone] Encounter Details Date Type Department Care Team (Late st Contact Info) Description 11/20/2021 Procedure [facility] [address] [place] [address] Social History Tobacco Use Types Packs/Day Years [...] documented as of this encounter Care Teams Brain Surgeon Relationship Specialty Start Date End Date Kyler Alonso MD [address] [place] [address] [place] [address] PCP - General Internal Medicine 11/20/21 documented as of this encounter Additional Source Comments The information contained in this document represents components of the legal health record. It is not the complete legal health record.[facility]
--- OUTSIDE RECORDS SUMMARY | 2025-02-03 09:04 | XMS_ITS | Clinical Summary ---
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 Currently, I do not appreciate significant murmur and his echocardiogram does not suggest valvular disease either. Most likely the murmur is a flow murmur and could be triggered by dehydration. Will continue clinical monitor giving his age. We also discussed about avoiding dehydration. I will obtain echo image from [facility]. He is otherwise completely asymptomatic with intense exercise. There is no further workup needed. Resolved Problems Problem Noted Date Diagnosed Date Resolved Date Atrioventricular block, first degree 07/03/2024 07/07/2024 Assessment & Plan (07/07/2024 2:10 PM EDT): Orders: Ambulatory referral to Cardiology ECG 12 lead Encounters Date Type Department Care Team Description 11/25/2024 4:09 PM EDT - 11/25/2024 6:15 PM EDT Emergency [facility] Emergency [address] [place] [address] Anthony Amanda MD Motor vehicle [...] Done Comments Colorectal Cancer Screening: Colonoscopy 1960 Drug Screen 1960 Non-Opioid Controlled Substance Agreement 1960 DTaP,Tdap,and Td Vaccines (1 - Tdap) [...] Signed Date: 11/26/2024 08:01 ET Workstation ID: [id number] Transcribed By: Self Edit Transcribed Date: 11/26/2024 [...] Signed Date: 11/26/2024 08:01 ET Workstation ID: [id number] Transcribed By: Self Edit Transcribed Date: 11/26/2024 07:59 ET Anthony Méndez MD IMG XR PROCEDURES Fi nal Result * XR Knee 4+ Views Right (11/25/2024 5:08 PM EDT) Anatomical Region Laterality Modality Lower Extremities, Knee Right Radiogra [facility] Imaging 11/26/2024 7:59 AM EDT Impressions 11/26/2024 8:01 AM EDT No acute fracture or subluxation. -------- FINAL REPORT -------- Dictated By: Ricardo Hercules Dictated Date: 11/26/2024 07:59 ET Assigned Physician: Ricardo Hercules Reviewed and Electronically Signed By: Ricardo Hercules Signed Date: 11/26/2024 08:01 ET Workstation ID: [id number] Transcribed By: Self Edit Transcribed Date: 11/26/2024 [...] Signed Date: 11/26/2024 08:01 ET Workstation ID: [id number] Transcribed By: Self Edit Transcribed Date: 11/26/2024 07:59 ET us Anthoyn Méndez MD IMG XR PROCEDURES Fi nal Result * Basic metabolic panel (06/28/2024 2:23 PM EDT) Sodium 137 133 - 145 mmol/L LAB CHEMISTRY METHOD 06/28/2024 3:08 PM EDT [facility] Potassium 4.2 3.5 - [...] MD LAB BLOOD ORDERABLES Final Res ult [facility] [address] [place] [address], [place] [phone] from Last 3 Months or Most Recently Relevant to Health Maintenance Insurance [facility] [place] [address] MEDICARE Care Teams Clip Baker Relationship Specialty Start Date End Date José Miguel Espinoza MD [address] [place] [address] PCP - General Internal Medicine 07/07/24
--- OUTSIDE RECORDS SUMMARY | 2025-02-03 09:05 | XMS_ITS | Clinical Summary ---
Author Organization [facility] Address [address] [place] [address] [place] [address] Phone Care Team Providers Care Wrecking Supervisor Name Role Phone Kyler Alonso MD Primary Care Provider [phone] Allergies Active Allergy Reactions Criticality Noted Date [...] Medical Devices Not on file Insurance HMO [facility] [place], [place] [facility] [address] [place] [address]O [facility] HMO Advance Directives For more information, please contact: [phone] (9AM - 5PM [facility], Saturday-Saturday) Healthcare Agents on File Name Relationship Healthcare Agent Relationshi Communication Hannah Cabrales Spouse .Primary Health Care Agent (Proxy form on file) Care Teams Wrecking Supervisor Relationship Specialty Start Date End Date Kyler Alonso MD [address] [place] [address] [place] [address] PCP - General Internal Medicine 11/20/21 Additional Source Comments The information contained in this document represents components of the legal health record. It is not the complete legal health record.[facility]
--- OUTSIDE RECORDS SUMMARY | 2025-02-03 09:05 | XMS_ITS | Data Portability ---
Author Organization [facility] Address [address] [place] [address] Care Team Providers Care Compensation And Benefits Analyst Name Role Phone SLADE EM Primary Care Provider [phone] Assessment No assessment recorded. Plan of Treatment Reminders Order Date Submit Date Provider Last Modified By Organization Details Last Modified Time Details Appointments None recorded. Lab urinalysis, dipstick 20[email or web address], [address] [place] [address], [place], [address], 3 16:34:09 culture, urine 2022 023 [facility], [address] [place] [address], [place], [address], 3 08:07:29 Referral urologist referral 2022 023 [email or web address] 26 Not available 3 09:08:28 Procedures None recorded. Surgeries None recorded. Imaging None recorded. Medication Orders Anusol-HC 25 mg rectal suppository 2022 023 [email or web address] [id number], [address] [place], [address], 3 08:13:41 Macrobid 100 mg capsule 2022 023 [email or web address] [id number], [address] [place], [address], 16:10:01 Patient TargetsNo targets recorded. Patient Instructions Encounter Date Encounter Id Patient Instructions Last Modified By Organization Details Last Modified Time 09/02/2022 [id number] hemorrhoids: car e instructions [email or web address] Not available 09/02/2022 16:47:47 Reason for Referral Urologist Referral for Incre ased frequency of urination Referring Physician: Chad Forman, Urgent Care, Encounter Date: 04/27/2022 Results Created Date Observation Date Name Description Value Unit Range Abnormal Flag Note LastModifiedBy Organization Detail LastModifiedTime 04/28/1904/29/2022 URINE CULTU RE, ROUTI NE urine culture, routine FINAL REPORT Not Available [facility] [address] [facility] [address], [place], [address], 04/29/2022 08:07:29 04/28/19 23 04/29/2022 URINE CULTU RE, ROUTI NE result 1 NO GROWTH Not Available [facility] [address] [facility], [place], [address], 04/29/2022 08:07:29 04/28/19 23 04/27/2022 urina lysis , dipst ick Unknown Analyte Yellow Not Available _ [facility] [address], [address], 04/27/2022 15:44:07 04/28/19 23 04/27/2022 urina lysis , dipst ick Unknown Analyte Clear Not Available _ [facility] [address], [address], 04/27/2022 15:44:07 04/28/19 23 04/27/2022 urina lysis , dipst ick Unknown Analyte Negati ve Not Available [facility] [address], [address], 04/27/2022 15:44:07 04/28/19 23 04/27/2022 urina lysis , dipst ick Unknown Analyte Negati ve Not Available [facility], [place], [address], 04/27/2022 15:44:07 04/28/19 23 04/27/2022 urina lysis , dipst ick Unknown Analyte Negati ve Not Available [facility], [place], [address], 04/27/2022 15:44:07 04/28/19 23 04/27/2022 urina lysis , dipst ick Unknown Analyte 1.025 Not Available [facility], [place], [address], 04/27/2022 15:44:07 04/28/19 23 04/27/2022 urina lysis , dipst ick Unknown Analyte Small Not Available [facility] [address], [place], [address], 04/27/2022 15:44:07 04/28/19 23 04/27/2022 urina lysis , dipst ick Unknown Analyte 6.5 Not Available [facility] [address], [place], [address], 04/27/2022 15:44:07 04/28/19 23 04/27/2022 urina lysis , dipst ick Unknown Analyte 30 mg/dL Not Available [facility], [place], [address], 04/27/2022 15:44:07 04/28/19 23 04/27/2022 urina lysis , dipst ick Unknown Analyte 0.2 E.U./d L Not Available [facility], [place], [address], 04/27/2022 15:44:07 04/28/19 23 04/27/2022 urina lysis , dipst ick Unknown Analyte Negati ve Not Available [address] [place] [address], [address], 04/27/2022 15:44:07 04/28/19 23 04/27/2022 urina lysis , dipst ick Unknown Analyte Negati ve Not Available [address] [place] [address], [address], 04/27/2022 15:44:07 Result Notes None recorded. Problems Name Problem SNOMED Code Status Onset Date Resolution Date Notes Provider Name and Address Organization Details Recorded Time Hypertensive disorder 34531848 Active 2022 WILLIAM CARRILLO null, PA - [facility] 3 15:50:11 Hypercholester olemia 70348265 Active 2022 WILLIAM CARRILLO null, PA - [facility] 3 15:50:18 Gastroesophage al reflux disease 956873925 Active 2022 WILLIAM NOBLEICA null, PA - [facility] 3 15:50:32 Anxiety 51210692 Active 2022 WILLIAM NOBLEICA null, PA - [facility] 3 15:50:43 Asthma 267155203 Active 2022 WILLIAM CARRILLO null, PA - [facility] 3 15:51:05 Sleep apnea 31129421 Active 2022 WILLIAM LUPICA null, PA - [...] Name and Address Organization Details Recorded Time 400697 amoxicill in medicatio n itching Not available [...] Updated DateTime 3 180.34 cm 34.7 kg/m2 908753. 5 g 97.1 [degF] 95 % 99 /min 16 /min 129/82 mm[Hg] WILLIAM CARRILLO PA - [facility] 3 15:55:20 Date Recorded Body height Body mass index (BMI) Body weight Oxygen saturation Heart rate Respiratory rate Body temperature Systolic And Diastolic Provider Name and Address Organization Details Last Updated DateTime 3 180.34 cm 34.7 kg/m2 338824. 5 g 97 % 71 /min 18 /min 98.5 [degF] 128/78 mm[Hg] GURU CUMMINGS PA - [facility] 3 16:12:20 Social History Question Answer Notes LastModified by [employer] Details LastModified Time Tobacco Smoking Status Never Smoker WILLIAM CARRILLO candelario PA - [facility] 04/27/2022 15:52:41 Have You Recently Traveled Abroad? No [email or web address] Information not available 04/27/2022 Sex: Unknown Functional Status Question Answer Note LastModified by [employer] Details LastModified Time Do you use any illicit or recreational drugs? No Information not available 04/27/2022 Do you or have you ever used any other forms of tobacco or nicotine? No [email or web address] Information not available 04/27/2022 What is your level of alcohol consumption? None [email or web address] Information not available 04/27/2022 Mental Status None recorded. Family History Relationship Description Onset Age of this Age Resolved Age Notes LastModified by Organization Details LastModified Time Mother Heart disease Not available 2022 15:52:02 Mother Diabetes mellitus [email or web address] Not available 2022 15:52:09 Mother Myocardial infarction Not available 04/27 15:52:23 Father Myocardial infarction [email or web address] Not available 04/27 15:52:22 Medical History No medical history recorded. Past Encounters Encounter ID Performer Location Encounter Start Date Encounter Closed Date Diagnosis/Indication Diagnosis SNOMED-CT Code Diagnosis ICD10 Code Diagnosis IMO Codes Diagnosis Note [id number] [address] [place] [address] 11/15/2018 19:08:29 11/15/2018 19:20:19 [id number] [address] [place] [address] 01/12/2017 19:30:06 01/12/2017 19:59:01 [id number] [address] [place] [address] 06/13/2019 14:32:24 06/13/2019 15:40:34 [id number] [address] [place] [address] 04/27/2017 18:40:25 04/27/2017 19:31:53 [id number] [address] [place] [address] 08/05/2021 08:35:18 08/05/2021 10:27:26 [id number] [address] [place] [address] 06/04/2016 19:47:53 06/04/2016 20:19:56 [id number] [address] [place] [address] 05/13/2020 17:53:47 05/13/2020 18:56:52 [id number] [address] [place] [address] 03/07/2018 19:42:56 03/07/2018 20:23:16 [id number] [address] [place] [address] 03/13/2015 15:25:32 03/13/2015 16:30:45 [id number] [address] [place] [address] 07/29/2021 15:41:12 07/29/2021 18:16:19 [id number] [address] [place] [address] 08/20/2017 18:49:49 08/20/2017 19:53:37 [id number] [address] [place] [address] 06/18/2020 19:37:45 06/18/2020 20:14:38 [id number] Chad Forman DO [address] [place] [address] 04/27/2022 12:51:09 04/27/2022 16:36:40 Increased frequency of urination 634656331 R35.0 suspect UTISigns and Symptoms c/w UTIUA [...] agreement with the plan as outlined above. [id number] Marcelino Lea MD [address] [place] [address] 09/02/2022 15:20:17 09/02/2022 16:50:35 Hemorrhoids 37237845 K64.9 likely internal hemorrhoid s as per [...] ID Guarantor Name 09/02/2022 1 [facility] [id number] 01 Norbert Cabrales [id number] Norbert Cabrales Notes Date Note Type Note Provider Name and Address Organization Details Recorded Time 04/27/2022 text/html Urinary Problems-MaleReporte d by [email or web address] yo male c/o frequency in urination x couple days--no burning, no pain. + decreased stream no increased urgencyno incontinenceno pressureno malodorno blood in urineno back painno rashno feverno nausea or vomitingno MS changeROS as noted in the HPI Chad Forman DO [address] [place], [address], [email or web address] 04/27/2022 16:35:50 09/02/2022 text/html UC Hemorrhoids/A nal PainReported by Patient Went to his PCP 2 days ago and told he had internal hemorrhoids. Told to take fiber drink only. Patient concerned and wants to be checked again. Feels anal discomfort. NO blood in stool or when wipes. no pain with defecation. Had colonoscopy 02/01. Marcelino Lea MD [address] [place], [address], [employer] 09/02/2022 18:39:03
== END 2025-02-03 09:55 | disposition home or self-care (01) ==
LOC: HO.HPODS 09:00
PROVIDERS: PCP Internal Medicine; Visit Provider Student in an Organized Health Care Education/Training Program
DX: M20.41 Other hammer toe(s) (acquired), right foot (principal); M20.42 Other hammer toe(s) (acquired), left foot; M20.11 Hallux valgus (acquired), right foot
CPT/HCPCS: 99204

== ENCOUNTER 2025-02-03 08:59 | Outpatient (REF) | payer MEDICARE, OTHER, SELFPAY ==
--- NOTE | ~2025-02-03 | XR_ITS ---
EXAMINATION: X-ray bilateral feet CLINICAL INFORMATION: Hammertoe COMPARISON: None TECHNIQUE: Left foot 3 views. Right foot 3 views. FINDINGS: Left foot: No visible acute fracture or dislocation. Moderate hallux valgus. Mild first MTP arthritis. There is a corticated ossification along the medial aspect of the first metatarsal head. Tarsometatarsal alignment is maintained. No erosions. No abnormal soft tissue calcification. Right foot: No visible acute fracture or dislocation. Moderate hallux valgus. Mild first MTP arthritis. Small corticated ossification medial to the first metatarsal head. Tarsometatarsal alignment is maintained. No erosions. No abnormal soft tissue calcification.. XR/XR Foot Nadeem 3V IMPRESSION: Bilateral moderate hallux valgus. Bilateral first MTP arthritis. Electronically signed by: Jean Murray MD 02/05/2025 09:01 AM KANG MULLER
== END 2025-02-03 09:00 | disposition home or self-care (01) ==
LOC: HO.HMGCX 08:59
PROVIDERS: PCP Internal Medicine; Visit Provider Student in an Organized Health Care Education/Training Program
DX: M20.41 Other hammer toe(s) (acquired), right foot (principal); M20.42 Other hammer toe(s) (acquired), left foot; M20.11 Hallux valgus (acquired), right foot; L84 Corns and callosities
CPT/HCPCS: 73630; 99202

== ENCOUNTER → 2025-02-03 10:35 | Outpatient (BNV) | payer MEDICARE, OTHER, SELFPAY | PROVIDERS: PCP Internal Medicine; Visit Provider Radiology Diagnostic Ultrasound | DX: M20.11 Hallux valgus (acquired), right foot (principal); M20.12 Hallux valgus (acquired), left foot | CPT/HCPCS: 73630 ==